=== PATIENT | male | born 1945 | race Caucasian/White ===

== ENCOUNTER 2019-09-17 07:39 | Outpatient (RCR) | payer MEDICARE, BC, SELFPAY | END 2019-10-04 00:01 | LOC: ONCMED 07:39 | PROVIDERS: Family Provider Nurse Practitioner; Visit Provider Urology | DX: C90.02 Multiple myeloma in relapse (principal); M16.0 Bilateral primary osteoarthritis of hip; I10 Essential (primary) hypertension; I48.91 Unspecified atrial fibrillation; M85.88 Other specified disorders of bone density and structure, other site; G47.00 Insomnia, unspecified; M79.89 Other specified soft tissue disorders; Z79.899 Other long term (current) drug therapy; Z79.82 Long term (current) use of aspirin; Z79.891 Long term (current) use of opiate analgesic; Z94.84 Stem cells transplant status; Z87.01 Personal history of pneumonia (recurrent); Z87.891 Personal history of nicotine dependence; Z87.442 Personal history of urinary calculi; Z98.1 Arthrodesis status | CPT/HCPCS: 74018; 96372; 99214; J0897 ==

== ENCOUNTER 2019-10-13 05:35 | Outpatient (RCR) | payer MEDICARE, BC, SELFPAY | END 2019-11-04 00:01 | LOC: ONCMED 05:35 | PROVIDERS: Family Provider Nurse Practitioner; Visit Provider Nurse Practitioner | DX: C90.02 Multiple myeloma in relapse (principal); R60.0 Localized edema; E83.52 Hypercalcemia; I10 Essential (primary) hypertension; I48.91 Unspecified atrial fibrillation; M85.80 Other specified disorders of bone density and structure, unspecified site; M25.551 Pain in right hip; Z79.899 Other long term (current) drug therapy; Z79.891 Long term (current) use of opiate analgesic; Z87.891 Personal history of nicotine dependence ==

== ENCOUNTER 2019-11-26 12:18 | Outpatient (CLI) | payer MEDICARE, BC, SELFPAY ==
--- NOTE | 2019-11-26 12:36 | CT_ITS ---
WS: [id number] CT CHEST ANGIOGRAPHY WITH REFORMATS HISTORY: MYELOMA/SHORTNESS OF BREATH/ARRHYTHMIA TECHNIQUE: Contiguous axial images are obtained through the chest during arterial injection of intrav enous contrast. Images are reconstructed to evaluate the pulmonary arteries. MIP imaging also reviewe d. All CT scans at [facility] use at least one of these dose optimization techniques: aut omated exposure control; mA and/or kV adjustment per patient size (includes targeted exams where dose is matched to clinical indication); or iterative reconstruction. CONTRAST: Omnipaque 350; 95 mL IV. DLP: 601.15 mGy.cm COMPARISON: 08/30/[address] Very good opacification of the pulmonary arteries. No persistent filling defects. Pulmonary artery si ze is normal. Mild atherosclerosis of aorta. Small bilateral pleural effusions. Heart chambers are sl ightly enlarged, in particular LEFT ventricular enlargement. There is a small amount of pericardial t hickening or fluid. No mediastinal or hilar adenopathy. Moderate coronary artery calcifications. Thoracic spondylosis wit h prior vertebroplasty at T5. L1 vertebroplasty is also present. Bilateral cystic masses associated with each kidney. Some of these cysts contain calcification in the wall. Similar distribution as on the prior study but incompletely visualized. The adrenal glands are normal. CT/CT angio chest PE protcl [id number] IMPRESSION: 1. No pulmonary embolism. 2. Small bilateral pleural effusions. 3. Mild cardiomegaly. 4. Bilateral renal cystic masses cannot be further evaluated on a noncontrast exam. 5. No pneumonia.
[2019-11-26] MEDS: iohexol 350 mg/mL 100 mL Btl IV (14:06)
== END 2019-11-26 12:19 | disposition home or self-care (01) ==
PROVIDERS: Family Provider Nurse Practitioner; PCP Nurse Practitioner; Visit Provider Internal Medicine Medical Oncology
DX: C90.02 Multiple myeloma in relapse (principal); R06.02 Shortness of breath; I49.9 Cardiac arrhythmia, unspecified; J90 Pleural effusion, not elsewhere classified; I51.7 Cardiomegaly; N28.89 Other specified disorders of kidney and ureter
CPT/HCPCS: 71275

== ENCOUNTER 2019-11-26 12:30 | Outpatient (RCR) | payer MEDICARE, BC, SELFPAY ==
[2019-11-06 11:00] LABS: Alanine Aminotransferase 15 U/L (0-41); Albumin Level 4.4 g/dL (3.5-5.2); Alkaline Phosphatase 60 IU/L (40-130); Anion Gap 16.5 (5-19); Aspartate Amino Transferase 13 U/L (0-40); Blood Urea Nitrogen 19 mg/dL (8-23); Calcium 10.7 mg/Dl (8.8-10.2); Carbon Dioxide 30 mmol/L (22-29); Chloride 97 mmol/L (98-107); Globulin 2.6 g/dL (1.3-4.6); Glucose 142 mg/dL (74-106); Immunoglobulin IGA 102 mg/dL (70-400); Immunoglobulin IGG 1052 mg/dL (700-1600); Immunoglobulin IGM 54 mg/dL (40-230); Potassium 3.5 mmol/L (3.5-5.1); Sodium 140 mmol/L (136-145); Total Bilirubin 0.7 mg/dL (0.15-1.2)
[2019-11-07 07:06] LABS: Basophils % 0.2 %; Hematocrit 42.7 % (42.0-52.0); Hemoglobin 13.6 g/dL (11.7-16.6); Lymphocytes # 0.4 10^3/uL (0.8-4.8); Lymphocytes % 6.9 %; Mean Corpuscular HGB Conc 31.9 g/dL (30.0-36.0); Mean Corpuscular Hemoglobin 27.6 pg (28.0-34.0); Mean Corpuscular Volume 86.6 fL (80-94); Mean Platelet Volume 10.4 fL (7.4-10.4); Monocytes # 1.6 10^3/uL (0.2-0.9); Monocytes % 24.8 %; Neutrophils # 4.2 10^3/uL (1.8-7.7); Neutrophils % 67.3 %; Nucleated Red Blood Cells % 0 %; Platelet Count 234 10^3/cmm (130-400); Red Blood Count 4.93 10^6/uL (4.1-5.3); Red Cell Distribution Width 16.7 % (12.1-15.1); White Blood Count 6.2 10^3/uL (4.0-10.0)
[2019-11-10 14:51] LABS: ABNORMAL PROTEIN BAND 1 0.3 g/dL (NONE DETECTED); ALBUMIN 3.6 g/dL (3.8-4.8); ALPHA 1 GLOBULIN 0.4 g/dL (0.2-0.3); ALPHA 2 GLOBULIN 0.9 g/dL (0.5-0.9); BETA 1 GLOBULIN 0.4 g/dL (0.4-0.6); BETA 2 GLOBULIN 0.3 g/dL (0.2-0.5); KAPPA LIGHT CHAIN, FREE, SERUM 13.2 mg/L (3.3-19.4); KAPPA/LAMBDA LIGHT CHAINS FREE 1.42 (0.26-1.65); LAMBDA LIGHT CHAIN, FREE, SERU 9.3 mg/L (5.7-26.3); PROTEIN, TOTAL 6.6 g/dL (6.1-8.1)
[2019-11-13] MEDS: denosumab 120 mg SDV SUBCUT (11:15)
--- NOTE | 2019-11-17 10:49 | ONC FU_ITS ---
Dr. Hernandez Patient Follow-Up Note Patient: Brandon Roberts Unit #: [id number]: 1945 Dicatated By: Brandon Hernandez M.D.Date of Visit:Nov 13, 2019 Onc Med Follow-up/Prog Note Chief Complaint: Multiple myeloma. History of Present Illness: This is a 74 year-old man with IgG kappa myeloma. He had osteopenia and associated vertebral compression fractures at initial presentation in July of 2009. He underwent treatment through the [facility] on the Total Therapy 4 L program. He was felt to be in complete remission following his induction and consolidation treatment, which included tandem autologous stem cell transplants. He completed consolidation treatment in February of 2010. He was then given 3 years of maintenance with Revlimid/Velcade/dexamethasone. He completed treatment in May 2013. He then continued Aredia infusions every 3 months for maintenance of bone health. He was last treated here in December 2015. He had subsequently continued his regular follow-up at the [facility]. As of his visit there in January 2017 he was felt to be in complete remission. He was seen here for a follow-up visit on 03/15/2017. He was having significant pain in his right lower back/pelvic area. His protein electrophoresis studies at that time showed no evidence of recurrence of myeloma, and x-ray showed no evidence of lytic bone disease. He continued on observation/expectant management. I had seen him for a follow-up visit on 11/07/2017. At that point he appeared stable clinically. However, his repeat protein electrophoresis on 01/01/2018 showed evidence of an IgG kappa monoclonal paraprotein quantitating at 0.24 g/dL. The free light chain assay was unremarkable with free kappa light chain of 12.03 mg/L, free lambda light chain of 9.24 mg/L, and kappa/lambda ratio normal at 1.30. His 24-hour urine protein electrophoresis on 01/03/2018 showed no monoclonal protein. Skeletal survey showed right femoral head degenerative subcortical cyst versus myelomatous lesion. Also noted was diffuse marked bone demineralization with multilevel thoracic and lumbar compression fractures and with vertebroplasty changes. There was bilateral hip osteoarthrosis and there were degenerative changes noted in the cervical and lumbar spine. CT of the bony pelvis on 01/15/2018 showed no evidence of osteolytic or osteoblastic change. The right femoral head lucency was felt to most likely represent overlying posterior acetabular subcortical cyst. There was progression of severe right hip osteoarthritic change compared to October 2017 study. His other medical illnesses include hypertension and atrial fibrillation. He had an admission to the hospital for opportunistic pneumonia in August of 2011. He was treated for cellulitis of the left leg in January 2015. He had smoked in the past, but he quit more than 25 years ago. INTERIM HISTORY: With the reappearance of monoclonal protein on the serum protein electrophoresis, he was referred to [facility] for reevaluation. He was seen there on 03/04/2018. His bone marrow aspiration/biopsy showed just 3% plasma cells. It was felt to be morphologically negative for myeloma. However, flow cytometric analysis revealed a plasma cell population with atypical immunophenotype comprising approximately 0.08% of analyzed events. There were no new bone lesions identified on MRI studies. His PET/CT also showed no evidence of active bone lesions. His DEXA scan showed T score -3.8 in the radial diaphysis and -0.8 in the proximal femur. He was advised to continue observation/expectant management for the myeloma. It was also recommended, though, that he start denosumab injections. During subsequent follow-up his M protein continued to increase gradually. As of 12/12/2018 it was up to 1.07 g/dL. He is seen for a scheduled visit. He subsequently had problems with kidney stones. He underwent lithotripsy initially on 01/13/2019. He then underwent lithotripsy again along with left ureteral stent placement on 02/07/2019. As of 04/21/2019 the M protein had increased to 2.9 g/dL. The free light chain assay showed elevated kappa light chain at 876 mg/L with lambda light chain 24 mg/L and elevated kappa/lambda ratio at 36.50. There was no monoclonal protein identified in his 24 hour urine specimen. At that point he started treatment with revlimid in combination with ixazomib and dexamethasone with Revlimid administered daily on a 21/28 day schedule, ixazomib administered weekly for 3 weeks, and the dexamethasone administered weekly. He tolerated the 1st cycle with acceptable toxicity, and he was able to continue with cycle 2 on 05/19/2019 and with cycle 3 on 06/16/2019. His repeat protein electrophoresis on 07/08/2019 showed decrease in the M protein to 0.7 g/dL. The free light chain assay showed kappa light chain 9.8 mg/L, lambda light chain 15.1 mg/mL and normal kappa/lambda ratio at 0.65. CT scans of the cervical, thoracic, lumbar spine on 07/10/2019 showed several small lytic lesions throughout the cervical spine, the largest measuring 10 mm in the C5 vertebral body. There were also degenerative changes, but no severe central canal stenosis. The thoracic spine showed diffuse severe osteopenia with prior vertebral plasty at T5. The lumbar spine also show diffuse osteopenia, prior vertebral plasties from L1-L4, as well as degenerative disc disease with multilevel mild central and subarticular recess stenosis. Also noted were extensive lytic areas of lucency in the sacrum. He continued on treatment with Revlimid/ixazomib/dexamethasone. He is seen for a scheduled visit. He has not been feeling good generally. He has very limited activity. ECOG score is 2. His appetite is good. He has not had fever, but he hasn't having chills and cold, clammy sweats. He has shortness of breath with activity and he has nonproductive cough. He has not been having chest pain. He has no GI complaints. His urination has been more frequent on the diuretic, but he is still having significant swelling in his legs, and he has associated blisters which are weeping. He has back pain, but it is managed adequately with oxycodone. Medications: Acyclovir 400 mg (of 400 mg) Tablet Oral b.i.d., Aspirin Low Dose 1 Tablet (of 81 mg) Tablet, chewable Oral daily, Augmentin Tablet Oral, Decadron (4 mg) Tablet Oral Take as Directed, DilTIAZem HCl 1 Tablet (of 60 mg) Oral b.i.d., Doxycycline Hyclate 1 Tablet (of 100 mg) Oral b.i.d. for 7 days, DULoxetine HCl 1 Capsule (of 20 mg) Capsule Delayed Release Particles Oral b.i.d., Furosemide 2 Tablet (of 40 mg) Oral daily, Ixazomib Citrate 1 Capsule (of 4 mg) Oral q 7 days, LORazepam 1 Tablet (of 1 mg) Oral q 8 hours PRN, NIFEdipine 1 (30 mg) Tablet SR 24 HR Oral daily, OxyCODONE HCl 1 Tablet (of 15 mg) Oral four times a day PRN, Revlimid 15 mg (of 15 mg) Capsule Oral daily, Spironolactone 1 Tablet (of 25 mg) Oral daily, TraZODone HCl 1 - 2 (50 mg) Tablet Oral at bedtime Allergies: No Known Allergies. Review of Systems: Constitutional - He has limited activity. Appetite is good. His weight is stable. He has not had fever. He has had chills and he has had cold, clammy sweats. ECOG score is 2, ENMT - He has some sinus congestion. No mouth sores. He has had sore throat. No difficulty swallowing, Hematologic/Lymphatic - He bruises easily, Respiratory - He has shortness of breath with activity. He has nonproductive cough. No pleuritic pain or hemoptysis, Cardiovascular - No angina pain. No palpitations, Gastrointestinal - No nausea or vomiting. No heartburn or acid reflux. He has constipation. No blood in the stool or black stools, Genitourinary (M) - No dysuria or hematuria. He has had more frequent urination with the diuretic. No urgency or incontinence, Musculoskeletal - He has pain in his pain area, but it is managed adequately with oxycodone, Integumentary - He has blisters on his legs associated with swelling, Neurologic - No headache. He has some orthostatic lightheadedness. He has numbness and tingling in his hands and feet, Psychiatric - No anxiety or depression. He usually sleeps OK with trazodone. Vital Signs: Performed on Nov 13, 2019 10:23 Height - 71.00 in Weight - 254.2 lbs (HIGH) BSA - 2.34 sq.m BMI - 35.45 (HIGH) Temperature - 97.4 F (LOW) Pulse - 82 /min Respiration - 26 /min BP - 136/63 mm(hg) O2 Sat - 96 % Pain - 5 Physical Examination: Constitutional - He appears generally weak, Eyes - Sclerae nonicteric. Conjunctivae clear, ENMT - No lesions noted in the oral cavity, Hematologic/Lymphatic - No cervical, clavicular, or axillary adenopathy, Respiratory - Lungs are clear with good air movement bilaterally, Cardiovascular - Heart rhythm is irregular. He has a mild tachycardia. There is no murmur, gallop, or rub noted, Abdomen - Moderately distended and tympanic. He has an umbilical hernia. Liver and spleen are not enlarged. There is no abdominal mass or ascites noted and there is no inguinal adenopathy, Extremities - There are venous stasis changes bilaterally. There is 1 to 2+ lower extremity edema, worse on the left. There is extensive purpura on the arms, Neurologic - No focal neurologic deficits noted. Lab/Imaging: Test performed on Nov 06, 2019 09:50 Glucose 142 mg/dL Protein, Total 6.6 g/dL Albumin, SPE 3.6 g/dL BUN 19 mg/dL Creatinine 1.0 mg/dL Cr Clearance (Est) 105.7000 mL/min Sodium 140 mmol/L Potassium 3.5 mmol/L Chloride 97 mmol/L CO2 30 mmol/L Calcium 10.7 mg/dL Albumin 4.4 g/dL Globulin 2.6 g/dL Bilirubin, Total 0.7 mg/dL Alkaline Phosphatase 60 IU/L AST (SGOT) 13 IU/L ALT (SGPT) 15 IU/L WBC 6.2 10^9/L RBC 4.93 10^12/L HGB 13.6 g/dL HCT 42.7 % MCV 86.6 fl MCH 27.6 pg MCHC 31.9 g/dL RDW 16.7 % Platelet Count 234 10^9/L MPV 10.4 fL Neutrophils (Gran) 4.2 10^9/L Lymphocytes 0.4 10^9/L Monocytes 1.6 10^9/L Eosinophils 0.0 10^9/L Basophils 0.0 10^9/L Manual Lymphocytes 6.9 % Manual Monocytes 24.8 % Manual Eosinophils 0.0 % Manual Basophils 0.2 % NRBCs 0.0 /100 WBC IGA 102 mg/dL IGG 1052 mg/dL IGM 54 mg/dL [place] / Lambda Ratio 1.42 Absolute Value Lambda Light Chain 9.3 [place] Light Chain 13.2 Kbftn-[id number] 0.4 g/dL Iogzc-0-ndgzwzcf 0.9 g/dL Gamma Globulin 1.0 g/dL M-Kevin 0.3 g/dL SPE Interpretation Faint restricted band (M-spike) migrating in the gamma region. Consider serum immunofixation to rule out a monoclonal protein if clinically indicated. (Immunofixation pending) Impression: 1. Patient with IgG kappa myeloma, initially diagnosed in July 2009. He had associated osteopenia and multiple vertebral compression fractures. 2. He underwent treatment at the [facility] on the total therapy 4L protocol. He completed his maintenance therapy with Revlimid, Velcade and dexamethasone in May 2013. 3. He had continued Aredia infusions every 3 months for bone health. He was last treated here in December 2015. 4. As of his follow-up visit at [facility] in January 2017, his myeloma was felt to be in complete remission. His other medical illnesses include: 5. Hypertension. 6. Atrial fibrillation. 7. He required treatment for opportunistic pneumonia in August 2011. 8. He was treated for cellulitis of the left leg in January 2015. In March 2017 he presented with increased pain in his lower back and pelvic area. His laboratory studies and x-rays at that time showed no evidence of recurrence of the myeloma. However, his repeat protein electrophoresis in December 2017 did show a small IgG kappa monoclonal protein spike quantitating at 0.24 g/dL, consistent with early relapse of his myeloma. He had follow-up at [facility] on 03/04/2018. Based on their recommendations, he hasbeen followed on observation/expectant management for the myeloma, but he did start monthly denosumab injections. During follow-up there was continued gradual increase in his M protein. As of 12/12/2018 it had increased to 1.07 g/dL. His subsequent clinical course was complicated nephrolithiasis requiring lithotripsy and ureteral stent placement. As of 04/21/2019 there was further increase in the M protein to 2.9 g/dL. The free light chain assay showed elevated kappa light chain at 876 mg/L with lambda light chain 24 mg/L and elevated kappa/lambda ratio at 36.50. There was no monoclonal protein identified in his 24 hour urine specimen. At that point he started treatment with Revlimid in combination with ixazomib and dexamethasone. As of his follow-up visit on 07/14/2019 he had completed 3 cycles of treatment, and at that point he did appear to be showing a very good response by serum protein electrophoresis. He then continued on the same treatment. He had been tolerating it well other than he developed significant fluid retention and other side effects with the steroid. The swelling had initially improved with diuretic therapy, and he was able to continue treatment. as of October 2019 he began his 7th cycle. Since then his swelling has worsened again, and he has developed associated venous stasis ulcerations in his legs. There also has been significant decline in his performance status, though his laboratory studies continue to show significant treatment response. Plan: His treatment will be put on hold, but he will be given denosumab 120 mg by subcutaneous injection for the lytic bone involvement.. He will begin antibiotic coverage with Levaquin 500 mg daily for 7 days, as it does appear that he has some associated cellulitis. He will increase spironolactone to 50 mg daily, and he will now be referred to wound care. Signed By: Brandon Hernandez M.D. <<Signature on File>>
== END 2019-12-05 23:59 | disposition home or self-care (01) ==
LOC: RAD 12:30
PROVIDERS: Nurse Practitioner; Family Provider Nurse Practitioner; PCP Nurse Practitioner; Visit Provider Internal Medicine Medical Oncology
DX: C90.02 Multiple myeloma in relapse (principal); I10 Essential (primary) hypertension; I48.91 Unspecified atrial fibrillation; M79.89 Other specified soft tissue disorders; M54.9 Dorsalgia, unspecified; I87.8 Other specified disorders of veins; L03.116 Cellulitis of left lower limb; L03.115 Cellulitis of right lower limb; Z79.891 Long term (current) use of opiate analgesic; Z94.84 Stem cells transplant status; Z79.899 Other long term (current) drug therapy; Z79.82 Long term (current) use of aspirin; Z87.891 Personal history of nicotine dependence; Z87.01 Personal history of pneumonia (recurrent); Z87.442 Personal history of urinary calculi
CPT/HCPCS: 80053; 82784; 83883; 84155; 84165; 85025; 93000; 96372; 99214; J0897

== ENCOUNTER 2019-12-02 12:57 | Outpatient (RCR) | payer MEDICARE, BC, SELFPAY ==
--- NOTE | 2019-11-25 09:07 | USCV_ITS ---
Brandon Roberts Age: 74 Gender: M : 1945 Exam Date: 11/25/2019 09:46 Ordering Phys: Latricia Hughes Technologist: Hasmukh Orourke [place] [facility] [place]: HISTORY: Lower extremity swelling. Lower extremity edema. PROCEDURES: Bilateral duplex Venous Insufficiency study of the Deep and Superficial systems was carried out according to normal protocol with the patient in supine positon for deep system and dependent position for the superficial system. FINDINGS: All deep veins demonstrated compressibility without evidence of intraluminal thrombus or increased echogenicity. Spectral analysis of Doppler signals demonstrates normal response to compression maneuvers indicating patency without obstruction. Reflux determinations were made with the patient in the dependent position, the weight being on the contralateral leg. Vein measurements and reflux times are listed below were applicable. THE RT SFV JUCNTION HAS SICNIFICANT REFLUX THERE IS NO OTHER REFLUX IN BOTH SAPH SYSTEMS. CONCLUSIONS No evidence of DVT in the above-mentioned identifiable veins. Significant venous reflux of greater than 500 ms was noted at the right saphenofemoral junction No other significant refluxes were noted Venous dimensions, depth from the surface and reflux times as mentioned Dr Houston Haskins MD [facility] (Electronically Signed) Final Date: 26 November 2019 00:07 S
--- NOTE | 2019-12-01 15:45 | USCV_ITS ---
Brandon Roberts Age: 74 Gender: M : 1945 Exam Date: 12/01/2019 15:03 Ordering Phys: Latricia Huhges Technologist: Exam Location: [facility] [place] Indication: NON HEALING ULCER RIGHT LEFT Brachial 146.00 mmHg Brachial 137.00 mmHg Pressure (mmHg) Waveform Pressure (mmHg) Waveform 61.00 Pre-Exercise Toe Pressure 73.00 0.42 Pre-Exercise Toe/Brachial Index 0.50 FINDINGS Bilateral ankle pressures greater than 220 LOLA= N/A Supernormal resting ABIs bilaterally Abnormal resting TBIs bilaterally PVR waveforms showing some blunting of the dicrotic notch. Technically somewhat limited study CONCLUSIONS Abnormal resting TBIs bilaterally, suggestive of moderate peripheral artery disease, possibly involving the distal vessels Features of extensive arterial sclerosis Dr Houston Haskins MD [facility] (Electronically Signed) Final Date: 02 December 2019 18:47 S
== END 2019-12-05 23:59 | disposition home or self-care (01) ==
LOC: RAD 12:57
PROVIDERS: Family Provider Nurse Practitioner; PCP Nurse Practitioner; Visit Provider Thoracic Surgery (Cardiothoracic Vascular Surgery)
DX: I96 Gangrene, not elsewhere classified (principal); L97.822 Non-pressure chronic ulcer of other part of left lower leg with fat layer exposed; M79.604 Pain in right leg; M79.605 Pain in left leg
CPT/HCPCS: 11042; 87070; 87077; 87176; 87186; 87205; 93923; 93970; 99203; 99212; A6545; G0463

== ENCOUNTER 2019-12-19 15:26 | Observation (INO) | payer MEDICARE, BC, SELFPAY ==
[2019-12-19] VITALS (8 sets, daily range): BP systolic 130–150; BP diastolic 93–103; PULSE 88–106; RESP 15–27; TEMP 36.6–36.8; O2SAT 92–99; BMI 34.8
--- NOTE | 2019-12-19 15:41 | ED_ITS ---
Entered by Radha Recinos, acting as scribe for Guille Conn DO HPI - Chest Pain General: Chief Complaint: Chest Pain Stated Complaint: SOB, chest pressure Time Seen by Provider: 12/19/19 15:41 Source: patient and family Mode of arrival: ambulatory Limitations: no limitations History of Present Illness: HPI narrative: 74 yo male presents with shortness of breath and fullness. pt states he has had chest discomfort. pt states walking and movement makes the pain and shortness of breath worse and nothing makes it better. pt states he has a appointment on Sunday but could not wait that long to see Dr. Haskins. pt states he is a pt of Dr. Salass. Patient's heart rate is irregularly irregular on the rhythm strip he appears to be in A. fib with rapid ventricular response. He is asymptomatic as he sits in the bed but states with any exertion he gets severely short of breath and notices market increase in his heart rate. 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) Timing of current episode: constant and increasing Prior episodes: Yes Onset: during exertion Pain location: epigastric Pain radiation: abdomen and other (chest) Severity: moderate Quality: fullness and other (pressure) Relieving factors: nothing Exacerbating factors: exertion and movement Associated symptoms: Reports diaphoresis, dyspnea and leg edema; Deny abdominal pain, nausea or vomiting Treatment prior to arrival: none Review of Systems Const: Reports: chills, fatigue, night sweats and diaphoresis Eyes: Denies: change in vision or blurry vision ENMT: Denies: throat pain, oral sores/lesions, dental pain, nasal discharge or nasal congestion Card: Reports: chest pain, irregular heart rhythm, edema, shortness of breath on exertion and shortness of breath when lying down Resp: Reports: shortness of breath GI: Denies: abdominal pain, nausea, vomiting, vomiting blood, coffee grounds in vomit, difficulty swallowing, heartburn/indigestion, diarrhea, constipation, cramping, blood in stool or black tarry stool : Denies: flank pain, difficulty urinating, painful urination, urinary f requency, urinary urgency, urinary incontinence or blood in urine Musc: Denies: neck pain, back pain, extremity pain, extremity swelling, joint pain or joint swelling Skin/Breast: Denies: rash, itching or redness Neuro: Denies: headache, numbness in extremities, weakness in extremities, changes in sensation, lack of coordination, difficulty walking, frequent falls, dizziness, vertigo or confusion Psych: Denies: anxiety, depression, loss of interest, visual hallucinations, auditory hallucinations, suicidal ideation or homicidal ideation Endo: Denies: excessive urination, excessive thirst, tired all the time or cold intolerance Valentino/Lymph: Denies: easy bruising, easy bleeding, petechiae, enlarged lymph nodes or tender lymph nodes PFSH ED PFSH: Medical History (Updated 12/19/19 @ 22:30 by Esmer Jasso MD) Dyspnea on exertion Venous insufficiency Surgical History (Updated 12/19/19 @ 22:30 by Esmer Jasso MD) Autologous bone marrow transplantation status Social History Smoking and tobacco status: former smoker Physical Exam Const: COMMON NORMALS: average body habitus, oriented x3 and alert GENERAL APPEARANCE: cooperative, comfortable, well kempt and well developed ORIENTATION/CONSCIOUSNESS: Yes awake, Yes oriented to person and Yes oriented to place HENMT: COMMON NORMALS: normocephalic, head/scalp atraumatic, EAC's normal, TM's normal bilaterally, external nose normal, moist oral mucous membranes and oropharynx normal HEAD & SCALP: normocephalic and atraumatic NOSE: external nose normal EXTERNAL AUDITORY CANAL: EAC's normal TYMPANIC MEMBRANE: TM's normal bilaterally MOUTH: oral and palatal mucosa normal, lip normal and tongue normal THROAT: posterior oropharynx normal and tonsils normal Eye: COMMON NORMALS: PERRL, EOMs intact bilaterally, conjunctivae normal and no scleral icterus CONJUNCTIVA: Yes conjunctivae normal PUPIL: Yes PERRL Neck/C-Spine: COMMON NORMALS: full ROM, no lymphadenopathy, supple, no me ningeal signs and thyroid normal THYROID: thyroid normal and asymmetrical Lymph: LYMPHATIC: no lymphadenopathy noted Resp: COMMON NORMALS: normal respiratory effort, no use of accessory muscles and clear to auscultation bilaterally AUSCULTATION: clear to auscultation bilaterally Cardio: RATE: tachycardic RHYTHM: abnormal rhythm irregularly irregular GI: COMMON NORMALS: normal to inspection, nondistended, normoactive bowel sounds, soft to palpation and no hepatosplenomegaly PALPATION: Yes soft and Yes no hepatosplenomegaly : COMMON NORMALS: Yes no CVA tenderness BLADDER/KIDNEY EXAM: Yes no CVA tenderness Back/Pelvis: COMMON NORMALS: no CVA tenderness LUMBAR SPINE/LOWER BACK: Yes normal to inspection Extremity: COMMON NORMALS: no clubbing, cyanosis or edema, no calf tenderness and no pedal edema Neuro: COMMON NORMALS: oriented x3 SENSORIUM/ORIENTATION: Yes alert, Yes oriented to person and Yes oriented to place MENINGEAL SIGNS: Yes no meningeal signs Psych: APPEARANCE: Yes well kempt Skin: COMMON NORMALS: no rashes or lesions noted and skin turgor normal GENERAL SKIN EXAM: no rashes or lesions noted and turgor normal Course ED course: Patient has a known history of atrial fibrillation is currently off of his anticoagulation. He does need medication adjustment a little bit concerning that he gets chest discomfort with exertional he is in A. fib. We will go ahead and put him on Nobbs to make medication adjustments and evaluate for the need for further testing for coronary artery disease. Vital Signs: Vital signs: Vital Signs Temperature 98 F 12/20/19 04:00 Pulse Rate 93 12/20/19 11:50 Respiratory Rate 19 H 12/20/19 11:50 Blood Pressure 134/92 12/20/19 11:50 Pulse Oximetry 98 12/20/19 11:50 MDM - Chest Pain Lab Data: Labs: Lab Results 12/19/19 12/19/19 12/19/19 Range/Units 16:05 16:05 16:05 WBC 6.4 (4.0-10.0) 10^3/ uL RBC 5.24 (4.1-5.3) 10^6/u L Hgb 14.6 (11.7-16.6) g/dL Hct 44.6 (42.0-52.0) % MCV 85.1 (80-94) fL MCH 27.9 L (28.0-34.0) pg MCHC 32.7 (30.0-36.0) g/dL RDW 17.2 H (12.1-15.1) % Plt Count 183 (130-400) 10^3/c mm MPV 9.9 (7.4-10.4) fL Neut % (Auto) 69.5 % Lymph % (Auto) 14.5 % Sandoval % (Auto) 15.1 % Eos % (Auto) 0.3 % Baso % (Auto) 0.3 % Neut # (Auto) 4.4 (1.8-7.7) 10^3/u L Lymph # (Auto) 0.9 (0.8-4.8) 10^3/u L Sandoval # (Auto) 1.0 H (0.2-0.9) 10^3/u L Eos # (Auto) 0.0 (0.0-0.8) 10^3/u L Baso # (Auto) 0.0 (0.0-0.1) 10^3/u L Nucleated RBC % (a uto) 0 % Nucleated RBCs # 0.0 /100WBC Sodium 138 (136-145) mmol/L Potassium 4.2 (3.5-5.1) mmol/L Chloride 96 L (98-107) mmol/L Carbon Dioxide 27 (22-29) mmol/L Anion Gap 19.2 H (5-19) BUN 15 (8-23) mg/dL Creatinine 0.8 (0.7-1.2) mg/dL Glucose 94 (65-115) mg/dL Calcium 10.9 H (8.5-10.5) mg/dL Total Bilirubin 1.0 (0.15-1.2) mg/dL AST 18 (0-40) U/L ALT 14 (0-41) U/L Alkaline Phosphata se 75 (40-130) IU/L Troponin T Baselin e 53 H (0-15) ng/mL NT-Pro-B Natriuret Pep 2776 H (0-125) pg/mL Total Protein 7.1 (6.6-8.7) g/dL Albumin 4.6 (3.5-5.2) g/dL Globulin 2.5 (1.3-4.6) g/dL Discharge Plan Discharge Patient Disposition: Placed in Observation Admit Provider: Esmer Jasso Clinical Impression: Atrial fibrillation, Atypical chest pain, Multiple myeloma Condition: Stable Referrals: Micki Montero, PHLEBOTOMIST LAB ASSISTANT-C [Primary Care Provider] - Discharge Date/Time: 12/19/19 18:50 Coding Level of Care Code ED Video Producer for Chg Fwd Exam Detailed The documentation recorded by the Jorje pacheco Bridget Annette, accurately reflects the service I personally performed and the decisions made by , Guille Conn, Dec 19, 2019 15:26
--- NOTE | 2019-12-19 16:00 | ECG_ITS ---
Measurements Intervals [place] Rate: 109 P: 127 RI: 149 QRS: 194 QRSD: 102 T: 56 QT: 352 QTc: 475 SINUS TACHYCARDIA WITH FREQUENT SUPRAVENTRICULAR PREMATURE COMPLEXES ARM LEADS REVERSED [INVERTED P AND QRS IN I] ABNORMAL RHYTHM ECG INTERPRETATION BASED ON A DEFAULT AGE OF 40 YEARS Compared to ECG 01/09/2019 11:07:17 Sinus rhythm no longer present Sinus arrhythmia no longer present Left-axis deviation no longer present Myocardial infarct finding no longer present Electronically Signed On 12-19-2019 20:48:50 AIRCRAFT ARMORER by Tez Raya M.D. [id number]
[2019-12-19] MEDS: metoprolol tartrate 1 mg/1 mL SDV 5 mL 2.5 MG IV (16:28)
[2019-12-19] MEDS: metoprolol tartrate 25 mg Tablet PO (16:28)
[2019-12-19 16:32] LABS: Basophils % 0.3 %; Eosinophils % 0.3 %; Hematocrit 44.6 % (42.0-52.0); Hemoglobin 14.6 g/dL (11.7-16.6); Lymphocytes # 0.9 10^3/uL (0.8-4.8); Lymphocytes % 14.5 %; Mean Corpuscular HGB Conc 32.7 g/dL (30.0-36.0); Mean Corpuscular Hemoglobin 27.9 pg (28.0-34.0); Mean Corpuscular Volume 85.1 fL (80-94); Mean Platelet Volume 9.9 fL (7.4-10.4); Monocytes % 15.1 %; Neutrophils # 4.4 10^3/uL (1.8-7.7); Neutrophils % 69.5 %; Nucleated Red Blood Cells % 0 %; Platelet Count 183 10^3/cmm (130-400); Red Blood Count 5.24 10^6/uL (4.1-5.3); Red Cell Distribution Width 17.2 % (12.1-15.1); White Blood Count 6.4 10^3/uL (4.0-10.0)
[2019-12-19 16:48] LABS: Troponin(5th) Baseline 53 ng/mL (0-15)
[2019-12-19 16:58] LABS: Alanine Aminotransferase 14 U/L (0-41); Albumin Level 4.6 g/dL (3.5-5.2); Alkaline Phosphatase 75 IU/L (40-130); Anion Gap 19.2 (5-19); Aspartate Amino Transferase 18 U/L (0-40); Blood Urea Nitrogen 15 mg/dL (8-23); Calcium 10.9 mg/dL (8.5-10.5); Carbon Dioxide 27 mmol/L (22-29); Chloride 96 mmol/L (98-107); Globulin 2.5 g/dL (1.3-4.6); Glucose 94 mg/dL (65-115); NT Pro B Type Natriuretic Pept 2776 pg/mL (0-125); Potassium 4.2 mmol/L (3.5-5.1); Sodium 138 mmol/L (136-145); Total Protein 7.1 g/dL (6.6-8.7)
--- NOTE | 2019-12-19 17:07 | XR_ITS ---
WS: [id number] XR chest 1V portable [id number] REASON FOR EXAM: dyspnea/cough FINDINGS: There is borderline cardiomegaly. Previous vertebral plasty changes are seen involving the fifth thoracic vertebra. The peripheral lung show no active infiltrates no definite pneumonia or congestive heart failure. XR/XR chest 1V portable [id number] IMPRESSION: Cardiomegaly with arteriosclerotic changes No definite pneumonic changes. Unchanged since previous exam of 10/21/2017.
--- NOTE | 2019-12-19 18:00 | ECG_ITS ---
Measurements Intervals [place] Rate: 90 P: 56 MT: 161 QRS: -9 QRSD: 102 T: 130 QT: 366 QTc: 449 SINUS RHYTHM WITH OCCASIONAL SUPRAVENTRICULAR PREMATURE COMPLEXES SEPTAL MYOCARDIAL INFARCTION [40+ ms Q WAVE IN V1/V2], OF INDETERMINATE AGE MODERATE T-WAVE ABNORMALITY, CONSIDER LATERAL ISCHEMIA [-0.1+ mV T WAVE IN I/aVL/V5/V6] Compared to ECG 12/19/2019 18:00:31 Myocardial infarct finding now present Possible ischemia now present Atrial fibrillation no longer present T-wave abnormality still present Electronically Signed On 12-20-2019 14:27:28 CPO by Robert Valles M.D. [id number]
[2019-12-19 18:31] LABS: Troponin 5 2HR 53.94 ng/mL (0-15); Troponin 5 2HR Delta 0.94 ABS# (0-10)
--- NOTE | 2019-12-19 20:12 | PC.NURSE ---
Patient arrived to the floor from the ED. Family and Dr. Jasso at bedside. Patient is alert and oriented. Patient is not complaining of any pain or shortness of breath. Oxygen saturation is 94% on room air. Heart rate is 90s in A-fib. Patient has discoloration of bilateral legs, but family states this is normal for him. Feet are warm and pulses present.
--- NOTE | 2019-12-19 21:01 | PM.HP ---
Providers/Chief Complaint Admitting Physician: Esmer Jasso MD Primary Care Provider: Micki Montero, DIRECTOR OF EARLY CHILDHOOD-C Chief Complaint: AFIB W/RVR, ATYPICAL CHEST PAIN, MULTIPLE MYELOMA History of Present Illness Brandon Roberts is a 74 year old male with multiple myeloma, previosuly treated in 2012 and s/p autoSCT x 2, in remission for few years, with recurrence of disease in 2018, started on rx with Revlimid in combination with ixazomib and dexamethasone 04/2019-11/2019. He had been tolerating the rx except significant fluid retention and other side effects with the steroid. The swelling had initially improved with diuretic therapy lasix 80mg qd and spirinolactone, and he was able to continue treatment. As of October, his swelling has worsened again, and he developed associated venous stasis ulcerations in his legs, therefore treatment was put on hold. His ulcers have subsequently healed. He has improving LE swelling. However since the past month he is experiencing worsening shortness of breath with exertion. While he was earlier able to walk aisles in [facility], he is now barely able to ambulate within his house to the bathroom. Orthopnea+. No c/o chest pain. Over the same period he has experienced some intermittent chest discomfort, his has noticed his HR to be fluctuating between 60s-140s. He presented to ED today with worsened shortness of breath. Upon arrival he was noted to have atrial fibrillation with HR 120s, for which he received iv metoprolol 2.5 mg and po 25mg with HR now 80s. BP is controlled. He is saturating 94% on RA. He previously has a h/o Atrial fibrillation in 2002 during an episode of pneumonia, but he in unsure if he has had it subsequently. He has never had an event monitor or other cardiac w/up in this regard. Not currently on a/c. He had recenly undergone CTA chest on 11/26 which did not show PE. Venous doppler negative for DVT. Review of Systems General: Reports: 10 or more systems reviewed and unremarkable except in HPI and below Const: Denies: fever, chills or body aches Eyes: Denies: change in vision, blurry vision or photophobia ENMT: Reports: hoarseness; Denies: throat pain, enlarged tonsils, painful swallowing or nasal congestion Card: Reports: irregular heart rhythm, shortness of breath on exertion and shortness of breath when lying down; Denies: chest pain, palpitations, edema, swelling of feet/ankles, lightheadedness or pre-syncope Resp: Reports: shortness of breath; Denies: productive cough, non-productive cough, wheezing, stridor, pain on inspiration, change in phlegm color, coughing up blood or chest congestion GI: Denies: abdominal pain, nausea, vomiting, vomiting blood, coffee grounds in vomit, difficulty swallowing, heartburn/indigestion, diarrhea, constipation, cramping, change in stool character, blood in stool or black tarry stool : Denies: flank pain, painful urination, urinary frequency, urinary urgency, urinary hesitancy or blood in urine Musc: Denies: neck pain, back pain, extremity pain, joint swelling, joint warmth or deformity Neuro: Denies: headache, numbness in extremities, weakness in extremities, changes in sensation, difficulty walking, frequent falls, dizziness, vertigo, behavioral changes, slurred speech or seizure-like activity Psych: Denies: anxiety, depression, suicidal ideation or homicidal ideation Endo: Denies: excessive urination, excessive thirst, tired all the time, cold intolerance or hot flashes Valentino/Lymph: Denies: easy bruising or easy bleeding Medications/Allergies Home Medications Medication Instructions Recorded Confirmed Last Taken Type acyclovir 400 mg PO BID 12/19/19 12/19/19 12/19/19 History aspirin 81 mg PO DAILY 12/19/19 12/19/19 12/19/19 History dexamethasone 4 mg PO DAILY 12/19/19 12/19/19 Unknown History diltiazem HCl 60 mg PO BID 12/19/19 12/19/19 12/19/19 History duloxetine 20 mg PO BID 12/19/19 12/19/19 12/19/19 History furosemide 80 mg PO DAILY 12/19/19 12/19/19 12/19/19 History ixazomib [Ninlaro] 4 mg PO DAILY 12/19/19 12/19/19 Unknown History lenalidomide [Revlimid] 15 mg PO DAILY 12/19/19 12/19/19 Unknown History lorazepam 1 mg PO Q6H PRN 12/19/19 12/19/19 12/18/19 History nifedipine 30 mg PO DAILY 12/19/19 12/19/19 12/19/19 History oxycodone 15 mg PO QID PRN 12/19/19 12/19/19 12/19/19 History potassium chloride 20 meq PO DAILY 12/19/19 12/19/19 12/19/19 History spironolactone 50 mg PO DAILY 12/19/19 12/19/19 12/19/19 History trazodone 50 mg PO BEDTIME 12/19/19 12/19/19 12/18/19 History Allergies Allergy/AdvReac Type Severity Reaction Status Date / Time No Known Allergies Allergy Verified 12/19/19 15:36 PFSH Acute PFSH: Medical History (Updated 12/19/19 @ 22:30 by Esmer Jasso MD) Dyspnea on exertion Venous insufficiency Surgical History (Updated 12/19/19 @ 22:30 by Esmer Jasso MD) Autologous bone marrow transplantation status Social History Smoking and tobacco status: former smoker Vitals/I&O/Wt Last Vital Signs Temp 98.3 F 12/19/19 20:52 Pulse 94 12/19/19 20:52 Resp 27 H 12/19/19 20:52 BP 139/93 12/19/19 20:52 Pulse Ox 94 12/19/19 20:52 Weight last 48 hrs Weight 113.398 kg Data : 12/19/19 16:05 12/19/19 16:05 A&P Assessment and plan (1) Atrial fibrillation: Status: Acute Code(s): I48.91 - Unspecified atrial fibrillation (2) Multiple myeloma: Status: Acute Code(s): C90.00 - Multiple myeloma not having achieved remission (3) Dyspnea on exertion: Status: Acute Code(s): R06.09 - Other forms of dyspnea (4) Venous insufficiency: Status: Acute Code(s): I87.2 - Venous insufficiency (chronic) (peripheral) Additional A&P Information Admit to CSU for observation Currently rate controlled continue cardizem but increase dose to 60mg TID from BID. Cardizem infusion to Keep HR < 120 if needed IV lasix 20mg now Echocardiogram to estimate EF, evaluate for heart failure tropinin with 120min delta not significant for ACS continue spirinolactone Continue ASA DVT ppx: lovenox full code Attestations Medical Necessity Statement*: admitted in view of A fib, evluation for CHF Coding Level of Care Code Acute Rail Bender for Chg Fwd Diagnoses Atrial fibrillation I48.91 Multiple myeloma C90.00 Dyspnea on exertion R06.09 Venous insufficiency I87.2
[2019-12-19] MEDS: LORazepam 1 mg Tablet PO (21:31)
[2019-12-19] MEDS: FUROsemide 10 mg/mL SDV 2mL 20 MG IVP (21:32)
--- NOTE | 2019-12-19 22:00 | ECG_ITS ---
Measurements Intervals [place] Rate: 89 P: DC: 0 QRS: -10 QRSD: 97 T: 104 QT: 357 QTc: 435 ATRIAL FIBRILLATION MINIMAL VOLTAGE CRITERIA FOR LVH, CONSIDER NORMAL VARIANT [MEETS CRITERIA IN ONE OF: R(aVL), S(V1), R(V5), R(V5/V6)+S(V1)] NONSPECIFIC T-WAVE ABNORMALITY Compared to ECG 01/09/2019 11:07:17 T-wave abnormality now present Sinus rhythm no longer present Sinus arrhythmia no longer present Left-axis deviation no longer present Myocardial infarct finding no longer present Electronically Signed On 12-19-2019 20:52:14 ARTIFICIAL LIMB FITTER by Tez Raya M.D. [id number]
[2019-12-19] MEDS: oxyCODONE IR 30 mg Tablet 15 MG PO (22:20)
[2019-12-19] MEDS: trazodone 50 mg Tablet PO (22:25)
--- NOTE | 2019-12-19 22:26 | PC.NURSE ---
Patient's oxygen saturation was 94% on room air, however patient was complaining of shortness of breath. 2 L NC placed on patient for comfort and patient states the shortness of breath is better.
[2019-12-19 22:37] LABS: Troponin 5 6HR 58.57 ng/mL (0-15); Troponin 5 6HR Delta 5.57 ng/L (0-12)
[2019-12-20] VITALS (15 sets, daily range): BP systolic 123–155; BP diastolic 80–107; PULSE 88–105; RESP 15–21; TEMP 36.6; O2SAT 91–98
[2019-12-20] MEDS: enoxaparin 40 mg/0.4 mL Syringe SUBCUT ×2 (00:06→21:18)
[2019-12-20 04:57] LABS: Anion Gap 14.8 (5-19); Blood Urea Nitrogen 16 mg/dL (8-23); Calcium 9.7 mg/dL (8.5-10.5); Carbon Dioxide 30 mmol/L (22-29); Chloride 101 mmol/L (98-107); Glucose 123 mg/dL (65-115); Osmolality Calculated 292 mOsm/kg (285-295); Potassium 3.8 mmol/L (3.5-5.1); Sodium 142 mmol/L (136-145)
--- NOTE | 2019-12-20 06:26 | PC.NURSE ---
Dr. Sanz notified that patient states he is feeling short of breath. Patient has expiratory wheezing on auscultation. Patient's heart rate is 106. Patient's oxygen saturation is 94% on 2 L NC.
[2019-12-20] MEDS: ipratropium-albuterol 3 mL Neb INHALATION ×3 (07:22→19:42)
[2019-12-20] MEDS: FUROsemide 10 mg/mL SDV 4mL 40 MG IVP ×2 (07:31→21:18)
[2019-12-20] MEDS: oxyCODONE IR 30 mg Tablet 15 MG PO ×2 (07:31→13:20)
[2019-12-20] MEDS: dilTIAZem 60 mg Tablet PO ×3 (08:36→21:17)
[2019-12-20] MEDS: duloxetine 20 mg Capsule PO ×2 (08:37→18:25)
[2019-12-20] MEDS: spironolactone 25 mg Tablet 50 MG PO (08:37)
[2019-12-20] MEDS: aspirin 81 mg Chew Tablet PO (08:37)
--- NOTE | 2019-12-20 08:51 | P.PN_ITS ---
Subjective Subjective: Interval history: this morning patient had episode of shortness of breath while walking to his room door. He returned to the bed and was noted to be wheezing afterwards. received 40mg iv lasix and duonebs with improvement in symptoms. Duringthis episode HR was 106, BP 140/101, 02 sat 91%. Echo pending Medications: Reviewed: Yes Vitals/I&O/Wt Last Vital Signs Temp 98 F 12/20/19 04:00 Pulse 104 H 12/20/19 07:29 Resp 18 12/20/19 07:31 BP 155/107 12/20/19 07:28 Pulse Ox 98 12/20/19 07:31 12/19/19 12/20/19 12/20/19 22:59 06:59 14:59 Intake Total 300 / 300 236 / 236 Balance 300 / 300 236 / 236 Weight last 48 hrs Weight 111.402 kg Weight 113.398 kg Physical Exam Narrative: EXAM NARRATIVE: GEN: Awake, alert and oriented, no acute distress CVS: S1S2 N RS: CTA B/L except reduced air entry at left lung base, unchanged from yesterday. Abd: Soft, nt/nd , bs+ PRODUCT SALES REPRESENTATIVE: no focal neuro deficits Data : 12/19/19 16:05 12/20/19 04:01 A&P Assessment and plan (1) Dyspnea on exertion: Status: Acute Code(s): R06.09 - Other forms of dyspnea (2) Venous insufficiency: Status: Acute Code(s): I87.2 - Venous insufficiency (chronic) (peripheral) (3) Atrial fibrillation: Status: Acute Code(s): I48.91 - Unspecified atrial fibrillation (4) Atypical chest pain: Status: Acute Code(s): R07.89 - Other chest pain (5) Multiple myeloma: Status: Acute Code(s): C90.00 - Multiple myeloma not having achieved remission Additional A&P Information 1. A fib with RVR : Continue cardizem but increase dose to 60mg TID from BID. Lasix 40mg iv q12h Echocardiogram to estimate EF, evaluate for heart failure tropinin with 120min delta not significant for ACS continue spirinolactone Continue ASA DVT ppx: lovenox full code Attestations Medical Necessity Statement*: rate control, management and w/up of CHF Coding Level of Care Code Acute Internet Security Specialist for Chg Fwd Diagnoses Dyspnea on exertion R06.09 Venous insufficiency I87.2 Atrial fibrillation I48.91 Atypical chest pain R07.89 Multiple myeloma C90.00
--- NOTE | 2019-12-20 08:58 | US_ITS ---
WS: [id number] ABDOMINAL ULTRASOUND LIMITED REASON FOR VISIT: evaluate ascites TECHNIQUE: Grayscale and Doppler ultrasound examination of the abdomen. FINDINGS: Pancreas: Appears to be within normal limits. Abdominal aorta and IVC: Normal. Liver: Liver measures within normal limits. There is no evidence of ascites seen in the abdomen. US/US abdomen limited [id number] IMPRESSION: No evidence of ascites.
[2019-12-20] MEDS: acyclovir 400 mg Tablet PO ×2 (10:29→18:25)
[2019-12-20 10:45] LABS: Magnesium 2.6 mg/dL (1.7-2.3)
--- NOTE | 2019-12-20 14:38 | PC.CHAP ---
Pastoral Care Encounter/Spiritual Assessment Type of Contact [] Declined bilingual sales consultant visit [] Patient/Family/Request visit [] Outpatient visit [] Follow-up visit [] Physician referral [] Code/Alert [x] Routine visit [] Staff referral [] Actively dying [] Patient sleeping [x] Family support [] [] Out of room [] Palliative care [] [] Receiving care in room [] Pre-surgical visit [] Trauma [] Long length of stay [] ICU visit [] Other: Relational/Emotional Strength [x] Patient feels connected with others/family/visitors/staff [] Distress [] Loneliness/isolation [] Abandonment Spirituality of Patient [x] Person of Yesenia [] Attends Yazidi of their Yesenia [x] Believes in Prayer [] Reads Bible or Mormon materials [] There are Spiritual issues to be addressed Print Producer Interventions [x] Prayer [x] Active listening [x] Non-anxious presence [x] Spiritual/emotional support [] Crisis/trauma care [] Spiritual counseling [] Bereavement support [] Provided bereavement packet [] Provided Bible/devotional materials [] Provided toy/stuffed animal, coloring book to patient or family member [] Provided Communion [] Anointing/[place] [] Salvation [x] Completed spiritual assessment [] Other: Impact on Illness or Injury [] Angry [] Fearful [] Anxious [] Often cries [] Exhaustion [] Unable to work [] Unable to attend zoroastrian [] Unable to walk/stand [] Unable to read [] Unable to drive [] Unable to eat/drink [] Unable to sleep [] Unable to be with family [] Patient intubated [] Other: Summary The patient was quite but alert. Print Producer prayed with him and his . Time spent with patient 10 min.
[2019-12-20] MEDS: guaiFENesin 600 mg Tablet PO ×2 (15:32→18:24)
[2019-12-20] MEDS: LORazepam 1 mg Tablet PO (21:18)
[2019-12-20] MEDS: trazodone 50 mg Tablet PO (21:18)
--- NOTE | 2019-12-20 22:35 | USCV_ITS ---
Brandon Roberts Age: 74 Gender: M : 1945 Exam Date: 12/20/2019 08:38 Ordering Phys: Esmer Jasso MD Technologist: Hasmukh Orourke [place] [facility] [place] [facility] [place]: HX CAD WEAKNESS BP: 155 / 107 HR: 103 Rhythm: Sinus Technical Quality: Poor MEASUREMENTS (Male / Female) Normal Values 2D ECHO LV Diastolic Diameter PLAX 4.2 cm 4.2 - 5.9 / 3.9 - 5.3 cm LV Systolic Diameter PLAX 3.0 cm IVS Diastolic Thickness 0.9 cm 0.6 - 1.0 / 0.6 - 0.9 cm IVS Systolic Thickness 1.3 cm LVPW Diastolic Thickness 1.0 cm 0.6 - 1.0 / 0.6 - 0.9 cm LVPW Systolic Thickness 1.5 cm LVOT Diameter 2.0 cm LV Ejection Fraction 2D Teich 53.6 % LV Ejection Fraction MOD 2C 42.7 % LV Ejection Fraction 2C AL 42.4 % LA Diameter 4.1 cm M-MODE LV Diastolic Diameter MM 6.4 cm 4.2 - 5.9 / 3.9 - 5.3 cm LV Systolic Diameter MM 5.4 cm LV Ejection Fraction MM Teich 32.2 % IVS Diastolic Thickness MM 1.1 cm 0.6 - 1.0 / 0.6 - 0.9 cm IVS Systolic Thickness MM 1.8 cm LVPW Diastolic Thickness MM 1.3 cm 0.6 - 1.0 / 0.6 - 0.9 cm LVPW Systolic Thickness MM 1.7 cm RV Diastolic Diameter MM 1.2 cm Aortic Annulus Diameter 3.7 cm LA Ao Ratio MM 1.1 MV E Point Septal Separation 1.6 cm DOPPLER AV Peak Velocity 140.0 cm/s LVOT Peak Velocity 84.0 cm/s AV Area Cont Eq vti 2.1 cm squared AV Area Cont Eq pk 1.9 cm squared MV Area PHT 5.0 cm squared Mitral E to A Ratio 1.0 MV E' Velocity 8.0 cm/s Mitral E to MV E' Ratio 13.3 Mitral E to LV E' Lateral Ratio 12.0 Mitral E to LV E' Septal Ratio 14.8 TR Peak Velocity 275.0 cm/s TR Peak Gradient 30.2 mmHg TV Peak E Velocity 93.0 cm/s Right Atrial Pressure 3.0 mmHg Pulmonary Artery Systolic Pressu 33.3 mmHg FINDINGS Left Ventricle The ventricle is poorly seen. It is likely normal in size. Wall motion disturbances and diastolic dysfunction cannot be determined. Ejection fraction is likely lower limit of normal to slightly diminished. Right Ventricle Right ventricle not well visualized. Mild pulmonary hypertension, RVSP 33.3 mmHg. Right Atrium Right atrium not well visualized. Mildly increased right atrial size. Left Atrium Mildly increased left atrial size. Mitral Valve Structurally normal mitral valve. Moderate mitral annular calcification. Trace mitral valve regurgitation. Aortic Valve Aortic valve not well visualized. Moderate aortic valve calcification. Tricuspid Valve Structurally normal tricuspid valve. Trace to mild tricuspid valve regurgitation. Pulmonic Valve Pulmonic valve not well visualized. Pericardium Normal pericardium without effusion. Aorta Normal ascending aorta dimension. CONCLUSIONS The ventricle is poorly seen. It is likely normal in size. Wall motion disturbances and diastolic dysfunction cannot be determined. Ejection fraction is likely lower limit of normal to slightly diminished. Right ventricle not well visualized. Mild pulmonary hypertension, RVSP 33.3 mmHg. Right atrium not well visualized. Mildly increased right atrial size. Mildly increased left atrial size. Structurally normal mitral valve. Moderate mitral annular calcification. Trace mitral valve regurgitation. There are no prior echocardiogram studies to compare. Dr. Robert Valles MD (Electronically Signed) Final Date: 20 December 2019 14:20 S
[2019-12-21] VITALS (13 sets, daily range): BP systolic 101–153; BP diastolic 78–118; PULSE 91–110; RESP 15–25; TEMP 36.3–36.8; O2SAT 87–98
[2019-12-21] MEDS: oxyCODONE IR 30 mg Tablet 15 MG PO ×2 (02:57→10:15)
[2019-12-21] MEDS: benzonatate 100 mg Capsule PO (03:07)
[2019-12-21 05:45] LABS: Magnesium 2.3 mg/dL (1.7-2.3)
[2019-12-21 05:55] LABS: Basophils % 0.5 %; Eosinophils # 0.1 10^3/uL (0.0-0.8); Eosinophils % 1.8 %; Hematocrit 43.9 % (42.0-52.0); Hemoglobin 13.7 g/dL (11.7-16.6); Lymphocytes # 0.6 10^3/uL (0.8-4.8); Lymphocytes % 11.3 %; Mean Corpuscular HGB Conc 31.2 g/dL (30.0-36.0); Mean Corpuscular Hemoglobin 28.7 pg (28.0-34.0); Mean Corpuscular Volume 91.8 fL (80-94); Mean Platelet Volume 10.9 fL (7.4-10.4); Monocytes # 0.9 10^3/uL (0.2-0.9); Monocytes % 15.3 %; Neutrophils # 3.9 10^3/uL (1.8-7.7); Neutrophils % 70.9 %; Nucleated Red Blood Cells % 0 %; Platelet Count 90 10^3/cmm (130-400); Red Blood Count 4.78 10^6/uL (4.1-5.3); Red Cell Distribution Width 17.4 % (12.1-15.1); White Blood Count 5.6 10^3/uL (4.0-10.0)
[2019-12-21 06:22] LABS: Alanine Aminotransferase 11 U/L (0-41); Albumin Level 3.5 g/dL (3.5-5.2); Alkaline Phosphatase 65 IU/L (40-130); Anion Gap 19.1 (5-19); Aspartate Amino Transferase 17 U/L (0-40); Blood Urea Nitrogen 16 mg/dL (8-23); Calcium 9.5 mg/dL (8.5-10.5); Carbon Dioxide 26 mmol/L (22-29); Chloride 98 mmol/L (98-107); Globulin 3.3 g/dL (1.3-4.6); Glucose 127 mg/dL (65-115); Potassium 4.1 mmol/L (3.5-5.1); Sodium 139 mmol/L (136-145); Total Protein 6.8 g/dL (6.6-8.7)
[2019-12-21 06:44] LABS: Slide Review Slide Review Perform
[2019-12-21] MEDS: duloxetine 20 mg Capsule PO (08:12)
[2019-12-21] MEDS: acyclovir 400 mg Tablet PO (08:12)
[2019-12-21] MEDS: spironolactone 25 mg Tablet 50 MG PO (08:12)
[2019-12-21] MEDS: aspirin 81 mg Chew Tablet PO (08:12)
[2019-12-21] MEDS: guaiFENesin 600 mg Tablet PO (08:12)
[2019-12-21] MEDS: FUROsemide 10 mg/mL SDV 4mL 40 MG IVP (08:13)
[2019-12-21] MEDS: dilTIAZem 60 mg Tablet PO ×2 (08:13→14:44)
[2019-12-21] MEDS: ipratropium-albuterol 3 mL Neb INHALATION ×2 (09:07→13:59)
[2019-12-21] MEDS: predniSONE 20 mg Tablet 40 MG PO (12:32)
--- NOTE | 2019-12-21 15:28 | PM.DCS ---
Discharge Providers Date of Admission: 12/19/19 17:58 Date of Discharge: December 21, 2019 Attending Provider at Admission: Esmer Jasso MD Attending Provider at Discharge: Dhiraj Curry MD Primary Care Provider: NEIL Wynn Diagnoses at Discharge Discharge Diagnosis (1) Dyspnea on exertion: Status: Acute (2) Venous insufficiency: Status: Acute (3) Atrial fibrillation: Status: Acute (4) Atypical chest pain: Status: Acute (5) Multiple myeloma: Status: Acute Reason for Visit Reason for Visit: Reason For Visit: AFIB W/RVR, ATYPICAL CHEST PAIN, MULTIPLE MYELOMA Hospital Course Discharge Summary: Brandon Roberts is a 74 year old male with multiple myeloma, previosuly treated in 2012 and s/p autoSCT x 2, in remission for few years, with recurrence of disease in 2017, started on rx with Revlimid in combination with ixazomib and dexamethasone 04/2019-11/2019. He had been tolerating the rx except significant fluid retention and other side effects with the steroid. The swelling had initially improved with diuretic therapy lasix 80mg qd and spirinolactone, and he was able to continue treatment. As of October, his swelling has worsened again, and he developed associated venous stasis ulcerations in his legs, therefore treatment was put on hold. His ulcers have subsequently healed. Patient presented to the ER on December 19 with complaints of progressive shortness of breath on exertion along with orthopnea along with chest pressure on exertion for last 1 month. As per the whenever patient would have shortness of breath his heart rate would be fluctuating between 60s to 140s. Patient was admitted to the floor with telemetry for further evaluation. He was treated for CHF with IV diuresis to which he responded well and had a good urine output. As per the family patient had a history of emphysema and has been prescribed nebulizations at home but he was very noncompliant with the same. Echocardiogram was done which was limited due to poor echo window and showed likely normal size LV with a possible lower limit of normal to slightly diminished ejection fraction and mild pulmonary hypertension with RVSP of 33. Patient gradually started feeling better and was less dyspneic on exertion. At rest on room air he was saturating more than 94% but would desaturate to less than 90 on exertion so has been provided with oxygen at home. During his hospitalization on telemetry patient had frequent PACs with his heart rate going up to 130s for which his Cardizem was increased from 60 twice daily to 60 every 8 hours daily dosage to which he responded well. Possible stress test was discussed with the family but as patient already has an appointment with Dr. Haskins on December 23 family wanted to defer till he is seen with Dr. Haskins. Patient is been discharged in hemodynamically stable condition with home oxygen and has been advised to follow-up with Dr. Haskins on already set appointment. Patient is also advised to be compliant with this home oxygen and nebulizations. Patient has been given a short course of prednisone for 5 days. Physical Exam Narrative: EXAM NARRATIVE: General: No acute distress, AO x3 HEENT: PERRLA, pupils bilaterally equal and reactive Chest: Normal vesicular breath sounds, occasional bilateral rhonchi, equal good air entry bilaterally CVS: S1-S2 regular, no murmurs, no tachycardia, no gallops, no rubs Abdomen: Soft, nontender, no organomegaly, bowel sounds present Neuro: No focal deficits, no facial deformity, AO x3, power 5/5 in all limbs Discharge Data Data Completed and Pending: Completed Studies During Hospitalization Category Date Time Status XR chest 1V bandar ble [id number] Stat Exams 12/19/19 17:07 Completed CV echo complete* [id number] Routine Ultrasound 12/20/19 22:35 Completed US abdomen limite d [id number] Routine Ultrasound 12/20/19 08:58 Completed Pending at discharge Category Date Time Status Sestamibi Stress Test Request Estela ne Exams 12/21/19 11:46 Ordered NM dany perf SPECT r/s* [id number] Routin e Nuc Med 12/21/19 11:46 Ordered Labs from last 24 hours 12/21/19 12/21/19 12/21/19 04:55 04:55 04:55 WBC 5.6 RBC 4.78 Hgb 13.7 Hct 43.9 MCV 91.8 MCH 28.7 MCHC 31.2 RDW 17.4 H Plt Count 90 L MPV 10.9 H Neut % (Auto) 70.9 Lymph % (Auto) 11.3 [place] % (Auto) 15.3 Eos % (Auto) 1.8 Baso % (Auto) 0.5 Neut # (Auto) 3.9 Lymph # (Auto) 0.[address] [place] # (Auto) 0.9 Eos # (Auto) 0.1 Baso # (Auto) 0.0 Nucleated RBC % (a uto) 0 Nucleated RBCs # 0.0 Sodium 139 Potassium 4.1 Chloride 98 Carbon Dioxide 26 Anion Gap 19.1 H BUN 16 Creatinine 0.9 Glucose 127 H Calcium 9.5 Magnesium 2.3 Total Bilirubin 1.0 AST 17 ALT 11 Alkaline Phosphata se 65 Total Protein 6.8 Albumin 3.5 Globulin 3.3 Vitals: Last Vital Signs Temp 97.7 F 12/21/19 12:00 Pulse 110 H 12/21/19 14:05 Resp 18 12/21/19 13:59 BP 137/86 12/21/19 12:00 Pulse Ox 98 12/21/19 13:59 Discharge Plan Discharge Patient Disposition: Home, Self-Care Condition: Stable Prescriptions: New diltiazem HCl 60 mg Tablet 60 mg PO TID Qty: 30 RF: 0 benzonatate 100 mg Capsule 100 mg PO BID PRN (Reason: Cough) Qty: 10 RF: 0 ipratropium-albuterol 0.5 mg-3 mg(2.5 mg base)/3 mL solution for nebulization 3 ml INHALATION Q8H Qty: 180 RF: 0 prednisone 20 mg Tablet 40 mg PO DAILY Qty: 5 RF: 0 budesonide 0.25 mg/2 mL suspension for nebulization 2 ml INHALATION BID Qty: 60 RF: 0 furosemide [Lasix] 20 mg tablet 60 mg PO BID Qty: 30 RF: 0 Continued trazodone 50 mg Tablet 50 mg PO BEDTIME RF: 0 acyclovir 400 mg tablet 400 mg PO BID RF: 0 spironolactone 25 mg tablet 50 mg PO DAILY RF: 0 oxycodone 15 mg tablet 15 mg PO QID PRN (Reason: Pain) RF: 0 aspirin 81 mg Tablet,Chewable 81 mg PO DAILY RF: 0 lorazepam 1 mg tablet 1 mg PO BEDTIME PRN (Reason: Anxiety) RF: 0 duloxetine 20 mg capsule,delayed release(DR/EC) 20 mg PO BID RF: 0 potassium chloride 20 mEq tablet extended release 20 meq PO DAILY RF: 0 Aleve 220 mg Tablet 220 mg PO BID PRN (Reason: Pain) RF: 0 Discontinued furosemide 40 mg tablet 80 mg PO DAILY RF: 0 nifedipine 30 mg tablet extended release 30 mg PO DAILY RF: 0 diltiazem HCl 60 mg tablet 60 mg PO BID RF: 0 Discharge Orders: Discharge Order (Routine); Ordered 12/21/19 Ordered By: Dhiraj Curry Other Ambulatory Orders: DME: Oxygen (Order) Location: None Selected Ordered By: Dhiraj Curry Referrals: [facility] [place] [Outside] Micki Montero, MATERIALS ENGINEER-C [Primary Care Provider] - 2 weeks Discharge Diet: Cardiac Discharge Activity: Resume usual activity Activity Restrictions/Additional Instructions: Patient remained in sinus rhythm with frequent PACs while admitted for 4 days in the hospital. Though patient does have a history of atrial fibrillation in 2013 when he had pneumonia. Patient would most likely need a event monitor as an outpatient. Discharge Attestations Time Spent in Discharge Care*: greater than 30 min Specific Discharge Activities: Specific discharge activities: educating patient, educating and/or supporting family/caregiver and discussing with rn case manager hospice/social workers/dc planners Status at Discharge: Cognitive status at discharge: cognitively intact, Behavioral status at discharge: cooperative, Functional status at discharge: uses cane/walker Overall status at discharge: patient is progressing back to baseline Quality Metrics Clinical Quality Measures During this hospital stay, did patient experience: None Coding Level of Care Code Acute Head Bellhop Captain for Juliette Henry Diagnoses Dyspnea on exertion R06.09 Venous insufficiency I87.2 Atrial fibrillation I48.91 Atypical chest pain R07.89 Multiple myeloma C90.00
== END 2019-12-21 17:00 | disposition home or self-care (01) ==
LOC: ER 18:14 → CSU 12-20 18:57
PROVIDERS: Admitting Provider Student in an Organized Health Care Education/Training Program; Emergency Provider Family Medicine; Family Provider Nurse Practitioner; PCP Nurse Practitioner; Visit Provider Student in an Organized Health Care Education/Training Program
DX: I48.91 Unspecified atrial fibrillation (principal); C90.00 Multiple myeloma not having achieved remission; R06.09 Other forms of dyspnea; I87.2 Venous insufficiency (chronic) (peripheral); Z87.891 Personal history of nicotine dependence; R07.89 Other chest pain
CPT/HCPCS: 12345; 36415; 71045; 76705; 80048; 80053; 83735; 83880; 84484; 85025; 93005; 93306; 94640; 96360; 96361; 96372; 96374; 96375; 99283; 99285; G0378; J1650; J1940; J3490; J7512; J8499

== ENCOUNTER → 2019-12-23 15:26 | Outpatient (BNVA) | payer MEDICARE, BC, SELFPAY | PROVIDERS: Family Provider Nurse Practitioner; PCP Nurse Practitioner; Visit Provider Internal Medicine Cardiovascular Disease | DX: R06.02 Shortness of breath (principal); I50.30 Unspecified diastolic (congestive) heart failure; I50.33 Acute on chronic diastolic (congestive) heart failure; R07.89 Other chest pain; I48.19 Other persistent atrial fibrillation; I10 Essential (primary) hypertension; I95.1 Orthostatic hypotension | CPT/HCPCS: 80048; 83880 ==

== ENCOUNTER 2019-12-25 14:34 | Inpatient (IN) | payer MEDICARE, BC, SELFPAY ==
[2019-12-25] VITALS (10 sets, daily range): BP systolic 103–141; BP diastolic 80–99; PULSE 132–143; RESP 16–24; TEMP 36.6; O2SAT 94–98; BMI 34.5
--- NOTE | 2019-12-25 14:57 | ECG_ITS ---
Measurements Intervals [place] Rate: 141 P: 194 OR: 122 QRS: -16 QRSD: 106 T: 106 QT: 289 QTc: 443 ECTOPIC ATRIAL TACHYCARDIA, POSSIBLE ATRIAL FLUTTER LEFT VENTRICULAR HYPERTROPHY AND ST-T CHANGE [VOLTAGE CRITERIA PLUS ST/T ABN ABNORMALITY] POSSIBLE ANTEROSEPTAL MYOCARDIAL INFARCTION [30 ms Q WAVE IN V1-V4], OF IN INDETERMINATE AGE Compared to ECG 12/19/2019 23:06:26 Left ventricular hypertrophy now present ST (T wave) deviation now present Sinus rhythm no longer present T-wave abnormality no longer present Possible ischemia no longer present Myocardial infarct finding still present Electronically Signed On 12-25-2019 19:07:17 POULTRY INSEMINATOR by Tez Raya M.D. [email or web address]
--- NOTE | 2019-12-25 14:57 | XR_ITS ---
WS: [id number] XR chest 1V portable [id number] REASON FOR EXAM: cough/congestion FINDINGS: Cardiomegaly is noted. There is evidence of the vertebral plasty of the T5 vertebra in good position. The lung lujan are well aerated. No pneumonia, pleural effusion, pulmonary edema, or mass effect. There is small granulomas seen in both lung lujan. XR/XR chest 1V portable [id number] IMPRESSION: Cardiomegaly
[2019-12-25 15:26] LABS: Basophils % 0.2 %; Hemoglobin 14.5 g/dL (11.7-16.6); Lymphocytes # 0.3 10^3/uL (0.8-4.8); Lymphocytes % 4.6 %; Mean Corpuscular HGB Conc 31.5 g/dL (30.0-36.0); Mean Corpuscular Hemoglobin 27.7 pg (28.0-34.0); Mean Corpuscular Volume 87.8 fL (80-94); Mean Platelet Volume 10.4 fL (7.4-10.4); Monocytes # 0.4 10^3/uL (0.2-0.9); Neutrophils # 5.6 10^3/uL (1.8-7.7); Neutrophils % 87.7 %; Nucleated Red Blood Cells % 0 %; Platelet Count 175 10^3/cmm (130-400); Red Blood Count 5.24 10^6/uL (4.1-5.3); Red Cell Distribution Width 17.2 % (12.1-15.1); White Blood Count 6.3 10^3/uL (4.0-10.0)
--- NOTE | 2019-12-25 15:36 | ED_ITS ---
Entered by Radha Recinos, acting as scribe for Enriqueta Norman MD Dec 25, 2019 14:34 HPI - Arrhythmia/Palpitations General: Chief Complaint: Arrhythmia/Palpitations Stated Complaint: tachycardia Time Seen by Provider: 12/25/19 15:32 Source: patient and family Mode of arrival: ambulatory Limitations: no limitations History of Present Illness: HPI narrative: 74 yo male presents with irregular heart rate. pt states this started today and spouse wanted him to be here to be checked out. pt has had several episodes for the same symptoms waiting to see stave and bolt equalizer. pt has a hx of Afib. pt denies any other symptoms at this time. MD complaint: rapid heart beat, heart racing and atrial fibrillation Onset (ago): day(s) (just lpta) Severity: moderate Arrhythmia history: atrial fibrillation Associated symptoms: Reports no associated symptoms; Deny nausea or vomiting Review of Systems Const: Denies: fever, chills, body aches or change in appetite Eyes: Denies: photophobia ENMT: Denies: enlarged tonsils Resp: Denies: shortness of breath GI: Denies: abdominal pain, nausea, vomiting or diarrhea : Denies: painful urination Musc: Denies: joint warmth Skin/Breast: Denies: rash Neuro: Denies: headache Psych: Denies: depression Valentino/Lymph: Denies: easy bruising All/Imm: Denies: acute wheezing PFSH ED PFSH: Medical History (Updated 12/26/19 @ 01:49 by Esmer Jasso MD) Atrial fibrillation Benign essential HTN Chemotherapeutic agent or infusion extravasation Chest pain Diastolic heart failure with preserved ejection fraction Dyspnea on exertion Kidney stones Maintenance chemotherapy Orthostatic hypotension Peripheral arterial occlusive disease Sinus tachycardia Venous insufficiency Surgical History Autologous bone marrow transplantation status History of renal stent Hx of lithotripsy Stem cells transplant status Social History Smoking and tobacco status: former smoker Alcohol intake: never Physical Exam Const: COMMON NORMALS: no apparent distress, oriented x3 and healthy appearing HENMT: COMMON NORMALS: normocephalic and head/scalp atraumatic HEAD & SCALP: normocephalic and atraumatic Eye: COMMON NORMALS: PERRL and EOMs intact bilaterally PUPIL: Yes PERRL Neck/C-Spine: COMMON NORMALS: full ROM and supple Resp: COMMON NORMALS: normal respiratory effort, no retractions, no use of accessory muscles and clear to auscultation bilaterally AUSCULTATION: clear to auscultation bilaterally Cardio: COMMON NORMALS: regular rate, regular rhythm and no murmurs RATE: regular rate RHYTHM: regular rhythm GI: COMMON NORMALS: normal to inspection, nondistended, normoactive bowel sounds, soft to palpation, non-tender and no masses PALPATION: Yes soft Extremity: COMMON NORMALS: normal to inspection and full ROM Neuro: COMMON NORMALS: oriented x3, moves all extremities and no focal motor deficits Psych: COMMON NORMALS: mental status grossly normal, thought process normal and cooperative THOUGHT PROCESS: normal thought process Skin: COMMON NORMALS: no rashes or lesions noted and no wounds GENERAL SKIN EXAM: no rashes or lesions noted Course Vital Signs: Vital signs: Vital Signs Temperature 98.3 F 12/26/19 04:00 Pulse Rate 105 H 12/26/19 04:00 Respiratory Rate 18 12/26/19 04:00 Blood Pressure 116/80 12/26/19 04:00 Pulse Oximetry 97 12/26/19 04:00 MDM - Arrhythmia/Palpitations MDM Narrative: Medical decision making narrative: Patient presents with palpitations and has been in sinus tach. Patient's heart rate not controlled with Cardizem but is improving with labetalol. I spoke to Dr. Haskins along with hospitalist and will admit for further rate control. Patient has been stable while here. He had work-up for pulmonary embolism last week. Lab Data: Labs: Lab Results 12/25/19 12/25/19 12/25/19 Range/Units 15:12 15:12 15:12 WBC 6.3 (4.0-10.0) 10^3/ uL RBC 5.24 (4.1-5.3) 10^6/u L Hgb 14.5 (11.7-16.6) g/dL Hct 46.0 (42.0-52.0) % MCV 87.8 (80-94) fL MCH 27.7 L (28.0-34.0) pg MCHC 31.5 (30.0-36.0) g/dL RDW 17.2 H (12.1-15.1) % Plt Count 175 (130-400) 10^3/c mm MPV 10.4 (7.4-10.4) fL Neut % (Auto) 87.7 % Lymph % (Auto) 4.6 % [place] % (Auto) 7.0 % Eos % (Auto) 0.0 % Baso % (Auto) 0.2 % Neut # (Auto) 5.6 (1.8-7.7) 10^3/u L Lymph # (Auto) 0.3 L (0.8-4.8) 10^3/u L [place] # (Auto) 0.4 (0.2-0.9) 10^3/u L Eos # (Auto) 0.0 (0.0-0.8) 10^3/u L Baso # (Auto) 0.0 (0.0-0.1) 10^3/u L Nucleated RBC % (a uto) 0 % Nucleated RBCs # 0.0 /100WBC Sodium 137 (136-145) mmol/L Potassium 4.2 (3.5-5.1) mmol/L Chloride 97 L (98-107) mmol/L Carbon Dioxide 24 (22-29) mmol/L Anion Gap 20.2 H (5-19) BUN 21 (8-23) mg/dL Creatinine 1.1 (0.7-1.2) mg/dL Glucose 234 H (65-115) mg/dL Calcium 10.5 (8.5-10.5) mg/dL Total Bilirubin 0.7 (0.15-1.2) mg/dL AST 21 (0-40) U/L ALT 30 (0-41) U/L Alkaline Phosphata se 73 (40-130) IU/L Troponin T Baselin e 54 H (0-15) ng/mL Troponin T 120 Min mcgrath (0-15) ng/mL Delta Troponin T (0-10) ABS# NT-Pro-B Natriuret Pep (0-125) pg/mL Total Protein 7.3 (6.6-8.7) g/dL Albumin 4.3 (3.5-5.2) g/dL Globulin 3.0 (1.3-4.6) g/dL TSH 0.92 (0.27-4.20) uIU/ mL 12/25/19 12/25/19 Range/Units 17:11 17:11 WBC (4.0-10.0) 10^3/ uL RBC (4.1-5.3) 10^6/u L Hgb (11.7-16.6) g/dL Hct (42.0-52.0) % MCV (80-94) fL MCH (28.0-34.0) pg MCHC (30.0-36.0) g/dL RDW (12.1-15.1) % Plt Count (130-400) 10^3/c mm MPV (7.4-10.4) fL Neut % (Auto) % Lymph % (Auto) % [place] % (Auto) % Eos % (Auto) % Baso % (Auto) % Neut # (Auto) (1.8-7.7) 10^3/u L Lymph # (Auto) (0.8-4.8) 10^3/u L [place] # (Auto) (0.2-0.9) 10^3/u L Eos # (Auto) (0.0-0.8) 10^3/u L Baso # (Auto) (0.0-0.1) 10^3/u L Nucleated RBC % (a uto) % Nucleated RBCs # /100WBC Sodium (136-145) mmol/L Potassium (3.5-5.1) mmol/L Chloride (98-107) mmol/L Carbon Dioxide (22-29) mmol/L Anion Gap (5-19) BUN (8-23) mg/dL Creatinine (0.7-1.2) mg/dL Glucose (65-115) mg/dL Calcium (8.5-10.5) mg/dL Total Bilirubin (0.15-1.2) mg/dL AST (0-40) U/L ALT (0-41) U/L Alkaline Phosphata se (40-130) IU/L Troponin T Baselin e (0-15) ng/mL Troponin T 120 Min mcgrath 46.58 H (0-15) ng/mL Delta Troponin T -7.42 L (0-10) ABS# NT-Pro-B Natriuret Pep 4719 H (0-125) pg/mL Total Protein (6.6-8.7) g/dL Albumin (3.5-5.2) g/dL Globulin (1.3-4.6) g/dL TSH (0.27-4.20) uIU/ mL EKG Data^: EKG 1: Attestation: I personally reviewed and interpreted this EKG as follows: EKG interpretation date: 12/25/19 EKG interpretation time: 15:00 Interpretation: sinus tach hr [address] or t wave abnormalities [id number] qtc 371 Other EKG comments: Chest X-Ray 12/25/19 14:57 IMPRESSION: Cardiomegaly EKG 2: EKG interpretation date: 12/25/19 EKG interpretation time: 16:50 Interpretation: sinus tach hr [address] or t wave abnormalities qrs 113 qtc 367 Other EKG comments: Chest X-Ray 12/25/19 14:57 IMPRESSION: Cardiomegaly Discharge Plan Discharge Patient Disposition: Admitted As Inpatient Admit Provider: Dhiraj Curry Discharge Date/Time: 12/25/19 18:44 Coding Level of Care Code ED Biological Inspector for Chg Fwd Exam Comprehensive The documentation recorded by the Jorje pacheco Bridget Annette, accurately reflects the service I personally performed and the decisions made by me, Enriqueta Norman MD Dec 25, 2019 14:34
[2019-12-25 15:57] LABS: Alanine Aminotransferase 30 U/L (0-41); Albumin Level 4.3 g/dL (3.5-5.2); Alkaline Phosphatase 73 IU/L (40-130); Anion Gap 20.2 (5-19); Aspartate Amino Transferase 21 U/L (0-40); Blood Urea Nitrogen 21 mg/dL (8-23); Calcium 10.5 mg/dL (8.5-10.5); Carbon Dioxide 24 mmol/L (22-29); Chloride 97 mmol/L (98-107); Glucose 234 mg/dL (65-115); Potassium 4.2 mmol/L (3.5-5.1); Sodium 137 mmol/L (136-145); Thyroid Stimulating Hormone 0.92 uIU/mL (0.27-4.20); Total Bilirubin 0.7 mg/dL (0.15-1.2); Total Protein 7.3 g/dL (6.6-8.7)
[2019-12-25 16:10] LABS: Troponin(5th) Baseline 54 ng/mL (0-15)
[2019-12-25] MEDS: labetalol 5 mg/mL SDV 20mL 10 MG IVP ×2 (17:06→17:22)
[2019-12-25] MEDS: sodium chloride 0.9% 1,000 ML 999 ML IV (17:06)
[2019-12-25 17:41] LABS: Troponin 5 2HR 46.58 ng/mL (0-15)
[2019-12-25 17:51] LABS: Troponin 5 2HR Delta -7.42 ABS# (0-10)
[2019-12-25 19:53] LABS: NT Pro B Type Natriuretic Pept 4719 pg/mL (0-125)
[2019-12-25] MEDS: levalbuterol 1.25 mg/3 mL Neb INHALATION (20:40)
--- NOTE | 2019-12-25 20:57 | ECG_ITS ---
Measurements Intervals [place] Rate: 136 P: ID: 0 QRS: -21 QRSD: 113 T: 93 QT: 287 QTc: 433 SUPRAVENTRICULAR TACHYCARDIA LEFT VENTRICULAR HYPERTROPHY AND ST-T CHANGE [VOLTAGE CRITERIA PLUS ST/T ABNORMALITY] POSSIBLE SEPTAL MYOCARDIAL INFARCTION [30 ms Q WAVE IN V1/V2], OF INDETERMINATE AGE Compared to ECG 12/19/2019 23:06:26 Left ventricular hypertrophy now present ST (T wave) deviation now present Sinus rhythm no longer present T-wave abnormality no longer present Possible ischemia no longer present Myocardial infarct finding still present Electronically Signed On 12-25-2019 19:13:08 SVP PROGRAMMATIC TV by Tez Raya M.D. [email or web address]
[2019-12-25 21:24] LABS: Troponin 5 6HR 53.65 ng/mL (0-15)
--- NOTE | 2019-12-25 21:25 | P.HP_ITS ---
Providers/Chief Complaint Admitting Physician: Dhiraj Curry MD Primary Care Provider: NEIL Wynn Chief Complaint: HEART RATE IS HIGH History of Present Illness Brandon Roberts is a 74 year old male with multiple myeloma, previosuly treated in 2012 and s/p autoSCT x 2, in remission for few years, with recurrence of disease in 2018, started on rx with Revlimid in combination with ixazomib and dexamethasone 04/2019-11/2019. He had been tolerating the rx except significant fluid retention and other side effects with the steroid. The swelling had initially improved with diuretic therapy lasix 80mg qd and spirinolactone, and he was able to continue treatment. As of October, his swelling has worsened again, and he developed associated venous stasis ulcerations in his legs, therefore treatment was put on hold. His ulcers have subsequently healed. He was recently admitted here between 12/19-12/21 with complaints of progressive shortness of breath on exertion along with orthopnea along with chest pressure on exertion for last 1 month.Patient was admitted to the floor with telemetry for further evaluation. He was treated for CHF with IV diuresis to which he responded well and had a good urine output. As per the family patient had a history of emphysema and has been prescribed nebulizations at home but he was very noncompliant with the same. Echocardiogram was done which was limited due to poor echo window and showed likely normal size LV with a possible lower limit of normal to slightly diminished ejection fraction and mild pulmonary hypertension with RVSP of 33. Patient gradually started feeling better and was less dyspneic on exertion. At rest on room air he was saturating more than 94% but would desaturate to less than 90 on exertion so has been provided with oxygen at home. During his hospitalization on telemetry patient had frequent P ACs with his heart rate going up to 130s for which his Cardizem was increased from 60 twice daily to 60 every 8 hours daily dosage to which he responded well. Possible stress test was discussed with the family but as patient already has an appointment with Dr. Haskins on December 23 family wanted to defer till he is seen with Dr. Haskins. He saw Dr. Haskins in the office on December 23 at which time it was recommended to proceed with myocardial perfusion imaging. Lasix was additionally increased to 80 mg twice daily and patient opted dose yesterday. He returned to the ER today with complaints of tachycardia again with heart rate going up to 1 30-1 40. I EKG showed sinus tachycardia at a rate of 136 bpm. He was given Cardizem 25 mg IV push with no. He also received labetalol 10 mg IV push in the ED without any change in symptoms . His proBNP is also noted to be elevated to 4719. Baseline troponin is 54 with 2-hour troponin at 46 with a negatives delta of 7.42. At this present time he complains of palpitations however denies any current shortness of breath. Oxygen saturation is 95% on 3 L/min nasal cannula. Review of Systems General: Reports: 10 or more systems reviewed and unremarkable except in HPI and below Const: Denies: fever, chills or body aches Eyes: Denies: change in vision, blurry vision or photophobia ENMT: Reports: hoarseness; Denies: throat pain, enlarged tonsils, painful swallowing or nasal congestion Card: Reports: palpitations and shortness of breath on exertion; Denies: chest pain, irregular heart rhythm, edema, swelling of feet/ankles, lightheadedness, pre-syncope or shortness of breath when lying down Resp: Denies: shortness of breath, productive cough, non-productive cough, wheezing, stridor, pain on inspiration, change in phlegm color, coughing up blood or chest congestion GI: Denies: abdominal pain, nausea, vomiting, vomiting blood, coffee grounds in vomit, difficulty swallowing, heartburn/indigestion, diarrhea, constipation, cramping, change in stool character, blood in stool or black tarry stool : Denies: flank pain, painful urination, urinary frequency, urinary urgency, urinary hesitancy or blood in urine Musc: Denies: neck pain, back pain, extremity pain, joint swelling, joint warmth or deformity Neuro: Denies: headache, numbness in extremities, weakness in extremities, changes in sensation, difficulty walking, frequent falls, dizziness, vertigo, behavioral changes, slurred speech or seizure-like activity Psych: Denies: anxiety, depression, suicidal ideation or homicidal ideation Endo: Denies: excessive urination, excessive thirst, tired all the time, cold intolerance or hot flashes Valentino/Lymph: Denies: easy bruising or easy bleeding Medications/Allergies Home Medications Medication Instructions Recorded Confirmed Last Taken Type furosemide [Lasix] 80 mg PO BID 12/25/19 12/25/19 12/25/19 History 0800 Allergies Allergy/AdvReac Type Severity Reaction Status Date / Time No Known Allergies Allergy Verified 12/19/19 15:36 PFSH Acute PFSH: Medical History (Updated 12/26/19 @ 01:49 by Esmer Jasso MD) Atrial fibrillation Benign essential HTN Chemotherapeutic agent or infusion extravasation Chest pain Diastolic heart failure with preserved ejection fraction Dyspnea on exertion Kidney stones Maintenance chemotherapy Orthostatic hypotension Peripheral arterial occlusive disease Sinus tachycardia Venous insufficiency Surgical History Autologous bone marrow transplantation status History of renal stent Hx of lithotripsy Stem cells transplant status Social History Smoking and tobacco status: former smoker Alcohol intake: never Vitals/I&O/Wt Last Vital Signs Temp 98 F 12/25/19 19:18 Pulse 135 H 12/25/19 20:38 Resp 18 12/25/19 20:28 BP 119/87 12/25/19 19:18 Pulse Ox 95 12/25/19 20:28 12/25/19 12/25/19 12/25/19 06:59 14:59 22:59 Intake Total 1006.917 / 1006.917 Balance 1006.917 / 1006.917 Weight last 48 hrs Weight 112.491 kg Physical Exam Narrative: EXAM NARRATIVE: GEN: Awake, alert and oriented, no acute distress CVS: S1S2 N RS: B/L rales on exam, L>R , Abd: Soft, nt/nd , bs+ CANCER PROGRAM COORDINATOR: no focal neuro deficits EXT: LE 1+ edema Data : 12/25/19 15:12 12/25/19 15:12 A&P Assessment and plan (1) Diastolic heart failure with preserved ejection fraction: Status: Acute Code(s): I50.30 - Unspecified diastolic (congestive) heart failure (2) Dyspnea on exertion: Status: Acute Code(s): R06.09 - Other forms of dyspnea (3) Sinus tachycardia: Status: Acute Code(s): R00.0 - Tachycardia, unspecified (4) Multiple myeloma: Status: Acute Code(s): C90.00 - Multiple myeloma not having achieved remission Additional A&P Information Admit to CSU 1. Symptomatic sinus tachycardia currently heart rate continues to be between 1 30-1 40 and patient describes vague chest discomfort. Thus far he has received Cardizem 25 mg IV push and 2 doses of labetalol 10 mg IV without any significant change in symptoms. Per review of prior records metoprolol worked to improved his heart rate on the last admission. We will use 2.5 mg IV metoprolol now. And pushes as allowed by his blood pressure. May use Cardizem infusion to control heart rate of metoprolol does not have desired effect. We will also go ahead and schedule him for stress test tomorrow morning given persisting with chest discomfort and recent recommendations from cardiology as outpatient. 2. Acute on chronic diastolic heart failure Continue Lasix at 40 mg IV every 12 hours Patient received an additional bag of IV fluids in the ER today. At this present time there are bilateral rails on examination. We will go ahead and give him 60 mg of IV Lasix for now. Continue spironolactone 3. Multiple myeloma, not in remission. Currently treatment on hold given ongoing cardiac symptoms. DVT prophylaxis Lovenox Full code Attestations Medical Necessity Statement*: Admitted for management of symptomatic sinus ta chycardia and for stress test Coding Level of Care Code Acute Packaging Machine Supplies Distributor for Chg Fwd Diagnoses Diastolic heart failure with preserved ejection fraction I50.30 Dyspnea on exertion R06.09 Sinus tachycardia R00.0 Multiple myeloma C90.00
[2019-12-25 21:27] LABS: Troponin 5 6HR Delta -0.35 ng/L (0-12)
[2019-12-25] MEDS: duloxetine 20 mg Capsule PO (21:32)
[2019-12-25] MEDS: LORazepam 1 mg Tablet PO (21:32)
[2019-12-25] MEDS: trazodone 50 mg Tablet PO (21:32)
[2019-12-25] MEDS: oxyCODONE IR 30 mg Tablet 15 MG PO (21:32)
[2019-12-25] MEDS: FUROsemide 10 mg/mL SDV 10mL 60 MG IVP (21:34)
[2019-12-25] MEDS: lidocaine 5% Patch 1 PATCH TOPICAL (21:34)
--- NOTE | 2019-12-25 21:34 | ECG_ITS ---
NAME OF STUDY: LEXISCAN SESTAMIBI STRESS TEST INDICATION: CHEST DISCOMFORT PROCEDURE: At the baseline, the blood pressure was 153/60 mm Hg, oxygen saturation 98%] with a heart rate of 138 bpm. The electrocardiogram showed possibly atrial flutter with rapid ventricle response. Possible old anteroseptal infarct. Nonspecific ST-T wave changes. The Lexiscan was infused over a period of 20 seconds. A total of 0.4 milligrams of Lexiscan was infused. The stress phase was continued for a total of 5 minutes. Heart rate at the end of the stress phase was 139 bpm, oxygen saturation 98% with a blood pressure of 114/88 mmHg. The EKG at the peak infusion revealed no significant ST-T wave changes. Sestamibi was injected 20 seconds after the Lexiscan infusion. Blood pressure at the end of the recovery phase was 116/85 mm Hg, oxygen saturation 98%] with a heart rate of 139 beats per minute. CONCLUSION: 1. No significant EKG changes with the LexiScan infusion. 2. No LexiScan induced chest pain or cardiac arrhythmia. 3. Normal blood pressure and heart rate response. 4. Sestamibi/sestamibi perfusion scan pending; see separate report. Electronically Signed On 12-26-2019 13:07:03 CONVEYOR FEEDER by Estrellita Yap M.D. [id number]
[2019-12-25] MEDS: enoxaparin 40 mg/0.4 mL Syringe SUBCUT (21:52)
[2019-12-25] MEDS: metoprolol tartrate 1 mg/1 mL SDV 5 mL 2.5 MG IV ×2 (21:52→23:09)
[2019-12-25 22:42] LABS: NT Pro B Type Natriuretic Pept 5051 pg/mL (0-125)
--- NOTE | 2019-12-25 23:13 | PC.NURSE ---
Per Dr. Islas orders the patient was given a dose of iv metoprolol 2.5 mg, which did nothing to drop heart rate from 135. she said to try one more dose of the same med and dose before we go another route. it was just administered. will continue to monitor.
[2019-12-26] VITALS (17 sets, daily range): BP systolic 95–136; BP diastolic 70–97; PULSE 105–146; RESP 15–23; TEMP 36.4–36.8; O2SAT 94–99
--- NOTE | 2019-12-26 | NMCV_ITS ---
NM dany perf SPECT r/s* [id number] Brandon Roberts Age: 74 Gender: M : 1945 Exam Date: 12/26/2019 07:20 Ordering Phys: Esmer Jasso MD Technologist: MAHI Prajapati Exam Location: [facility] Indications: HEART RATE IS HIGH STRESS TEST Please see separate stress test report in [facility] for full findings IMAGE PROTOCOL Rest/Stress 1 Lexiscan Day Radiopharmaceutical Dose (mCi) Administration Site Administered by Rest: Tc-99m 11.0 IV MAHI Prajapati Sestamibi Stress:Tc-99m 33.0 IV MAHI Bruner Sestamibi Rest: 26-Dec-2019 60 Discovery 630 Stress: 26-Dec-2019 30 Discovery 630 0.4mg Lexiscan. Supine position only as patient was unable to lay prone. SPECT RESULTS Technical Quality: Good Raw Data Analysis: Soft tissue attenuation Image Corrections: No attenuation or motion correction applied Summed Stress Score: 7 Summed Rest Score: 9 Summed Difference Score: 1 PERFUSION FINDINGS Medium sized perfusion abnormality of moderate severity of mid to apical inferior and apical lateral hammond on rest and stress images. FUNCTIONAL RESULTS (calculated via Gated SPECT) Stress Image LV EF (%): 11 Stress EDV (mL):197 TID: 0.99 Stress ESV (mL):175 FUNCTIONAL FINDINGS: The left ventricle is dilated. Transient Ischemia Dilatation of 0.99. There is severely reduced left ventricular global systolic function. The left ventricular ejection fraction is reduced with a value of 11%. Markedly increased end-diastolic and end-systolic volumes. IMPRESSIONS 1. Medium sized predominantly fixed perfusion abnormality of moderate severity of mid to apical inferior and apical lateral hammond. 2. Overall left ventricular systolic function is markedly abnormal with global hypokinesis. 3. The left ventricular ejection fraction is severely reduced with a value of 11%. 4. No coronary ischemia based on the study. Estrellita Yap MD (Electronically Signed) Final Date: 26 December 2019 12:57 S
--- NOTE | 2019-12-26 01:27 | ECG_ITS ---
Measurements Intervals [place] Rate: 134 P: 10 [place]: 194 QRS: -18 QRSD: 113 T: 141 QT: 323 QTc: 483 SINUS TACHYCARDIA SEPTAL MYOCARDIAL INFARCTION [40+ ms Q WAVE IN V1/V2], OF INDETERMINATE AGE MODERATE T-WAVE ABNORMALITY, CONSIDER LATERAL ISCHEMIA [-0.1+ mV T WAVE IN I/aVL/V5 I/aVL/V5/V6] Compared to ECG 12/25/2019 16:50:05 T-wave abnormality now present Possible ischemia now present Supraventricular tachycardia no longer present Left ventricular hypertrophy no longer present ST (T wave) deviation no longer present Myocardial infarct finding still present Electronically Signed On 12-26-2019 14:13:22 MUSHROOM PICKER by Robert Valles M.D. [id number]
[2019-12-26 04:10] LABS: Basophils % 0.4 %; Eosinophils % 0.6 %; Hematocrit 41.3 % (42.0-52.0); Hemoglobin 13.4 g/dL (11.7-16.6); Lymphocytes # 0.9 10^3/uL (0.8-4.8); Lymphocytes % 16.4 %; Mean Corpuscular HGB Conc 32.4 g/dL (30.0-36.0); Mean Corpuscular Volume 86.4 fL (80-94); Monocytes # 0.7 10^3/uL (0.2-0.9); Monocytes % 13.3 %; Neutrophils # 3.8 10^3/uL (1.8-7.7); Neutrophils % 69.1 %; Nucleated Red Blood Cells % 0 %; Platelet Count 162 10^3/cmm (130-400); Red Blood Count 4.78 10^6/uL (4.1-5.3); Red Cell Distribution Width 17.2 % (12.1-15.1); White Blood Count 5.4 10^3/uL (4.0-10.0)
[2019-12-26 04:20] LABS: Alanine Aminotransferase 32 U/L (0-41); Albumin Level 3.5 g/dL (3.5-5.2); Alkaline Phosphatase 60 IU/L (40-130); Aspartate Amino Transferase 21 U/L (0-40); Blood Urea Nitrogen 15 mg/dL (8-23); Calcium 9.9 mg/dL (8.5-10.5); Carbon Dioxide 28 mmol/L (22-29); Chloride 99 mmol/L (98-107); Globulin 2.7 g/dL (1.3-4.6); Glucose 135 mg/dL (65-115); Sodium 139 mmol/L (136-145); Total Protein 6.2 g/dL (6.6-8.7)
[2019-12-26] MEDS: oxyCODONE IR 30 mg Tablet 15 MG PO ×3 (06:13→20:02)
--- NOTE | 2019-12-26 06:56 | PC.NURSE ---
patients hr has was 135 when arrived to floor. it moved to 134, to 146 but settled a 135 as if it were paced for most the night, around iv metoprolol and cardiem drip in er. we restarted Cardizem drip at 10 and hr started jumping about 40 minutes later but still in upper one teens and 120s. i titrated the cardizem to 15 and it slowly began to move into the 90s and up to 140s. currently its in the 130s at 15. Dr. Jasso stated the possibility of changing the treatment if the cardizem wasnt very effective. The patient is currently injected with dye for a stress test.
--- NOTE | 2019-12-26 07:01 | PC.NURSE ---
patient complained of neck pain most of the night from how he sat in ER and pain in right hip. heating pad helped some and pain medication (oxys) were administered twice this night. Patient also stated he was feeling a bit more short of breath and RT said they didnt think it was something they could adjust so I raised o2 up to 3l from 2 to see if this would help.
[2019-12-26] MEDS: regadenoson 0.4 Mg/5 ml Syringe IVP (08:26)
--- NOTE | 2019-12-26 10:04 | PC.CHAP ---
Pastoral Care Encounter/Spiritual Assessment Type of Contact [] Declined penology professor visit [] Patient/Family/Request visit [] Outpatient visit [] Follow-up visit [] Physician referral [] Code/Alert [x] Routine visit [] Staff referral [] Actively dying [] Patient sleeping [] Family support [] [x] Out of room [] Palliative care [] [] Receiving care in room [] Pre-surgical visit [] Trauma [] Long length of stay [] ICU visit [] Other: Relational/Emotional Strength [] Patient feels connected with others/family/visitors/staff [] Distress [] Loneliness/isolation [] Abandonment Spirituality of Patient [] Person of Yesenia [] Attends Samaritan of their Yesenia [] Believes in Prayer [] Reads Bible or Anabaptism materials [] There are Spiritual issues to be addressed Director Of Enterprise Architecture Interventions [] Prayer [] Active listening [] Non-anxious presence [] Spiritual/emotional support [] Crisis/trauma care [] Spiritual counseling [] Bereavement support [] Provided bereavement packet [] Provided Bible/devotional materials [] Provided toy/stuffed animal, coloring book to patient or family member [] Provided Communion [] Anointing/[place] [] Salvation [x Completed spiritual assessment [] Other: Impact on Illness or Injury [] Angry [] Fearful [] Anxious [] Often cries [] Exhaustion [] Unable to work [] Unable to attend rastafari [] Unable to walk/stand [] Unable to read [] Unable to drive [] Unable to eat/drink [] Unable to sleep [] Unable to be with family [] Patient intubated [] Other: Summary Time spent with patient
--- NOTE | 2019-12-26 10:09 | PC.NURSE ---
Dr. Curry in room. Orders received from Dr. Curry to stop Cardizem drip. Administer 5 mg Lopressor IV. Perform EKG.
[2019-12-26] MEDS: FUROsemide 10 mg/mL SDV 10mL 80 MG IVP ×2 (10:14→20:55)
[2019-12-26] MEDS: aspirin 81 mg Chew Tablet PO (10:14)
[2019-12-26] MEDS: spironolactone 25 mg Tablet 50 MG PO (10:15)
[2019-12-26] MEDS: dilTIAZem 60 mg Tablet PO ×3 (10:15→20:56)
[2019-12-26] MEDS: duloxetine 20 mg Capsule PO ×2 (10:16→18:30)
[2019-12-26] MEDS: acyclovir 400 mg Tablet PO ×2 (10:16→18:30)
[2019-12-26] MEDS: metoprolol tartrate 1 mg/1 mL SDV 5 mL 5 MG IV (10:26)
--- NOTE | 2019-12-26 10:30 | ECG_ITS ---
Measurements Intervals [place] Rate: 136 P: [place]: 0 QRS: -11 QRSD: 119 T: 106 QT: 292 QTc: 439 SVT versus atrial flutter MINIMAL VOLTAGE CRITERIA FOR LVH, CONSIDER NORMAL VARIANT [MEETS CRITERIA IN ONE OF: R(aVL), S(V1), R(V5), R(V5/V6)+S(V1)] POSSIBLE ANTERIOR MYOCARDIAL INFARCTION [30 ms Q WAVE IN V3/V4, OR R < 0.2 mV IN V V4], OF INDETERMINATE AGE ST DEVIATION AND MODERATE T-WAVE ABNORMALITY, CONSIDER LATERAL ISCHEMIA [-0.1+ mV T WAVE IN I/aVL/V5/V6] Compared to ECG 12/25/2019 16:50:05 T-wave abnormality now present Possible ischemia now present ST (T wave) deviation no longer present Myocardial infarct finding still present Electronically Signed On 12-26-2019 14:16:31 EMAIL ADMINISTRATOR by Robert Valles M.D. [id number]
[2019-12-26 12:06] LABS: Glucose Point of Care 131 mg/dL (70-110)
--- NOTE | 2019-12-26 12:40 | P.PN_ITS ---
Subjective Subjective: Interval history: Patient admitted overnight for A. fib with RVR and found to be in mild congestive heart failure. On evaluation this morning patient is post cardiac stress test on Cardizem drip. Overnight patient has remained on Cardizem drip with heart rate mostly in 130s and touching 101 at one time at around 4 AM. Patient on examination today states he is feeling very comfortable denies having any nausea, vomiting, dizziness, fever palpitation, shortness of breath but is concerned for tachycardia. Overnight patient also received 1 dose of 2.5 mg IV Lopressor while multiple cardizem and labetalol boluses in ER. During the interview of patient's telemetry concerning for SVT versus a flutter. We did multiple bearing-down procedures and Valsalva maneuver to which his heart rate responded transiently for a few seconds going down to 100- 110 bpm revealing possible a flutter with underlying. Patient during the whole procedure did not have any dizziness or nausea or vomiting. Vitals/I&O/Wt Last Vital Signs Temp 98.2 F 12/26/19 07:15 Pulse 137 H 12/26/19 11:05 Resp 16 12/26/19 11:05 BP 95/70 12/26/19 11:05 Pulse Ox 98 12/26/19 11:05 12/25/19 12/26/19 12/26/19 22:59 06:59 14:59 Intake Total 1006.917 / 1006.917 200 / 200 Output Total 1150 / 1150 Balance -143.083 / -143.083 200 / 200 Weight last 48 hrs Weight 112.491 kg Physical Exam Narrative: EXAM NARRATIVE: General: No acute distress, AO x3 HEENT: PERRLA, pupils bilaterally equal and reactive Chest: Normal vesicular breath sounds, no added sounds, equal good air entry bilaterally CVS: S1-S2 irregularly irregular, no murmurs, no tachycardia, no gallops, no rubs, JVD elevated Abdomen: Soft, nontender, no organomegaly, bowel sounds present Neuro: No focal deficits, no facial deformity, AO x3, power 5/5 in all limbs Data : 12/26/19 03:45 12/26/19 03:45 A&P Assessment and plan (1) Diastolic heart failure with preserved ejection fraction: Status: Acute Code(s): I50.30 - Unspecified diastolic (congestive) heart failure (2) Dyspnea on exertion: Status: Acute Code(s): R06.09 - Other forms of dyspnea (3) Sinus tachycardia: Status: Acute Code(s): R00.0 - Tachycardia, unspecified (4) Multiple myeloma: Status: Acute Code(s): C90.00 - Multiple myeloma not having achieved remission Additional A&P Information Aflutter with RVR: This morning on evaluation patient's heart rate is running in 130s. On reviewing of 3 EKGs done till now there is a possibility of a flutter versus SVT. During my interview with patient we tried bearing down maneuver, Valsalva during which his heart rate slowed down to 100 bpm and revealed an underlying a flutter wave. We will repeat an EKG. Continue with Cardizem 60 3 times daily. On his previous admissions patient heart rate was very responsive to IV Lopressor so we will try Lopressor 5 mg IV stat while monitoring his blood pressure. Patient has been on Cardizem drip along with multiple boluses in ER and atleast 2 labetalol boluses in ER since last night but without any change so we will stop the Cardizem drip for now. If Lopressor does not help will most likely have to either do digoxin load versus amiodarone bolus followed with 24-hour drip. Continue to monitor blood pressures. Acute on chronic diastolic heart failure: proBNP elevated than before. Continue with IV Lasix 80 mg every 12 hours along with spironolactone 50 mg daily. We will monitor input output strictly. Daily weight. If output does not improve and will most likely need metolazone 5 mg. ECHO done last week was inconclusive due to poor window. Will f/u with Stress test results. Continue other chronic medications like duloxetine, acyclovir. History of COPD: Oxygen supplementation keeping saturation 90% Continue with ipratropium every 6 hours, Xopenex every 6 hours. Multiple myeloma, not in remission. Currently treatment on hold given ongoing cardiac symptoms. DVT prophylaxis Lovenox Full code Attestations Medical Necessity Statement*: Continued hospitalisation for Aflutter with RVR Time Spent in Patient Care: Greater than 35 minutes (>than 50% of time spent in counselling and/or direct pt care on unit) . Coding Level of Care Code Acute Drywall Boardhanger for Chg Fwd Diagnoses Diastolic heart failure with preserved ejection fraction I50.30 Dyspnea on exertion R06.09 Sinus tachycardia R00.0 Multiple myeloma C90.00
[2019-12-26] MEDS: digoxin 250 mcg/ml INJ 2 mL 500 MCG IVP (13:06)
[2019-12-26] MEDS: levalbuterol 1.25 mg/3 mL Neb INHALATION ×2 (14:57→21:48)
[2019-12-26 17:32] LABS: Glucose Point of Care 134 mg/dL (70-110)
[2019-12-26] MEDS: enoxaparin 40 mg/0.4 mL Syringe SUBCUT (20:55)
[2019-12-26] MEDS: trazodone 50 mg Tablet PO (20:56)
[2019-12-26] MEDS: LORazepam 1 mg Tablet PO (20:56)
[2019-12-26 21:01] LABS: Glucose Point of Care 127 mg/dL (70-110)
[2019-12-26] MEDS: budesonide 0.5 mg/2 mL Neb INHALATION (21:48)
[2019-12-27] VITALS (18 sets, daily range): BP systolic 107–144; BP diastolic 85–97; PULSE 58–138; RESP 15–27; TEMP 36.6–36.8; O2SAT 96–99
[2019-12-27] MEDS: digoxin 250 mcg/ml INJ 2 mL IVP ×2 (00:27→18:41)
[2019-12-27] MEDS: levalbuterol 1.25 mg/3 mL Neb INHALATION ×4 (03:50→21:43)
[2019-12-27 04:40] LABS: Basophils % 0.2 %; Eosinophils # 0.1 10^3/uL (0.0-0.8); Eosinophils % 0.7 %; Hematocrit 43.4 % (42.0-52.0); Lymphocytes # 0.6 10^3/uL (0.8-4.8); Lymphocytes % 6.9 %; Mean Corpuscular HGB Conc 32.3 g/dL (30.0-36.0); Mean Corpuscular Hemoglobin 29.2 pg (28.0-34.0); Mean Corpuscular Volume 90.6 fL (80-94); Mean Platelet Volume 10.5 fL (7.4-10.4); Monocytes # 1.3 10^3/uL (0.2-0.9); Monocytes % 15.2 %; Neutrophils # 6.4 10^3/uL (1.8-7.7); Neutrophils % 76.8 %; Nucleated Red Blood Cells % 0 %; Platelet Count 150 10^3/cmm (130-400); Red Blood Count 4.79 10^6/uL (4.1-5.3); Red Cell Distribution Width 17.6 % (12.1-15.1); White Blood Count 8.3 10^3/uL (4.0-10.0)
--- NOTE | 2019-12-27 05:07 | PC.NURSE ---
patients amiadarone drip and previous digoxin iv dose have neither lowered the patinets hr at all. it remains 134-136. blood pressure remains wnl.
[2019-12-27 05:10] LABS: Alanine Aminotransferase 26 U/L (0-41); Albumin Level 3.4 g/dL (3.5-5.2); Alkaline Phosphatase 61 IU/L (40-130); Anion Gap 16.2 (5-19); Aspartate Amino Transferase 17 U/L (0-40); Blood Urea Nitrogen 16 mg/dL (8-23); Calcium 9.6 mg/dL (8.5-10.5); Carbon Dioxide 31 mmol/L (22-29); Chloride 95 mmol/L (98-107); Globulin 2.9 g/dL (1.3-4.6); Glucose 127 mg/dL (65-115); Potassium 4.2 mmol/L (3.5-5.1); Sodium 138 mmol/L (136-145); Total Bilirubin 1.2 mg/dL (0.15-1.2); Total Protein 6.3 g/dL (6.6-8.7)
[2019-12-27 06:21] LABS: Glucose Point of Care 130 mg/dL (70-110)
[2019-12-27] MEDS: oxyCODONE IR 30 mg Tablet 15 MG PO ×2 (09:19→18:39)
[2019-12-27] MEDS: FUROsemide 10 mg/mL SDV 10mL 80 MG IVP ×2 (09:21→21:28)
[2019-12-27] MEDS: duloxetine 20 mg Capsule PO ×2 (09:21→18:41)
[2019-12-27] MEDS: aspirin 81 mg Chew Tablet PO (09:21)
[2019-12-27] MEDS: spironolactone 25 mg Tablet 50 MG PO (09:21)
[2019-12-27] MEDS: budesonide 0.5 mg/2 mL Neb INHALATION ×2 (09:31→21:44)
--- NOTE | 2019-12-27 09:35 | PM.CONSULT ---
Providers/Reason For Consult Consulting Physican/Specialty*: Dr. Yap, cardiology Reason for Consult*: Atrial flutter with rapid ventricular response Attending Physician: Dhiraj Curry MD Primary Care Provider: NEIL Wynn History of Present Illness History of Present Illness Brandon Roberts is a 74 year old male with history of transient atrial fibrillation in 2008, hypertension,IgG kappa myeloma, initially diagnosed in July 2009 with associated osteopenia and multiple vertebral compression fractures previously treated in 2012 and status post auto stem cell transplant x 2, in remission with recurrence of disease in 2018. Patient presented to the ED on December 19 with complaints of progressive shortness of breath on exertion along with orthopnea along with chest pressure on exertion for last 1 month. Patient was treated with metoprolol and cardizem was diuresed and discharged home. He was discharged home on Cardizem 60 mg 3 times daily and Lasix 60 mg twice daily. He was seen by Dr. Haskins on December 23. Lasix was increased to 80 mg twice daily as an outpatient given worsening shortness of breath. He returned to the ER with complaints of tachycardia with heart rate going up to 130-140's. He was given Cardizem and labetalol in the ED . His proBNP at 4719. In last 2 days multiple medications have been tried, he received IV Cardizem that was subsequently stopped followed by IV amiodarone yesterday as well as 500 micrograms followed by 250 mcg of digoxin. Unfortunately, patient remains in atrial flutter with 2 is to 1 conduction with heart rate running at 137- 139 bpm. Review of Systems Const: Denies: fever, chills, change in appetite, change in weight, fatigue or malaise Eyes: Denies: change in vision or eye discharge ENMT: Denies: throat pain, swelling of lips/tongue, oral sores/lesions, bleeding gums, nasal congestion, nose bleeds or post nasal drip Card: Denies: chest pain, palpitations, irregular heart rhythm, edema, lightheadedness, syncope, shortness of breath on exertion, shortness of breath when lying down or leg pain with exertion Resp: Denies: shortness of breath, productive cough, wheezing or coughing up blood GI: Denies: abdominal pain, nausea, vomiting, vomiting blood, heartburn/indigestion, diarrhea, constipation, change in bowel habits, blood in stool or black tarry stool : Denies: painful urination, decreased urine ouput, blood in urine, scrotal swelling or erectile dysfunction Musc: Denies: back pain, extremity swelling, joint pain or muscle weakness Skin/Breast: Denies: rash, redness, new lesion or change in hair Neuro: Denies: numbness in extremities, weakness in extremities, lack of coordination, difficulty walking, dizziness, vertigo or confusion Psych: Denies: anxiety, depression, irritability, suicidal ideation or homicidal ideation Endo: Denies: tired all the time, cold intolerance or heat intolerance Valentino/Lymph: Denies: easy bruising, easy bleeding, petechiae or purpura All/Imm: Denies: throat swelling, tongue swelling or acute wheezing Meds/Allergies Home Medications and Allergies Home Medications Medication Instructions Recorded Confirmed Type acyclovir 400 mg PO BID 12/19/19 12/25/19 History aspirin 81 mg PO DAILY 12/19/19 12/25/19 History duloxetine 20 mg PO BID 12/19/19 12/25/19 History lorazepam 1 mg PO BEDTIME PRN 12/19/19 12/25/19 History oxycodone 15 mg PO QID PRN 12/19/19 12/25/19 History potassium chloride 20 meq PO BID 12/19/19 12/25/19 History spironolactone 50 mg PO DAILY 12/19/19 12/25/19 History trazodone 50 mg PO BEDTIME 12/19/19 12/25/19 History naproxen sodium [Aleve] 220 mg PO BID PRN 12/20/19 12/25/19 History furosemide [Lasix] 80 mg PO BID 12/25/19 12/25/19 History Allergies Allergy/AdvReac Type Severity Reaction Status Date / Time No Known Allergies Allergy Verified 12/19/19 15:36 Current Medications Current Medications Generic Name Dose Route Start Last Admin Trade Name Freq PRN Reason Stop Dose Admin Acyclovir 400 mg 12/26/19 09:00 12/26/19 18:30 Zovirax PO 400 mg BID EUGENIO Administration Aspirin 81 mg 12/26/19 09:00 12/27/19 09:21 Aspirin Chewable PO 81 mg DAILY EUGENIO Administration Budesonide 0.5 mg 12/26/19 08:00 12/27/19 09:31 Pulmicort INHALATION 0.5 mg BID.RESPIRATORY EUGENIO Administration Diltiazem HCl 60 mg 12/26/19 09:00 12/26/19 20:56 Cardizem PO 60 mg TID EUGENIO Administration Enoxaparin Sodium 40 mg 12/25/19 21:45 12/26/19 20:55 Lovenox SUBCUT 40 mg Q24H EUGENIO Administration Furosemide 80 mg 12/26/19 09:45 12/27/19 09:21 Lasix IVP 80 mg Q12H EUGENIO Administration Amiodarone HCl 900 mg/ 518 mls @ 0 mls/hr 12/26/19 17:30 12/27/19 00:36 Dextrose/ IV Miscellaneous IV 0.01 mg/min Supplies .Q0M EUGENIO 0.5 mls/hr Titration Protocol Per Protocol Amiodarone HCl 900 mg/ 518 mls @ 17.267 mls/hr 12/26/19 17:30 12/26/19 18:24 Dextrose/ IV Miscellaneous IV Not Given Supplies .Q24H EUGENIO 0.5 MG/MIN Insulin Aspart 0 unit 12/26/19 08:00 12/27/19 07:30 Novolog SUBCUT Not Given WM&BEDTIME EUGENIO Protocol Levalbuterol HCl 1.25 mg 12/25/19 21:00 12/27/19 09:31 Xopenex INHALATION 1.25 mg Q6H.RESPIRATORY EUGENIO Administration Lidocaine 1 patch 12/25/19 21:00 12/25/19 21:34 Lidoderm 5% Patch TOPICAL 1 patch [id number] PRN Administration PAIN Lorazepam 1 mg 12/25/19 19:29 12/26/19 20:56 Ativan PO 1 mg BEDTIME PRN Administration Anxiety Oxycodone HCl 15 mg 12/25/19 19:29 12/27/19 09:19 Oxycodone Ir PO 15 mg QID PRN Administration Pain Potassium Chloride 20 meq 12/26/19 09:00 12/27/19 09:21 Klor-Con 10 PO 20 meq BID EUGENIO Administration Prednisone 40 mg 12/26/19 09:00 12/26/19 12:06 Prednisone PO Not Given DAILY EUGENIO Spironolactone 50 mg 12/26/19 09:00 12/27/19 09:21 Aldactone PO 50 mg DAILY EUGENIO Administration Trazodone HCl 50 mg 12/25/19 21:00 12/26/19 20:56 Desyrel PO 50 mg BEDTIME EUGENIO Administration PFSH Acute PFSH: Medical History (Updated 12/27/19 @ 13:59 by Estrellita Yap MD) Atrial fibrillation Benign essential HTN Chemotherapeutic agent or infusion extravasation Chest pain Diastolic heart failure with preserved ejection fraction Dyspnea on exertion Kidney stones Maintenance chemotherapy Orthostatic hypotension Peripheral arterial occlusive disease Sinus tachycardia Venous insufficiency Surgical History Autologous bone marrow transplantation status History of renal stent Hx of lithotripsy Stem cells transplant status Social History Smoking and tobacco status: former smoker Alcohol intake: never Vitals/I&O/Wt Last Vital Signs Temp 98.0 F 12/27/19 07:12 Pulse 138 H 12/27/19 09:32 Resp 20 H 12/27/19 09:32 BP 129/90 12/27/19 07:12 Pulse Ox 98 12/27/19 09:32 12/26/19 12/27/19 12/27/19 22:59 06:59 14:59 Intake Total 300 / 500 318.5 / 818.5 240 / 240 Output Total 900 / 900 Balance 300 / 500 -581.5 / -81.5 240 / 240 Weight last 48 hrs Weight 252 lb 14.4 oz Weight 248 lb Physical Exam Narrative: EXAM NARRATIVE: GENERAL: Averagely built and averagely nourished in no acute distress HEENT: Extraocular movement intact. Pupils equal round reactive to light. No pallor or icterus. NECK: Mild JVD. CARDIOVASCULAR SYSTEM: S1-S2 regular. Tachycardia+ No S3 or S4 present. No murmur rubs or gallops. RESPIRATORY SYSTEM: Chest clear to auscultation. No wheezes rhonchi or rubs heard. No use of accessory muscles. ABDOMEN: Soft, nontender and nondistended. Normal bowel sounds present. EXTREMITIES: No cyanosis or clubbing. Trace edema. + signs of chronic venous insufficiency. STERILE PROC TECH: Patient is alert oriented ?3. No focal neurological deficits. Cranial nerves intact. SKIN: Normal turgor and temperature. PSYCH: Normal insight and judgment. Data Imaging^: Other Imaging: I personally reviewed and interpreted this imaging study as follows: My impression: SPECT RESULTS (12/26/19) Technical Quality: Good Raw Data Analysis: Soft tissue attenuation Image Corrections: No attenuation or motion correction applied Summed Stress Score: 7 Summed Rest Score: 9 Summed Difference Score: 1 PERFUSION FINDINGS Medium sized perfusion abnormality of moderate severity of mid to apical inferior and apical lateral hammond on rest and stress images. FUNCTIONAL RESULTS (calculated via Gated SPECT) Stress Image LV EF (%): 11 Stress EDV (mL):197 TID: 0.99 Stress ESV (mL):175 FUNCTIONAL FINDINGS: The left ventricle is dilated. Transient Ischemia Dilatation of 0.99. There is severely reduced left ventricular global systolic function. The left ventricular ejection fraction is reduced with a value of 11%. Markedly increased end-diastolic and end-systolic volumes. IMPRESSIONS 1. Medium sized predominantly fixed perfusion abnormality of moderate severity of mid to apical inferior and apical lateral hammond. 2. Overall left ventricular systolic function is markedly abnormal with global hypokinesis. 3. The left ventricular ejection fraction is severely reduced with a value of 11%. 4. No coronary ischemia based on the study. Echo: Radiologist's impression: (12/20/19) CONCLUSIONS The ventricle is poorly seen. It is likely normal in size. Wall motion disturbances and diastolic dysfunction cannot be determined. Ejection fraction is likely lower limit of normal to slightly diminished. Right ventricle not well visualized. Mild pulmonary hypertension, RVSP 33.3 mmHg. Right atrium not well visualized. Mildly increased right atrial size. Mildly increased left atrial size. Structurally normal mitral valve. Moderate mitral annular calcification. Trace mitral valve regurgitation. There are no prior echocardiogram studies to compare. A&P Assessment and plan (1) Atrial flutter with rapid ventricular response: [id number]=4/9, 1 for HTN, 1 for age and 1 for CHF. -I will start patient on Eliquis 5 mg twice a day. -Start on metoprolol 25 mg twice a day. Increase amiodarone gtt. to 1 and start him on amiodarone 200 mg twice a day. -Continue Cardizem at present dose. -Plan for GÓMEZ/cardioversion on Sunday if as patient has been in atrial flutter on and off likely for the past week. -The plan was discussed with the patient and his Julia in detail and they are agreeable for the same. Status: Acute Code(s): I48.92 - Unspecified atrial flutter (2) Diastolic heart failure with preserved ejection fraction: Patient is currently on Lasix 80 mg IV twice daily. Possibly transition to p.o. Lasix tomorrow. -Continue input output charting and daily weight. As well as fluid restriction. - Status: Acute Code(s): I50.30 - Unspecified diastolic (congestive) heart failure (3) Benign essential HTN: Status: Acute Code(s): I10 - Essential (primary) hypertension (4) Multiple myeloma: Status: Acute Code(s): C90.00 - Multiple myeloma not having achieved remission (5) Atypical chest pain: Status: Acute Code(s): R07.89 - Other chest pain Consult Attestations Medical Necessity Statement: Patient needs hospital stay for management of atrial flutter with rapid truncal response and decompensated congestive heart failure. Coding Level of Care Code Acute Hospital Clerk for [facility] Diagnoses Atrial flutter with rapid ventricular response I48.92 Diastolic heart failure with preserved ejection fraction I50.30 Benign essential HTN I10 Multiple myeloma C90.00 Atypical chest pain R07.89
[2019-12-27] MEDS: acyclovir 400 mg Tablet PO ×2 (10:15→18:41)
[2019-12-27] MEDS: dilTIAZem 60 mg Tablet PO ×3 (10:15→21:27)
--- NOTE | 2019-12-27 10:16 | PC.NURSE ---
Amiodarone drip increase back to 1 mg/min per doctor's order.
[2019-12-27] MEDS: metoprolol tartrate 25 mg Tablet PO ×2 (11:20→19:15)
[2019-12-27] MEDS: apixaban 5 mg Tablet PO ×2 (11:20→18:41)
[2019-12-27] MEDS: amiodarone 200 mg Tablet PO ×2 (11:22→23:49)
[2019-12-27 11:42] LABS: Glucose Point of Care 114 mg/dL (70-110)
--- NOTE | 2019-12-27 12:18 | P.PN_ITS ---
Subjective Subjective: Interval history: In last 24 hours patient has received 750 mcg of digoxin in 2 divided doses and was started on amiodarone drip yesterday evening at 6 PM. Overnight his heart rate has remained in 130s. This morning to his already continued regimen metoprolol 25 twice daily was added. After starting on lopressor his HR was in 90s-100s. After that he had mild presyncopal event. No LOC, N/V, headache, dizziness at present, chest pain. Patient remains comfortable. Documented urine output is around a liter but patient has been dumping his urine directly into the commode as well and not keeping for measurement. Vitals/I&O/Wt Last Vital Signs Temp 98.0 F 12/27/19 07:12 Pulse 138 H 12/27/19 11:39 Resp 18 12/27/19 11:23 BP 129/96 12/27/19 11:39 Pulse Ox 98 12/27/19 09:32 12/26/19 12/27/19 12/27/19 22:59 06:59 14:59 Intake Total 300 / 500 318.5 / 818.5 240 / 240 Output Total 900 / 900 1 / Balance 300 / 500 -581.5 / -81.5 239 / 239 Weight last 48 hrs Weight 114.714 kg Weight 112.491 kg Physical Exam Narrative: EXAM NARRATIVE: General: No acute distress, AO x3 HEENT: PERRLA, pupils bilaterally equal and reactive Chest: Normal vesicular breath sounds, no added sounds, equal good air entry bilaterally CVS: S1-S2 irregularly irregular, no murmurs, no tachycardia at present, no gallops, no rubs, JVD elevated Abdomen: Soft, nontender, no organomegaly, bowel sounds present Neuro: No focal deficits, no facial deformity, AO x3, power 5/5 in all limbs Data : 12/27/19 03:45 12/27/19 03:45 A&P Assessment and plan (1) Diastolic heart failure with preserved ejection fraction: Status: Acute Code(s): I50.30 - Unspecified diastolic (congestive) heart failure (2) Dyspnea on exertion: Status: Acute Code(s): R06.09 - Other forms of dyspnea (3) Sinus tachycardia: Status: Acute Code(s): R00.0 - Tachycardia, unspecified (4) Multiple myeloma: Status: Acute Code(s): C90.00 - Multiple myeloma not having achieved remission Additional A&P Information Aflutter with RVR: Getting rate controlled now. Till now patient has received 1 dose of 500 mcg of digoxin at 12 PM yesterday followed by 250 mcg at midnight last night. Along with that patient is on amiodarone drip after 150 mg bolus given to him at 6 PM yesterday. Patient was started on Lopressor 25 mg twice daily today morning. For now we will continue on Cardizem 60 mg 3 times daily along with Lopressor 25 mg twice daily and amiodarone 200 mg twice daily. We will stop the amiodarone drip after 24 hours of infusion. We will hold off on digoxin 250 mcg for now given the event of presyncope. Patient continues to remain in 11 24-12 04 will go ahead and give the dose. Patient has been started on Eliquis 5 mg twice daily for anticoagulation. Acute on chronic diastolic heart failure: proBNP elevated than before. Continue with IV Lasix 80 mg every 12 hours along with spironolactone 50 mg daily. We will monitor input output strictly. Daily weight. If output does not improve and will most likely need metolazone 5 mg. ECHO done last week was inconclusive due to poor window. Stress test result shows no active ischemia but an EF of 10% which is low because of severe tachycardia during the stress test. Patient would most likely need a repeat echocardiogram once his heart rate is settled. Cardiology recommendations appreciated. Continue other chronic medications like duloxetine, acyclovir. History of COPD: Oxygen supplementation keeping saturation 90% Continue with ipratropium every 6 hours, Xopenex every 6 hours. Multiple myeloma, not in remission. Currently treatment on hold given ongoing cardiac symptoms. DVT prophylaxis?Eliquis Full code Attestations Medical Necessity Statement*: Atrial flutter with rapid rates into the response Time Spent in Patient Care: Greater than 35 minutes (>than 50% of time spent in counselling and/or direct pt care on unit) . Coding Level of Care Code Acute [employer] Officer for Juliette Henry Diagnoses Diastolic heart failure with preserved ejection fraction I50.30 Dyspnea on exertion R06.09 Sinus tachycardia R00.0 Multiple myeloma C90.00
[2019-12-27 16:51] LABS: Glucose Point of Care 128 mg/dL (70-110)
--- NOTE | 2019-12-27 19:38 | PC.NURSE ---
Amiodarone drip titrated down to 0.5 mg/min. HR is around 80s to 90s, aflutter.
[2019-12-27 20:48] LABS: Glucose Point of Care 123 mg/dL (70-110)
--- NOTE | 2019-12-27 20:52 | PC.NURSE ---
2051 Dr. Yap called back saying that once I give the Cardizem to shut the Amiodarone drip off. Read back verbal order.
[2019-12-27] MEDS: LORazepam 1 mg Tablet PO (21:27)
[2019-12-27] MEDS: trazodone 50 mg Tablet PO (21:27)
--- NOTE | 2019-12-27 22:01 | PC.NURSE ---
At 2140 Patients Amiodarone drip was turned off as ordered by Dr. Yap after Cardizem PO administration.
[2019-12-28] VITALS (17 sets, daily range): BP systolic 110–125; BP diastolic 77–97; PULSE 84–138; RESP 13–20; TEMP 36.5–36.9; O2SAT 93–99
--- NOTE | 2019-12-28 02:10 | PC.NURSE ---
Amiodarone drip restarted at 0.5mg/hr as ordered. Heart rate ranging 120 to 135 bpm. Will continue to monitor.
[2019-12-28] MEDS: levalbuterol 1.25 mg/3 mL Neb INHALATION ×4 (04:05→21:20)
[2019-12-28 04:57] LABS: Basophils % 0.2 %; Eosinophils # 0.1 10^3/uL (0.0-0.8); Eosinophils % 0.8 %; Hematocrit 44.4 % (42.0-52.0); Lymphocytes # 0.7 10^3/uL (0.8-4.8); Lymphocytes % 10.5 %; Mean Corpuscular HGB Conc 31.5 g/dL (30.0-36.0); Mean Corpuscular Hemoglobin 28.7 pg (28.0-34.0); Mean Corpuscular Volume 91.2 fL (80-94); Mean Platelet Volume 10.2 fL (7.4-10.4); Neutrophils # 4.6 10^3/uL (1.8-7.7); Neutrophils % 72.2 %; Nucleated Red Blood Cells % 0 %; Platelet Count 146 10^3/cmm (130-400); Red Blood Count 4.87 10^6/uL (4.1-5.3); Red Cell Distribution Width 17.4 % (12.1-15.1); White Blood Count 6.4 10^3/uL (4.0-10.0)
[2019-12-28 05:26] LABS: Alanine Aminotransferase 21 U/L (0-41); Albumin Level 3.7 g/dL (3.5-5.2); Alkaline Phosphatase 64 IU/L (40-130); Anion Gap 14.9 (5-19); Aspartate Amino Transferase 12 U/L (0-40); Blood Urea Nitrogen 22 mg/dL (8-23); Calcium 9.9 mg/dL (8.5-10.5); Carbon Dioxide 33 mmol/L (22-29); Chloride 95 mmol/L (98-107); Globulin 2.6 g/dL (1.3-4.6); Glucose 123 mg/dL (65-115); Potassium 3.9 mmol/L (3.5-5.1); Sodium 139 mmol/L (136-145); Total Bilirubin 0.9 mg/dL (0.15-1.2); Total Protein 6.3 g/dL (6.6-8.7)
[2019-12-28] MEDS: dilTIAZem 60 mg Tablet PO ×3 (06:35→21:12)
--- NOTE | 2019-12-28 06:36 | PC.NURSE ---
Dr. Yap called to check on patient. Patient's heart still 115 to 135bpm on Amiodarone drip at 0.5mg/hr. Orders received to give patients 0900 dose of 60mg of Cardizem NOW. Read back verbal order.
[2019-12-28 06:43] LABS: Glucose Point of Care 102 mg/dL (70-110)
--- NOTE | 2019-12-28 08:49 | PM.PN ---
Subjective Subjective: Interval history: Last 24 hours patient was in a flutter with controlled rate most of the evening until early part of the night. It seems looking at the telemetry that he went into rapid ventricular response again sometime around 2 AM and at that time amiodarone drip was started again. Patient remains comfortable, denies of having any nausea, vomiting, dizziness, palpitations, shortness of breath. Vitals/I&O/Wt Last Vital Signs Temp 98.4 F 12/28/19 07:00 Pulse 138 H 12/28/19 07:00 Resp 17 12/28/19 07:00 BP 122/97 12/28/19 07:00 Pulse Ox 99 12/28/19 07:00 12/27/19 12/28/19 12/28/19 22:59 06:59 14:59 Intake Total 250 / 490 Output Total 1000 / 1001 250 / 1251 Balance -1000 / -761 0 / -761 Weight last 48 hrs Weight 114.714 kg Physical Exam Narrative: EXAM NARRATIVE: General: No acute distress, AO x3 HEENT: PERRLA, pupils bilaterally equal and reactive Chest: Normal vesicular breath sounds, no added sounds, equal good air entry bilaterally CVS: S1-S2 irregularly irregular, no murmurs, no tachycardia at present, no gallops, no rubs, JVD elevated Abdomen: Soft, nontender, no organomegaly, bowel sounds present Neuro: No focal deficits, no facial deformity, AO x3, power 5/5 in all limbs Data : 12/28/19 04:11 12/28/19 04:11 A&P Assessment and plan (1) Diastolic heart failure with preserved ejection fraction: Status: Acute Code(s): I50.30 - Unspecified diastolic (congestive) heart failure (2) Dyspnea on exertion: Status: Acute Code(s): R06.09 - Other forms of dyspnea (3) Sinus tachycardia: Status: Acute Code(s): R00.0 - Tachycardia, unspecified (4) Multiple myeloma: Status: Acute Code(s): C90.00 - Multiple myeloma not having achieved remission Additional A&P Information Aflutter with RVR: Was rate controlled for most of the evening yesterday. Continue with amnio drip at 0.5 right now. Continue with amiodarone 200 mg every 12, metoprolol 25 mg twice daily, digoxin 125 mcg daily. We will give him start IV Lopressor 5 mg right now followed by his regular dose of metoprolol. If he continues to remain tachycardic then will plan to either change his Cardizem from 3 times daily to 4 times daily today or lopressor 25 mg to TID. Will discuss with Dr. Yap. Eventually if patient continues to remain tachycardic/in aflutter tomorrow the plan would be to do a GÓMEZ followed by electrocardioversion. Patient has been made aware of the plans and family agrees with the same. Patient has been started on Eliquis 5 mg twice daily for anticoagulation. Acute on chronic diastolic heart failure: proBNP elevated than before. We will change Lasix to 40 mg IV every 12 today along with spironolactone 50 mg daily. Urine output adequate.We will monitor input output strictly. Daily weight. If output does not improve and will most likely need metolazone 5 mg. ECHO done last week was inconclusive due to poor window. Stress test result shows no active ischemia but an EF of 10% which is low because of severe tachycardia during the stress test. Patient would most likely need a repeat echocardiogram once his heart rate is settled. Cardiology recommendations appreciated. Patient most likely has underlying undiagnosed obstructive sleep apnea which is causing him to go into a flutter when he sleeps at night. Patient would most likely need a sleep study as an outpatient. Continue other chronic medications like duloxetine, acyclovir. History of COPD: Oxygen supplementation keeping saturation 90% Continue with ipratropium every 6 hours, Xopenex every 6 hours. Multiple myeloma, not in remission. Currently treatment on hold given ongoing cardiac symptoms. DVT prophylaxis?Eliquis Full code Attestations Medical Necessity Statement*: A flutter with rapid ventricular response Time Spent in Patient Care: Greater than 35 minutes Coding Level of Care Code Acute [employer] for [facility] Fwd Diagnoses Diastolic heart failure with preserved ejection fraction I50.30 Dyspnea on exertion R06.09 Sinus tachycardia R00.0 Multiple myeloma C90.00
[2019-12-28] MEDS: spironolactone 25 mg Tablet 50 MG PO (09:06)
[2019-12-28] MEDS: metoprolol tartrate 1 mg/1 mL SDV 5 mL 5 MG IV (09:06)
[2019-12-28] MEDS: apixaban 5 mg Tablet PO ×2 (09:06→18:00)
[2019-12-28] MEDS: aspirin 81 mg Chew Tablet PO (09:06)
[2019-12-28] MEDS: acyclovir 400 mg Tablet PO ×2 (09:06→17:59)
[2019-12-28] MEDS: duloxetine 20 mg Capsule PO ×2 (09:06→18:00)
[2019-12-28] MEDS: oxyCODONE IR 30 mg Tablet 15 MG PO ×3 (09:16→21:13)
[2019-12-28] MEDS: metoprolol tartrate 25 mg Tablet PO ×3 (09:22→21:13)
[2019-12-28 09:44] LABS: Digoxin 1.2 ng/mL (0.6-1.2)
[2019-12-28] MEDS: budesonide 0.5 mg/2 mL Neb INHALATION ×2 (09:46→21:20)
--- NOTE | 2019-12-28 10:03 | DCPLANNER ---
Pg 2 of IM explained to pt and spouse, signed by the latter as pt is getting a breathing treatment. No questions, copy provided.
--- NOTE | 2019-12-28 10:42 | PC.NURSE ---
family reminded of not dumping his urinal so we can record it. they verbalizes understanding.
[2019-12-28 11:00] LABS: Glucose Point of Care 113 mg/dL (70-110)
--- NOTE | 2019-12-28 11:00 | PC.NURSE ---
Amiodarone drip Stopped per verbal order of Dr. Yap. Oral Amiodarone given.
[2019-12-28] MEDS: amiodarone 200 mg Tablet PO ×2 (11:19→23:33)
--- NOTE | 2019-12-28 11:31 | P.PN_ITS ---
Subjective Subjective: Interval history: Last 24 hours: Patient received amiodarone 200 mg twice daily, metoprolol 25 mg twice daily, digoxin 250 mcg x 1 and the amiodarone drip was continued as well yesterday. Patient's urine output yesterday was good. He still feels clammy but denies having any chest discomfort or shortness of breath. He was tachycardic late last night and earlier this morning after his heart rate being well controlled yesterday afternoon and evening. He received 1 dose of IV Lopressor and heart rate has dropped down to 70s to 90s. Medications: Reviewed: Yes Medication Review Details: Current Medications Acetaminophen (Tylenol) 650 mg PO Q6H PRN PRN Reason: Mild/Mod Pain Or Temp >/= 101 Acyclovir (Zovirax) 400 mg PO BID [facility] Last Admin: 12/28/19 09:06 Dose: 400 mg Documented by: Amiodarone HCl (Cordarone) 200 mg PO Q12H [facility] Last Admin: 12/28/19 11:19 Dose: 200 mg Documented by: Apixaban (Eliquis) 5 mg PO BID [facility] Last Admin: 12/28/19 09:06 Dose: 5 mg Documented by: Aspirin (Aspirin Chewable) 81 mg PO DAILY [facility] Last Admin: 12/28/19 09:06 Dose: 81 mg Documented by: Benzonatate (Tessalon Pearls) 100 mg PO BID PRN PRN Reason: Cough Budesonide (Pulmicort) 0.5 mg INHALATION BID.RESPIRATORY [facility] Last Admin: 12/28/19 09:46 Dose: 0.5 mg Documented by: Dextrose (D50w) 25 ml IVP ONCE PRN; Protocol PRN Reason: hypoglycemia protocol Dextrose (D50w) 50 ml IVP PRN PRN; Protocol PRN Reason: hypoglycemia protocol Digoxin (Lanoxin) 125 mcg PO DAILY [facility] Diltiazem HCl (Cardizem) 60 mg PO TID [facility] Last Admin: 12/28/19 06:35 Dose: 60 mg Documented by: Furosemide (Lasix) 80 mg IVP Q12H [facility] Last Admin: 12/27/19 21:28 Dose: 80 mg Documented by: Glucagon (Glucagen) 1 mg IM ONCE PRN; Protocol PRN Reason: Adult Acute Hypoglycemia Prot. Dextrose (D5w) 500 mls @ 100 mls/hr IV ONCE PRN; Protocol PRN Reason: Adult Acute Hypoglycemia Prot Amiodarone HCl 900 mg/Dextrose/ IV Miscellaneous Supplies 518 mls @ 0 mls/hr IV .Q0M [facility]; Protocol Last Titration: 12/27/19 00:36 Dose: 0.01 mg/min, 0.5 mls/hr Documented by: Amiodarone HCl 900 mg/Dextrose/ IV Miscellaneous Supplies 518 mls @ 17.267 mls/hr IV .Q24H [facility] Last Admin: 12/27/19 19:31 Dose: Not Given Documented by: Insulin Aspart (Novolog) 0 unit SUBCUT WM&BEDTIME [facility]; Protocol Last Admin: 12/28/19 07:28 Dose: Not Given Documented by: Lactulose (Constulose) 10 gm PO DAILY PRN PRN Reason: CONSTIPA Levalbuterol HCl (Xopenex) 1.25 mg INHALATION Q6H.RESPIRATORY [facility] Last Admin: 12/28/19 09:46 Dose: 1.25 mg Documented by: Lidocaine (Lidoderm 5% Patch) 1 patch TOPICAL O12O12 PRN PRN Reason: PAIN Last Admin: 12/25/19 21:34 Dose: 1 patch Documented by: Lorazepam (Ativan) 1 mg PO BEDTIME PRN PRN Reason: Anxiety Last Admin: 12/27/19 21:27 Dose: 1 mg Documented by: Metoprolol Tartrate (Lopressor) 25 mg PO BID [facility] Last Admin: 12/28/19 09:22 Dose: 25 mg Documented by: Non-Formulary Medication (Naproxen Sodium [Aleve]) 220 mg PO BID PRN PRN Reason: Pain Ondansetron HCl (Zofran) 4 mg IVP Q8H PRN PRN Reason: vomiting, or N/V if npo Ondansetron HCl (Zofran) 4 mg IVP Q2M PRN PRN Reason: NAUSEA Oxycodone HCl (Oxycodone Ir) 15 mg PO QID PRN PRN Reason: Pain Last Admin: 12/28/19 09:16 Dose: 15 mg Documented by: Potassium Chloride (Klor-Con 10) 20 meq PO BID [facility] Last Admin: 12/28/19 09:07 Dose: 20 meq Documented by: Spironolactone (Aldactone) 50 mg PO DAILY [facility] Last Admin: 12/28/19 09:06 Dose: 50 mg Documented by: Trazodone HCl (Desyrel) 50 mg PO BEDTIME [facility] Last Admin: 12/27/19 21:27 Dose: 50 mg Documented by: Vitals/I&O/Wt Last Vital Signs Temp 98.5 F 12/28/19 11:00 Pulse 84 12/28/19 11:00 Resp 18 12/28/19 11:00 BP 114/84 12/28/19 11:00 Pulse Ox 99 12/28/19 11:00 12/27/19 12/28/19 12/28/19 22:59 06:59 14:59 Intake Total 250 / 490 240 / 240 Output Total 1000 / 1001 250 / 1251 Balance -1000 / -761 0 / -761 240 / 240 Weight last 48 hrs Weight 252 lb 14.4 oz Physical Exam Narrative: EXAM NARRATIVE: GENERAL: Averagely built and averagely nourished in no acute distress HEENT: Extraocular movement intact. Pupils equal round reactive to light. No pallor or icterus. NECK: Mild JVD. CARDIOVASCULAR SYSTEM: S1-S2 regular. Tachycardia+ No S3 or S4 present. No murmur rubs or gallops. RESPIRATORY SYSTEM: Chest clear to auscultation. No wheezes rhonchi or rubs heard. No use of accessory muscles. ABDOMEN: Soft, nontender and nondistended. Normal bowel sounds present. EXTREMITIES: No cyanosis or clubbing. Trace bilateral edema. + signs of chronic venous insufficiency. FURNITURE BUILDER: Patient is alert oriented ?3. No focal neurological deficits. Data : 12/28/19 04:11 12/28/19 04:11 A&P Assessment and plan (1) Atrial flutter with rapid ventricular response: [id number]=0/9, 1 for HTN, 1 for age and 1 for CHF. -I will continue patient on Eliquis 5 mg twice a day, amiodarone 200 mg twice a day, Cardizem 60 TID. It seems like patient responds better to metoprolol. Plan to increase metoprolol to 25 3 times daily from 25 mg twice a day. Hold off on digoxin maintenance dose for now. -Rate is somewhat better controlled. -Plan for GÓMEZ/cardioversion on Sunday if as patient has been in atrial flutter on and off likely for the past week. -The plan was discussed with the patient and his Julia and rest of the family in detail and they are agreeable for the same. All their questions and concerns were addressed. Status: Acute Code(s): I48.92 - Unspecified atrial flutter (2) Diastolic heart failure with preserved ejection fraction: Patient had 1800 mL of urine output yesterday. Patient is currently on Lasix 80 mg IV twice daily. I will hold Lasix today and potentially transition to p.o. Lasix tomorrow. -Continue spironolactone for the time being. His previous echo was technically difficult and showed left ventricular ejection fraction at lower limits of normal. -Continue input output charting and daily weight. As well as fluid restriction. -Plan to repeat echocardiogram with contrast once patient is heart rate is better controlled. Status: Acute Code(s): I50.30 - Unspecified diastolic (congestive) heart failure (3) Benign essential HTN: Blood pressure has been fairly controlled. Status: Acute Code(s): I10 - Essential (primary) hypertension (4) Multiple myeloma: Status: Acute Code(s): C90.00 - Multiple myeloma not having achieved remission (5) Atypical chest pain: No episodes of chest discomfort currently. Patient stress test with no ischemia. Status: Acute Code(s): R07.89 - Other chest pain Attestations Medical Necessity Statement*: Patient needs hospital stay for management of atrial flutter with rapid ventricular response. Coding Level of Care Code Acute Runner Worker for Juliette Henry Diagnoses Atrial flutter with rapid ventricular response I48.92 Diastolic heart failure with preserved ejection fraction I50.30 Benign essential HTN I10 Multiple myeloma C90.00 Atypical chest pain R07.89
--- NOTE | 2019-12-28 15:55 | PC.RESP ---
scanner not working
[2019-12-28 17:11] LABS: Glucose Point of Care 161 mg/dL (70-110)
[2019-12-28 20:57] LABS: Glucose Point of Care 187 mg/dL (70-110)
[2019-12-28] MEDS: LORazepam 1 mg Tablet PO (21:12)
[2019-12-28] MEDS: trazodone 50 mg Tablet PO (21:13)
[2019-12-29] VITALS (26 sets, daily range): BP systolic 89–141; BP diastolic 64–101; PULSE 65–115; RESP 11–22; TEMP 36.4–37; O2SAT 2–100
[2019-12-29] MEDS: levalbuterol 1.25 mg/3 mL Neb INHALATION ×4 (02:09→20:25)
[2019-12-29 06:17] LABS: Glucose Point of Care 101 mg/dL (70-110)
[2019-12-29] MEDS: apixaban 5 mg Tablet PO ×2 (06:49→17:02)
[2019-12-29] MEDS: metoprolol tartrate 25 mg Tablet PO (06:50)
[2019-12-29] MEDS: amiodarone 200 mg Tablet PO ×2 (06:50→21:03)
--- NOTE | 2019-12-29 06:52 | PC.NURSE ---
Dr. Yap called gave verbal orders to give patient his morning dose of metoprolol, amiodarone, and eliquis. Read back verbal order.
--- NOTE | 2019-12-29 07:17 | PC.NURSE ---
Time Out for Cody with synchronized cardioversion at bedside
--- NOTE | 2019-12-29 07:36 | ECG_ITS ---
Measurements Intervals [place] Rate: 66 P: 47 DC: 165 QRS: -30 QRSD: 100 T: 71 QT: 374 QTc: 392 SINUS RHYTHM POSSIBLE ANTERIOR MYOCARDIAL INFARCTION, OF INDETERMINATE AGE Compared to ECG 12/26/2019 10:55:19 Atrial flutter no longer present T-wave abnormality no longer present Possible ischemia no longer present Myocardial infarct finding still present Electronically Signed On 12-29-2019 15:31:41 INSULATION WORKER FURNACE INSTALLER by Estrellita Yap M.D. [email or web address]
--- NOTE | 2019-12-29 07:56 | USCV_ITS ---
Brandon Roberts Age: 74 Gender: M : 1945 Exam Date: 12/29/2019 06:41 Ordering Phys: Estrellita Yap MD ([email or web address]) Technologist: Arielle Lovett Exam Location: [facility] [place] Indication: CARDIOVERSION BP: / HR: Rhythm: Sinus Technical Quality: MEASUREMENTS (Male / Female) Normal Values Medications Complications Proc. Components FINDINGS Left Ventricle Dilated left ventricular cavity. Severely decreased left ventricular systolic function. Left ventricular ejection fraction is estimated at 15-20 %. Global left ventricular hypokinesis. Right Ventricle Normal right ventricular size and systolic function. Right ventricular systolic pressure 27 mmHg. Right Atrium Normal right atrial size. Left Atrium Moderately increased left atrial size. Mild spontaneous echo contrast noted in left atrium. No left atrial thrombus visualized. LA Appendage Normal left atrial appendage. Decreased flow velocities in the left atrial appendage. Mild spontaneous echo contrast seen in the left atrial appendage. No thrombus visualized in the left atrial appendage. IA Septum Normal interatrial septum. No patent foramen ovale or atrial septal defect by color doppler or agitated saline study. Mitral Valve Mild mitral annular calcification. Mild -moderate mitral valve regurgitation. Aortic Valve Mildly thickened and calcified trileaflet aortic valve. Aortic valve sclerosis without stenosis. No aortic valve regurgitation. Tricuspid Valve Structurally normal tricuspid valve. No tricuspid valve stenosis. [id number] tricuspid valve regurgitation. Pulmonic Valve Thickened pulmonic valve. No pulmonary valve stenosis. Trace pulmonary valve regurgitation. Pericardium No pericardial effusion. Aorta Normal size aortic root and proximal ascending aorta. No aortic dilation aneurysm or dissection. Grade 2 atheroma noted in aortic arch and proximal descending aorta. CONCLUSIONS 1. Dilated left ventricular cavity. Severely decreased left ventricular systolic function. Left ventricular ejection fraction is estimated at 15-20 %. Global left ventricular hypokinesis. 2. Normal right ventricular size and systolic function. 3. Moderately increased left atrial size. 4. No left atrial or left atrial appendage thrombus. Mild spontaneous echo contrast noted in left atrium and left atrial appendage. 5. Mild -moderate mitral and tricuspid valve regurgitation. Estrellita Yap MD (Electronically Signed) Final Date: 29 December 2019 17:03 S
--- NOTE | 2019-12-29 08:10 | ANES.PREANE2 ---
Pre-Anesthetic Assessment Pre-Anesthetic Assessment: Height/Weight: Height 1.8 m Weight 115.711 kg Temp Pulse Resp BP Pulse Ox 97.6 F 115 H 18 115/95 94 12/29/19 04:00 12/29/19 04:00 12/29/19 04:00 12/29/19 04:00 12/29/19 04:00 Preop Diagnosis: Atrial flutter Proposed Procedure: GÓMEZ & Cardioversion Familial anesthetic complications: None Last intake: NPO > 8 hrs Social: Social History: No alcohol Exam: Pre-Anes Outpt Exam: alert, oriented x 3, clear to auscultation bilaterally and regular rate & rhythm Additional Exam Findings (including area of procedure): a flutter w/ RVR, diminished breath sounds Airway: Cervical ROM: WNL MP: 4 Dentition: False Pulmonary: Pulmonary: COPD (started oxygen 2 weeks ago, 2 L NC day and night), Cough and SOB CV/HEM: CV/HEM: Arrythmia, CHF and HTN : : None reported Hepatic: Hepatic: None reported GI: GI: None reported Metabolic: Metabolic: Morbid obesity Musc/skel: Musc/skel: None reported Neuropsych: Neuropsych: None reported Anesthetic Plan: ASA status: 4 Anesthesia: MAC Risk of > 500 ml blood loss (7ml/kg in children): No Other Pertinent Information: Late entry Meds/Allergies Current Medications: Current Medications Generic Name Dose Route Start Last Admin Trade Name Freq PRN Reason Stop Dose Admin Acyclovir 400 mg 12/26/19 09:00 12/28/19 17:59 Zovirax PO 400 mg BID [facility] Administration Amiodarone HCl 200 mg 12/27/19 23:00 12/29/19 06:50 Cordarone PO 200 mg Q12H [facility] Administration Apixaban 5 mg 12/27/19 10:55 12/29/19 06:49 Eliquis PO 5 mg BID [facility] Administration Aspirin 81 mg 12/26/19 09:00 12/28/19 09:06 Aspirin Chewable PO 81 mg DAILY [facility] Administration Budesonide 0.5 mg 12/26/19 08:00 12/28/19 21:20 Pulmicort INHALATION 0.5 mg BID.RESPIRATORY [facility] Administration Amiodarone HCl 900 mg/ 518 mls @ 0 mls/h r 12/26/19 17:30 12/27/19 00:36 Dextrose/ IV Misce llaneous IV 0.01 mg/min Supplies .Q0M EU[facility] 0.5 mls/hr Titration Protocol Per Protocol Amiodarone HCl 900 mg/ 518 mls @ 17.267 mls/hr 12/26/19 17:30 12/28/19 18:59 Dextrose/ IV Misce llaneous IV Not Given Supplies .Q24H [facility] 0.5 MG/MIN Insulin Aspart 0 unit 12/26/19 08:00 12/28/19 21:12 Novolog SUBCUT 4 unit WM&BEDTIME [facility] Administration Protocol Levalbuterol HCl 1.25 mg 12/25/19 21:00 12/29/19 02:09 Xopenex INHALATION 1.25 mg Q6H.RESPIRATORY [facility] Administration Lidocaine 1 patch 12/25/19 21:00 12/25/19 21:34 Lidoderm 5% Patc h TOPICAL 1 patch O12O12 PRN Administration PAIN Lorazepam 1 mg 12/25/19 19:29 12/28/19 21:12 Ativan PO 1 mg BEDTIME PRN Administration Anxiety Oxycodone HCl 15 mg 12/25/19 19:29 12/28/19 21:13 Oxycodone Ir PO 15 mg QID PRN Administration Pain Potassium Chloride 20 meq 12/26/19 09:00 12/28/19 17:58 Klor-Con 10 PO 20 meq BID [facility] Administration Spironolactone 50 mg 12/26/19 09:00 12/28/19 09:06 Aldactone PO 50 mg DAILY [facility] Administration Trazodone HCl 50 mg 12/25/19 21:00 12/28/19 21:13 Desyrel PO 50 mg BEDTIME [facility] Administration PFSH Anesthesia PFSH: Medical History (Updated 12/27/19 @ 13:59 by Estrellita Yap MD) Atrial fibrillation Benign essential HTN Chemotherapeutic agent or infusion extravasation Chest pain Diastolic heart failure with preserved ejection fraction Dyspnea on exertion Kidney stones Maintenance chemotherapy Orthostatic hypotension Peripheral arterial occlusive disease Sinus tachycardia Venous insufficiency Surgical History Autologous bone marrow transplantation status History of renal stent Hx of lithotripsy Stem cells transplant status Social History Smoking and tobacco status: former smoker Alcohol intake: never Data Anesthesia CBC & Chem 7: 12/28/19 04:11 12/28/19 04:11 Other Labs: Laboratory Results - last 48 hr 12/27/19 12/27/19 12/27/19 11:37 16:37 20:22 WBC RBC Hgb Hct MCV MCH MCHC RDW Plt Count MPV Neut % (Auto) Lymph % (Auto) [place] % (Auto) Eos % (Auto) Baso % (Auto) Neut # (Auto) Lymph # (Auto) [place] # (Auto) Eos # (Auto) Baso # (Auto) Nucleated RBC % (auto) Nucleated RBCs # Sodium Potassium Chloride Carbon Dioxide Anion Gap BUN Creatinine Glucose POC Glucose 114 128 123 Calcium Total Bilirubin AST ALT Alkaline Phosphatase Total Protein Albumin Globulin Digoxin 12/28/19 12/28/19 12/28/19 04:11 04:11 04:11 WBC 6.4 RBC 4.87 Hgb 14.0 Hct 44.4 MCV 91.2 MCH 28.7 MCHC 31.5 RDW 17.4 H Plt Count 146 MPV 10.2 Neut % (Auto) 72.2 Lymph % (Auto) 10.5 [place] % (Auto) 16.0 Eos % (Auto) 0.8 Baso % (Auto) 0.2 Neut # (Auto) 4.6 Lymph # (Auto) 0.7 L [place] # (Auto) 1.0 H Eos # (Auto) 0.1 Baso # (Auto) 0.0 Nucleated RBC % (auto) 0 Nucleated RBCs # 0.0 Sodium 139 Potassium 3.9 Chloride 95 L Carbon Dioxide 33 H Anion Gap 14.9 BUN 22 Creatinine 1.0 Glucose 123 H POC Glucose Calcium 9.9 Total Bilirubin 0.9 AST 12 ALT 21 Alkaline Phosphatase 64 Total Protein 6.3 L Albumin 3.7 Globulin 2.6 Digoxin 1.2 12/28/19 12/28/19 12/28/19 06:25 10:37 16:58 WBC RBC Hgb Hct MCV MCH MCHC RDW Plt Count MPV Neut % (Auto) Lymph % (Auto) [place] % (Auto) Eos % (Auto) Baso % (Auto) Neut # (Auto) Lymph # (Auto) [place] # (Auto) Eos # (Auto) Baso # (Auto) Nucleated RBC % (auto) Nucleated RBCs # Sodium Potassium Chloride Carbon Dioxide Anion Gap BUN Creatinine Glucose POC Glucose 102 113 161 Calcium Total Bilirubin AST ALT Alkaline Phosphatase Total Protein Albumin Globulin Digoxin 12/28/19 12/29/19 20:49 06:06 WBC RBC Hgb Hct MCV MCH MCHC RDW Plt Count MPV Neut % (Auto) Lymph % (Auto) [place] % (Auto) Eos % (Auto) Baso % (Auto) Neut # (Auto) Lymph # (Auto) [place] # (Auto) Eos # (Auto) Baso # (Auto) Nucleated RBC % (auto) Nucleated RBCs # Sodium Potassium Chloride Carbon Dioxide Anion Gap BUN Creatinine Glucose POC Glucose 187 101 Calcium Total Bilirubin AST ALT Alkaline Phosphatase Total Protein Albumin Globulin Digoxin Cardiac Studies: No Data to Display
--- NOTE | 2019-12-29 08:25 | PC.NURSE ---
Nurses at bedside at this time for assessment and pt needs
--- NOTE | 2019-12-29 08:48 | PM.PN ---
Subjective Subjective: Interval history: Last 24 hours: Patient remained in atrial flutter with variable response with intermittent episodes of rapid ventricular response. Patient denies having any chest discomfort but continued to complain of feeling clammy and sweaty. No shortness of breath. He successfully underwent transesophageal echocardiogram and cardioversion this morning. He has been maintaining sinus rhythm with intermittent PACs. Medications: Reviewed: Yes Medication Review Details: Current Medications Acetaminophen (Tylenol) 650 mg PO Q6H PRN PRN Reason: Mild/Mod Pain Or Temp >/= 101 Acyclovir (Zovirax) 400 mg PO BID [facility] Last Admin: 12/28/19 17:59 Dose: 400 mg Documented by: Amiodarone HCl (Cordarone) 200 mg PO Q12H [facility] Last Admin: 12/29/19 06:50 Dose: 200 mg Documented by: Apixaban (Eliquis) 5 mg PO BID [facility] Last Admin: 12/29/19 06:49 Dose: 5 mg Documented by: Aspirin (Aspirin Chewable) 81 mg PO DAILY [facility] Last Admin: 12/28/19 09:06 Dose: 81 mg Documented by: Benzonatate (Tessalon Pearls) 100 mg PO BID PRN PRN Reason: Cough Budesonide (Pulmicort) 0.5 mg INHALATION BID.RESPIRATORY [facility] Last Admin: 12/28/19 21:20 Dose: 0.5 mg Documented by: Dextrose (D50w) 25 ml IVP ONCE PRN; Protocol PRN Reason: hypoglycemia protocol Dextrose (D50w) 50 ml IVP PRN PRN; Protocol PRN Reason: hypoglycemia protocol Furosemide (Lasix) 60 mg PO BID@08,16 [facility] Glucagon (Glucagen) 1 mg IM ONCE PRN; Protocol PRN Reason: Adult Acute Hypoglycemia Prot. Dextrose (D5w) 500 mls @ 100 mls/hr IV ONCE PRN; Protocol PRN Reason: Adult Acute Hypoglycemia Prot Amiodarone HCl 900 mg/Dextrose/ IV Miscellaneous Supplies 518 mls @ 0 mls/hr IV .Q0M [facility]; Protocol Last Titration: 12/27/19 00:36 Dose: 0.01 mg/min, 0.5 mls/hr Documented by: Amiodarone HCl 900 mg/Dextrose/ IV Miscellaneous Supplies 518 mls @ 17.267 mls/hr IV .Q24H [facility] Last Admin: 12/28/19 18:59 Dose: Not Given Documented by: Insulin Aspart (Novolog) 0 unit SUBCUT WM&BEDTIME [facility]; Protocol Last Admin: 12/28/19 21:12 Dose: 4 unit Documented by: Lactulose (Constulose) 10 gm PO DAILY PRN PRN Reason: CONSTIPA Levalbuterol HCl (Xopenex) 1.25 mg INHALATION Q6H.RESPIRATORY [facility] Last Admin: 12/29/19 02:09 Dose: 1.25 mg Documented by: Lidocaine (Lidoderm 5% Patch) 1 patch TOPICAL O12O12 PRN PRN Reason: PAIN Last Admin: 12/25/19 21:34 Dose: 1 patch Documented by: Lorazepam (Ativan) 1 mg PO BEDTIME PRN PRN Reason: Anxiety Last Admin: 12/28/19 21:12 Dose: 1 mg Documented by: Metoprolol Succinate (Toprol Xl) 25 mg PO ONCE ONE Stop: 12/29/19 18:01 Metoprolol Succinate (Toprol Xl) 50 mg PO DAILY [facility] Non-Formulary Medication (Naproxen Sodium [Aleve]) 220 mg PO BID PRN PRN Reason: Pain Ondansetron HCl (Zofran) 4 mg IVP Q8H PRN PRN Reason: vomiting, or N/V if npo Oxycodone HCl (Oxycodone Ir) 15 mg PO QID PRN PRN Reason: Pain Last Admin: 12/28/19 21:13 Dose: 15 mg Documented by: Potassium Chloride (Klor-Con 10) 20 meq PO BID [facility] Last Admin: 12/28/19 17:58 Dose: 20 meq Documented by: Spironolactone (Aldactone) 50 mg PO DAILY [facility] Last Admin: 12/28/19 09:06 Dose: 50 mg Documented by: Trazodone HCl (Desyrel) 50 mg PO BEDTIME [facility] Last Admin: 12/28/19 21:13 Dose: 50 mg Documented by: Vitals/I&O/Wt Last Vital Signs Temp 97.6 F 12/29/19 04:00 Pulse 115 H 12/29/19 04:00 Resp 18 12/29/19 04:00 BP 115/95 12/29/19 04:00 Pulse Ox 94 12/29/19 04:00 12/28/19 12/29/1920 22:59 06:59 14:59 Intake Total 400 / 1080 Output Total 100 / 750 Balance 300 / 330 Weight last 48 hrs Weight 255 lb 1.6 oz Weight 244 lb 2 oz Physical Exam Narrative: EXAM NARRATIVE: GENERAL: Averagely built and averagely nourished in no acute distress HEENT: Extraocular movement intact. Pupils equal round reactive to light. No pallor or icterus. NECK: Mild JVD. CARDIOVASCULAR SYSTEM: S1-S2 regular. No S3 or S4 present. No murmur rubs or gallops. RESPIRATORY SYSTEM: Chest clear to auscultation. No wheezes rhonchi or rubs heard. No use of accessory muscles. ABDOMEN: Soft, nontender and nondistended. Normal bowel sounds present. EXTREMITIES: No cyanosis or clubbing. Trace bilateral edema. + signs of chronic venous insufficiency. 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 No focal neurological deficits. Data : 12/28/19 04:11 12/28/19 04:11 A&P Assessment and plan (1) Atrial flutter with rapid ventricular response: [id number]=8/9, 1 for HTN, 1 for age and 1 for CHF. -I will continue patient on Eliquis 5 mg twice a day, amiodarone 200 mg twice a day. -GÓMEZ and cardioversion was performed with muslim of normal sinus rhythm. -In view of decreased left ventricular systolic function, I will stop diltiazem. Continue patient on metoprolol. 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 -Stress test was negative for ischemia. -I will stop diltiazem. Change to metoprolol succinate 50 mg daily. Patient has already received metoprolol tartrate 25 mg today depending on his heart rate I will administer second dose of 25 mg or 50 mg. -Continue spironolactone 50 mg daily. I will start him back on Lasix 60 mg p.o. twice daily. Plan to add ELÍAS inhibitor or ARB or Entresto based on his blood pressure and renal function. Status: Acute Qualifiers: Cardiomyopathy type: other Qualified Code(s): I42.8 - Other cardiomyopathies Code(s): I42.9 - Cardiomyopathy, unspecified (3) Benign essential HTN: Blood pressure has been fairly controlled. Status: Acute Code(s): I10 - Essential (primary) hypertension (4) Multiple myeloma: Status: Acute Code(s): C90.00 - Multiple myeloma not having achieved remission (5) Atypical chest pain: No episodes of chest discomfort currently. Patient stress test with no ischemia. Status: Acute Code(s): R07.89 - Other chest pain Attestations Medical Necessity Statement*: Patient needs hospital stay for titration of his medications for atrial flutter and congestive heart failure. Procedures Time out/Consent Time Out Performed: Yes Consent for Procedure: Consent obtained from patient, Risks & Benefits reviewed and Agrees to proceed with procedure Procedure Narrative GÓMEZ Procedure note Indication: Symptomatic atrial flutter with rapid ventricular response Sedation: Propofol by anesthesia Procedure was explained to the patient in detail and informed consent was obtained. Timeout was called. After achieving adequate sedation, the probe was inserted on first attempt. No blood on the probe post procedure. Prelim report: Dilated left ventricular cavity with severely decreased left ventricular systolic function. Left ventricular ejection fraction estimated at 20%. No left atrial or left atrial appendage mass or thrombus visualized. No ASD or PFO identified. Full report to follow. Cardioversion procedure note. Indication: Symptomatic atrial flutter atrial fibrillation Anticoagulation: Eliquis Sedation: Propofol by anesthesia After ruling out left atrial appendage or left atrial thrombus and ensuring patient was properly sedated. Pads were placed anteroposteriorly. [He received 150 J of synchronized biphasic shock ?1 with muslim of normal sinus rhythm. Patient tolerated the procedure well. Recovery: In CSU Disposition: Changes were made to current medications. Coding Level of Care Code Acute Mechanical Ordnance Assembler for [facility] Fwd Diagnoses Atrial flutter with rapid ventricular response I48.92 Cardiomyopathy I42.8 Cardiomyopathy type: other Benign essential HTN I10 Multiple myeloma C90.00 Atypical chest pain R07.89
[2019-12-29 08:51] LABS: Alanine Aminotransferase 18 U/L (0-41); Albumin Level 3.2 g/dL (3.5-5.2); Alkaline Phosphatase 60 IU/L (40-130); Anion Gap 14.8 (5-19); Blood Urea Nitrogen 23 mg/dL (8-23); Calcium 10.8 mg/dL (8.5-10.5); Carbon Dioxide 28 mmol/L (22-29); Chloride 99 mmol/L (98-107); Globulin 3.2 g/dL (1.3-4.6); Glucose 130 mg/dL (65-115); Magnesium 2.3 mg/dL (1.7-2.3); Potassium 4.8 mmol/L (3.5-5.1); Sodium 137 mmol/L (136-145); Total Bilirubin 0.9 mg/dL (0.15-1.2); Total Protein 6.4 g/dL (6.6-8.7)
[2019-12-29] MEDS: budesonide 0.5 mg/2 mL Neb INHALATION ×2 (08:51→20:25)
[2019-12-29 08:54] LABS: Aspartate Amino Transferase 16 U/L (0-40)
[2019-12-29] MEDS: FUROsemide 40 mg Tablet 60 MG PO ×2 (09:19→15:56)
[2019-12-29] MEDS: acyclovir 400 mg Tablet PO ×2 (09:21→17:03)
[2019-12-29] MEDS: spironolactone 25 mg Tablet 50 MG PO (09:21)
[2019-12-29] MEDS: aspirin 81 mg Chew Tablet PO (09:22)
[2019-12-29] MEDS: duloxetine 20 mg Capsule PO ×2 (09:22→17:03)
[2019-12-29] MEDS: oxyCODONE IR 30 mg Tablet 15 MG PO ×2 (09:24→15:56)
--- NOTE | 2019-12-29 10:53 | PC.NURSE ---
pt sleeping in bed no distress noted, family refuses any needs at this time.
[2019-12-29 12:25] LABS: Glucose Point of Care 159 mg/dL (70-110)
--- NOTE | 2019-12-29 14:04 | PC.CHAP ---
Pastoral Care Encounter/Spiritual Assessment Type of Contact [] Declined agriculture extension specialist visit [] Patient/Family/Request visit [] Outpatient visit [] Follow-up visit [] Physician referral [] Code/Alert [] Routine visit [] Staff referral [] Actively dying [] Patient sleeping [] Family support [] [] Out of room [] Palliative care [] [xReceiving care in room [] Pre-surgical visit [] Trauma [] Long length of stay [] ICU visit [] Other: Relational/Emotional Strength [] Patient feels connected with others/family/visitors/staff [] Distress [] Loneliness/isolation [] Abandonment Spirituality of Patient [] Person of Yesenia [] Attends Samaritan of their Yesenia [] Believes in Prayer [] Reads Bible or Yazdanism materials [] There are Spiritual issues to be addressed Bleach Machine Operator Interventions [] Prayer [] Active listening [] Non-anxious presence [] Spiritual/emotional support [] Crisis/trauma care [] Spiritual counseling [] Bereavement support [] Provided bereavement packet [] Provided Bible/devotional materials [] Provided toy/stuffed animal, coloring book to patient or family member [] Provided Communion [] Anointing/[place] [] Salvation [] Completed spiritual assessment [] Other: Impact on Illness or Injury [] Angry [] Fearful [] Anxious [] Often cries [] Exhaustion [] Unable to work [] Unable to attend moravian [] Unable to walk/stand [] Unable to read [] Unable to drive [] Unable to eat/drink [] Unable to sleep [] Unable to be with family [] Patient intubated [] Other: Summary Patient was receiving care from nursing staff. Referred patient to next agriculture extension specialist for a follow up visit. Visit was attempted by Bleach Machine Operator Grady Barrientos Time spent with patient 3 minutes
--- NOTE | 2019-12-29 14:08 | PM.PN ---
Subjective Subjective: Interval history: In last 24 hours patient has been in a flutter with variable response. This morning patient was seen after GÓMEZ and electrocardioversion. On evaluation patient is in sinus rhythm with heart rate ranging around 70-75. States he is fairly comfortable but complaining of mild dizziness on and off. Patient has been walking around in his room without any difficulty, shortness of breath, headache denies of having weakness in any of his arms, slurring speech or deviation of his mouth. Vitals/I&O/Wt Last Vital Signs Temp 97.7 F 12/29/19 11:56 Pulse 74 12/29/19 11:56 Resp 18 12/29/19 11:56 BP 141/84 12/29/19 11:56 Pulse Ox 95 12/29/19 11:56 12/28/19 12/29/19 12/29/19 22:59 06:59 14:59 Intake Total 400 / 1080 318 / 318 Output Total 100 / 750 250 / 250 Balance 300 / 330 68 / 68 Weight last 48 hrs Weight 115.711 kg Weight 110.733 kg Physical Exam Narrative: EXAM NARRATIVE: General: No acute distress, AO x3 HEENT: PERRLA, pupils bilaterally equal and reactive Chest: Normal vesicular breath sounds, no added sounds, equal good air entry bilaterally CVS: S1-S2 regular, pansystolic at the apex 1/6, no tachycardia at present, no gallops, no rubs, JVD normal Abdomen: Soft, nontender, no organomegaly, bowel sounds present Neuro: No focal deficits, no facial deformity, AO x3, power 5/5 in all limbs Data : 12/28/19 04:11 12/29/19 08:23 A&P Assessment and plan (1) Atrial flutter with rapid ventricular response: Status: Acute Code(s): I48.92 - Unspecified atrial flutter (2) Nonischemic cardiomyopathy: Status: Acute Code(s): I42.8 - Other cardiomyopathies (3) Dyspnea on exertion: Status: Acute Code(s): R06.09 - Other forms of dyspnea (4) Sinus tachycardia: Status: Acute Code(s): R00.0 - Tachycardia, unspecified (5) Multiple myeloma: Status: Acute Code(s): C90.00 - Multiple myeloma not having achieved remission Additional A&P Information Aflutter with RVR: Sinus rhythm now post electrocardioversion. Case discussed with Dr. Yap. We will plan to discontinue Cardizem now as patient is in sinus rhythm. Continue with amiodarone 200 mg twice daily. Metoprolol has been increased to 50 twice daily. Patient has been started on Eliquis 5 mg twice daily for anticoagulation. Nonischemic cardiomyopathy: GÓMEZ reveals EF of around 20%. Euvolemic for now. We will start patient on Lasix at his home dose of 60 mg twice daily along with spironolactone 50 mg daily. Eventually will need to add Entresto versus ELÍAS inhibitor to his regimen. Urine output adequate.We will monitor input output strictly. Daily weight. Cardiology recommendations appreciated. Patient most likely has underlying undiagnosed obstructive sleep apnea which is causing him to go into a flutter when he sleeps at night. Patient would most likely need a sleep study as an outpatient. Continue other chronic medications like duloxetine, acyclovir. History of COPD: Oxygen supplementation keeping saturation 90% Continue with ipratropium every 6 hours, Xopenex every 6 hours. Multiple myeloma, not in remission. Currently treatment on hold given ongoing cardiac symptoms. DVT prophylaxis?Eliquis Full code Attestations Medical Necessity Statement*: Atrial flutter with rapid ventricular response with nonischemic cardiomyopathy Time Spent in Patient Care: Greater than 35 minutes Coding Level of Care Code Acute Punch Machine Operator for [facility] Diagnoses Atrial flutter with rapid ventricular response I48.92 Nonischemic cardiomyopathy I42.8 Dyspnea on exertion R06.09 Sinus tachycardia R00.0 Multiple myeloma C90.00
--- NOTE | 2019-12-29 15:12 | PC.NURSE ---
Maintaining at Sinus Rhythm post synchronized cardioversion. HR-80s-90s even during ambulation. pt denies any discomfort of shortness of breath. Will monitor.
--- NOTE | 2019-12-29 15:13 | PC.NURSE ---
Provided patient with Entresto and Farhan coupons.
[2019-12-29 17:01] LABS: Glucose Point of Care 91 mg/dL (70-110)
[2019-12-29] MEDS: metoprolol succinate ER (24 HR) 25 mg Tablet PO (17:03)
[2019-12-29] MEDS: sacubitril/valsartan 24-26 mg Tablet 1 EACH PO (17:04)
[2019-12-29 20:31] LABS: Glucose Point of Care 134 mg/dL (70-110)
[2019-12-29] MEDS: trazodone 50 mg Tablet PO (21:03)
[2019-12-30] VITALS (8 sets, daily range): BP systolic 130–138; BP diastolic 70–92; PULSE 68–87; RESP 14–22; TEMP 36.7–37.1; O2SAT 92–98
[2019-12-30] MEDS: levalbuterol 1.25 mg/3 mL Neb INHALATION ×2 (02:17→08:39)
--- NOTE | 2019-12-30 03:58 | PC.NURSE ---
Brick Picker reports patient refusing labs stating, I am going home today, I don't want to have them done.
[2019-12-30 06:44] LABS: Glucose Point of Care 90 mg/dL (70-110)
--- NOTE | 2019-12-30 08:15 | PM.PN ---
Subjective Subjective: Interval history: Patient has been doing well overall. No CP, SOB. He remains in NSR overnight. UO 1200 ml. Medications: Reviewed: Yes Medication Review Details: Current Medications Acetaminophen (Tylenol) 650 mg PO Q6H PRN PRN Reason: Mild/Mod Pain Or Temp >/= 101 Acyclovir (Zovirax) 400 mg PO BID [facility] Last Admin: 12/29/19 17:03 Dose: 400 mg Documented by: Amiodarone HCl (Cordarone) 200 mg PO Q12H [facility] Last Admin: 12/29/19 21:03 Dose: 200 mg Documented by: Apixaban (Eliquis) 5 mg PO BID [facility] Last Admin: 12/29/19 17:02 Dose: 5 mg Documented by: Aspirin (Aspirin Chewable) 81 mg PO DAILY [facility] Last Admin: 12/29/19 09:22 Dose: 81 mg Documented by: Benzonatate (Tessalon Pearls) 100 mg PO BID PRN PRN Reason: Cough Budesonide (Pulmicort) 0.5 mg INHALATION BID.RESPIRATORY [facility] Last Admin: 12/29/19 20:25 Dose: 0.5 mg Documented by: Dextrose (D50w) 25 ml IVP ONCE PRN; Protocol PRN Reason: hypoglycemia protocol Dextrose (D50w) 50 ml IVP PRN PRN; Protocol PRN Reason: hypoglycemia protocol Furosemide (Lasix) 60 mg PO BID@08,16 [facility] Last Admin: 12/29/19 15:56 Dose: 60 mg Documented by: Glucagon (Glucagen) 1 mg IM ONCE PRN; Protocol PRN Reason: Adult Acute Hypoglycemia Prot. Dextrose (D5w) 500 mls @ 100 mls/hr IV ONCE PRN; Protocol PRN Reason: Adult Acute Hypoglycemia Prot Insulin Aspart (Novolog) 0 unit SUBCUT WM&BEDTIME [facility]; Protocol Last Admin: 12/30/19 07:54 Dose: Not Given Documented by: Lactulose (Constulose) 10 gm PO DAILY PRN PRN Reason: CONSTIPA Levalbuterol HCl (Xopenex) 1.25 mg INHALATION Q6H.RESPIRATORY [facility] Last Admin: 12/30/19 02:17 Dose: 1.25 mg Documented by: Lidocaine (Lidoderm 5% Patch) 1 patch TOPICAL O12O12 PRN PRN Reason: PAIN Last Admin: 02/20/20 21:34 Dose: 1 patch Documented by: Metoprolol Succinate (Toprol Xl) 50 mg PO DAILY [facility] Non-Formulary Medication (Naproxen Sodium [Aleve]) 220 mg PO BID PRN PRN Reason: Pain Ondansetron HCl (Zofran) 4 mg IVP Q8H PRN PRN Reason: vomiting, or N/V if npo Potassium Chloride (Klor-Con 10) 20 meq PO BID [facility] Last Admin: 12/29/19 17:03 Dose: 20 meq Documented by: Spironolactone (Aldactone) 50 mg PO DAILY [facility] Last Admin: 12/29/19 09:21 Dose: 50 mg Documented by: Trazodone HCl (Desyrel) 50 mg PO BEDTIME [facility] Last Admin: 12/29/19 21:03 Dose: 50 mg Documented by: Vitals/I&O/Wt Last Vital Signs Temp 98.8 F 12/30/19 08:00 Pulse 68 12/30/19 08:00 Resp 22 H 12/30/19 08:00 BP 138/70 12/30/19 08:00 Pulse Ox 98 12/30/19 08:00 12/29/19 12/30/19 12/30/19 22:59 06:59 14:59 Intake Total 560 / 878 Output Total 550 / 800 400 / 1200 Balance -400 / -322 Weight last 48 hrs Weight 256 lb 3.2 oz Weight 255 lb 1.6 oz Weight 244 lb 2 oz Physical Exam Narrative: EXAM NARRATIVE: GENERAL: obese man lying in bed in no acute distress HEENT: Extraocular movement intact. Pupils equal round reactive to light. No pallor or icterus. NECK: No JVD. CARDIOVASCULAR SYSTEM: S1-S2 regular. PMI displaced. Grade 2/6 SM at apex. No rubs or gallops. RESPIRATORY SYSTEM: Chest clear to auscultation. No wheezes rhonchi or rubs heard. No use of accessory muscles. ABDOMEN: Soft, nontender and nondistended. Normal bowel sounds present. EXTREMITIES: No cyanosis or clubbing. Trace bilateral edema. + signs of chronic venous insufficiency. TUNGSTEN REFINER: Patient is alert oriented ?3. No focal neurological deficits. Data : 12/30/19 08:22 12/30/19 08:22 A&P Assessment and plan (1) Atrial flutter with rapid ventricular response: [id number]=6/9, 1 for HTN, 1 for age and 1 for CHF. -I will continue patient on Eliquis 5 mg twice a day, amiodarone 200 mg twice a day. -GÓMEZ and cardioversion was performed yesterday with lutheran of normal sinus rhythm. -In view of decreased left ventricular systolic function, I will stop diltiazem. Continue patient on metoprolol. -Plan to continue with Amiodarone 200 mg twice a day for 2 weeks and then decrease to 200 mg daily. -May be discharged later today. [facility]2 weeks. BMP, Mg and NT pro BNP in1 week. 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 -Stress test was negative for ischemia. -continue metoprolol succinate 50 mg, spironolactone 50 mg daily and low dose entresto. - I will continue Lasix 60 mg p.o. twice daily with potassium. -Life vest discussed with patient and family and they are agreeable for the same. Patient to be fitted with life vest prior to discharge. Status: Acute Qualifiers: Cardiomyopathy type: other Qualified Code(s): I42.8 - Other cardiomyopathies Code(s): I42.9 - Cardiomyopathy, unspecified (3) Benign essential HTN: Blood pressure has been fairly controlled. Status: Acute Code(s): I10 - Essential (primary) hypertension (4) Multiple myeloma: Status: Acute Code(s): C90.00 - Multiple myeloma not having achieved remission (5) Atypical chest pain: No episodes of chest discomfort currently. Patient stress test with no ischemia. Status: Acute Code(s): R07.89 - Other chest pain Attestations Medical Necessity Statement*: Patient seems stable to be discharged home today. Coding Level of Care Code Acute Glass Robot Operator for [facility] Fwd Diagnoses Atrial flutter with rapid ventricular response I48.92 Cardiomyopathy I42.8 Cardiomyopathy type: other Benign essential HTN I10 Multiple myeloma C90.00 Atypical chest pain R07.89
[2019-12-30] MEDS: FUROsemide 40 mg Tablet 60 MG PO (08:35)
[2019-12-30] MEDS: spironolactone 25 mg Tablet 50 MG PO (08:37)
[2019-12-30] MEDS: duloxetine 20 mg Capsule PO (08:37)
[2019-12-30] MEDS: acyclovir 400 mg Tablet PO (08:37)
[2019-12-30] MEDS: metoprolol succinate ER (24 HR) 50 mg Tablet PO (08:37)
[2019-12-30] MEDS: aspirin 81 mg Chew Tablet PO (08:37)
[2019-12-30] MEDS: apixaban 5 mg Tablet PO (08:37)
[2019-12-30] MEDS: budesonide 0.5 mg/2 mL Neb INHALATION (08:38)
[2019-12-30] MEDS: sacubitril/valsartan 24-26 mg Tablet 1 EACH PO (08:42)
[2019-12-30 08:47] LABS: Basophils % 0.4 %; Eosinophils # 0.1 10^3/uL (0.0-0.8); Eosinophils % 1.1 %; Hematocrit 43.3 % (42.0-52.0); Hemoglobin 13.4 g/dL (11.7-16.6); Lymphocytes # 0.5 10^3/uL (0.8-4.8); Lymphocytes % 8.6 %; Mean Corpuscular HGB Conc 30.9 g/dL (30.0-36.0); Mean Corpuscular Hemoglobin 27.6 pg (28.0-34.0); Mean Corpuscular Volume 89.3 fL (80-94); Mean Platelet Volume 10.6 fL (7.4-10.4); Monocytes # 0.8 10^3/uL (0.2-0.9); Monocytes % 13.8 %; Neutrophils # 4.3 10^3/uL (1.8-7.7); Neutrophils % 75.7 %; Nucleated Red Blood Cells % 0 %; Platelet Count 146 10^3/cmm (130-400); Red Blood Count 4.85 10^6/uL (4.1-5.3); Red Cell Distribution Width 17.3 % (12.1-15.1); White Blood Count 5.6 10^3/uL (4.0-10.0)
[2019-12-30 08:49] LABS: Alanine Aminotransferase 18 U/L (0-41); Albumin Level 3.2 g/dL (3.5-5.2); Alkaline Phosphatase 63 IU/L (40-130); Anion Gap 15.3 (5-19); Aspartate Amino Transferase 15 U/L (0-40); Blood Urea Nitrogen 20 mg/dL (8-23); Calcium 10.5 mg/dL (8.5-10.5); Carbon Dioxide 29 mmol/L (22-29); Chloride 98 mmol/L (98-107); Globulin 3.2 g/dL (1.3-4.6); Glucose 183 mg/dL (65-115); Potassium 4.3 mmol/L (3.5-5.1); Sodium 138 mmol/L (136-145); Total Bilirubin 1.1 mg/dL (0.15-1.2); Total Protein 6.4 g/dL (6.6-8.7)
--- NOTE | 2019-12-30 09:28 | PC.SOCIAL ---
IMM Update Pg 2 of IMM given and explained to patient and who verbalized understanding. Signed, dated, and timed, and placed in chart. Copy provided to patient.
--- NOTE | 2019-12-30 09:49 | PC.CHAP ---
Pastoral Care Encounter/Spiritual Assessment Type of Contact [] Declined warehouse manager visit [] Patient/Family/Request visit [] Outpatient visit [] Follow-up visit [] Physician referral [] Code/Alert [] Routine visit [] Staff referral [] Actively dying [] Patient sleeping [x] Family support [] [] Out of room [] Palliative care [] [] Receiving care in room [] Pre-surgical visit [] Trauma [x] Long length of stay [] ICU visit [] Other: Relational/Emotional Strength [] Patient feels connected with others/family/visitors/staff [] Distress [] Loneliness/isolation [] Abandonment Spirituality of Patient [x] Person of Yesenia [] Attends Sikhism of their [place] [x] Believes in Prayer [] Reads Bible or Samaritan materials [] There are Spiritual issues to be addressed Retail Shift Supervisor Interventions [x] Prayer [] Active listening [] Non-anxious presence [] Spiritual/emotional support [] Crisis/trauma care [] Spiritual counseling [] Bereavement support [] Provided bereavement packet [] Provided Bible/devotional materials [] Provided toy/stuffed animal, coloring book to patient or family member [] Provided Communion [] Anointing/[place] [] Salvation [x] Completed spiritual assessment [] Other: Impact on Illness or Injury [] Angry [] Fearful [] Anxious [] Often cries [] Exhaustion [] Unable to work [] Unable to attend temple [] Unable to walk/stand [] Unable to read [] Unable to drive [] Unable to eat/drink [] Unable to sleep [] Unable to be with family [] Patient intubated [] Other: Summary and daughter present. Patient in good frame of mind Time spent with patient 10min
[2019-12-30] MEDS: amiodarone 200 mg Tablet PO (10:01)
[2019-12-30 11:22] LABS: Glucose Point of Care 107 mg/dL (70-110)
--- NOTE | 2019-12-30 19:53 | P.DS_ITS ---
Discharge Providers Date of Admission: 12/25/19 17:48 Date of Discharge: December 30, 2019 Attending Provider at Admission: Dhiraj Curry MD Attending Provider at Discharge: Tomer Chapa MD Primary Care Provider: NEIL Wynn Diagnoses at Discharge Discharge Diagnosis (1) Atrial flutter with rapid ventricular response: Status: Acute (2) Cardiomyopathy: Status: Acute Qualifiers: Cardiomyopathy type: other Qualified Code(s): I42.8 - Other cardiomyopathies (3) Benign essential HTN: Status: Acute (4) Multiple myeloma: Status: Acute (5) Atypical chest pain: Status: Acute Reason for Visit Reason for Visit: Reason For Visit: HEART RATE IS HIGH Hospital Course Hospital Course: This is a 74-year-old male with a past medical history of multiple myeloma, diastolic heart failure, who presents to the emergency room due to complaints of chest palpitations. Patient was admitted for atrial flutter with RVR, cardiology was consulted, received electrocardioversion, converted to normal sinus rhythm, discharged on amiodarone 200 mg twice daily for 2 weeks followed by 200 mg once daily, Metroprolol 50 mg ER once daily, Eliquis 5 mg twice daily. Patient was also found to have nonischemic cardiomyopathy, left ventricular ejection fraction 15 to 20% on transesophageal echocardiogram, stress test was negative for ischemia, patient was discharged on metoprolol 50 mg once daily, spironolactone 50 mg once daily, low-dose Entresto, Lasix 60 mg twice daily, with potassium replacement. In addition he was discharged with a LifeVest, and close follow-up with cardiology as outpatient. Patient is to follow-up with cardiology as outpatient. Patient was also found to have some component of undiagnosed obstructive sleep apnea, he is to follow- up with his primary care physician as outpatient, for consideration of sleep study. Patient also has a history of multiple myeloma, currently his treatment is on hold due to cardiac symptoms, he is to follow-up with his oncologist as outpatient. Physical Exam Const: COMMON NORMALS: no apparent distress and oriented x3 HENMT: COMMON NORMALS: normocephalic HEAD & SCALP: normocephalic Neck/C-Spine: COMMON NORMALS: no JVD Resp: COMMON NORMALS: normal respiratory effort, no retractions, no use of accessory muscles and clear to auscultation bilaterally AUSCULTATION: clear to auscultation bilaterally Cardio: COMMON NORMALS: no JVD, regular rate, regular rhythm, S1 normal heart sound and S2 normal heart sound RATE: regular rate RHYTHM: regular rhythm HEART SOUNDS: S1 normal and S2 normal GI: COMMON NORMALS: normal to inspection, nondistended, normoactive bowel sounds, soft to palpation, non-tender, no hepatosplenomegaly, no masses and no bruits PALPATION: Yes soft and Yes no hepatosplenomegaly Extremity: COMMON NORMALS: normal capillary refill, no clubbing, cyanosis or edema, no calf tenderness and no pedal edema Neuro: COMMON NORMALS: oriented x3 Psych: COMMON NORMALS: mental status grossly normal Discharge Data Data Completed and Pending: Completed Studies During Hospitalization Category Date Time Status Sestamibi Stress Test Request Routi ne Exams 12/25/19 21:34 Completed XR chest 1V bandar ble 05039 Urgent Exams 12/25/19 14:57 Completed NM dany perf SPECT r/s* 39035 Routin e Nuc Med 12/26/19 Completed CV echo transesop hageal 69312 Routi ne Ultrasound 12/29/19 07:56 Completed Labs from last 24 hours 12/30/19 12/30/19 12/30/19 10:48 08:22 08:22 WBC 5.6 RBC 4.85 Hgb 13.4 Hct 43.3 MCV 89.3 MCH 27.6 L MCHC 30.9 RDW 17.3 H Plt Count 146 MPV 10.6 H Neut % (Auto) 75.7 Lymph % (Auto) 8.6 [place] % (Auto) 13.8 Eos % (Auto) 1.1 Baso % (Auto) 0.4 Neut # (Auto) 4.3 Lymph # (Auto) 0.5 L [place] # (Auto) 0.8 Eos # (Auto) 0.1 Baso # (Auto) 0.0 Nucleated RBC % (a uto) 0 Nucleated RBCs # 0.0 Sodium 138 Potassium 4.3 Chloride 98 Carbon Dioxide 29 Anion Gap 15.3 BUN 20 Creatinine 0.9 Glucose 183 H POC Glucose 107 Calcium 10.5 Total Bilirubin 1.1 AST 15 ALT 18 Alkaline Phosphata se 63 Total Protein 6.4 L Albumin 3.2 L Globulin 3.2 12/30/19 12/29/19 06:38 20:28 WBC RBC Hgb Hct MCV MCH MCHC RDW Plt Count MPV Neut % (Auto) Lymph % (Auto) [place] % (Auto) Eos % (Auto) Baso % (Auto) Neut # (Auto) Lymph # (Auto) [place] # (Auto) Eos # (Auto) Baso # (Auto) Nucleated RBC % (a uto) Nucleated RBCs # Sodium Potassium Chloride Carbon Dioxide Anion Gap BUN Creatinine Glucose POC Glucose 90 134 Calcium Total Bilirubin AST ALT Alkaline Phosphata se Total Protein Albumin Globulin Vitals: Last Vital Signs Temp 98.7 F 12/30/19 13:32 Pulse 85 12/30/19 13:32 Resp 20 H 12/30/19 13:32 BP 130/83 12/30/19 13:32 Pulse Ox 92 12/30/19 13:32 Discharge Plan Discharge Patient Disposition: Home, Self-Care Condition: Stable Prescriptions: New Pacerone 200 mg Tablet 200 mg PO Q12H 30 Days Qty: 60 RF: 0 Eliquis 5 mg Tablet 5 mg PO BID 30 Days Qty: 60 RF: 0 furosemide 40 mg Tablet 60 mg PO BID@08,16 30 Days Qty: 45 RF: 0 metoprolol succinate 50 mg Tablet Extended Release 24 Hr 50 mg PO DAILY 30 Days Qty: 30 RF: 0 Entresto 24-26 mg Tablet 1 ea PO BID 30 Days Qty: 60 RF: 0 Continued ipratropium-albuterol 0.5 mg-3 mg(2.5 mg base)/3 mL solution for nebulization 3 ml INHALATION Q8H Qty: 180 RF: 0 trazodone 50 mg Tablet 50 mg PO BEDTIME RF: 0 acyclovir 400 mg tablet 400 mg PO BID RF: 0 oxycodone 15 mg tablet 15 mg PO QID PRN (Reason: Pain) RF: 0 lorazepam 1 mg tablet 1 mg PO BEDTIME PRN (Reason: Anxiety) RF: 0 duloxetine 20 mg capsule,delayed release(DR/EC) 20 mg PO BID RF: 0 budesonide 0.25 mg/2 mL suspension for nebulization 2 ml INHALATION BID Qty: 60 RF: 0 spironolactone 25 mg tablet 50 mg PO DAILY 30 Days Qty: 60 RF: 0 aspirin 81 mg Tablet,Chewable 81 mg PO DAILY 30 Days Qty: 30 RF: 0 potassium chloride 20 mEq tablet extended release 20 meq PO BID 30 Days Qty: 60 RF: 0 Discontinued naproxen sodium [Aleve] 220 mg Tablet 220 mg PO BID PRN (Reason: Pain) RF: 0 prednisone 20 mg Tablet 40 mg PO DAILY Qty: 5 RF: 0 benzonatate 100 mg Capsule 100 mg PO BID PRN (Reason: Cough) Qty: 10 RF: 0 diltiazem HCl 60 mg Tablet 60 mg PO TID Qty: 30 RF: 0 furosemide [Lasix] 20 mg tablet 80 mg PO BID RF: 0 Discharge Orders: Discharge Order (Routine); Ordered 12/30/19 Ordered By: Tomer Chapa Other Ambulatory Orders: Basic Metabolic Panel (Routine) Timeframe: 1 Week Facility: [facility] - Location: Lab - Main Lab Ordered By: Tomer Chapa Magnesium (Routine) Timeframe: 1 Week Facility: [facility] - Location: Lab - Main Lab Ordered By: Tomer Chapa NT Pro B Type Natriuretic Pept (Routine) Timeframe: 1 Week Facility: [facility] - Location: Lab - Main Lab Ordered By: Tomer Chapa Referrals: Micki Montero FNP-C [Primary Care Provider] - 1 week (You have a hospital followup with NEIL Marc at [facility] on January 05 at 1:30pm. You will be having the following bloodwork done at the time of this visit: BMP, BNP & Magnesium. Any questions or appointment changes, please call them at [phone]) Brandon Hernandez MD [Hospitalist] - 2 weeks (You have an appointment at [facility] with Dr. Hernandez on January 14 at 12:15pm. Any questions or appointment changes, please call them at [phone]) Estrellita Yap MD [Physician] - 2 weeks (You have TWO appointments at [facility]: 1. Dr. Yap on January 12 at 2:00pm 2. dr. Haskins on February 25 at 3:30pm Any questions or appointment changes, please call them at [phone]) Discharge Diet: Cardiac Discharge Activity: Resume usual activity Patient Instructions: Atrial Fibrillation, Metoprolol (By mouth), Furosemide (By mouth), Amiodarone (By mouth), Apixaban (By mouth), Congestive Heart Failure, Dilated Cardiomyopathy (DC), CHF Stoplight Activity Restrictions/Additional Instructions: -Wear LifeVest as discussed -Follow-up with Dr. Yap in 1 to 2 weeks -Blood work in 1 to 2 weeks -Take medications as prescribed -If you have bloody or black stools please come back to the emergency room Discharge Date/Time: 12/30/19 15:51 Discharge Attestations Time Spent in Discharge Care*: less than 30 min Status at Discharge: Cognitive status at discharge: cognitively intact , Behavioral status at discharge: cooperative , Quality Metrics Clinical Quality Measures During this hospital stay, did patient experience: None Coding Level of Care Code Acute Electrolog Operator for Juliette Fwd Diagnoses Atrial flutter with rapid ventricular response I48.92 Cardiomyopathy I42.8 Cardiomyopathy type: other Benign essential HTN I10 Multiple myeloma C90.00 Atypical chest pain R07.89
== END 2019-12-30 15:51 | disposition home or self-care (01) | DRG 308 ==
LOC: ER 15:32 → CSU 18:01
PROVIDERS: Internal Medicine Cardiovascular Disease; Physician Assistant; Student in an Organized Health Care Education/Training Program; Admitting Provider Student in an Organized Health Care Education/Training Program; Emergency Provider Emergency Medicine; Family Provider Nurse Practitioner; PCP Nurse Practitioner; Visit Provider Family Medicine
DX: I48.92 Unspecified atrial flutter (principal); I50.33 Acute on chronic diastolic (congestive) heart failure; C90.00 Multiple myeloma not having achieved remission; R07.89 Other chest pain; G47.33 Obstructive sleep apnea (adult) (pediatric); I42.8 Other cardiomyopathies; I27.20 Pulmonary hypertension, unspecified; I49.3 Ventricular premature depolarization; I11.0 Hypertensive heart disease with heart failure; I08.1 Rheumatic disorders of both mitral and tricuspid valves; E66.01 Morbid (severe) obesity due to excess calories; Z87.891 Personal history of nicotine dependence; Z68.35 Body mass index [BMI] 35.0-35.9, adult; Z79.82 Long term (current) use of aspirin; Z79.52 Long term (current) use of systemic steroids; Z79.51 Long term (current) use of inhaled steroids; Z79.899 Other long term (current) drug therapy
CPT/HCPCS: 12345; 36415; 36416; 71045; 78452; 80048; 80053; 80162; 82962; 83735; 83880; 84443; 84484; 85025; 93005; 93017; 93312; 93320; 93325; 94640; 94664; 96372; 96374; 96375; 99283; A9500; J0282; J1160; J1650; J1815; J1940; J2785; J3490; J7030; J7060; J7614; J7626; J8499

== ENCOUNTER → 2020-01-06 14:22 | Outpatient (BNVA) | payer MEDICARE, BC, SELFPAY | PROVIDERS: Family Provider Nurse Practitioner; PCP Nurse Practitioner; Visit Provider Nurse Practitioner | DX: I11.0 Hypertensive heart disease with heart failure (principal); I50.30 Unspecified diastolic (congestive) heart failure; I48.91 Unspecified atrial fibrillation; R06.02 Shortness of breath; Z94.0 Kidney transplant status | CPT/HCPCS: 83735; 83880 ==

== ENCOUNTER → 2020-01-13 15:01 | Outpatient (BNVA) | payer MEDICARE, BC, SELFPAY | PROVIDERS: Family Provider Nurse Practitioner; PCP Nurse Practitioner; Visit Provider Internal Medicine Cardiovascular Disease | DX: I42.8 Other cardiomyopathies (principal); I48.92 Unspecified atrial flutter; I10 Essential (primary) hypertension; C90.00 Multiple myeloma not having achieved remission; N17.9 Acute kidney failure, unspecified | CPT/HCPCS: 80048; 85007; 85027 ==

== ENCOUNTER 2020-01-15 11:52 | Outpatient (CLI) | payer MEDICARE, BC, SELFPAY ==
--- NOTE | 2020-01-18 14:56 | ONC FU_ITS ---
Dr. Hernandez Patient Follow-Up Note Patient: Brandon Roberts Unit #: [id number]: [id number] Dicatated By: Brandon Hernandez M.D.Date of Visit:Jan 15, 2020 Onc Med Follow-up/Prog Note Chief Complaint: Multiple myeloma. History of Present Illness: This is a 74 year-old man with IgG kappa myeloma. He had osteopenia and associated vertebral compression fractures at initial presentation in July of 2009. He underwent treatment through the [facility] on the Total Therapy 4 L program. He was felt to be in complete remission following his induction and consolidation treatment, which included tandem autologous stem cell transplants. He completed consolidation treatment in February of 2010. He was then given 3 years of maintenance with Revlimid/Velcade/dexamethasone. He completed treatment in May 2013. He then continued Aredia infusions every 3 months for maintenance of bone health. He was last treated here in December 2015. He had subsequently continued his regular follow-up at the [facility]. As of his visit there in January 2017 he was felt to be in complete remission. He was seen here for a follow-up visit on 03/15/2017. He was having significant pain in his right lower back/pelvic area. His protein electrophoresis studies at that time showed no evidence of recurrence of myeloma, and x-ray showed no evidence of lytic bone disease. He continued on observation/expectant management. I had seen him for a follow-up visit on 11/07/2017. At that point he appeared stable clinically. However, his repeat protein electrophoresis on 01/01/2018 showed evidence of an IgG kappa monoclonal paraprotein quantitating at 0.24 g/dL. The free light chain assay was unremarkable with free kappa light chain of 12.03 mg/L, free lambda light chain of 9.24 mg/L, and kappa/lambda ratio normal at 1.30. His 24-hour urine protein electrophoresis on 01/03/2018 showed no monoclonal protein. Skeletal survey showed right femoral head degenerative subcortical cyst versus myelomatous lesion. Also noted was diffuse marked bone demineralization with multilevel thoracic and lumbar compression fractures and with vertebroplasty changes. There was bilateral hip osteoarthrosis and there were degenerative changes noted in the cervical and lumbar spine. CT of the bony pelvis on 01/15/2018 showed no evidence of osteolytic or osteoblastic change. The right femoral head lucency was felt to most likely represent overlying posterior acetabular subcortical cyst. There was progression of severe right hip osteoarthritic change compared to October 2017 study. His other medical illnesses include hypertension and atrial fibrillation. He had an admission to the hospital for opportunistic pneumonia in August of 2011. He was treated for cellulitis of the left leg in January 2015. He had smoked in the past, but he quit more than 25 years ago. INTERIM HISTORY: With the reappearance of monoclonal protein on the serum protein electrophoresis, he was referred to [facility] for reevaluation. He was seen there on 03/04/2018. His bone marrow aspiration/biopsy showed just 3% plasma cells. It was felt to be morphologically negative for myeloma. However, flow cytometric analysis revealed a plasma cell population with atypical immunophenotype comprising approximately 0.08% of analyzed events. There were no new bone lesions identified on MRI studies. His PET/CT also showed no evidence of active bone lesions. His DEXA scan showed T score -3.8 in the radial diaphysis and -0.8 in the proximal femur. He was advised to continue observation/expectant management for the myeloma. It was also recommended, though, that he start denosumab injections. During subsequent follow-up his M protein continued to increase gradually. As of 12/12/2018 it was up to 1.07 g/dL. He is seen for a scheduled visit. He subsequently had problems with kidney stones. He underwent lithotripsy initially on 01/13/2019. He then underwent lithotripsy again along with left ureteral stent placement on 02/07/2019. As of 04/21/2019 the M protein had increased to 2.9 g/dL. The free light chain assay showed elevated kappa light chain at 876 mg/L with lambda light chain 24 mg/L and elevated kappa/lambda ratio at 36.50. There was no monoclonal protein identified in his 24 hour urine specimen. At that point he started treatment with revlimid in combination with ixazomib and dexamethasone with Revlimid administered daily on a 21/28 day schedule, ixazomib administered weekly for 3 weeks, and the dexamethasone administered weekly. He tolerated the 1st cycle with acceptable toxicity, and he was able to continue with cycle 2 on 05/19/2019 and with cycle 3 on 06/16/2019. His repeat protein electrophoresis on 07/08/2019 showed decrease in the M protein to 0.7 g/dL. The free light chain assay showed kappa light chain 9.8 mg/L, lambda light chain 15.1 mg/mL and normal kappa/lambda ratio at 0.65. CT scans of the cervical, thoracic, lumbar spine on 07/10/2019 showed several small lytic lesions throughout the cervical spine, the largest measuring 10 mm in the C5 vertebral body. There were also degenerative changes, but no severe central canal stenosis. The thoracic spine showed diffuse severe osteopenia with prior vertebral plasty at T5. The lumbar spine also show diffuse osteopenia, prior vertebral plasties from L1-L4, as well as degenerative disc disease with multilevel mild central and subarticular recess stenosis. Also noted were extensive lytic areas of lucency in the sacrum. He continued on treatment with Revlimid/ixazomib/dexamethasone. As of his follow-up visit on 11/13/2019 had developed significant worsening of lower extremity edema, and he continued to have shortness of breath and declining activity tolerance. As such, his treatment was put on hold. On 12/19/2019 he was admitted to the hospital with atrial fibrillation. It was managed medically, he was scheduled for outpatient follow-up with Dr. Haskins. However, on 12/25/2019 he was readmitted to the hospital with increased heart rate and increased shortness of breath. He was found to have cardiomyopathy and acute systolic congestive heart failure. He had a atrial fibrillation/flutter, for which he started treatment with amiodarone. His echocardiogram showed severe left ventricular dysfunction with ejection fraction estimated at 15 to 20%. Following discharge she continued treatment with amiodarone 200 mg daily together with furosemide 60 mg twice daily, metoprolol 50 mg daily, Entresto 24-26 mg daily, and apixaban 5 mg twice daily. He is seen for a followup visit. After discharge from the hospital, he had developed some bleeding, for which he had temporarily stopped apixaban and aspirin. He had subsequently restarted the apixaban at 5 mg twice daily, thus far with no further bleeding complications. He says his energy is up and down. He has limited activity. ECOG score is 2. Appetite is okay, though he has been eating less. He has had a significant weight loss, but no doubt fluid-related. He has not had fever. He has had episodes of clammy sweats. He has shortness of breath, and he is using oxygen as needed. He has not been having chest pain. He has no GI complaints other than constipation. He has been taking senna, though not regularly. He has frequent urination with the diuretic. He has been having more pain in his back and right hip. He also complains of pain in the right knee. He has been having headache occasionally. He has no focal neurologic symptoms. Medications: Acyclovir 400 mg (of 400 mg) Tablet Oral b.i.d., Amiodarone HCl 1 Tablet (of 200 mg) Oral daily, Doxycycline Hyclate 1 Tablet (of 100 mg) Oral b.i.d. for 7 days, DULoxetine HCl 1 Capsule (of 20 mg) Capsule Delayed Release Particles Oral b.i.d., Eliquis 1 Tablet (of 5 mg) Oral b.i.d., Furosemide 3 Tablet (of 20 mg) Oral daily, Ixazomib Citrate 1 Capsule (of 4 mg) Oral q 7 days, K-Tab 1 Tablet (of 20 meq) Tablet, controlled release Oral daily, LORazepam 1 Tablet (of 1 mg) Oral q 8 hours PRN, Metoprolol Succinate ER 1 Tablet (of 50 mg) Tablet SR 24 HR Oral daily, NIFEdipine 1 (30 mg) Tablet SR 24 HR Oral daily, OxyCODONE HCl 1 Tablet (of 15 mg) Oral four times a day PRN, Revlimid 15 mg (of 15 mg) Capsule Oral daily, Sacubitril-Valsartan 1 Tablet (of 24-26 mg) Oral b.i.d., Spironolactone 1 Tablet (of 50 mg) Oral daily, TraZODone HCl 1 - 2 (50 mg) Tablet Oral at bedtime Allergies: No Known Allergies. Review of Systems: Constitutional - His energy level is low. He is up and around at home. Appetite is good. His weight is down 20 pounds since his last visit. No fever or chills. He is having some sweating episodes. ECOG score is 2, ENMT - He is chronic congestion/drainage. No mouth sores. No sore throat or difficulty swallowing, Hematologic/Lymphatic - He bruisies easily, Respiratory - He has shortness of breath with exertion. He wears oxygen at home as needed. No cough. No pleuritic pain or hemoptysis, Cardiovascular - No angina pain. No palpitations. He was discharged home on a holter monitor, Gastrointestinal - No nausea or vomiting. No heartburn or acid reflux. No diarrhea. He has some constipation. No blood in the stool or black stools, Genitourinary (M) - No dysuria or hematuria. He has urinary frequency and nocturia due to diuretics. No urgency or incontinence, Musculoskeletal - He is having increased pain in his back and right hip, Integumentary - No skin complications, Neurologic - He has been have occasional headaches over the past few weeks. No dizziness. No numbness/paresthesias or other focal neurologic symptoms, Psychiatric - No anxiety or depression. He sleeps OK with trazodone. Vital Signs: Performed on Jan 15, 2020 12:33 Height - 71.00 in Weight - 237.4 lbs (LOW) BSA - 2.27 sq.m BMI - 33.11 (HIGH) Temperature - 97.5 F (LOW) Pulse - 74 /min Respiration - 24 /min BP - 98/68 mm(hg) O2 Sat - 97 % Pain - 4 Physical Examination: Constitutional - He appears somewhat weak generally, Eyes - Sclerae nonicteric. Conjunctivae clear, ENMT - No lesions noted in the oral cavity, Hematologic/Lymphatic - No cervical, clavicular, or axillary adenopathy, Respiratory - Lungs sound clear, Cardiovascular - Heart rhythm is regular. There is no murmur, gallop, or rub noted, Abdomen - Moderately distended. He has an umbilical hernia. Liver and spleen are not enlarged. There is no abdominal mass or ascites noted and there is no inguinal adenopathy, Extremities - There is currently no edema. He has chronic purpura on the arms, Neurologic - No focal neurologic deficits noted. Lab/Imaging: His laboratory studies from 01/13/2020 included CBC showing hemoglobin 15.7 g, white blood cell count 5500, and platelet count 209,000. Basic metabolic profile showed elevated BUN and creatinine at 23 and 1.7 mg/dL. Impression: 1. Patient with IgG kappa myeloma, initially diagnosed in July 2009. He had associated osteopenia and multiple vertebral compression fractures. 2. He underwent treatment at the [facility] on the total therapy 4L protocol. He completed his maintenance therapy with Revlimid, Velcade and dexamethasone in May 2013. 3. He had continued Aredia infusions every 3 months for bone health. He was last treated here in December 2015. 4. As of his follow-up visit at [facility] in January 2017, his myeloma was felt to be in complete remission. His other medical illnesses include: 5. Hypertension. 6. Atrial fibrillation. 7. He required treatment for opportunistic pneumonia in August 2011. 8. He was treated for cellulitis of the left leg in January 2015. In March 2017 he presented with increased pain in his lower back and pelvic area. His laboratory studies and x-rays at that time showed no evidence of recurrence of the myeloma. However, his repeat protein electrophoresis in December 2017 did show a small IgG kappa monoclonal protein spike quantitating at 0.24 g/dL, consistent with early relapse of his myeloma. He had follow-up at [facility] on 03/04/2018. Based on their recommendations, he hasbeen followed on observation/expectant management for the myeloma, but he did start monthly denosumab injections. During follow-up there was continued gradual increase in his M protein. As of 12/12/2018 it had increased to 1.07 g/dL. His subsequent clinical course was complicated nephrolithiasis requiring lithotripsy and ureteral stent placement. As of 04/21/2019 there was further increase in the M protein to 2.9 g/dL. The free light chain assay showed elevated kappa light chain at 876 mg/L with lambda light chain 24 mg/L and elevated kappa/lambda ratio at 36.50. There was no monoclonal protein identified in his 24 hour urine specimen. At that point he started treatment with Revlimid in combination with ixazomib and dexamethasone. As of his follow-up visit on 07/14/2019 he had completed 3 cycles of treatment, and at that point he did appear to be showing a very good response by serum protein electrophoresis. He then continued on the same treatment. He had been tolerating it well other than he developed significant fluid retention and other side effects with the steroid. The swelling had initially improved with diuretic therapy, and he was able to continue treatment. As of October 2019 he began his 7th cycle. During subsequent follow-up his lower extremity edema had continued to worsen, and he also complained of shortness of breath and declining activity tolerance. As of his follow-up visit on 11/13/2019 his myeloma treatment was put on hold. Ultimately, he was found to have severe cardiomyopathy with left ventricular ejection fraction estimated at 15 to 20% by transesophageal echocardiogram. He had associated atrial flutter/fibrillation, for which he has been on treatment with amiodarone and metoprolol. He also is now on anticoagulation with apixaban. Thus far he has had no further treatment for the myeloma. Plan: He will be scheduled for repeat laboratory studies next week. However, having developed severe cardiomyopathy and congestive heart failure, I will be monitoring his myeloma with observation/expectant management unless or until there is evidence of significant disease progression. I will tentatively plan a follow-up visit in 5 weeks. Signed By: Brandon Hernandez M.D. <<Signature on File>>
== END 2020-01-15 11:53 | disposition home or self-care (01) ==
LOC: ONCMED 11:52
PROVIDERS: Family Provider Nurse Practitioner; PCP Nurse Practitioner; Visit Provider Internal Medicine Medical Oncology
DX: C90.02 Multiple myeloma in relapse (principal); I10 Essential (primary) hypertension; I48.91 Unspecified atrial fibrillation; I50.9 Heart failure, unspecified; I42.9 Cardiomyopathy, unspecified; Z79.899 Other long term (current) drug therapy; Z79.891 Long term (current) use of opiate analgesic; Z79.01 Long term (current) use of anticoagulants; Z99.81 Dependence on supplemental oxygen; Z98.1 Arthrodesis status; Z87.01 Personal history of pneumonia (recurrent); Z87.891 Personal history of nicotine dependence; Z96.0 Presence of urogenital implants
CPT/HCPCS: 99214

== ENCOUNTER 2020-01-22 09:50 | Outpatient (CLI) | payer MEDICARE, BC, SELFPAY ==
[2020-01-22 14:45] LABS: Alanine Aminotransferase 16 U/L (0-41); Albumin Level 4.1 g/dL (3.5-5.2); Alkaline Phosphatase 60 IU/L (40-130); Anion Gap 18.4 (5-19); Aspartate Amino Transferase 16 U/L (0-40); Blood Urea Nitrogen 13 mg/dL (8-23); Calcium 11.1 mg/dL (8.5-10.5); Carbon Dioxide 28 mmol/L (22-29); Chloride 98 mmol/L (98-107); Globulin 3.1 g/dL (1.3-4.6); Glucose 126 mg/dL (65-115); Immunoglobulin IGA 61 mg/dL (70-400); Immunoglobulin IGG 1088 mg/dL (700-1600); Immunoglobulin IGM 55 mg/dL (40-230); Osmolality Calculated 288 mOsm/kg (285-295); Potassium 4.4 mmol/L (3.5-5.1); Sodium 140 mmol/L (136-145); Total Bilirubin 0.7 mg/dL (0.15-1.2); Total Protein 7.2 g/dL (6.6-8.7)
[2020-01-22 14:48] LABS: Basophils % 0.6 %; Eosinophils # 0.1 10^3/uL (0.0-0.8); Eosinophils % 1.2 %; Hemoglobin 15.7 g/dL (11.7-16.6); Lymphocytes # 1.2 10^3/uL (0.8-4.8); Lymphocytes % 23.1 %; Mean Corpuscular HGB Conc 31.4 g/dL (30.0-36.0); Mean Corpuscular Hemoglobin 27.9 pg (28.0-34.0); Mean Platelet Volume 10.4 fL (7.4-10.4); Monocytes # 0.8 10^3/uL (0.2-0.9); Monocytes % 15.8 %; Neutrophils # 3.1 10^3/uL (1.8-7.7); Neutrophils % 59.1 %; Nucleated Red Blood Cells % 0 %; Platelet Count 159 10^3/cmm (130-400); Red Blood Count 5.62 10^6/uL (4.1-5.3); Red Cell Distribution Width 17.7 % (12.1-15.1); White Blood Count 5.2 10^3/uL (4.0-10.0)
[2020-01-23 05:10] LABS: PROTEIN, TOTAL 6.8 g/dL (6.1-8.1)
[2020-01-23 11:37] LABS: KAPPA LIGHT CHAIN, FREE, SERUM 12.5 mg/L (3.3-19.4); KAPPA/LAMBDA LIGHT CHAINS FREE 1.47 (0.26-1.65); LAMBDA LIGHT CHAIN, FREE, SERU 8.5 mg/L (5.7-26.3)
[2020-01-23 12:31] LABS: ABNORMAL PROTEIN BAND 1 0.5 g/dL (NONE DETECTED); ALBUMIN 3.9 g/dL (3.8-4.8); ALPHA 1 GLOBULIN 0.3 g/dL (0.2-0.3); ALPHA 2 GLOBULIN 0.9 g/dL (0.5-0.9); BETA 1 GLOBULIN 0.4 g/dL (0.4-0.6); BETA 2 GLOBULIN 0.3 g/dL (0.2-0.5)
[2020-01-24 18:51] LABS: CREATININE, 24 HOUR URINE 0.57 g/24 h (0.50-2.15); PROTEIN, TOTAL, 24 HR UR 94 mg/24 h (<150); Protein/Creatinine Ratio 0.164 (< OR = 0.114); Protein/Creatinine Ratio 164 mg/g creat (< OR = 114)
[2020-01-26 09:26] LABS: ALPHA-1-GLOBULINS 0 %; ALPHA-2-GLOBULINS 0 %; BETA GLOBULINS 0 %; GAMMA GLOBULINS 0 %
[2020-02-12 13:36] LABS: COLLECTION DURATION 24; URINE VOLUME 850
== END 2020-01-22 09:51 | disposition home or self-care (01) ==
LOC: ONCMED 13:50
PROVIDERS: Family Provider Nurse Practitioner; PCP Nurse Practitioner; Visit Provider Internal Medicine Medical Oncology
DX: C90.02 Multiple myeloma in relapse (principal)
CPT/HCPCS: 80053; 82040; 82784; 83883; 84155; 84165; 85025

== ENCOUNTER 2020-02-19 18:20 | Outpatient (CLI) | payer MEDICARE, BC, SELFPAY ==
[2020-02-19 20:25] LABS: Basophils % 0.6 %; Eosinophils # 0.1 10^3/uL (0.0-0.8); Eosinophils % 1.2 %; Hematocrit 46.8 % (42.0-52.0); Hemoglobin 15.1 g/dL (11.7-16.6); Lymphocytes # 0.8 10^3/uL (0.8-4.8); Lymphocytes % 15.8 %; Mean Corpuscular HGB Conc 32.3 g/dL (30.0-36.0); Mean Corpuscular Hemoglobin 28.8 pg (28.0-34.0); Mean Corpuscular Volume 89.3 fL (80-94); Mean Platelet Volume 10.1 fL (7.4-10.4); Monocytes # 0.7 10^3/uL (0.2-0.9); Monocytes % 15.4 %; Neutrophils # 3.2 10^3/uL (1.8-7.7); Neutrophils % 66.4 %; Nucleated Red Blood Cells % 0 %; Platelet Count 172 10^3/cmm (130-400); Red Blood Count 5.24 10^6/uL (4.1-5.3); Red Cell Distribution Width 18.6 % (12.1-15.1); White Blood Count 4.8 10^3/uL (4.0-10.0)
[2020-02-19 21:00] LABS: Alanine Aminotransferase 10 U/L (0-41); Albumin Level 4.3 g/dL (3.5-5.2); Alkaline Phosphatase 60 IU/L (40-130); Anion Gap 16.3 (5-19); Aspartate Amino Transferase 14 U/L (0-40); Blood Urea Nitrogen 16 mg/dL (8-23); Calcium 11.1 mg/dL (8.5-10.5); Carbon Dioxide 30 mmol/L (22-29); Chloride 97 mmol/L (98-107); Globulin 3.2 g/dL (1.3-4.6); Glucose 122 mg/dL (65-115); NT Pro B Type Natriuretic Pept 513 pg/mL (0-125); Osmolality Calculated 286 mOsm/kg (285-295); Potassium 4.3 mmol/L (3.5-5.1); Sodium 139 mmol/L (136-145); Total Bilirubin 0.7 mg/dL (0.15-1.2); Total Protein 7.5 g/dL (6.6-8.7)
[2020-02-21 07:17] LABS: PROTEIN, TOTAL 6.4 g/dL (6.1-8.1)
[2020-02-23 12:50] LABS: ABNORMAL PROTEIN BAND 1 0.6 g/dL (NONE DETECTED); ALBUMIN 3.6 g/dL (3.8-4.8); ALPHA 1 GLOBULIN 0.3 g/dL (0.2-0.3); ALPHA 2 GLOBULIN 0.8 g/dL (0.5-0.9); BETA 1 GLOBULIN 0.4 g/dL (0.4-0.6); BETA 2 GLOBULIN 0.2 g/dL (0.2-0.5); GAMMA GLOBULIN 1.1 g/dL (0.8-1.7); KAPPA/LAMBDA LIGHT CHAINS FREE 1.61 (0.26-1.65); LAMBDA LIGHT CHAIN, FREE, SERU 8.7 mg/L (5.7-26.3)
== END 2020-02-19 18:21 | disposition home or self-care (01) ==
LOC: ONCMED 02-20 08:05
PROVIDERS: Family Provider Nurse Practitioner; PCP Nurse Practitioner; Visit Provider Internal Medicine Medical Oncology
DX: C90.00 Multiple myeloma not having achieved remission (principal); I48.91 Unspecified atrial fibrillation
CPT/HCPCS: 80053; 83880; 83883; 84155; 84165; 84443; 85025

== ENCOUNTER 2020-02-26 06:53 | Outpatient (CLI) | payer MEDICARE, BC, SELFPAY ==
--- NOTE | 2020-02-28 11:05 | ONC FU_ITS ---
Dr. Hernandez Patient Follow-Up Note Patient: Brandon Roberts Unit #: [id number]: 1945 Dicatated By: Brandon Hernandez M.D.Date of Visit:Feb 26, 2020 Telehealth Progress Note The patient has been informed that the visit may not be secure and acknowledged the information. I have explained the option of participating in a telephone or video visit during the [facility] emergency to the patient. After being given an opportunity to ask questions about and discuss this type of visit, the patient verbally consented to proceeding with the telephone/video visit. the patient understands that this service replaces an office visit and they may be billed and /or responsible for any applicable copayments Chief Complaint: Multiple myeloma. History of Present Illness: This is a 74 year-old man with IgG kappa myeloma. He had osteopenia and associated vertebral compression fractures at initial presentation in July of 2009. He underwent treatment through the [facility] on the Total Therapy 4 L program. He was felt to be in complete remission following his induction and consolidation treatment, which included tandem autologous stem cell transplants. He completed consolidation treatment in February of 2010. He was then given 3 years of maintenance with Revlimid/Velcade/dexamethasone. He completed treatment in May 2013. He then continued Aredia infusions every 3 months for maintenance of bone health. He was last treated here in December 2015. He had subsequently continued his regular follow-up at the [facility]. As of his visit there in January 2017 he was felt to be in complete remission. He was seen here for a follow-up visit on 03/15/2017. He was having significant pain in his right lower back/pelvic area. His protein electrophoresis studies at that time showed no evidence of recurrence of myeloma, and x-ray showed no evidence of lytic bone disease. He continued on observation/expectant management. I had seen him for a follow-up visit on 11/07/2017. At that point he appeared stable clinically. However, his repeat protein electrophoresis on 01/01/2018 showed evidence of an IgG kappa monoclonal paraprotein quantitating at 0.24 g/dL. The free light chain assay was unremarkable with free kappa light chain of 12.03 mg/L, free lambda light chain of 9.24 mg/L, and kappa/lambda ratio normal at 1.30. His 24-hour urine protein electrophoresis on 01/03/2018 showed no monoclonal protein. Skeletal survey showed right femoral head degenerative subcortical cyst versus myelomatous lesion. Also noted was diffuse marked bone demineralization with multilevel thoracic and lumbar compression fractures and with vertebroplasty changes. There was bilateral hip osteoarthrosis and there were degenerative changes noted in the cervical and lumbar spine. CT of the bony pelvis on 01/15/2018 showed no evidence of osteolytic or osteoblastic change. The right femoral head lucency was felt to most likely represent overlying posterior acetabular subcortical cyst. There was progression of severe right hip osteoarthritic change compared to October 2017 study. His other medical illnesses include hypertension and atrial fibrillation. He had an admission to the hospital for opportunistic pneumonia in August of 2011. He was treated for cellulitis of the left leg in January 2015. He had smoked in the past, but he quit more than 25 years ago. INTERIM HISTORY: With the reappearance of monoclonal protein on the serum protein electrophoresis, he was referred to [facility] for reevaluation. He was seen there on 03/04/2018. His bone marrow aspiration/biopsy showed just 3% plasma cells. It was felt to be morphologically negative for myeloma. However, flow cytometric analysis revealed a plasma cell population with atypical immunophenotype comprising approximately 0.08% of analyzed events. There were no new bone lesions identified on MRI studies. His PET/CT also showed no evidence of active bone lesions. His DEXA scan showed T score -3.8 in the radial diaphysis and -0.8 in the proximal femur. He was advised to continue observation/expectant management for the myeloma. It was also recommended, though, that he start denosumab injections. During subsequent follow-up his M protein continued to increase gradually. As of 12/12/2018 it was up to 1.07 g/dL. He is seen for a scheduled visit. He subsequently had problems with kidney stones. He underwent lithotripsy initially on 01/13/2019. He then underwent lithotripsy again along with left ureteral stent placement on 02/07/2019. As of 04/21/2019 the M protein had increased to 2.9 g/dL. The free light chain assay showed elevated kappa light chain at 876 mg/L with lambda light chain 24 mg/L and elevated kappa/lambda ratio at 36.50. There was no monoclonal protein identified in his 24 hour urine specimen. At that point he started treatment with revlimid in combination with ixazomib and dexamethasone with Revlimid administered daily on a 21/28 day schedule, ixazomib administered weekly for 3 weeks, and the dexamethasone administered weekly. He tolerated the 1st cycle with acceptable toxicity, and he was able to continue with cycle 2 on 05/19/2019 and with cycle 3 on 06/16/2019. His repeat protein electrophoresis on 07/08/2019 showed decrease in the M protein to 0.7 g/dL. The free light chain assay showed kappa light chain 9.8 mg/L, lambda light chain 15.1 mg/mL and normal kappa/lambda ratio at 0.65. CT scans of the cervical, thoracic, lumbar spine on 07/10/2019 showed several small lytic lesions throughout the cervical spine, the largest measuring 10 mm in the C5 vertebral body. There were also degenerative changes, but no severe central canal stenosis. The thoracic spine showed diffuse severe osteopenia with prior vertebral plasty at T5. The lumbar spine also show diffuse osteopenia, prior vertebral plasties from L1-L4, as well as degenerative disc disease with multilevel mild central and subarticular recess stenosis. Also noted were extensive lytic areas of lucency in the sacrum. He continued on treatment with Revlimid/ixazomib/dexamethasone. As of his follow-up visit on 11/13/2019 had developed significant worsening of lower extremity edema, and he continued to have shortness of breath and declining activity tolerance. As such, his treatment was put on hold. On 12/19/2019 he was admitted to the hospital with atrial fibrillation. It was managed medically, he was scheduled for outpatient follow-up with Dr. Haskins. However, on 12/25/2019 he was readmitted to the hospital with increased heart rate and increased shortness of breath. He was found to have cardiomyopathy and acute systolic congestive heart failure. He had a atrial fibrillation/flutter, for which he started treatment with amiodarone. His echocardiogram showed severe left ventricular dysfunction with ejection fraction estimated at 15 to 20%. Following discharge he continued treatment with amiodarone 200 mg daily together with furosemide 60 mg twice daily, metoprolol 50 mg daily, Entresto 24-26 mg daily, and apixaban 5 mg twice daily. His myeloma therapy remained on hold. He is seen for a follow-up visit by telehealth. He has shortness of breath with activity, and he continues to have limited activity tolerance, but he is able to do some walking with a cane. His ECOG score is 3. He has good appetite. He has been watching his weight. It has come up a few pounds since discharge from the hospital. He has not had fever. He does have some episodes of sweating. He does not complain of cough and he has not been having chest pain. He has some constipation, but bowel function has been adequate with laxatives. He has no other GI complaints. He has frequent urination with the diuretic. He has been having pain in his back and hips, especially on the right side. He also has pain in his upper thigh muscles on the right. He has numbness/tingling in his feet. Medications: Acyclovir 400 mg (of 400 mg) Tablet Oral b.i.d., Amiodarone HCl 1 Tablet (of 200 mg) Oral daily, Doxycycline Hyclate 1 Tablet (of 100 mg) Oral b.i.d. for 7 days, DULoxetine HCl 1 Capsule (of 20 mg) Capsule Delayed Release Particles Oral b.i.d., Eliquis 1 Tablet (of 5 mg) Oral b.i.d., Furosemide 3 Tablet (of 20 mg) Oral daily, Ixazomib Citrate 1 Capsule (of 4 mg) Oral q 7 days, K-Tab 1 Tablet (of 20 meq) Tablet, controlled release Oral daily, LORazepam 1 Tablet (of 1 mg) Oral q 8 hours PRN, Metoprolol Succinate ER 1 Tablet (of 50 mg) Tablet SR 24 HR Oral daily, NIFEdipine 1 (30 mg) Tablet SR 24 HR Oral daily, OxyCODONE HCl 1 Tablet (of 15 mg) Oral four times a day PRN, Revlimid 15 mg (of 15 mg) Capsule Oral daily, Sacubitril-Valsartan 1 Tablet (of 24-26 mg) Oral b.i.d., Spironolactone 1 Tablet (of 50 mg) Oral daily, TraZODone HCl 1 - 2 (50 mg) Tablet Oral at bedtime Allergies: No Known Allergies. Review of Systems: Constitutional - His energy level is okay, but he has limited activity. He is doing some walking with use of a cane, but he is mainly sedentary. His appetite is good and weight is stable. No fever or chills. He is having sweating episodes, mainly during the day. ECOG score is 2, ENMT - He is having sinus drainage. No mouth sores. No sore throat or difficulty swallowing, Hematologic/Lymphatic - No abnormal bruising or bleeding, Respiratory - He gets shortness of breath with activity, but his breathing is overall improved. No cough. No pleuritic pain or hemoptysis, Cardiovascular - No angina pain. No palpitations, Gastrointestinal - No nausea or vomiting. No heartburn or acid reflux. No diarrhea. He has constipation, but it is adequately managed with laxatives. No blood in the stool or black stools, Genitourinary (M) - No dysuria or hematuria. No urinary frequency. No urgency or incontinence, Musculoskeletal - He continues to have pain in his back and right hip and upper thigh, Integumentary - No skin complications, Neurologic - No headache or dizziness. He has some numbness and tingling in his feet, Psychiatric - No anxiety. He has some depression related to activity limitations. His insominia is adequately managed with trazodone and lorazepam. Vital Signs: Performed on Feb 26, 2020 12:55 Height - 71.00 in Weight - 238.6 lbs (HIGH) BSA - 2.27 sq.m BMI - 33.28 (HIGH) Physical Examination: Constitutional - He appears some what weak generally, but not acutely ill. Lab/Imaging: Test performed on Feb 19, 2020 18:20 NT proBNP 513 pg/mL TSH 3.50 uIU/mL Cr Clearance (Est) 98.7100 mL/min Protein, Total 7.5 g/dL Albumin 4.3 g/dL Globulin 3.2 g/dL Bilirubin, Total 0.7 mg/dL ALT (SGPT) 10 U/L AST (SGOT) 14 U/L Alkaline Phosphatase 60 IU/L WBC 4.8 10 3/uL RBC 5.24 10 6/uL HGB 15.1 g/dL HCT 46.8 % MCV 89.3 fL MCH 28.8 pg MCHC 32.3 g/dL RDW 18.6 % Platelet Count 172 10 3/cmm MPV 10.1 fL Neutrophils 3.2 10 3/uL Lymphocytes 0.8 10 3/uL Monocytes 0.7 10 3/uL Eosinophils 0.1 10 3/uL Basophils 0.0 10 3/uL Neutrophil % 66.4 % Lymphocyte % 15.8 % Monocyte % 15.4 % Eosinophil % 1.2 % Basophils % 0.6 % His protein electrophoresis showed M protein stable at 0.6 g/dL. The free light chain assay showed kappa/lambda ratio in normal range at 1.61. Impression: 1. Patient with IgG kappa myeloma, initially diagnosed in July 2009. He had associated osteopenia and multiple vertebral compression fractures. 2. He underwent treatment at the [facility] on the total therapy 4L protocol. He completed his maintenance therapy with Revlimid, Velcade and dexamethasone in May 2013. 3. He had continued Aredia infusions every 3 months for bone health. He was last treated here in December 2015. 4. As of his follow-up visit at [facility] in January 2017, his myeloma was felt to be in complete remission. His other medical illnesses include: 5. Hypertension. 6. Atrial fibrillation. 7. He required treatment for opportunistic pneumonia in August 2011. 8. He was treated for cellulitis of the left leg in January 2015. In March 2017 he presented with increased pain in his lower back and pelvic area. His laboratory studies and x-rays at that time showed no evidence of recurrence of the myeloma. However, his repeat protein electrophoresis in December 2017 did show a small IgG kappa monoclonal protein spike quantitating at 0.24 g/dL, consistent with early relapse of his myeloma. He had follow-up at [facility] on 03/04/2018. Based on their recommendations, he hasbeen followed on observation/expectant management for the myeloma, but he did start monthly denosumab injections. During follow-up there was continued gradual increase in his M protein. As of 12/12/2018 it had increased to 1.07 g/dL. His subsequent clinical course was complicated nephrolithiasis requiring lithotripsy and ureteral stent placement. As of 04/21/2019 there was further increase in the M protein to 2.9 g/dL. The free light chain assay showed elevated kappa light chain at 876 mg/L with lambda light chain 24 mg/L and elevated kappa/lambda ratio at 36.50. There was no monoclonal protein identified in his 24 hour urine specimen. At that point he started treatment with Revlimid in combination with ixazomib and dexamethasone. As of his follow-up visit on 07/14/2019 he had completed 3 cycles of treatment, and at that point he did appear to be showing a very good response by serum protein electrophoresis. He then continued on the same treatment. He had been tolerating it well other than he developed significant fluid retention and other side effects with the steroid. The swelling had initially improved with diuretic therapy, and he was able to continue treatment. As of October 2019 he began his 7th cycle. During subsequent follow-up his lower extremity edema had continued to worsen, and he also complained of shortness of breath and declining activity tolerance. As of his follow-up visit on 11/13/2019 his myeloma treatment was put on hold. Ultimately, he was found to have severe cardiomyopathy with left ventricular ejection fraction estimated at 15 to 20% by transesophageal echocardiogram. He had associated atrial flutter/fibrillation, for which he has been on treatment with amiodarone and metoprolol. He also started anticoagulation with apixaban. During follow-up he has continued to have very limited activity tolerance. His myeloma therapy has remained on hold. His protein electrophoresis studies, though, do show evidence of a very good response to the treatment, and thus far there has been no obvious progression. Plan: In the absence of any evidence of symptomatic disease progression, he will remain on observation/expectant management for the myeloma. I will see him again in 3 months. Signed By: Brandon Hernandez M.D. <<Signature on File>>
== END 2020-02-26 06:54 | disposition home or self-care (01) ==
PROVIDERS: Family Provider Nurse Practitioner; PCP Nurse Practitioner; Visit Provider Internal Medicine Medical Oncology
DX: C90.02 Multiple myeloma in relapse (principal)

== ENCOUNTER 2020-03-16 08:40 | Outpatient (CLI) | payer MEDICARE, BC, SELFPAY ==
--- NOTE | 2020-03-16 07:45 | XR_ITS ---
WS: [id number] ABDOMEN 1 VIEW(S) HISTORY: ACUTE KIDNEY INJURY COMPARISON: 09/17/2019 Increased amount of air throughout the colon. There is marked tortuosity of the colon. Transverse col on measures up to 10 cm in diameter. There is no significant amount of gas in the distal colon. No renal or ureteral calcifications identified in this study. Kidneys are obscured by bowel content. Advanced thoracolumbar scoliosis and degenerative changes. Prior vertebroplasties at L1, L2, L3 and L 4. Severe degenerative changes at the hip joints. XR/XR [id number] IMPRESSION: 1. Marked distention of the colon with air to the splenic flexure. Paucity of gas distally. Stricture or neoplasm at the splenic flexure should be considered as a possible etiology. 2. No renal or ureteral calcifications.
== END 2020-03-16 08:41 | disposition home or self-care (01) ==
LOC: RAD 08:45
PROVIDERS: Family Provider Nurse Practitioner; PCP Nurse Practitioner; Visit Provider Urology
DX: N17.9 Acute kidney failure, unspecified (principal)
CPT/HCPCS: 74018; 81001

== ENCOUNTER 2020-04-06 14:22 | Outpatient (CLI) | payer MEDICARE, BC, SELFPAY ==
--- NOTE | 2020-04-06 14:31 | USCV_ITS ---
Brandon Roberts Age: 75 Gender: M : 1945 Exam Date: 04/06/2020 14:45 Ordering Phys: Estrellita Yap MD ([email or web address]) Technologist: Arielle Lovett [place] [facility] [place]: EVAL EF BP: / HR: 69 Rhythm: Sinus Technical Quality: Adequate MEASUREMENTS (Male / Female) Normal Values 2D ECHO LV Diastolic Diameter PLAX 4.7 cm 4.2 - 5.9 / 3.9 - 5.3 cm LV Systolic Diameter PLAX 3.6 cm LV Chamber Size 3.9 cm IVS Diastolic Thickness 1.3 cm 0.6 - 1.0 / 0.6 - 0.9 cm IVS Systolic Thickness 1.9 cm LVPW Diastolic Thickness 1.2 cm 0.6 - 1.0 / 0.6 - 0.9 cm LVPW Systolic Thickness 1.8 cm RV Chamber Size 3.1 cm LVOT Diameter 2.0 cm LV Ejection Fraction 2D Teich 46.9 % LV Ejection Fraction MOD 2C 63.4 % LV Ejection Fraction 2C AL 64.0 % LA Diameter 4.9 cm LA Width 3.3 cm LA Height 4.4 cm RA Width 3.6 cm RA Height 4.2 cm Aorta at Sinotubular Diameter 3.5 cm M-MODE LV Diastolic Diameter MM 5.1 cm 4.2 - 5.9 / 3.9 - 5.3 cm LV Systolic Diameter MM 3.9 cm LV Ejection Fraction MM Teich 47.7 % IVS Diastolic Thickness MM 1.5 cm 0.6 - 1.0 / 0.6 - 0.9 cm IVS Systolic Thickness MM 1.6 cm LVPW Diastolic Thickness MM 1.3 cm 0.6 - 1.0 / 0.6 - 0.9 cm LVPW Systolic Thickness MM 1.4 cm RV Diastolic Diameter MM 1.9 cm Aortic Annulus Diameter 3.2 cm LA Ao Ratio MM 1.6 MV E Point Septal Separation 1.3 cm FINDINGS Left Ventricle Normal left ventricular size and wall thickness. Mildly decreased left ventricular systolic function with mild global hypokinesis. Left ventricular ejection fraction is estimated at 50%. Right Ventricle Normal right ventricular size and systolic function. Right Atrium Normal right atrial size. Right atrial pressure estimated at 3 mmHg. Left Atrium Mildly increased left atrial size. Mitral Valve Mild mitral annular calcification. Mildly thickened mitral valve. Trace mitral valve regurgitation. Aortic Valve Mildly thickened and calcified trileaflet aortic valve. Tricuspid Valve Structurally normal tricuspid valve. Pulmonic Valve Structurally normal pulmonic valve. Pericardium No pericardial effusion. Aorta Normal size aortic root and proximal ascending aorta. CONCLUSIONS 1. This is a limited study. 2. Mildly decreased left ventricular systolic function with mild global hypokinesis. Left ventricular ejection fraction is estimated at 50%. 3. Mildly increased left atrial size. 4. Compared to previous echocardiogram dated 04/06/2020, left ventricle systolic function is improved significantly. Estrellita Yap MD (Electronically Signed) Final Date: 08 April 2020 10:20 S
== END 2020-04-06 14:23 | disposition home or self-care (01) ==
LOC: RAD 14:28
PROVIDERS: PCP Nurse Practitioner; Visit Provider Internal Medicine Cardiovascular Disease
DX: I42.8 Other cardiomyopathies (principal); I51.7 Cardiomegaly
CPT/HCPCS: 93308

== ENCOUNTER 2020-05-03 09:10 | Outpatient (CLI) | payer MEDICARE, BC, SELFPAY ==
[2020-05-03 10:02] LABS: Basophils % 0.4 %; Eosinophils # 0.1 10^3/uL (0.0-0.8); Eosinophils % 1.8 %; Hematocrit 43.2 % (42.0-52.0); Hemoglobin 13.7 g/dL (11.7-16.6); Lymphocytes # 0.7 10^3/uL (0.8-4.8); Lymphocytes % 16.6 %; Mean Corpuscular HGB Conc 31.7 g/dL (30.0-36.0); Mean Corpuscular Hemoglobin 29.3 pg (28.0-34.0); Mean Corpuscular Volume 92.5 fL (80-94); Mean Platelet Volume 9.1 fL (7.4-10.4); Monocytes # 0.7 10^3/uL (0.2-0.9); Monocytes % 16.6 %; Neutrophils # 2.9 10^3/uL (1.8-7.7); Neutrophils % 64.2 %; Nucleated Red Blood Cells % 0 %; Platelet Count 168 10^3/cmm (130-400); Red Blood Count 4.67 10^6/uL (4.1-5.3); Red Cell Distribution Width 18.5 % (12.1-15.1); White Blood Count 4.5 10^3/uL (4.0-10.0)
[2020-05-03 10:19] LABS: Alanine Aminotransferase 18 U/L (0-41); Albumin Level 4.1 g/dL (3.5-5.2); Alkaline Phosphatase 56 IU/L (40-130); Aspartate Amino Transferase 15 U/L (0-40); Blood Urea Nitrogen 20 mg/dL (8-23); Calcium 9.7 mg/dL (8.5-10.5); Carbon Dioxide 32 mmol/L (22-29); Chloride 98 mmol/L (98-107); Globulin 2.8 g/dL (1.3-4.6); Glucose 90 mg/dL (65-115); Immunoglobulin IGA 54 mg/dL (70-400); Immunoglobulin IGG 1387 mg/dL (700-1600); Immunoglobulin IGM 38 mg/dL (40-230); Osmolality Calculated 286 mOsm/kg (285-295); Sodium 140 mmol/L (136-145); Total Bilirubin 0.8 mg/dL (0.15-1.2); Total Protein 6.9 g/dL (6.6-8.7)
[2020-05-04 08:41] LABS: PROTEIN, TOTAL 6.6 g/dL (6.1-8.1)
[2020-05-04 14:51] LABS: KAPPA LIGHT CHAIN, FREE, SERUM 17.1 mg/L (3.3-19.4); KAPPA/LAMBDA LIGHT CHAINS FREE 2.34 (0.26-1.65); LAMBDA LIGHT CHAIN, FREE, SERU 7.3 mg/L (5.7-26.3)
[2020-05-04 15:45] LABS: ABNORMAL PROTEIN BAND 1 1.1 g/dL (NONE DETECTED); ALBUMIN 3.6 g/dL (3.8-4.8); ALPHA 1 GLOBULIN 0.3 g/dL (0.2-0.3); ALPHA 2 GLOBULIN 0.7 g/dL (0.5-0.9); BETA 1 GLOBULIN 0.4 g/dL (0.4-0.6); BETA 2 GLOBULIN 0.2 g/dL (0.2-0.5); GAMMA GLOBULIN 1.4 g/dL (0.8-1.7)
== END 2020-05-03 09:11 | disposition home or self-care (01) ==
LOC: ONCMED 09:17
PROVIDERS: PCP Nurse Practitioner; Visit Provider Internal Medicine Medical Oncology
DX: C90.02 Multiple myeloma in relapse (principal)
CPT/HCPCS: 36415; 80053; 82784; 83883; 84155; 84165; 85025

== ENCOUNTER 2020-05-05 10:52 | Outpatient (CLI) | payer MEDICARE, BC, SELFPAY ==
[2020-05-06 13:11] LABS: CREATININE, 24 HOUR URINE 0.79 g/24 h (0.50-2.15); PROTEIN, TOTAL, 24 HR UR 72 mg/24 h (<150); Protein/Creatinine Ratio 0.091 (< OR = 0.114); Protein/Creatinine Ratio 91 mg/g creat (< OR = 114)
[2020-05-07 10:25] LABS: ALPHA-1-GLOBULINS 0 %; ALPHA-2-GLOBULINS 0 %; BETA GLOBULINS 0 %; GAMMA GLOBULINS 0 %
== END 2020-05-05 10:53 | disposition home or self-care (01) ==
LOC: ONCMED 10:59
PROVIDERS: PCP Nurse Practitioner; Visit Provider Internal Medicine Medical Oncology
DX: C90.02 Multiple myeloma in relapse (principal); I48.91 Unspecified atrial fibrillation; N28.1 Cyst of kidney, acquired; I10 Essential (primary) hypertension; N20.0 Calculus of kidney; E55.9 Vitamin D deficiency, unspecified
CPT/HCPCS: 82040

== ENCOUNTER 2020-05-10 09:30 | Outpatient (CLI) | payer MEDICARE, BC, SELFPAY ==
--- NOTE | 2020-05-14 12:31 | ONC FU_ITS ---
Dr. Hernandez Patient Follow-Up Note Patient: Brandon Roberts Unit #: [id number]: 1945 Dicatated By: Brandon Hernandez M.D.Date of Visit:May 10, 2020 Onc Med Follow-up/Prog Note Chief Complaint: Multiple myeloma. History of Present Illness: This is a 75 year-old man with IgG kappa myeloma. He had osteopenia and associated vertebral compression fractures at initial presentation in July of 2009. He underwent treatment through the [facility] on the Total Therapy 4 L program. He was felt to be in complete remission following his induction and consolidation treatment, which included tandem autologous stem cell transplants. He completed consolidation treatment in February of 2010. He was then given 3 years of maintenance with Revlimid/Velcade/dexamethasone. He completed treatment in May 2013. He then continued Aredia infusions every 3 months for maintenance of bone health. He was last treated here in December 2015. He had subsequently continued his regular follow-up at the [facility]. As of his visit there in January 2017 he was felt to be in complete remission. He was seen here for a follow-up visit on 03/15/2017. He was having significant pain in his right lower back/pelvic area. His protein electrophoresis studies at that time showed no evidence of recurrence of myeloma, and x-ray showed no evidence of lytic bone disease. He continued on observation/expectant management. I had seen him for a follow-up visit on 11/07/2017. At that point he appeared stable clinically. However, his repeat protein electrophoresis on 01/01/2018 showed evidence of an IgG kappa monoclonal paraprotein quantitating at 0.24 g/dL. The free light chain assay was unremarkable with free kappa light chain of 12.03 mg/L, free lambda light chain of 9.24 mg/L, and kappa/lambda ratio normal at 1.30. His 24-hour urine protein electrophoresis on 01/03/2018 showed no monoclonal protein. Skeletal survey showed right femoral head degenerative subcortical cyst versus myelomatous lesion. Also noted was diffuse marked bone demineralization with multilevel thoracic and lumbar compression fractures and with vertebroplasty changes. There was bilateral hip osteoarthrosis and there were degenerative changes noted in the cervical and lumbar spine. CT of the bony pelvis on 01/15/2018 showed no evidence of osteolytic or osteoblastic change. The right femoral head lucency was felt to most likely represent overlying posterior acetabular subcortical cyst. There was progression of severe right hip osteoarthritic change compared to October 2017 study. His other medical illnesses include hypertension and atrial fibrillation. He had an admission to the hospital for opportunistic pneumonia in August of 2011. He was treated for cellulitis of the left leg in January 2015. He had smoked in the past, but he quit more than 25 years ago. INTERIM HISTORY: With the reappearance of monoclonal protein on the serum protein electrophoresis, he was referred to [facility] for reevaluation. He was seen there on 03/04/2018. His bone marrow aspiration/biopsy showed just 3% plasma cells. It was felt to be morphologically negative for myeloma. However, flow cytometric analysis revealed a plasma cell population with atypical immunophenotype comprising approximately 0.08% of analyzed events. There were no new bone lesions identified on MRI studies. His PET/CT also showed no evidence of active bone lesions. His DEXA scan showed T score -3.8 in the radial diaphysis and -0.8 in the proximal femur. He was advised to continue observation/expectant management for the myeloma. It was also recommended, though, that he start denosumab injections. During subsequent follow-up his M protein continued to increase gradually. As of 12/12/2018 it was up to 1.07 g/dL. He is seen for a scheduled visit. He subsequently had problems with kidney stones. He underwent lithotripsy initially on 01/13/2019. He then underwent lithotripsy again along with left ureteral stent placement on 02/07/2019. As of 04/21/2019 the M protein had increased to 2.9 g/dL. The free light chain assay showed elevated kappa light chain at 876 mg/L with lambda light chain 24 mg/L and elevated kappa/lambda ratio at 36.50. There was no monoclonal protein identified in his 24 hour urine specimen. At that point he started treatment with revlimid in combination with ixazomib and dexamethasone with Revlimid administered daily on a 21/28 day schedule, ixazomib administered weekly for 3 weeks, and the dexamethasone administered weekly. He tolerated the 1st cycle with acceptable toxicity, and he was able to continue with cycle 2 on 05/19/2019 and with cycle 3 on 06/16/2019. His repeat protein electrophoresis on 07/08/2019 showed decrease in the M protein to 0.7 g/dL. The free light chain assay showed kappa light chain 9.8 mg/L, lambda light chain 15.1 mg/mL and normal kappa/lambda ratio at 0.65. CT scans of the cervical, thoracic, lumbar spine on 07/10/2019 showed several small lytic lesions throughout the cervical spine, the largest measuring 10 mm in the C5 vertebral body. There were also degenerative changes, but no severe central canal stenosis. The thoracic spine showed diffuse severe osteopenia with prior vertebral plasty at T5. The lumbar spine also show diffuse osteopenia, prior vertebral plasties from L1-L4, as well as degenerative disc disease with multilevel mild central and subarticular recess stenosis. Also noted were extensive lytic areas of lucency in the sacrum. He continued on treatment with Revlimid/ixazomib/dexamethasone. As of his follow-up visit on 11/13/2019 had developed significant worsening of lower extremity edema, and he continued to have shortness of breath and declining activity tolerance. As such, his treatment was put on hold. On 12/19/2019 he was admitted to the hospital with atrial fibrillation. It was managed medically, he was scheduled for outpatient follow-up with Dr. Haskins. However, on 12/25/2019 he was readmitted to the hospital with increased heart rate and increased shortness of breath. He was found to have cardiomyopathy and acute systolic congestive heart failure. He had a atrial fibrillation/flutter, for which he started treatment with amiodarone. His echocardiogram showed severe left ventricular dysfunction with ejection fraction estimated at 15 to 20%. Following discharge he continued treatment with amiodarone 200 mg daily together with furosemide 60 mg twice daily, metoprolol 50 mg daily, Entresto 24-26 mg daily, and apixaban 5 mg twice daily. His myeloma therapy remained on hold. His repeat serum protein electrophoresis on 02/19/2020 showed stable M protein at 0.6 g/dL. At that point his clinical status also appeared stable, and he continued on observation/expectant management. His repeat echocardiogram on 04/06/2020 showed significant improvement in the LV function with estimated ejection fraction at 50%. He is seen for a follow-up visit. Despite the improvement on his echocardiogram, he has continued to have very limited activity tolerance. He says that with any physical effort he breaks out into a sweat. He is able to ambulate short distances using a shopping cart for assistance. Overall, he has been feeling weaker and more feeble, and he also has been having more back pain. His ECOG score is 2. His appetite has been off a little. He says his weight fluctuates up and down 3 or 4 pounds. He does not have fever or night sweats. He has shortness of breath with any activity. He has on oxygen, but he is mainly using it just at night. He does not have cough and he does not complain of chest pain. He has constipation, for which she is on senna/docusate. He sometimes has stomach cramping with it. He has more frequent urination, but with less volume. He has pain in his lower back and in his hips, knees, and feet. He also has numbness in his feet. Medications: Acyclovir 400 mg (of 400 mg) Tablet Oral b.i.d., Amiodarone HCl 1 Tablet (of 200 mg) Oral daily, DULoxetine HCl 1 Capsule (of 20 mg) Capsule Delayed Release Particles Oral b.i.d., Furosemide 1.5 Tablet (of 40 mg) Oral daily, K-Tab 0.5 Tablet (of 20 meq) Tablet, controlled release Oral daily, LORazepam 1 Tablet (of 1 mg) Oral q 8 hours PRN, Metoprolol Succinate ER 1.5 Tablet (of 50 mg) Tablet SR 24 HR Oral daily, OxyCODONE HCl 1 Tablet (of 15 mg) Oral four times a day PRN, Sacubitril-Valsartan 1 Tablet (of 24-26 mg) Oral b.i.d., Spironolactone 1 Tablet (of 50 mg) Oral daily, TraZODone HCl 1 - 2 (50 mg) Tablet Oral at bedtime, Xarelto 1 Tablet (of 20 mg) Oral daily Allergies: No Known Allergies. Review of Systems: Constitutional - His energy is low. His appetite has decreased. His weight is stable. No fever or night sweats. He has been having hot flashes and sweating episodes during the day. ECOG score is 2, ENMT - No sinus congestion/drainage. No mouth sores. No sore throat or difficulty swallowing, Hematologic/Lymphatic - He bruises easily, Respiratory - He gets short of breath with any activity. He uses oxygen at night. No cough. No pleuritic pain or hemoptysis, Cardiovascular - No angina pain. No palpitations, Gastrointestinal - No nausea or vomiting. No heartburn or acid reflux. No diarrhea. He has been having constipation. He is using Senna-S. No blood in the stool or black stools. He has been having abdominal cramping, Genitourinary (M) - No dysuria or hematuria. No urinary frequency. No urgency or incontinence. His urine output has decreased, Musculoskeletal - He has pain in his lower back and in his hips and knees, Integumentary - No skin complications, Neurologic - No headache or dizziness. He is having numbness and tingling in his feet. No other focal neurologic symptoms, Psychiatric - No anxiety. He is taking trazodone for sleep and depression. He is also taking lorazepam for sleep. Vital Signs: Performed on May 10, 2020 10:07 Height - 71.00 in Weight - 239.0 lbs (HIGH) BSA - 2.27 sq.m BMI - 33.33 (HIGH) Temperature - 97.4 F (LOW) Pulse - 75 /min Respiration - 24 /min BP - 161/95 mm(hg) (HIGH) O2 Sat - 98 % Pain - 8 Physical Examination: Constitutional - He appears generally weak, and he has poor mobility, Eyes - Sclerae nonicteric. Conjunctivae clear, ENMT - No lesions noted in the oral cavity, Hematologic/Lymphatic - No cervical, clavicular, or axillary adenopathy, Respiratory - Lungs sound clear, Cardiovascular - Heart rhythm is regular. There is no murmur, gallop, or rub noted, Abdomen - Moderately distended. He has an umbilical hernia. Liver and spleen are not enlarged. There is no abdominal mass or ascites noted and there is no inguinal adenopathy, Extremities - No edema. He has extensive purpura, Integumentary - No skin eruption, Neurologic - No focal neurologic deficits noted. Lab/Imaging: Test performed on May 03, 2020 09:39 Sodium 140 mmol/L Potassium 4.0 mmol/L Chloride 98 mmol/L CO2 32 mmol/L Anion Gap 14.0 BUN 20 mg/dL Creatinine 1.1 mg/dL Cr Clearance (Est) 88.8200 mL/min Glucose 90 mg/dL Calcium 9.7 mg/dL Protein, Total 6.9 g/dL Albumin 4.1 g/dL Globulin 2.8 g/dL Bilirubin, Total 0.8 mg/dL ALT (SGPT) 18 U/L AST (SGOT) 15 U/L Alkaline Phosphatase 56 IU/L WBC 4.5 10 3/uL RBC 4.67 10 6/uL HGB 13.7 g/dL HCT 43.2 % MCV 92.5 fL MCH 29.3 pg MCHC 31.7 g/dL RDW 18.5 % Platelet Count 168 10 3/cmm MPV 9.1 fL Neutrophils 2.9 10 3/uL Lymphocytes 0.7 10 3/uL Monocytes 0.7 10 3/uL Eosinophils 0.1 10 3/uL Basophils 0.0 10 3/uL Neutrophil % 64.2 % Lymphocyte % 16.6 % Monocyte % 16.6 % Eosinophil % 1.8 % Basophils % 0.4 % NRBC % 0 % IgG 1387 mg/dL IgA 54 mg/dL IgM 38 mg/dL The serum protein electrophoresis shows increase in the M protein to 1.1 g/dL. The serum free light chain assay shows elevated free kappa light chain at 17.1 mg/L with lambda light chain 7.3 mg/L and elevated kappa/lambda ratio 2.34. Impression: 1. Patient with IgG kappa myeloma, initially diagnosed in July 2009. He had associated osteopenia and multiple vertebral compression fractures. 2. He underwent treatment at the [facility] on the total therapy 4L protocol. He completed his maintenance therapy with Revlimid, Velcade and dexamethasone in May 2013. 3. He had continued Aredia infusions every 3 months for bone health. He was last treated here in December 2015. 4. As of his follow-up visit at [facility] in January 2017, his myeloma was felt to be in complete remission. His other medical illnesses include: 5. Hypertension. 6. Atrial fibrillation. 7. He required treatment for opportunistic pneumonia in August 2011. 8. He was treated for cellulitis of the left leg in January 2015. In March 2017 he presented with increased pain in his lower back and pelvic area. His laboratory studies and x-rays at that time showed no evidence of recurrence of the myeloma. However, his repeat protein electrophoresis in December 2017 did show a small IgG kappa monoclonal protein spike quantitating at 0.24 g/dL, consistent with early relapse of his myeloma. He had follow-up at [facility] on 03/04/2018. Based on their recommendations, he hasbeen followed on observation/expectant management for the myeloma, but he did start monthly denosumab injections. During follow-up there was continued gradual increase in his M protein. As of 12/12/2018 it had increased to 1.07 g/dL. His subsequent clinical course was complicated nephrolithiasis requiring lithotripsy and ureteral stent placement. As of 04/21/2019 there was further increase in the M protein to 2.9 g/dL. The free light chain assay showed elevated kappa light chain at 876 mg/L with lambda light chain 24 mg/L and elevated kappa/lambda ratio at 36.50. There was no monoclonal protein identified in his 24 hour urine specimen. At that point he started treatment with Revlimid in combination with ixazomib and dexamethasone. As of his follow-up visit on 07/14/2019 he had completed 3 cycles of treatment, and at that point he did appear to be showing a very good response by serum protein electrophoresis. He then continued on the same treatment. He had been tolerating it well other than he developed significant fluid retention and other side effects with the steroid. The swelling had initially improved with diuretic therapy, and he was able to continue treatment. As of October 2019 he began his 7th cycle. During subsequent follow-up his lower extremity edema had continued to worsen, and he also complained of shortness of breath and declining activity tolerance. As of his follow-up visit on 11/13/2019 his myeloma treatment was put on hold. Ultimately, he was found to have severe cardiomyopathy with left ventricular ejection fraction estimated at 15 to 20% by transesophageal echocardiogram. He had associated atrial flutter/fibrillation, for which he has been on treatment with amiodarone and metoprolol. He also started anticoagulation with apixaban. During follow-up he has continued to have very limited activity tolerance. His myeloma therapy has remained on hold. His protein electrophoresis studies did show evidence of a very good response to the treatment, but his M protein now is beginning to increase. His repeat echocardiogram, though, showed very significant improvement in his left ventricular function. Plan: Given the increase in his M protein and the further decline in his performance status, he will be scheduled for restaging PET/CT. He will need to restart treatment if there is evidence that the myeloma is symptomatic or otherwise clinically significant. In the event that he does need treatment, I will want to include daratumumab and his next line of therapy, most likely in combination with pomalidomide and dexamethasone. If his myeloma appears to be asymptomatic, I will just plan a follow-up visit and repeat lab studies in 3 months. Signed By: Brandon Hernandez M.D. <<Signature on File>>
== END 2020-05-10 09:31 | disposition home or self-care (01) ==
LOC: ONCMED 09:35
PROVIDERS: PCP Nurse Practitioner; Visit Provider Internal Medicine Medical Oncology
DX: C90.02 Multiple myeloma in relapse (principal); I10 Essential (primary) hypertension; I48.91 Unspecified atrial fibrillation; Z87.01 Personal history of pneumonia (recurrent); I42.9 Cardiomyopathy, unspecified; Z79.01 Long term (current) use of anticoagulants; Z92.21 Personal history of antineoplastic chemotherapy
CPT/HCPCS: 99214

== ENCOUNTER 2020-06-14 07:55 | Outpatient (CLI) | payer MEDICARE, BC, SELFPAY ==
[2020-06-14 08:49] LABS: Basophils % 0.7 %; Eosinophils % 0.5 %; Hematocrit 42.7 % (42.0-52.0); Hemoglobin 13.8 g/dL (11.7-16.6); Lymphocytes # 0.8 10^3/uL (0.8-4.8); Mean Corpuscular HGB Conc 32.3 g/dL (30.0-36.0); Mean Corpuscular Hemoglobin 30.7 pg (28.0-34.0); Mean Corpuscular Volume 94.9 fL (80-94); Mean Platelet Volume 9.5 fL (7.4-10.4); Monocytes # 0.7 10^3/uL (0.2-0.9); Monocytes % 15.6 %; Neutrophils # 2.61 10^3/uL (1.8-7.7); Neutrophils % 62.7 %; Nucleated Red Blood Cells % 0 %; Platelet Count 164 10^3/cmm (130-400); Red Cell Distribution Width 18.5 % (12.1-15.1); White Blood Count 4.2 10^3/uL (4.0-10.0)
[2020-06-14 09:05] LABS: Alanine Aminotransferase 23 U/L (0-41); Albumin Level 3.7 g/dL (3.5-5.2); Alkaline Phosphatase 60 IU/L (40-130); Anion Gap 12.7 (5-19); Aspartate Amino Transferase 13 U/L (0-40); Blood Urea Nitrogen 17 mg/dL (8-23); Calcium 9.3 mg/dL (8.5-10.5); Carbon Dioxide 28 mmol/L (22-29); Chloride 98 mmol/L (98-107); Globulin 3.8 g/dL (1.3-4.6); Glucose 119 mg/dL (65-115); Osmolality Calculated 278 mOsm/kg (285-295); Potassium 3.7 mmol/L (3.5-5.1); Sodium 135 mmol/L (136-145); Total Protein 7.5 g/dL (6.6-8.7)
[2020-06-14] MEDS: acetaminophen 325 mg Tablet 650 MG PO (09:47)
[2020-06-14] MEDS: diphenhydrAMINE 25 mg Capsule 50 MG PO (09:47)
[2020-06-14] MEDS: dexamethasone 4 mg Tablet 20 MG PO (09:47)
[2020-06-15 09:59] LABS: PROTEIN, TOTAL 6.6 g/dL (6.1-8.1)
[2020-06-15 13:19] LABS: KAPPA LIGHT CHAIN, FREE, SERUM 17.3 mg/L (3.3-19.4); KAPPA/LAMBDA LIGHT CHAINS FREE 2.75 (0.26-1.65); LAMBDA LIGHT CHAIN, FREE, SERU 6.3 mg/L (5.7-26.3)
[2020-06-15 15:15] LABS: ABNORMAL PROTEIN BAND 1 1.4 g/dL (NONE DETECTED); ALBUMIN 3.4 g/dL (3.8-4.8); ALPHA 1 GLOBULIN 0.3 g/dL (0.2-0.3); ALPHA 2 GLOBULIN 0.7 g/dL (0.5-0.9); BETA 1 GLOBULIN 0.4 g/dL (0.4-0.6); BETA 2 GLOBULIN 0.2 g/dL (0.2-0.5); GAMMA GLOBULIN 1.7 g/dL (0.8-1.7)
== END 2020-06-14 07:56 | disposition home or self-care (01) ==
LOC: ONCMED 07:58
PROVIDERS: PCP Nurse Practitioner; Visit Provider Internal Medicine Medical Oncology
DX: Z51.12 Encounter for antineoplastic immunotherapy (principal); C90.02 Multiple myeloma in relapse
CPT/HCPCS: 80053; 83883; 84155; 84165; 85025; 96401; C9399; J8540

== ENCOUNTER 2020-06-21 06:17 | Outpatient (CLI) | payer MEDICARE, BC, SELFPAY ==
[2020-06-21 13:04] LABS: Basophils % 0.3 %; Eosinophils # 0.1 10^3/uL (0.0-0.8); Eosinophils % 3.7 %; Hematocrit 45.7 % (42.0-52.0); Hemoglobin 14.4 g/dL (11.7-16.6); Lymphocytes # 0.5 10^3/uL (0.8-4.8); Lymphocytes % 12.9 %; Mean Corpuscular HGB Conc 31.5 g/dL (30.0-36.0); Mean Corpuscular Hemoglobin 30.1 pg (28.0-34.0); Mean Corpuscular Volume 95.4 fL (80-94); Mean Platelet Volume 9.8 fL (7.4-10.4); Monocytes # 0.4 10^3/uL (0.2-0.9); Neutrophils # 2.55 10^3/uL (1.8-7.7); Neutrophils % 72.8 %; Nucleated Red Blood Cells % 0 %; Platelet Count 132 10^3/cmm (130-400); Red Blood Count 4.79 10^6/uL (4.1-5.3); Red Cell Distribution Width 18.7 % (12.1-15.1); White Blood Count 3.5 10^3/uL (4.0-10.0)
[2020-06-21 13:25] LABS: Alanine Aminotransferase 22 U/L (0-41); Albumin Level 3.7 g/dL (3.5-5.2); Alkaline Phosphatase 59 IU/L (40-130); Anion Gap 12.8 (5-19); Aspartate Amino Transferase 13 U/L (0-40); Blood Urea Nitrogen 17 mg/dL (8-23); Calcium 10.6 mg/dL (8.5-10.5); Carbon Dioxide 30 mmol/L (22-29); Chloride 98 mmol/L (98-107); Globulin 3.4 g/dL (1.3-4.6); Glucose 98 mg/dL (65-115); Osmolality Calculated 280 mOsm/kg (285-295); Potassium 3.8 mmol/L (3.5-5.1); Sodium 137 mmol/L (136-145); Total Protein 7.1 g/dL (6.6-8.7)
--- NOTE | 2020-06-23 06:37 | ONC FU_ITS ---
Dr. Hernandez Patient Follow-Up Note Patient: Brandon Roberts Unit #: [id number]: 1945 Dicatated By: Brandon Hernandez M.D.Date of Visit:Jun 21, 2020 Onc Med Follow-up/Prog Note Chief Complaint: Multiple myeloma. History of Present Illness: This is a 75 year-old man with IgG kappa myeloma. He had osteopenia and associated vertebral compression fractures at initial presentation in July of 2009. He underwent treatment through the [facility] on the Total Therapy 4 L program. He was felt to be in complete remission following his induction and consolidation treatment, which included tandem autologous stem cell transplants. He completed consolidation treatment in February of 2010. He was then given 3 years of maintenance with Revlimid/Velcade/dexamethasone. He completed treatment in May 2013. He then continued Aredia infusions every 3 months for maintenance of bone health. He was last treated here in December 2015. He had subsequently continued his regular follow-up at the [facility]. As of his visit there in January 2017 he was felt to be in complete remission. He was seen here for a follow-up visit on 03/15/2017. He was having significant pain in his right lower back/pelvic area. His protein electrophoresis studies at that time showed no evidence of recurrence of myeloma, and x-ray showed no evidence of lytic bone disease. He continued on observation/expectant management. I had seen him for a follow-up visit on 11/07/2017. At that point he appeared stable clinically. However, his repeat protein electrophoresis on 01/01/2018 showed evidence of an IgG kappa monoclonal paraprotein quantitating at 0.24 g/dL. The free light chain assay was unremarkable with free kappa light chain of 12.03 mg/L, free lambda light chain of 9.24 mg/L, and kappa/lambda ratio normal at 1.30. His 24-hour urine protein electrophoresis on 01/03/2018 showed no monoclonal protein. Skeletal survey showed right femoral head degenerative subcortical cyst versus myelomatous lesion. Also noted was diffuse marked bone demineralization with multilevel thoracic and lumbar compression fractures and with vertebroplasty changes. There was bilateral hip osteoarthrosis and there were degenerative changes noted in the cervical and lumbar spine. CT of the bony pelvis on 01/15/2018 showed no evidence of osteolytic or osteoblastic change. The right femoral head lucency was felt to most likely represent overlying posterior acetabular subcortical cyst. There was progression of severe right hip osteoarthritic change compared to October 2017 study. His other medical illnesses include hypertension and atrial fibrillation. He had an admission to the hospital for opportunistic pneumonia in August of 2011. He was treated for cellulitis of the left leg in January 2015. He had smoked in the past, but he quit more than 25 years ago. INTERIM HISTORY: With the reappearance of monoclonal protein on the serum protein electrophoresis, he was referred to [facility] for reevaluation. He was seen there on 03/04/2018. His bone marrow aspiration/biopsy showed just 3% plasma cells. It was felt to be morphologically negative for myeloma. However, flow cytometric analysis revealed a plasma cell population with atypical immunophenotype comprising approximately 0.08% of analyzed events. There were no new bone lesions identified on MRI studies. His PET/CT also showed no evidence of active bone lesions. His DEXA scan showed T score -3.8 in the radial diaphysis and -0.8 in the proximal femur. He was advised to continue observation/expectant management for the myeloma. It was also recommended, though, that he start denosumab injections. During subsequent follow-up his M protein continued to increase gradually. As of 12/12/2018 it was up to 1.07 g/dL. He is seen for a scheduled visit. He subsequently had problems with kidney stones. He underwent lithotripsy initially on 01/13/2019. He then underwent lithotripsy again along with left ureteral stent placement on 02/07/2019. As of 04/21/2019 the M protein had increased to 2.9 g/dL. The free light chain assay showed elevated kappa light chain at 876 mg/L with lambda light chain 24 mg/L and elevated kappa/lambda ratio at 36.50. There was no monoclonal protein identified in his 24 hour urine specimen. At that point he started treatment with revlimid in combination with ixazomib and dexamethasone with Revlimid administered daily on a 21/28 day schedule, ixazomib administered weekly for 3 weeks, and the dexamethasone administered weekly. He tolerated the 1st cycle with acceptable toxicity, and he was able to continue with cycle 2 on 05/19/2019 and with cycle 3 on 06/16/2019. His repeat protein electrophoresis on 07/08/2019 showed decrease in the M protein to 0.7 g/dL. The free light chain assay showed kappa light chain 9.8 mg/L, lambda light chain 15.1 mg/mL and normal kappa/lambda ratio at 0.65. CT scans of the cervical, thoracic, lumbar spine on 07/10/2019 showed several small lytic lesions throughout the cervical spine, the largest measuring 10 mm in the C5 vertebral body. There were also degenerative changes, but no severe central canal stenosis. The thoracic spine showed diffuse severe osteopenia with prior vertebral plasty at T5. The lumbar spine also show diffuse osteopenia, prior vertebral plasties from L1-L4, as well as degenerative disc disease with multilevel mild central and subarticular recess stenosis. Also noted were extensive lytic areas of lucency in the sacrum. He continued on treatment with Revlimid/ixazomib/dexamethasone. As of his follow-up visit on 11/13/2019 had developed significant worsening of lower extremity edema, and he continued to have shortness of breath and declining activity tolerance. As such, his treatment was put on hold. On 12/19/2019 he was admitted to the hospital with atrial fibrillation. It was managed medically, he was scheduled for outpatient follow-up with Dr. Haskins. However, on 12/25/2019 he was readmitted to the hospital with increased heart rate and increased shortness of breath. He was found to have cardiomyopathy and acute systolic congestive heart failure. He had a atrial fibrillation/flutter, for which he started treatment with amiodarone. His echocardiogram showed severe left ventricular dysfunction with ejection fraction estimated at 15 to 20%. Following discharge he continued treatment with amiodarone 200 mg daily together with furosemide 60 mg twice daily, metoprolol 50 mg daily, Entresto 24-26 mg daily, and apixaban 5 mg twice daily. His myeloma therapy remained on hold. His repeat serum protein electrophoresis on 02/19/2020 showed stable M protein at 0.6 g/dL. At that point his clinical status also appeared stable, and he continued on observation/expectant management. His repeat echocardiogram on 04/06/2020 showed significant improvement in the LV function with estimated ejection fraction at 50%. As of 05/03/2020 his M protein had increased to 1.1 g/dL. Restaging PET/CT on 05/22/2020 showed new FDG positive lesions in the L5 vertebral body and left sacral ala consistent with recurrent myeloma. With that finding, I had recommended that he continue further treatment with daratumumab in combination with pomalidomide and dexamethasone. He began cycle 1 on 06/14/2020 with the daratumumab administered by subcutaneous injection. At that point his M protein had further increased to 1.4 g/dL. He is seen for a follow-up visit. He did pretty well with his treatment last week. He experienced no acute toxicity with the daratumumab injection. However, after returning home he did develop some chest congestion. It cleared up with coughing. Thus far he has had no adverse effects with the pomalidomide. He still has limited activity. His ECOG score is 3. His appetite is off a little, but he is eating. He has no fever or night sweats. He has had no mouth sores. He does have shortness of breath with exertion. He is on oxygen at night. He has not had any chest pain. He says his stomach has been a little sore, but he has no other GI complaints. He has frequent urination. He has pain in his back and legs. He is getting by with his current pain medication. He has numbness/tingling in his feet. Medications: Acyclovir 400 mg (of 400 mg) Tablet Oral b.i.d., Amiodarone HCl 1 Tablet (of 200 mg) Oral daily, DULoxetine HCl 1 Capsule (of 20 mg) Capsule Delayed Release Particles Oral b.i.d., Furosemide 1.5 Tablet (of 40 mg) Oral daily, K-Tab 0.5 Tablet (of 20 meq) Tablet, controlled release Oral daily, LORazepam 1 Tablet (of 1 mg) Oral q 8 hours PRN, Metoprolol Succinate ER 1.5 Tablet (of 50 mg) Tablet SR 24 HR Oral daily, OxyCODONE HCl 1 Tablet (of 15 mg) Oral four times a day PRN, Pomalidomide 1 Capsule (of 4 mg) Oral q 21 days, Sacubitril-Valsartan 1 Tablet (of 24-26 mg) Oral b.i.d., Spironolactone 1 Tablet (of 50 mg) Oral daily, TraZODone HCl 1 - 2 (50 mg) Tablet Oral at bedtime, Xarelto 1 Tablet (of 20 mg) Oral daily Allergies: No Known Allergies. Review of Systems: Constitutional - He has very limited activity. Appetite is off a little. Weight is stable. No fever, night sweats, or hot flashes. ECOG score is 3, ENMT - No sinus congestion/drainage. No mouth sores. No sore throat or difficulty swallowing, Hematologic/Lymphatic - He has easy bruising, Respiratory - He has some shortness of breath with exertion. He is using oxygen at night. No cough. No pleuritic pain or hemoptysis, Cardiovascular - No angina pain. No palpitations, Gastrointestinal - His stomach has been a little sore. No nausea or vomiting. No heartburn or acid reflux. No diarrhea or constipation. No blood in the stool or black stools, Genitourinary (M) - No dysuria or hematuria. He has urinary frequency. No urgency or incontinence, Musculoskeletal - He has pain in his back and legs. He is getting by with his current pain medication, Integumentary - No skin rash, Neurologic - No headache. He occasionally has dizziness. He has numbness/tingling in his feet. No other focal neurologic symptoms, Psychiatric - He has been having some anxiety. He is sleeping OK. Vital Signs: Performed on Jun 21, 2020 14:57 Height - 71.00 in Weight - 237.6 lbs (LOW) BSA - 2.27 sq.m BMI - 33.14 (HIGH) Temperature - 97.9 F (LOW) Pulse - 80 /min Respiration - 24 /min BP - 105/66 mm(hg) O2 Sat - 92 % (LOW) Pain - 5 Physical Examination: Constitutional - He appears generally weak, Eyes - Sclerae nonicteric. Conjunctivae clear, ENMT - No lesions noted in the oral cavity, Hematologic/Lymphatic - No cervical, clavicular, or axillary adenopathy, Respiratory - Lungs sound clear, Cardiovascular - Heart rhythm is regular. There is no murmur, gallop, or rub noted, Abdomen - Moderately distended. He has an umbilical hernia. Liver and spleen are not enlarged. There is no abdominal mass or ascites noted and there is no inguinal adenopathy, Extremities - There are venous stasis changes bilaterally. There is just trace edema. He has extensive purpura, Integumentary - No skin eruption, Neurologic - No focal neurologic deficits noted. Lab/Imaging: Test performed on Jun 21, 2020 12:48 Sodium 137 mmol/L Potassium 3.8 mmol/L Chloride 98 mmol/L CO2 30 mmol/L Anion Gap 12.8 BUN 17 mg/dL Creatinine 1.1 mg/dL Cr Clearance (Est) 88.9700 mL/min Glucose 98 mg/dL Calcium 10.6 mg/dL Protein, Total 7.1 g/dL Albumin 3.7 g/dL Globulin 3.4 g/dL Bilirubin, Total 1.0 mg/dL ALT (SGPT) 22 U/L AST (SGOT) 13 U/L Alkaline Phosphatase 59 IU/L WBC 3.5 10 3/uL RBC 4.79 10 6/uL HGB 14.4 g/dL HCT 45.7 % MCV 95.4 fL MCH 30.1 pg MCHC 31.5 g/dL RDW 18.7 % Platelet Count 132 10 3/cmm MPV 9.8 fL Neutrophils 2.55 10 3/uL Lymphocytes 0.5 10 3/uL Monocytes 0.4 10 3/uL Eosinophils 0.1 10 3/uL Basophils 0.0 10 3/uL Neutrophil % 72.8 % Lymphocyte % 12.9 % Monocyte % 10.0 % Eosinophil % 3.7 % Basophils % 0.3 % NRBC % 0 % Impression: 1. Patient with IgG kappa myeloma, initially diagnosed in July 2009. He had associated osteopenia and multiple vertebral compression fractures. 2. He underwent treatment at the [facility] on the total therapy 4L protocol. He completed his maintenance therapy with Revlimid, Velcade and dexamethasone in May 2013. 3. He had continued Aredia infusions every 3 months for bone health. He was last treated here in December 2015. 4. As of his follow-up visit at [facility] in January 2017, his myeloma was felt to be in complete remission. His other medical illnesses include: 5. Hypertension. 6. Atrial fibrillation. 7. He required treatment for opportunistic pneumonia in August 2011. 8. He was treated for cellulitis of the left leg in January 2015. In March 2017 he presented with increased pain in his lower back and pelvic area. His laboratory studies and x-rays at that time showed no evidence of recurrence of the myeloma. However, his repeat protein electrophoresis in December 2017 did show a small IgG kappa monoclonal protein spike quantitating at 0.24 g/dL, consistent with early relapse of his myeloma. He had follow-up at [facility] on 03/04/2018. Based on their recommendations, he initially was followed on observation/expectant management for the myeloma, but he did start monthly denosumab injections. During follow-up there was continued gradual increase in his M protein. As of 12/12/2018 it had increased to 1.07 g/dL. His subsequent clinical course was complicated nephrolithiasis requiring lithotripsy and ureteral stent placement. As of 04/21/2019 there was further increase in the M protein to 2.9 g/dL. The free light chain assay showed elevated kappa light chain at 876 mg/L with lambda light chain 24 mg/L and elevated kappa/lambda ratio at 36.50. There was no monoclonal protein identified in his 24 hour urine specimen. At that point he started treatment with Revlimid in combination with ixazomib and dexamethasone. As of his follow-up visit on 07/14/2019 he had completed 3 cycles of treatment, and at that point he did appear to be showing a very good response by serum protein electrophoresis. He then continued on the same treatment. He had been tolerating it well other than he developed significant fluid retention and other side effects with the steroid. The swelling had initially improved with diuretic therapy, and he was able to continue treatment. As of October 2019 he began his 7th cycle. During subsequent follow-up his lower extremity edema had continued to worsen, and he also complained of shortness of breath and declining activity tolerance. As of his follow-up visit on 11/13/2019 his myeloma treatment was put on hold. Ultimately, he was found to have severe cardiomyopathy with left ventricular ejection fraction estimated at 15 to 20% by transesophageal echocardiogram. He had associated atrial flutter/fibrillation, for which he began treatment with amiodarone and metoprolol. He also started anticoagulation with apixaban. During follow-up he continued to have very limited activity tolerance. His myeloma therapy had remained on hold. He had a very good response to the treatment by protein electrophoresis, but his M protein then began to increase. As of April 2020 it was back up to 1.1 g/dL, but at that point his repeat echocardiogram had shown a very significant improvement in his left ventricular function. His restaging PET/CT on 05/22/2020 showed several areas of myeloma progression in the bone. On 06/14/2020 he began further treatment with daratumumab in combination with pomalidomide and dexamethasone. The daratumumab was administered by subcutaneous injection. He experienced some chest congestion with the initial injection of daratumumab, but he otherwise tolerated it well. Thus far he has had no adverse effects from the pomalidomide, other than there has been some decrease in his neutrophil count. His overall clinical status appears stable. Plan: He will continue with his week 2 daratumumab injection. The dosage remains the same. He also continues pomalidomide 4 mg daily and dexamethasone 40 mg weekly. He returns in 1 week. Signed By: Brandon Hernandez M.D. <<Signature on File>>
== END 2020-06-21 06:18 | disposition home or self-care (01) ==
LOC: ONCMED 06:20
PROVIDERS: PCP Nurse Practitioner; Visit Provider Internal Medicine Medical Oncology
DX: Z51.12 Encounter for antineoplastic immunotherapy (principal); C90.02 Multiple myeloma in relapse; I10 Essential (primary) hypertension; E55.9 Vitamin D deficiency, unspecified
CPT/HCPCS: 80053; 85025; 96401; 99214; C9062; C9399

== ENCOUNTER 2020-06-28 06:02 | Outpatient (CLI) | payer MEDICARE, BC, SELFPAY ==
[2020-06-28 12:46] LABS: Basophils % 0.7 %; Eosinophils # 0.1 10^3/uL (0.0-0.8); Eosinophils % 6.2 %; Hematocrit 39.9 % (42.0-52.0); Hemoglobin 12.5 g/dL (11.7-16.6); Lymphocytes # 0.3 10^3/uL (0.8-4.8); Lymphocytes % 20.5 %; Mean Corpuscular HGB Conc 31.3 g/dL (30.0-36.0); Mean Corpuscular Hemoglobin 29.9 pg (28.0-34.0); Mean Corpuscular Volume 95.5 fL (80-94); Mean Platelet Volume 10.1 fL (7.4-10.4); Monocytes # 0.4 10^3/uL (0.2-0.9); Monocytes % 27.4 %; Neutrophils % 44.5 %; Nucleated Red Blood Cells % 0 %; Platelet Count 103 10^3/cmm (130-400); Red Blood Count 4.18 10^6/uL (4.1-5.3); Red Cell Distribution Width 17.9 % (12.1-15.1); White Blood Count 1.5 10^3/uL (4.0-10.0)
[2020-06-28 12:57] LABS: Alanine Aminotransferase 22 U/L (0-41); Albumin Level 3.3 g/dL (3.5-5.2); Alkaline Phosphatase 54 IU/L (40-130); Anion Gap 9.2 (5-19); Aspartate Amino Transferase 12 U/L (0-40); Blood Urea Nitrogen 22 mg/dL (8-23); Carbon Dioxide 29 mmol/L (22-29); Chloride 100 mmol/L (98-107); Globulin 2.8 g/dL (1.3-4.6); Glucose 104 mg/dL (65-115); Osmolality Calculated 275 mOsm/kg (285-295); Potassium 4.2 mmol/L (3.5-5.1); Sodium 134 mmol/L (136-145); Total Bilirubin 1.1 mg/dL (0.15-1.2); Total Protein 6.1 g/dL (6.6-8.7)
[2020-06-28 13:22] LABS: Neutrophils # 0.65 10^3/uL (1.8-7.7)
--- NOTE | 2020-06-28 20:24 | ONC FU_ITS ---
Dr. Hernandez Patient Follow-Up Note Patient: Brandon Roberts Unit #: [id number]: 1945 Dicatated By: Brandon Hernandez M.D.Date of Visit:Jun 28, 2020 Onc Med Follow-up/Prog Note Chief Complaint: Multiple myeloma. History of Present Illness: This is a 75 year-old man with IgG kappa myeloma. He had osteopenia and associated vertebral compression fractures at initial presentation in July of 2009. He underwent treatment through the [facility] on the Total Therapy 4 L program. He was felt to be in complete remission following his induction and consolidation treatment, which included tandem autologous stem cell transplants. He completed consolidation treatment in February of 2010. He was then given 3 years of maintenance with Revlimid/Velcade/dexamethasone. He completed treatment in May 2013. He then continued Aredia infusions every 3 months for maintenance of bone health. He was last treated here in December 2015. He had subsequently continued his regular follow-up at the [facility]. As of his visit there in January 2017 he was felt to be in complete remission. He was seen here for a follow-up visit on 03/15/2017. He was having significant pain in his right lower back/pelvic area. His protein electrophoresis studies at that time showed no evidence of recurrence of myeloma, and x-ray showed no evidence of lytic bone disease. He continued on observation/expectant management. I had seen him for a follow-up visit on 11/07/2017. At that point he appeared stable clinically. However, his repeat protein electrophoresis on 01/01/2018 showed evidence of an IgG kappa monoclonal paraprotein quantitating at 0.24 g/dL. The free light chain assay was unremarkable with free kappa light chain of 12.03 mg/L, free lambda light chain of 9.24 mg/L, and kappa/lambda ratio normal at 1.30. His 24-hour urine protein electrophoresis on 01/03/2018 showed no monoclonal protein. Skeletal survey showed right femoral head degenerative subcortical cyst versus myelomatous lesion. Also noted was diffuse marked bone demineralization with multilevel thoracic and lumbar compression fractures and with vertebroplasty changes. There was bilateral hip osteoarthrosis and there were degenerative changes noted in the cervical and lumbar spine. CT of the bony pelvis on 01/15/2018 showed no evidence of osteolytic or osteoblastic change. The right femoral head lucency was felt to most likely represent overlying posterior acetabular subcortical cyst. There was progression of severe right hip osteoarthritic change compared to October 2017 study. With the reappearance of monoclonal protein on the serum protein electrophoresis, he was referred to [facility] for reevaluation. He was seen there on 03/04/2018. His bone marrow aspiration/biopsy showed just 3% plasma cells. It was felt to be morphologically negative for myeloma. However, flow cytometric analysis revealed a plasma cell population with atypical immunophenotype comprising approximately 0.08% of analyzed events. There were no new bone lesions identified on MRI studies. His PET/CT also showed no evidence of active bone lesions. His DEXA scan showed T score -3.8 in the radial diaphysis and -0.8 in the proximal femur. He was advised to continue observation/expectant management for the myeloma. It was also recommended, though, that he start denosumab injections. During subsequent follow-up his M protein continued to increase gradually. As of 12/12/2018 it was up to 1.07 g/dL. He is seen for a scheduled visit. He subsequently had problems with kidney stones. He underwent lithotripsy initially on 01/13/2019. He then underwent lithotripsy again along with left ureteral stent placement on 02/07/2019. As of 04/21/2019 the M protein had increased to 2.9 g/dL. The free light chain assay showed elevated kappa light chain at 876 mg/L with lambda light chain 24 mg/L and elevated kappa/lambda ratio at 36.50. There was no monoclonal protein identified in his 24 hour urine specimen. At that point he started treatment with revlimid in combination with ixazomib and dexamethasone with Revlimid administered daily on a 21/28 day schedule, ixazomib administered weekly for 3 weeks, and the dexamethasone administered weekly. He tolerated the 1st cycle with acceptable toxicity, and he was able to continue with cycle 2 on 05/19/2019 and with cycle 3 on 06/16/2019. His repeat protein electrophoresis on 07/08/2019 showed decrease in the M protein to 0.7 g/dL. The free light chain assay showed kappa light chain 9.8 mg/L, lambda light chain 15.1 mg/mL and normal kappa/lambda ratio at 0.65. CT scans of the cervical, thoracic, lumbar spine on 07/10/2019 showed several small lytic lesions throughout the cervical spine, the largest measuring 10 mm in the C5 vertebral body. There were also degenerative changes, but no severe central canal stenosis. The thoracic spine showed diffuse severe osteopenia with prior vertebral plasty at T5. The lumbar spine also show diffuse osteopenia, prior vertebral plasties from L1-L4, as well as degenerative disc disease with multilevel mild central and subarticular recess stenosis. Also noted were extensive lytic areas of lucency in the sacrum. He continued on treatment with Revlimid/ixazomib/dexamethasone. As of his follow-up visit on 11/13/2019 had developed significant worsening of lower extremity edema, and he continued to have shortness of breath and declining activity tolerance. As such, his treatment was put on hold. On 12/19/2019 he was admitted to the hospital with atrial fibrillation. It was managed medically, he was scheduled for outpatient follow-up with Dr. Haskins. However, on 12/25/2019 he was readmitted to the hospital with increased heart rate and increased shortness of breath. He was found to have cardiomyopathy and acute systolic congestive heart failure. He had a atrial fibrillation/flutter, for which he started treatment with amiodarone. His echocardiogram showed severe left ventricular dysfunction with ejection fraction estimated at 15 to 20%. Following discharge he continued treatment with amiodarone 200 mg daily together with furosemide 60 mg twice daily, metoprolol 50 mg daily, Entresto 24-26 mg daily, and apixaban 5 mg twice daily. His myeloma therapy remained on hold. His repeat serum protein electrophoresis on 02/19/2020 showed stable M protein at 0.6 g/dL. At that point his clinical status also appeared stable, and he continued on observation/expectant management. His repeat echocardiogram on 04/06/2020 showed significant improvement in the LV function with estimated ejection fraction at 50%. As of 05/03/2020 his M protein had increased to 1.1 g/dL. Restaging PET/CT on 05/22/2020 showed new FDG positive lesions in the L5 vertebral body and left sacral ala consistent with recurrent myeloma. With that finding, I had recommended that he continue further treatment with daratumumab in combination with pomalidomide and dexamethasone. His other medical illnesses include hypertension and atrial fibrillation. He had an admission to the hospital for opportunistic pneumonia in August of 2011. He was treated for cellulitis of the left leg in January 2015. He had smoked in the past, but he quit more than 25 years ago. INTERIM HISTORY: He began cycle 1 of daratumumab/pomalidomide/dexamethasone on 06/14/2020 with the daratumumab administered by subcutaneous injection. At that point his M protein had further increased to 1.4 g/dL. He had some transient pulmonary congestion following the initial daratumumab injection. He had no other apparent toxicity. He continued with his week 2 daratumumab on 06/21/2020, and at that point he also continued pomalidomide 4 mg daily. He is seen for a follow-up visit. He has been feeling really weak and shaky. His activity is very limited. ECOG score is 3. His appetite has dropped off, but his weight is up a few pounds. He has not had fever. He does report having some sweating. He says his voice has gotten weaker this past week. He has some shortness of breath. He does not complain of cough, and he has not been having chest pain. He has had some acid reflux, which she is managing with Tums. He also is having constipation and he has been having some abdominal discomfort. He has had a little bright red blood in the stool associated with straining. He has some difficulty with bladder control, mainly dribbling. He has had pain in the groin area on both sides, and the posterior right hip area, and in both thighs. He has chronic back pain. He does not complain of headache. He does have lightheadedness. He has a little numbness in both feet. Medications: Acyclovir 400 mg (of 400 mg) Tablet Oral b.i.d., Amiodarone HCl 1 Tablet (of 200 mg) Oral daily, DULoxetine HCl 1 Capsule (of 20 mg) Capsule Delayed Release Particles Oral b.i.d., Furosemide 1.5 Tablet (of 40 mg) Oral daily, K-Tab 0.5 Tablet (of 20 meq) Tablet, controlled release Oral daily, LORazepam 1 Tablet (of 1 mg) Oral q 8 hours PRN, Metoprolol Succinate ER 1.5 Tablet (of 50 mg) Tablet SR 24 HR Oral daily, OxyCODONE HCl 1 Tablet (of 15 mg) Oral four times a day PRN, Pomalidomide 1 Capsule (of 4 mg) Oral q 21 days, Sacubitril-Valsartan 1 Tablet (of 24-26 mg) Oral b.i.d., Spironolactone 1 Tablet (of 50 mg) Oral daily, TraZODone HCl 1 - 2 (50 mg) Tablet Oral at bedtime, Xarelto 1 Tablet (of 20 mg) Oral daily Allergies: No Known Allergies. Review of Systems: Constitutional - He has very limited activity and lately he has felt even more weak and shaky. Appetite is dropped off, but his weight is up a little. He has not had fever. He has had some sweating. ECOG score is 3, ENMT - He has had some postnasal drip. No mouth sores. No sore throat or difficulty swallowingm but his voice has been weak during this past week, Hematologic/Lymphatic - He has easy bruising, Respiratory - He has some shortness of breath. No cough. No pleuritic pain or hemoptysis, Cardiovascular - No angina pain. No palpitations, Gastrointestinal - No nausea or vomiting. He has acid reflux, which he manages with Tums. He has constipation. He has had a little bit of bright red blood in the stool after straining, Genitourinary (M) - No dysuria or hematuria. No urinary frequency. He has some difficulty with bladder control, mainly dribbling, Musculoskeletal - He has chronic back pain. He recently has also been having pain in the groin area bilaterally, in the posterior right hip area, and in both thighs, Integumentary - No skin rash, Neurologic - No headache. He has lightheadedness. He has a little numbness in his feet. No other focal neurologic symptoms, Psychiatric - He has anxiety. It is adequately managed with lorazepam. He sleeps okay with trazodone. Vital Signs: Performed on Jun 28, 2020 13:52 Height - 71.00 in Weight - 240.4 lbs (HIGH) BSA - 2.28 sq.m BMI - 33.53 (HIGH) Temperature - 97.6 F (LOW) Pulse - 58 /min (LOW) Respiration - 22 /min BP - 101/54 mm(hg) O2 Sat - 98 % Pain - 7 Physical Examination: Constitutional - He appears generally weak. He has very limited mobility, Eyes - Sclerae nonicteric. Conjunctivae clear, ENMT - No lesions noted in the oral cavity, Hematologic/Lymphatic - No cervical, clavicular, or axillary adenopathy, Respiratory - Lungs sound clear, Cardiovascular - Heart rhythm is regular. There is no murmur, gallop, or rub noted, Abdomen - Moderately distended. Liver and spleen are not enlarged. There is no abdominal mass or ascites noted and there is no inguinal adenopathy, Extremities - There are venous stasis changes bilaterally. There is mild edema. He has extensive purpura, Neurologic - No focal neurologic deficits noted. Lab/Imaging: Test performed on Jun 28, 2020 12:12 Sodium 134 mmol/L Potassium 4.2 mmol/L Chloride 100 mmol/L CO2 29 mmol/L Anion Gap 9.2 BUN 22 mg/dL Creatinine 1.1 mg/dL Cr Clearance (Est) 88.9700 mL/min Glucose 104 mg/dL Calcium 10.0 mg/dL Protein, Total 6.1 g/dL Albumin 3.3 g/dL Globulin 2.8 g/dL Bilirubin, Total 1.1 mg/dL ALT (SGPT) 22 U/L AST (SGOT) 12 U/L Alkaline Phosphatase 54 IU/L WBC 1.5 10 3/uL RBC 4.18 10 6/uL HGB 12.5 g/dL HCT 39.9 % MCV 95.5 fL MCH 29.9 pg MCHC 31.3 g/dL RDW 17.9 % Platelet Count 103 10 3/cmm MPV 10.1 fL Neutrophils 0.65 10 3/uL Lymphocytes 0.3 10 3/uL Monocytes 0.4 10 3/uL Eosinophils 0.1 10 3/uL Basophils 0.0 10 3/uL Neutrophil % 44.5 % Lymphocyte % 20.5 % Monocyte % 27.4 % Eosinophil % 6.2 % Basophils % 0.7 % NRBC % 0 % Impression: 1. Patient with IgG kappa myeloma, initially diagnosed in July 2009. He had associated osteopenia and multiple vertebral compression fractures. 2. He underwent treatment at the [facility] on the total therapy 4L protocol. He completed his maintenance therapy with Revlimid, Velcade and dexamethasone in May 2013. 3. He had continued Aredia infusions every 3 months for bone health. He was last treated here in December 2015. 4. As of his follow-up visit at [facility] in January 2017, his myeloma was felt to be in complete remission. His other medical illnesses include: 5. Hypertension. 6. Atrial fibrillation. 7. He required treatment for opportunistic pneumonia in August 2011. 8. He was treated for cellulitis of the left leg in January 2015. In March 2017 he presented with increased pain in his lower back and pelvic area. His laboratory studies and x-rays at that time showed no evidence of recurrence of the myeloma. However, his repeat protein electrophoresis in December 2017 did show a small IgG kappa monoclonal protein spike quantitating at 0.24 g/dL, consistent with early relapse of his myeloma. He had follow-up at [facility] on 03/04/2018. Based on their recommendations, he initially was followed on observation/expectant management for the myeloma, but he did start monthly denosumab injections. During follow-up there was continued gradual increase in his M protein. As of 12/12/2018 it had increased to 1.07 g/dL. His subsequent clinical course was complicated nephrolithiasis requiring lithotripsy and ureteral stent placement. As of 04/21/2019 there was further increase in the M protein to 2.9 g/dL. The free light chain assay showed elevated kappa light chain at 876 mg/L with lambda light chain 24 mg/L and elevated kappa/lambda ratio at 36.50. There was no monoclonal protein identified in his 24 hour urine specimen. At that point he started treatment with Revlimid in combination with ixazomib and dexamethasone. As of his follow-up visit on 07/14/2019 he had completed 3 cycles of treatment, and at that point he did appear to be showing a very good response by serum protein electrophoresis. He then continued on the same treatment. He had been tolerating it well other than he developed significant fluid retention and other side effects with the steroid. The swelling had initially improved with diuretic therapy, and he was able to continue treatment. As of October 2019 he began his 7th cycle. During subsequent follow-up his lower extremity edema had continued to worsen, and he also complained of shortness of breath and declining activity tolerance. As of his follow-up visit on 11/13/2019 his myeloma treatment was put on hold. Ultimately, he was found to have severe cardiomyopathy with left ventricular ejection fraction estimated at 15 to 20% by transesophageal echocardiogram. He had associated atrial flutter/fibrillation, for which he began treatment with amiodarone and metoprolol. He also started anticoagulation with apixaban. During follow-up he continued to have very limited activity tolerance. His myeloma therapy had remained on hold. He had a very good response to the treatment by protein electrophoresis, but his M protein then began to increase. As of April 2020 it was back up to 1.1 g/dL, but at that point his repeat echocardiogram had shown a very significant improvement in his left ventricular function. His restaging PET/CT on 05/22/2020 showed several areas of myeloma progression in the bone. On 06/14/2020 he began further treatment with daratumumab in combination with pomalidomide and dexamethasone. The daratumumab was administered by subcutaneous injection. He experienced some transient chest congestion with the initial injection of daratumumab, but he otherwise tolerated it well. He continued with week 2 daratumumab on 06/21/2020 and at that point he also continued pomalidomide 4 mg daily and dexamethasone 40 mg weekly. He comes in now feeling really weak and shaky. He is significantly neutropenic with ANC down to 650. Plan: His daratumumab and pomalidomide will be put on hold, but he will continue dexamethasone 40 mg weekly. He will start antibiotic coverage with Levaquin 500 mg daily. He returns in 1 week. Signed By: Brandon Hernandez M.D. <<Signature on File>>
== END 2020-06-28 06:03 | disposition home or self-care (01) ==
LOC: ONCMED 06:05
PROVIDERS: PCP Nurse Practitioner; Visit Provider Internal Medicine Medical Oncology
DX: C90.00 Multiple myeloma not having achieved remission (principal); D70.1 Agranulocytosis secondary to cancer chemotherapy; T45.1X5A Adverse effect of antineoplastic and immunosuppressive drugs, initial encounter; I42.9 Cardiomyopathy, unspecified; M85.80 Other specified disorders of bone density and structure, unspecified site; I10 Essential (primary) hypertension; I48.91 Unspecified atrial fibrillation; Z79.899 Other long term (current) drug therapy; Z79.52 Long term (current) use of systemic steroids
CPT/HCPCS: 36415; 80053; 85025; 99214

== ENCOUNTER 2020-07-05 05:53 | Outpatient (CLI) | payer MEDICARE, BC, SELFPAY ==
[2020-07-05 12:44] LABS: Basophils % 1.4 %; Eosinophils % 1.9 %; Hematocrit 44.7 % (42.0-52.0); Hemoglobin 14.1 g/dL (11.7-16.6); Lymphocytes # 0.6 10^3/uL (0.8-4.8); Lymphocytes % 25.6 %; Mean Corpuscular HGB Conc 31.5 g/dL (30.0-36.0); Mean Corpuscular Hemoglobin 29.7 pg (28.0-34.0); Mean Corpuscular Volume 94.3 fL (80-94); Mean Platelet Volume 9.1 fL (7.4-10.4); Monocytes # 1.1 10^3/uL (0.2-0.9); Monocytes % 49.3 %; Neutrophils % 20.9 %; Nucleated Red Blood Cells % 0 %; Platelet Count 152 10^3/cmm (130-400); Red Blood Count 4.74 10^6/uL (4.1-5.3); Red Cell Distribution Width 17.7 % (12.1-15.1); White Blood Count 2.2 10^3/uL (4.0-10.0)
[2020-07-05 13:04] LABS: Alanine Aminotransferase 49 U/L (0-41); Albumin Level 3.7 g/dL (3.5-5.2); Alkaline Phosphatase 70 IU/L (40-130); Anion Gap 16.4 (5-19); Aspartate Amino Transferase 13 U/L (0-40); Blood Urea Nitrogen 20 mg/dL (8-23); Calcium 9.3 mg/dL (8.5-10.5); Carbon Dioxide 24 mmol/L (22-29); Chloride 100 mmol/L (98-107); Globulin 3.3 g/dL (1.3-4.6); Glucose 86 mg/dL (65-115); Osmolality Calculated 278 mOsm/kg (285-295); Potassium 4.4 mmol/L (3.5-5.1); Sodium 136 mmol/L (136-145)
[2020-07-05 13:55] LABS: Neutrophils # 0.45 10^3/uL (1.8-7.7)
--- NOTE | 2020-07-05 15:20 | ONC FU_ITS ---
Reyna Gonzalez Patient Note Patient: Brandon Roberts Unit #: [id number]: 1945 Dictated By: Farzana MartinezDate of Visit: Jul 05, 2020 Onc MED Follow-Up/Prog Note Chief Complaint: Multiple myeloma. History of Present Illness: Mr Roberts is a 75 year-old man with IgG kappa myeloma. He had osteopenia and associated vertebral compression fractures at initial presentation in July of 2009. He underwent treatment through the [facility] on the Total Therapy 4 L program. He was felt to be in complete remission following his induction and consolidation treatment, which included tandem autologous stem cell transplants. He completed consolidation treatment in February of 2010. He was then given 3 years of maintenance with Revlimid/Velcade/dexamethasone. He completed treatment in May 2013. He then continued Aredia infusions every 3 months for maintenance of bone health. He was last treated here in December 2015. He had subsequently continued his regular follow-up at the [facility]. As of his visit there in January 2017 he was felt to be in complete remission. He was seen here for a follow-up visit on 03/15/2017. He was having significant pain in his right lower back/pelvic area. His protein electrophoresis studies at that time showed no evidence of recurrence of myeloma, and x-ray showed no evidence of lytic bone disease. He continued on observation/expectant management. Dr Hernandez had seen him for a follow-up visit on 11/07/2017. At that point he appeared stable clinically. However, his repeat protein electrophoresis on 01/01/2018 showed evidence of an IgG kappa monoclonal paraprotein quantitating at 0.24 g/dL. The free light chain assay was unremarkable with free kappa light chain of 12.03 mg/L, free lambda light chain of 9.24 mg/L, and kappa/lambda ratio normal at 1.30. His 24-hour urine protein electrophoresis on 01/03/2018 showed no monoclonal protein. Skeletal survey showed right femoral head degenerative subcortical cyst versus myelomatous lesion. Also noted was diffuse marked bone demineralization with multilevel thoracic and lumbar compression fractures and with vertebroplasty changes. There was bilateral hip osteoarthrosis and there were degenerative changes noted in the cervical and lumbar spine. CT of the bony pelvis on 01/15/2018 showed no evidence of osteolytic or osteoblastic change. The right femoral head lucency was felt to most likely represent overlying posterior acetabular subcortical cyst. There was progression of severe right hip osteoarthritic change compared to October 2017 study. With the reappearance of monoclonal protein on the serum protein electrophoresis, he was referred to [facility] for reevaluation. He was seen there on 03/04/2018. His bone marrow aspiration/biopsy showed just 3% plasma cells. It was felt to be morphologically negative for myeloma. However, flow cytometric analysis revealed a plasma cell population with atypical immunophenotype comprising approximately 0.08% of analyzed events. There were no new bone lesions identified on MRI studies. His PET/CT also showed no evidence of active bone lesions. His DEXA scan showed T score -3.8 in the radial diaphysis and -0.8 in the proximal femur. He was advised to continue observation/expectant management for the myeloma. It was also recommended, though, that he start denosumab injections. During subsequent follow-up his M protein continued to increase gradually. As of 12/12/2018 it was up to 1.07 g/dL. He is seen for a scheduled visit. He subsequently had problems with kidney stones. He underwent lithotripsy initially on 01/13/2019. He then underwent lithotripsy again along with left ureteral stent placement on 02/07/2019. As of 04/21/2019 the M protein had increased to 2.9 g/dL. The free light chain assay showed elevated kappa light chain at 876 mg/L with lambda light chain 24 mg/L and elevated kappa/lambda ratio at 36.50. There was no monoclonal protein identified in his 24 hour urine specimen. At that point he started treatment with revlimid in combination with ixazomib and dexamethasone with Revlimid administered daily on a 21/ day schedule, ixazomib administered weekly for 3 weeks, and the dexamethasone administered weekly. He tolerated the 1st cycle with acceptable toxicity, and he was able to continue with cycle 2 on 05/19/2019 and with cycle 3 on 06/16/2019. His repeat protein electrophoresis on 07/08/2019 showed decrease in the M protein to 0.7 g/dL. The free light chain assay showed kappa light chain 9.8 mg/L, lambda light chain 15.1 mg/mL and normal kappa/lambda ratio at 0.65. CT scans of the cervical, thoracic, lumbar spine on 07/10/2019 showed several small lytic lesions throughout the cervical spine, the largest measuring 10 mm in the C5 vertebral body. There were also degenerative changes, but no severe central canal stenosis. The thoracic spine showed diffuse severe osteopenia with prior vertebral plasty at T5. The lumbar spine also show diffuse osteopenia, prior vertebral plasties from L1-L4, as well as degenerative disc disease with multilevel mild central and subarticular recess stenosis. Also noted were extensive lytic areas of lucency in the sacrum. He continued on treatment with Revlimid/ixazomib/dexamethasone. As of his follow-up visit on 11/13/2019 had developed significant worsening of lower extremity edema, and he continued to have shortness of breath and declining activity tolerance. As such, his treatment was put on hold. On 12/19/2019 he was admitted to the hospital with atrial fibrillation. It was managed medically, he was scheduled for outpatient follow-up with Dr. Haskins. However, on 12/25/2019 he was readmitted to the hospital with increased heart rate and increased shortness of breath. He was found to have cardiomyopathy and acute systolic congestive heart failure. He had a atrial fibrillation/flutter, for which he started treatment with amiodarone. His echocardiogram showed severe left ventricular dysfunction with ejection fraction estimated at 15 to 20%. Following discharge he continued treatment with amiodarone 200 mg daily together with furosemide 60 mg twice daily, metoprolol 50 mg daily, Entresto 24-26 mg daily, and apixaban 5 mg twice daily. His myeloma therapy remained on hold. His repeat serum protein electrophoresis on 02/19/2020 showed stable M protein at 0.6 g/dL. At that point his clinical status also appeared stable, and he continued on observation/expectant management. His repeat echocardiogram on 04/06/2020 showed significant improvement in the LV function with estimated ejection fraction at 50%. As of 05/03/2020 his M protein had increased to 1.1 g/dL. Restaging PET/CT on 05/22/2020 showed new FDG positive lesions in the L5 vertebral body and left sacral ala consistent with recurrent myeloma. With that finding, Dr Hernandez had recommended that he continue further treatment with daratumumab in combination with pomalidomide and dexamethasone. His other medical illnesses include hypertension and atrial fibrillation. He had an admission to the hospital for opportunistic pneumonia in August of 2011. He was treated for cellulitis of the left leg in January 2015. He had smoked in the past, but he quit more than 25 years ago. INTERIM HISTORY: He began cycle 1 of daratumumab/pomalidomide/dexamethasone on 06/14/2020 with the daratumumab administered by subcutaneous injection. At that point his M protein had further increased to 1.4 g/dL. He had some transient pulmonary congestion following the initial daratumumab injection. He had no other apparent toxicity. He continued with his week 2 daratumumab on 06/21/2020, and at that point he also continued pomalidomide 4 mg daily. Mr. Roberts is here today for follow-up. He presented last week for cycle 1 day 15 daratumumab and was found to be currently neutropenic with an ANC of 650. It was 2600 on day 1. His treatment including daratumumab and pomalidomide was placed on hold. He was started on prophylactic Levaquin and is here today for follow-up. He states overall he feels pretty washed out and weak in general. He had one episode of hallucinations and seeing a great-grandson run into the house that was not present during the time Mr. Douglas seen him. He states that he is having urinary frequency and that he was at 5 or 6 times last night. He completes his prophylactic Levaquin today. He states his appetite is fair Mrs. Roberts states that he is eating 1 good meal a day and then she is supplementing with protein shakes 2-3 times a day. He denies any new pain. He has had no nausea or vomiting. He denies any diarrhea or constipation. She states that he has been drinking some alcohol a couple drinks a day since he is off the pomalidomide. She is given him dexamethasone 20 mg this morning anticipation of treatment. He denies any cough or new shortness of breath. He has had no hemoptysis. He denies any lower extremity edema. He denies chest pain or palpitations. He presents in a wheelchair due to his extreme weakness. He denies any new neuropathy symptoms his ECOG is 3 due to mobility issues at this time. He states he is going to using support with depends and that with urinary frequency he just cannot get to the bathroom in time without having an accident. He states he is just too slow getting there . Past Medical History: Atrial fibrillation Bilateral renal cysts Hypertension Vitamin D deficiency Nephrolithiasis in 2018 Multiple myeloma in 2008 IgG kappa myeloma dx jul 2009 hx htn, afib Past Surgical History: Appendectomy Right side port placement Right sided port removal Vertebral plasty Flu vaccine in 2018 Lithotripsy x2 in 2018 Stent placement left ureter in 2018 Flu vaccine in 2014 Pneumonia vaccine in 2014 - prevnar 13 Allergies: No Known Allergies. Medications: Acyclovir 400 mg (of 400 mg) Tablet Oral b.i.d. Amiodarone HCl 1 Tablet (of 200 mg) Oral daily DULoxetine HCl 1 Capsule (of 20 mg) Capsule Delayed Release Particles Oral b.i.d. Furosemide 1.5 Tablet (of 40 mg) Oral daily K-Tab 0.5 Tablet (of 20 meq) Tablet, controlled release Oral daily LORazepam 1 Tablet (of 1 mg) Oral q 8 hours PRN Metoprolol Succinate ER 1.5 Tablet (of 50 mg) Tablet SR 24 HR Oral daily OxyCODONE HCl 1 Tablet (of 15 mg) Oral four times a day PRN Pomalidomide 1 Capsule (of 4 mg) Oral q 21 days Sacubitril-Valsartan 1 Tablet (of 24-26 mg) Oral b.i.d. Spironolactone 1 Tablet (of 50 mg) Oral daily TraZODone HCl 1 - 2 (50 mg) Tablet Oral at bedtime Xarelto 1 Tablet (of 20 mg) Oral daily Family History: Mr. Roberts's mother at age 77: cancer history consists of Colon cancer (cause of ). Mr. Roberts's father at age 65: cancer history consists of Prostate cancer. mother had cancer of lung also brother has prostate cancer. Social History: Mr. Roberts is and he is retired. Mr. Roberts quit smoking 25 years ago but had smoked 2.0 packs/day for 22 years. He is an active drinker.He consumes 2 drinks/day. Mr. Roberts reports the following support systems: lives with spouse, significant other, family, or friends, lives in own house, supportive family/friends willing to assist with needs, and adequate transportation available for expected visits. His diet consists of regular meals. He indicates his activity level as: daily activities. , hasn't drank in 68 years, quit smoking 25 years ago. April 2019 has resumed consuming two double bourbon drinks nightly. Review Of Symptoms: Constitutional weak in general-no fever or chills. appetite fair -eating one good meal a day and utilizing protein shakes 2-3 times a day. Allergic/Immunologic Denies allergies and adverse reactions. Eyes Denies blurred vision, double vision, visual difficulties and photophobia. ENMT Denies changes in hearing, sore throat, mouth sores, difficulty or changes in swallowing ability, and/or sinus drainage. Respiratory Denies cough, dyspnea, hemoptysis, hiccoughs, pleuritic chest pain and wheezing. Cardiovascular Denies arrhythmias, chest pain, dyspnea, edema, orthopnea and palpitations. Gastrointestinal Denies abdominal pain, change in bowel habits, constipation, diarrhea, heartburn / dyspepsia. Constipation controlled with stool softeners at present. Genitourinary (M) Denies dysuria, but having new nocturnal frequency. No hematuria. Musculoskeletal Denies new pain but weak in general. Integumentary Denies chronic rashes, inflammation, ulcerations or skin changes. Neurologic Denies disorientation, dizziness, headaches, insomnia and memory loss. He had an episode of seeing a great-grand son that was NOT present during the period Mr Roberts thought he saw him. Vital Signs: Performed on Jul 05, 2020 14:05 Height - 71.00 in Weight - 234.2 lbs (LOW) BSA - 2.26 sq.m BMI - 32.66 (HIGH) Temperature - 97.0 F (LOW) Pulse - 57 /min (LOW) Respiration - 18 /min BP - 105/62 mm(hg) O2 Sat - 93 % (LOW) Pain - 6,3 - Capable of only limited self-care, confined to bed or chair more than 50% of waking hours. (ECOG) Physical Examination: Constitutional Alert, oriented, no acute distress-weak in general. Skin pink, warm and dry. Head Normocephalic; atraumatic. Eyes Conjunctivae and sclerae are clear and without icterus. Pupils are reactive and equal. slight exophthalmos bilaterally. Neck Supple without masses or thyromegaly. No jugular venous distension. Hematologic/Lymphatic scattered bruising on arms-not new. Abdomen Non-tender, non-distended, no masses, ascites. Back/Spine Non-tender to palpation. Extremities No visible deformities, no cyanosis, clubbing. + 1 bilateral lower extremity edema-non pitting. Musculoskeletal No tenderness or swelling, normal range of motion without obvious weakness. Neurologic using wheelchair for mobility. Psychiatric Alert and oriented times three. Coherent speech. Verbalizes understanding of our discussions today. Laboratory:Test performed on Jul 05, 2020 12:16 Sodium 136 mmol/L Potassium 4.4 mmol/L Chloride 100 mmol/L CO2 24 mmol/L Anion Gap 16.4 BUN 20 mg/dL Creatinine 1.1 mg/dL Cr Clearance (Est) 88.9700 mL/min Glucose 86 mg/dL Calcium 9.3 mg/dL Protein, Total 7.0 g/dL Albumin 3.7 g/dL Globulin 3.3 g/dL Bilirubin, Total 1.0 mg/dL ALT (SGPT) 49 U/L AST (SGOT) 13 U/L Alkaline Phosphatase 70 IU/L WBC 2.2 10 3/uL RBC 4.74 10 6/uL HGB 14.1 g/dL HCT 44.7 % MCV 94.3 fL MCH 29.7 pg MCHC 31.5 g/dL RDW 17.7 % Platelet Count 152 10 3/cmm MPV 9.1 fL Neutrophils 0.45 10 3/uL Lymphocytes 0.6 10 3/uL Monocytes 1.1 10 3/uL Eosinophils 0.0 10 3/uL Basophils 0.0 10 3/uL Neutrophil % 20.9 % Lymphocyte % 25.6 % Monocyte % 49.3 % Eosinophil % 1.9 % Basophils % 1.4 % NRBC % 0 % Test performed on May 03, 2020 09:39 IgG 1387 mg/dL IgA 54 mg/dL IgM 38 mg/dL Test performed on Feb 19, 2020 18:20 NT proBNP 513 pg/mL TSH 3.50 uIU/mL Impression: 1. Patient with IgG kappa myeloma, initially diagnosed in July 2009. He had associated osteopenia and multiple vertebral compression fractures. 2. He underwent treatment at the [facility] on the total therapy 4L protocol. He completed his maintenance therapy with Revlimid, Velcade and dexamethasone in May 2013. 3. He had continued Aredia infusions every 3 months for bone health. He was last treated here in December 2015. 4. As of his follow-up visit at [facility] in January 2017, his myeloma was felt to be in complete remission. His other medical illnesses include: 5. Hypertension. 6. Atrial fibrillation. 7. He required treatment for opportunistic pneumonia in August 2011. 8. He was treated for cellulitis of the left leg in January 2015. In March 2017 he presented with increased pain in his lower back and pelvic area. His laboratory studies and x-rays at that time showed no evidence of recurrence of the myeloma. However, his repeat protein electrophoresis in December 2017 did show a small IgG kappa monoclonal protein spike quantitating at 0.24 g/dL, consistent with early relapse of his myeloma. He had follow-up at [facility] on 03/04/2018. Based on their recommendations, he initially was followed on observation/expectant management for the myeloma, but he did start monthly denosumab injections. During follow-up there was continued gradual increase in his M protein. As of 12/12/2018 it had increased to 1.07 g/dL. His subsequent clinical course was complicated nephrolithiasis requiring lithotripsy and ureteral stent placement. As of 04/21/2019 there was further increase in the M protein to 2.9 g/dL. The free light chain assay showed elevated kappa light chain at 876 mg/L with lambda light chain 24 mg/L and elevated kappa/lambda ratio at 36.50. There was no monoclonal protein identified in his 24 hour urine specimen. At that point he started treatment with Revlimid in combination with ixazomib and dexamethasone. As of his follow-up visit on 07/14/2019 he had completed 3 cycles of treatment, and at that point he did appear to be showing a very good response by serum protein electrophoresis. He then continued on the same treatment. He had been tolerating it well other than he developed significant fluid retention and other side effects with the steroid. The swelling had initially improved with diuretic therapy, and he was able to continue treatment. As of October 2019 he began his 7th cycle. During subsequent follow-up his lower extremity edema had continued to worsen, and he also complained of shortness of breath and declining activity tolerance. As of his follow-up visit on 11/13/2019 his myeloma treatment was put on hold. Ultimately, he was found to have severe cardiomyopathy with left ventricular ejection fraction estimated at 15 to 20% by transesophageal echocardiogram. He had associated atrial flutter/fibrillation, for which he began treatment with amiodarone and metoprolol. He also started anticoagulation with apixaban. During follow-up he continued to have very limited activity tolerance. His myeloma therapy had remained on hold. He had a very good response to the treatment by protein electrophoresis, but his M protein then began to increase. As of April 2020 it was back up to 1.1 g/dL, but at that point his repeat echocardiogram had shown a very significant improvement in his left ventricular function. His restaging PET/CT on 05/22/2020 showed several areas of myeloma progression in the bone. On 06/14/2020 he began further treatment with daratumumab in combination with pomalidomide and dexamethasone. The daratumumab was administered by subcutaneous injection. He experienced some transient chest congestion with the initial injection of daratumumab, but he otherwise tolerated it well. He continued with week 2 daratumumab on 06/21/2020 and at that point he also continued pomalidomide 4 mg daily and dexamethasone 40 mg weekly. He comes in now feeling really weak and shaky. He was significantly neutropenic with ANC down to 650 last week and his ANC is 450 today. He is having urinary frequency and 1 episode of hallucinations . Plan: 1. Continue to hold daratumumab and pomalidomide due to ANC of 450. 2. Continue dexamethasone 20 mg today (already taken) and tomorrow. 3. Start antibiotic coverage with Augmentin 875 BID. 4. Neupogen 480 mcg today for chemotherapy induced neturopenia with an ANC of 450 today. It was 650 last week and was 2600 on day 1 on 06/14/2020. His last daratumumab was on 06/21/2020 and pomalidomide was on 06/27/2020. 5. Plan for followup in [address] Hernandez with CBC, CMP. 6. Encouraged hydration with increased water intake. 7. IV hydration//supportive was offered but Mr & Mrs Roberts feel is he is drinking alot at home. 8. Mr & Mrs Roberts were instructed to call us in t he interim if questions or problems arise. IF he develops fever > 100.4 (which Neupogen may induced a low grade, short lived tempature) to call or present to ER-especially if other signs/symptoms of infection arise. They verbalize understanding. Signed By: Farzana Martinez-, [facility] Brandon Hernandez MD <<Signature on File>>
== END 2020-07-05 05:54 | disposition home or self-care (01) ==
LOC: ONCMED 05:55
PROVIDERS: PCP Nurse Practitioner; Visit Provider Nurse Practitioner
DX: C90.02 Multiple myeloma in relapse (principal); D70.1 Agranulocytosis secondary to cancer chemotherapy; T45.1X5A Adverse effect of antineoplastic and immunosuppressive drugs, initial encounter; I48.11 Longstanding persistent atrial fibrillation; I10 Essential (primary) hypertension; E55.9 Vitamin D deficiency, unspecified
CPT/HCPCS: 80053; 85025; 96372; 99214; J1442

== ENCOUNTER 2020-07-14 10:20 | Outpatient (CLI) | payer MEDICARE, BC, SELFPAY ==
[2020-07-14 10:49] LABS: Basophils # 0.1 10^3/uL (0.0-0.1); Basophils % 1.1 %; Eosinophils % 0.4 %; Hematocrit 42.2 % (42.0-52.0); Hemoglobin 13.4 g/dL (11.7-16.6); Lymphocytes # 0.4 10^3/uL (0.8-4.8); Mean Corpuscular HGB Conc 31.8 g/dL (30.0-36.0); Mean Corpuscular Hemoglobin 30.2 pg (28.0-34.0); Mean Platelet Volume 10.2 fL (7.4-10.4); Monocytes # 0.4 10^3/uL (0.2-0.9); Neutrophils # 6.08 10^3/uL (1.8-7.7); Neutrophils % 85.2 %; Nucleated Red Blood Cells % 0 %; Platelet Count 161 10^3/cmm (130-400); Red Blood Count 4.44 10^6/uL (4.1-5.3); Red Cell Distribution Width 18.4 % (12.1-15.1); White Blood Count 7.1 10^3/uL (4.0-10.0)
[2020-07-14 11:07] LABS: Alanine Aminotransferase 34 U/L (0-41); Albumin Level 3.7 g/dL (3.5-5.2); Alkaline Phosphatase 68 IU/L (40-130); Anion Gap 13.4 (5-19); Aspartate Amino Transferase 17 U/L (0-40); Blood Urea Nitrogen 21 mg/dL (8-23); Calcium 10.1 mg/dL (8.5-10.5); Carbon Dioxide 30 mmol/L (22-29); Chloride 100 mmol/L (98-107); Globulin 2.7 g/dL (1.3-4.6); Glucose 111 mg/dL (65-115); Osmolality Calculated 285 mOsm/kg (285-295); Potassium 4.4 mmol/L (3.5-5.1); Sodium 139 mmol/L (136-145); Total Bilirubin 0.7 mg/dL (0.15-1.2); Total Protein 6.4 g/dL (6.6-8.7)
--- NOTE | 2020-07-18 08:12 | ONC FU_ITS ---
Dr. Hernandez Patient Follow-Up Note Patient: Brandon Roberts Unit #: [id number]: 1945 Dicatated By: Brandon Hernandez M.D.Date of Visit:Jul 14, 2020 Onc Med Follow-up/Prog Note Chief Complaint: Multiple myeloma. History of Present Illness: This is a 75 year-old man with IgG kappa myeloma. He had osteopenia and associated vertebral compression fractures at initial presentation in July of 2009. He underwent treatment through the [facility] on the Total Therapy 4 L program. He was felt to be in complete remission following his induction and consolidation treatment, which included tandem autologous stem cell transplants. He completed consolidation treatment in February of 2010. He was then given 3 years of maintenance with Revlimid/Velcade/dexamethasone. He completed treatment in May 2013. He then continued Aredia infusions every 3 months for maintenance of bone health. He was last treated here in December 2015. He had subsequently continued his regular follow-up at the [facility]. As of his visit there in January 2017 he was felt to be in complete remission. He was seen here for a follow-up visit on 03/15/2017. He was having significant pain in his right lower back/pelvic area. His protein electrophoresis studies at that time showed no evidence of recurrence of myeloma, and x-ray showed no evidence of lytic bone disease. He continued on observation/expectant management. I had seen him for a follow-up visit on 11/07/2017. At that point he appeared stable clinically. However, his repeat protein electrophoresis on 01/01/2018 showed evidence of an IgG kappa monoclonal paraprotein quantitating at 0.24 g/dL. The free light chain assay was unremarkable with free kappa light chain of 12.03 mg/L, free lambda light chain of 9.24 mg/L, and kappa/lambda ratio normal at 1.30. His 24-hour urine protein electrophoresis on 01/03/2018 showed no monoclonal protein. Skeletal survey showed right femoral head degenerative subcortical cyst versus myelomatous lesion. Also noted was diffuse marked bone demineralization with multilevel thoracic and lumbar compression fractures and with vertebroplasty changes. There was bilateral hip osteoarthrosis and there were degenerative changes noted in the cervical and lumbar spine. CT of the bony pelvis on 01/15/2018 showed no evidence of osteolytic or osteoblastic change. The right femoral head lucency was felt to most likely represent overlying posterior acetabular subcortical cyst. There was progression of severe right hip osteoarthritic change compared to October 2017 study. With the reappearance of monoclonal protein on the serum protein electrophoresis, he was referred to [facility] for reevaluation. He was seen there on 03/04/2018. His bone marrow aspiration/biopsy showed just 3% plasma cells. It was felt to be morphologically negative for myeloma. However, flow cytometric analysis revealed a plasma cell population with atypical immunophenotype comprising approximately 0.08% of analyzed events. There were no new bone lesions identified on MRI studies. His PET/CT also showed no evidence of active bone lesions. His DEXA scan showed T score -3.8 in the radial diaphysis and -0.8 in the proximal femur. He was advised to continue observation/expectant management for the myeloma. It was also recommended, though, that he start denosumab injections. During subsequent follow-up his M protein continued to increase gradually. As of 12/12/2018 it was up to 1.07 g/dL. He is seen for a scheduled visit. He subsequently had problems with kidney stones. He underwent lithotripsy initially on 01/13/2019. He then underwent lithotripsy again along with left ureteral stent placement on 02/07/2019. As of 04/21/2019 the M protein had increased to 2.9 g/dL. The free light chain assay showed elevated kappa light chain at 876 mg/L with lambda light chain 24 mg/L and elevated kappa/lambda ratio at 36.50. There was no monoclonal protein identified in his 24 hour urine specimen. At that point he started treatment with revlimid in combination with ixazomib and dexamethasone with Revlimid administered daily on a 21/28 day schedule, ixazomib administered weekly for 3 weeks, and the dexamethasone administered weekly. He tolerated the 1st cycle with acceptable toxicity, and he was able to continue with cycle 2 on 05/19/2019 and with cycle 3 on 06/16/2019. His repeat protein electrophoresis on 07/08/2019 showed decrease in the M protein to 0.7 g/dL. The free light chain assay showed kappa light chain 9.8 mg/L, lambda light chain 15.1 mg/mL and normal kappa/lambda ratio at 0.65. CT scans of the cervical, thoracic, lumbar spine on 07/10/2019 showed several small lytic lesions throughout the cervical spine, the largest measuring 10 mm in the C5 vertebral body. There were also degenerative changes, but no severe central canal stenosis. The thoracic spine showed diffuse severe osteopenia with prior vertebral plasty at T5. The lumbar spine also show diffuse osteopenia, prior vertebral plasties from L1-L4, as well as degenerative disc disease with multilevel mild central and subarticular recess stenosis. Also noted were extensive lytic areas of lucency in the sacrum. He continued on treatment with Revlimid/ixazomib/dexamethasone. As of his follow-up visit on 11/13/2019 had developed significant worsening of lower extremity edema, and he continued to have shortness of breath and declining activity tolerance. As such, his treatment was put on hold. On 12/19/2019 he was admitted to the hospital with atrial fibrillation. It was managed medically, he was scheduled for outpatient follow-up with Dr. Haskins. However, on 12/25/2019 he was readmitted to the hospital with increased heart rate and increased shortness of breath. He was found to have cardiomyopathy and acute systolic congestive heart failure. He had a atrial fibrillation/flutter, for which he started treatment with amiodarone. His echocardiogram showed severe left ventricular dysfunction with ejection fraction estimated at 15 to 20%. Following discharge he continued treatment with amiodarone 200 mg daily together with furosemide 60 mg twice daily, metoprolol 50 mg daily, Entresto 24-26 mg daily, and apixaban 5 mg twice daily. His myeloma therapy remained on hold. His repeat serum protein electrophoresis on 02/19/2020 showed stable M protein at 0.6 g/dL. At that point his clinical status also appeared stable, and he continued on observation/expectant management. His repeat echocardiogram on 04/06/2020 showed significant improvement in the LV function with estimated ejection fraction at 50%. As of 05/03/2020 his M protein had increased to 1.1 g/dL. Restaging PET/CT on 05/22/2020 showed new FDG positive lesions in the L5 vertebral body and left sacral ala consistent with recurrent myeloma. With that finding, I had recommended that he continue further treatment with daratumumab in combination with pomalidomide and dexamethasone. His other medical illnesses include hypertension and atrial fibrillation. He had an admission to the hospital for opportunistic pneumonia in August of 2011. He was treated for cellulitis of the left leg in January 2015. He had smoked in the past, but he quit more than 25 years ago. INTERIM HISTORY: He began cycle 1 of daratumumab/pomalidomide/dexamethasone on 06/14/2020 with the daratumumab administered by subcutaneous injection. At that point his M protein had further increased to 1.4 g/dL. He had some transient pulmonary congestion following the initial daratumumab injection. He had no other apparent toxicity. He continued with his week 2 daratumumab on 06/21/2020, and at that point he also continued pomalidomide 4 mg daily. As of 06/28/2020 his treatment was put on hold due to worsening neutropenia. He is seen for a follow-up visit. His treatment is still been on hold. He says that last week was pretty rough, but lately he has been feeling better, in part because he finally started taking his extended release morphine on schedule. He still has limited activity, but he is getting up and around. ECOG score is 2. He says his appetite is moderate. He has not had fever. He does have sweating, both during the daytime and at night. He has shortness of breath with exertion. He did have chest pain one night. He does not complain of nausea. He still has some acid reflux. He has constipation, but his bowels lately have been pretty good. Bladder function remains adequate. He still has pain in his back and hips. He has neuropathy in his feet. He had been more tearful, but that also is better now. Medications: Acyclovir 400 mg (of 400 mg) Tablet Oral b.i.d., Amiodarone HCl 1 Tablet (of 200 mg) Oral daily, DULoxetine HCl 1 Capsule (of 20 mg) Capsule Delayed Release Particles Oral b.i.d., Furosemide 1.5 Tablet (of 40 mg) Oral daily, K-Tab 0.5 Tablet (of 20 meq) Tablet, controlled release Oral daily, LORazepam 1 Tablet (of 1 mg) Oral q 8 hours PRN, Metoprolol Succinate ER 1.5 Tablet (of 50 mg) Tablet SR 24 HR Oral daily, Morphine Sulfate ER 1 Tablet (of 30 mg) Tablet, controlled release Oral q 12 hours, OxyCODONE HCl 1 Tablet (of 15 mg) Oral four times a day PRN, Pomalidomide 1 Capsule (of 4 mg) Oral q 21 days, Sacubitril-Valsartan 1 Tablet (of 24-26 mg) Oral b.i.d., Spironolactone 1 Tablet (of 50 mg) Oral daily, TraZODone HCl 1 - 2 (50 mg) Tablet Oral at bedtime, Xarelto 1 Tablet (of 20 mg) Oral daily Allergies: No Known Allergies. Review of Systems: Constitutional - He was not feeling well last week. He was having alot of pain and states that he was very tearful. He has felt better last couple days and his energy is better. He is up and around a little at home. His appetite is okay and his weight is up a few pounds. No fevers. He has been having both day and night sweats. No hot flashes. ECOG score is 2, ENMT - No sinus congestion/drainage. No mouth sores. No sore throat or difficulty swallowing, Hematologic/Lymphatic - He bruises easily, Respiratory - He gets short of breath with exertion. No cough. No pleuritic pain or hemoptysis, Cardiovascular - He had chest pain one night. No palpitations, Gastrointestinal - No nausea or vomiting. He has occasional heartburn. No diarrhea or constipation. No blood in the stool or black stools, Genitourinary (M) - No dysuria or hematuria. No urinary frequency. No urgency or incontinence, Musculoskeletal - He has pain in his back and hips, Integumentary - No skin complications, Neurologic - No headache or dizziness. He has neuropathy in his feet. No other focal neurologic symptoms, Psychiatric - No anxiety or depression. He is sleeping well with the trazodone. Vital Signs: Performed on Jul 14, 2020 12:12 Height - 71.00 in Weight - 237.0 lbs (HIGH) BSA - 2.27 sq.m BMI - 33.06 (HIGH) Temperature - 97.0 F (LOW) Pulse - 83 /min Respiration - 24 /min BP - 114/80 mm(hg) O2 Sat - 100 % Pain - 0 Physical Examination: Constitutional - He appears generally weak, Eyes - Sclerae nonicteric. Conjunctivae clear, ENMT - No lesions noted in the oral cavity, Hematologic/Lymphatic - No cervical, clavicular, or axillary adenopathy, Respiratory - Lungs sound clear, Cardiovascular - Heart rhythm is regular. There is no murmur, gallop, or rub noted, Abdomen - Moderately distended. Liver and spleen are not enlarged. There is no abdominal mass or ascites noted and there is no inguinal adenopathy, Extremities - There are venous stasis changes bilaterally. There is just slight edema. He has chronic purpura on his arms and hands, Neurologic - No focal neurologic deficits noted. Lab/Imaging: Test performed on Jul 14, 2020 10:34 Sodium 139 mmol/L Potassium 4.4 mmol/L Chloride 100 mmol/L CO2 30 mmol/L Anion Gap 13.4 BUN 21 mg/dL Creatinine 1.2 mg/dL Cr Clearance (Est) 81.5600 mL/min Glucose 111 mg/dL Calcium 10.1 mg/dL Protein, Total 6.4 g/dL Albumin 3.7 g/dL Globulin 2.7 g/dL Bilirubin, Total 0.7 mg/dL ALT (SGPT) 34 U/L AST (SGOT) 17 U/L Alkaline Phosphatase 68 IU/L WBC 7.1 10 3/uL RBC 4.44 10 6/uL HGB 13.4 g/dL HCT 42.2 % MCV 95.0 fL MCH 30.2 pg MCHC 31.8 g/dL RDW 18.4 % Platelet Count 161 10 3/cmm MPV 10.2 fL Neutrophils 6.08 10 3/uL Lymphocytes 0.4 10 3/uL Monocytes 0.4 10 3/uL Eosinophils 0.0 10 3/uL Basophils 0.1 10 3/uL Neutrophil % 85.2 % Lymphocyte % 6.0 % Monocyte % 6.0 % Eosinophil % 0.4 % Basophils % 1.1 % NRBC % 0 % Impression: 1. Patient with IgG kappa myeloma, initially diagnosed in July 2009. He had associated osteopenia and multiple vertebral compression fractures. 2. He underwent treatment at the [facility] on the total therapy 4L protocol. He completed his maintenance therapy with Revlimid, Velcade and dexamethasone in May 2013. 3. He had continued Aredia infusions every 3 months for bone health. He was last treated here in December 2015. 4. As of his follow-up visit at [facility] in January 2017, his myeloma was felt to be in complete remission. His other medical illnesses include: 5. Hypertension. 6. Atrial fibrillation. 7. He required treatment for opportunistic pneumonia in August 2011. 8. He was treated for cellulitis of the left leg in January 2015. In March 2017 he presented with increased pain in his lower back and pelvic area. His laboratory studies and x-rays at that time showed no evidence of recurrence of the myeloma. However, his repeat protein electrophoresis in December 2017 did show a small IgG kappa monoclonal protein spike quantitating at 0.24 g/dL, consistent with early relapse of his myeloma. He had follow-up at [facility] on 03/04/2018. Based on their recommendations, he initially was followed on observation/expectant management for the myeloma, but he did start monthly denosumab injections. During follow-up there was continued gradual increase in his M protein. As of 12/12/2018 it had increased to 1.07 g/dL. His subsequent clinical course was complicated nephrolithiasis requiring lithotripsy and ureteral stent placement. As of 04/21/2019 there was further increase in the M protein to 2.9 g/dL. The free light chain assay showed elevated kappa light chain at 876 mg/L with lambda light chain 24 mg/L and elevated kappa/lambda ratio at 36.50. There was no monoclonal protein identified in his 24 hour urine specimen. At that point he started treatment with Revlimid in combination with ixazomib and dexamethasone. As of his follow-up visit on 07/14/2019 he had completed 3 cycles of treatment, and at that point he did appear to be showing a very good response by serum protein electrophoresis. He then continued on the same treatment. He had been tolerating it well other than he developed significant fluid retention and other side effects with the steroid. The swelling had initially improved with diuretic therapy, and he was able to continue treatment. As of October 2019 he began his 7th cycle. During subsequent follow-up his lower extremity edema had continued to worsen, and he also complained of shortness of breath and declining activity tolerance. As of his follow-up visit on 11/13/2019 his myeloma treatment was put on hold. Ultimately, he was found to have severe cardiomyopathy with left ventricular ejection fraction estimated at 15 to 20% by transesophageal echocardiogram. He had associated atrial flutter/fibrillation, for which he began treatment with amiodarone and metoprolol. He also started anticoagulation with apixaban. During follow-up he continued to have very limited activity tolerance. His myeloma therapy had remained on hold. He had a very good response to the treatment by protein electrophoresis, but his M protein then began to increase. As of April 2020 it was back up to 1.1 g/dL, but at that point his repeat echocardiogram had shown a very significant improvement in his left ventricular function. His restaging PET/CT on 05/22/2020 showed several areas of myeloma progression in the bone. On 06/14/2020 he began further treatment with daratumumab in combination with pomalidomide and dexamethasone. The daratumumab was administered by subcutaneous injection. He experienced some transient chest congestion with the initial injection of daratumumab, but he otherwise tolerated it well. He continued with week 2 daratumumab on 06/21/2020 and at that point he also continued pomalidomide 4 mg daily and dexamethasone 40 mg weekly. As of 06/28/2020 the treatment was put on hold due to worsening neutropenia and declining performance status. He has now showing adequate recovery. Plan: He will now restart treatment with cycle 2 of daratumumab in combination with pomalidomide and dexamethasone, but with the pomalidomide dosage reduced to 4 mg every other day for 14 days. If he is able to tolerate that dosage, the pomalidomide will be changed to 2 mg daily on a 21/20-day schedule beginning with cycle 3. The daratumumab dosage remains the same. He returns in 1 week. Signed By: Brandon Hernandez M.D. <<Signature on File>>
== END 2020-07-14 10:21 | disposition home or self-care (01) ==
LOC: ONCMED 10:25
PROVIDERS: PCP Nurse Practitioner; Visit Provider Internal Medicine Medical Oncology
DX: Z51.12 Encounter for antineoplastic immunotherapy (principal); C90.02 Multiple myeloma in relapse; I10 Essential (primary) hypertension; I48.91 Unspecified atrial fibrillation; Z79.899 Other long term (current) drug therapy
CPT/HCPCS: 36415; 80053; 85025; 96401; 99214; C9062; C9399

== ENCOUNTER 2020-07-21 05:57 | Outpatient (CLI) | payer MEDICARE, BC, SELFPAY ==
[2020-07-21 12:27] LABS: Basophils % 0.2 %; Eosinophils # 0.1 10^3/uL (0.0-0.8); Eosinophils % 1.7 %; Hematocrit 41.5 % (42.0-52.0); Hemoglobin 13.3 g/dL (11.7-16.6); Lymphocytes # 0.3 10^3/uL (0.8-4.8); Lymphocytes % 6.1 %; Mean Corpuscular Hemoglobin 30.4 pg (28.0-34.0); Monocytes # 0.5 10^3/uL (0.2-0.9); Monocytes % 8.6 %; Neutrophils # 4.36 10^3/uL (1.8-7.7); Nucleated Red Blood Cells % 0 %; Platelet Count 161 10^3/cmm (130-400); Red Blood Count 4.37 10^6/uL (4.1-5.3); Red Cell Distribution Width 18.6 % (12.1-15.1); White Blood Count 5.3 10^3/uL (4.0-10.0)
--- NOTE | 2020-07-28 10:50 | ONC FU_ITS ---
Reyna Gonzalez Patient Note Patient: Brandon Roberts Unit #: [id number]: 1945 Dictated By: Farzana MartinezDate of Visit: Jul 21, 2020 Onc MED Follow-Up/Prog Note Chief Complaint: Multiple myeloma. History of Present Illness: Mr Roberts is a 75 year-old man with IgG kappa myeloma. He had osteopenia and associated vertebral compression fractures at initial presentation in July of 2009. He underwent treatment through the [facility] on the Total Therapy 4 L program. He was felt to be in complete remission following his induction and consolidation treatment, which included tandem autologous stem cell transplants. He completed consolidation treatment in February of 2010. He was then given 3 years of maintenance with Revlimid/Velcade/dexamethasone. He completed treatment in May 2013. He then continued Aredia infusions every 3 months for maintenance of bone health. He was last treated here in December 2015. He had subsequently continued his regular follow-up at the [facility]. As of his visit there in January 2017 he was felt to be in complete remission. He was seen here for a follow-up visit on 03/15/2017. He was having significant pain in his right lower back/pelvic area. His protein electrophoresis studies at that time showed no evidence of recurrence of myeloma, and x-ray showed no evidence of lytic bone disease. He continued on observation/expectant management. Dr Hernandez had seen him for a follow-up visit on 11/07/2017. At that point he appeared stable clinically. However, his repeat protein electrophoresis on 01/01/2018 showed evidence of an IgG kappa monoclonal paraprotein quantitating at 0.24 g/dL. The free light chain assay was unremarkable with free kappa light chain of 12.03 mg/L, free lambda light chain of 9.24 mg/L, and kappa/lambda ratio normal at 1.30. His 24-hour urine protein electrophoresis on 01/03/2018 showed no monoclonal protein. Skeletal survey showed right femoral head degenerative subcortical cyst versus myelomatous lesion. Also noted was diffuse marked bone demineralization with multilevel thoracic and lumbar compression fractures and with vertebroplasty changes. There was bilateral hip osteoarthrosis and there were degenerative changes noted in the cervical and lumbar spine. CT of the bony pelvis on 01/15/2018 showed no evidence of osteolytic or osteoblastic change. The right femoral head lucency was felt to most likely represent overlying posterior acetabular subcortical cyst. There was progression of severe right hip osteoarthritic change compared to October 2017 study. With the reappearance of monoclonal protein on the serum protein electrophoresis, he was referred to [facility] for reevaluation. He was seen there on 03/04/2018. His bone marrow aspiration/biopsy showed just 3% plasma cells. It was felt to be morphologically negative for myeloma. However, flow cytometric analysis revealed a plasma cell population with atypical immunophenotype comprising approximately 0.08% of analyzed events. There were no new bone lesions identified on MRI studies. His PET/CT also showed no evidence of active bone lesions. His DEXA scan showed T score -3.8 in the radial diaphysis and -0.8 in the proximal femur. He was advised to continue observation/expectant management for the myeloma. It was also recommended, though, that he start denosumab injections. During subsequent follow-up his M protein continued to increase gradually. As of 12/12/2018 it was up to 1.07 g/dL. He is seen for a scheduled visit. He subsequently had problems with kidney stones. He underwent lithotripsy initially on 01/13/2019. He then underwent lithotripsy again along with left ureteral stent placement on 02/07/2019. As of 04/21/2019 the M protein had increased to 2.9 g/dL. The free light chain assay showed elevated kappa light chain at 876 mg/L with lambda light chain 24 mg/L and elevated kappa/lambda ratio at 36.50. There was no monoclonal protein identified in his 24 hour urine specimen. At that point he started treatment with revlimid in combination with ixazomib and dexamethasone with Revlimid administered daily on a 21/ day schedule, ixazomib administered weekly for 3 weeks, and the dexamethasone administered weekly. He tolerated the 1st cycle with acceptable toxicity, and he was able to continue with cycle 2 on 05/19/2019 and with cycle 3 on 06/16/2019. His repeat protein electrophoresis on 07/08/2019 showed decrease in the M protein to 0.7 g/dL. The free light chain assay showed kappa light chain 9.8 mg/L, lambda light chain 15.1 mg/mL and normal kappa/lambda ratio at 0.65. CT scans of the cervical, thoracic, lumbar spine on 07/10/2019 showed several small lytic lesions throughout the cervical spine, the largest measuring 10 mm in the C5 vertebral body. There were also degenerative changes, but no severe central canal stenosis. The thoracic spine showed diffuse severe osteopenia with prior vertebral plasty at T5. The lumbar spine also show diffuse osteopenia, prior vertebral plasties from L1-L4, as well as degenerative disc disease with multilevel mild central and subarticular recess stenosis. Also noted were extensive lytic areas of lucency in the sacrum. He continued on treatment with Revlimid/ixazomib/dexamethasone. As of his follow-up visit on 11/13/2019 had developed significant worsening of lower extremity edema, and he continued to have shortness of breath and declining activity tolerance. As such, his treatment was put on hold. On 12/19/2019 he was admitted to the hospital with atrial fibrillation. It was managed medically, he was scheduled for outpatient follow-up with Dr. Haskins. However, on 12/25/2019 he was readmitted to the hospital with increased heart rate and increased shortness of breath. He was found to have cardiomyopathy and acute systolic congestive heart failure. He had a atrial fibrillation/flutter, for which he started treatment with amiodarone. His echocardiogram showed severe left ventricular dysfunction with ejection fraction estimated at 15 to 20%. Following discharge he continued treatment with amiodarone 200 mg daily together with furosemide 60 mg twice daily, metoprolol 50 mg daily, Entresto 24-26 mg daily, and apixaban 5 mg twice daily. His myeloma therapy remained on hold. His repeat serum protein electrophoresis on 02/19/2020 showed stable M protein at 0.6 g/dL. At that point his clinical status also appeared stable, and he continued on observation/expectant management. His repeat echocardiogram on 04/06/2020 showed significant improvement in the LV function with estimated ejection fraction at 50%. As of 05/03/2020 his M protein had increased to 1.1 g/dL. Restaging PET/CT on 05/22/2020 showed new FDG positive lesions in the L5 vertebral body and left sacral ala consistent with recurrent myeloma. With that finding, Dr Hernandez had recommended that he continue further treatment with daratumumab in combination with pomalidomide and dexamethasone. His other medical illnesses include hypertension and atrial fibrillation. He had an admission to the hospital for opportunistic pneumonia in August of 2011. He was treated for cellulitis of the left leg in January 2015. He had smoked in the past, but he quit more than 25 years ago. INTERIM HISTORY: He began cycle 1 of daratumumab/pomalidomide/dexamethasone on 06/14/2020 with the daratumumab administered by subcutaneous injection. At that point his M protein had further increased to 1.4 g/dL. He had some transient pulmonary congestion following the initial daratumumab injection. He had no other apparent toxicity. He continued with his week 2 daratumumab on 06/21/2020, and at that point he also continued pomalidomide 4 mg daily. Mr. Roberts is here today for follow-up. He has complete cycle 1 daratumumab and became neutropenic with an ANC of 650. It was 2600 on day 1. His treatment including daratumumab and pomalidomide was placed on hold. He was started on prophylactic Levaquin and subsequently received Neupogen and his counts recovered. He began cycle 2 on July. Mr. Roberts is accompanied by his today. He states overall he feels pretty good. He denies any new pain. He has had no fever or chills. He denies any COVID symptoms. He denies any recent contact with known COVID cases or any testing/completed or pending. He states he is eating fair. His energy is marginal he still continues to have mobility issues due to generalized weakness. That is no worse but no better. He denies any nausea or vomiting. He states his bowels are sluggish at times and loose at times but this is normal for him. He denies any new pain or neuropathy symptoms. His ECOG remains between 2 and 3 depending on the day. Past Medical History: Atrial fibrillation Bilateral renal cysts Hypertension Vitamin D deficiency Nephrolithiasis in 2019 Multiple myeloma in 2008 IgG kappa myeloma dx jul 2009 hx htn, afib Past Surgical History: Appendectomy Right side port placement Right sided port removal Vertebral plasty Flu vaccine in 2019 Lithotripsy x2 in 2019 Stent placement left ureter in 2019 Flu vaccine in 2014 Pneumonia vaccine in 2015 - prevnar 13 Allergies: No Known Allergies. Medications: Acyclovir 400 mg (of 400 mg) Tablet Oral b.i.d. Amiodarone HCl 1 Tablet (of 200 mg) Oral daily DULoxetine HCl 1 Capsule (of 20 mg) Capsule Delayed Release Particles Oral b.i.d. Furosemide 1.5 Tablet (of 40 mg) Oral daily K-Tab 0.5 Tablet (of 20 meq) Tablet, controlled release Oral daily LORazepam 1 Tablet (of 1 mg) Oral q 8 hours PRN Metoprolol Succinate ER 1.5 Tablet (of 50 mg) Tablet SR 24 HR Oral daily Morphine Sulfate ER 1 Tablet (of 30 mg) Tablet, controlled release Oral q 12 hours OxyCODONE HCl 1 Tablet (of 15 mg) Oral four times a day PRN Pomalidomide 1 Capsule (of 4 mg) Oral q 21 days Sacubitril-Valsartan 1 Tablet (of 24-26 mg) Oral b.i.d. Spironolactone 1 Tablet (of 50 mg) Oral daily TraZODone HCl 1 - 2 (50 mg) Tablet Oral at bedtime Xarelto 1 Tablet (of 20 mg) Oral daily Family History: Mr. Roberts's mother at age 77: cancer history consists of Colon cancer (cause of ). Mr. Roberts's father at age 65: cancer history consists of Prostate cancer. mother had cancer of lung also brother has prostate cancer. Social History: Mr. Roberts is and he is retired. Mr. Roberts quit smoking 26 years ago but had smoked 2.0 packs/day for 22 years. He is an active drinker.He consumes 2 drinks/day. Mr. Roberts reports the following support systems: lives with spouse, significant other, family, or friends, lives in own house, supportive family/friends willing to assist with needs, and adequate transportation available for expected visits. His diet consists of regular meals. He indicates his activity level as: daily activities. , hasn't drank in 68 years, quit smoking 25 years ago. April 2019 has resumed consuming two double bourbon drinks nightly. Review Of Symptoms: Constitutional weak in general-no fever or chills. appetite fair -eating one good meal a day and utilizing protein shakes 2-3 times a day. Allergic/Immunologic Denies allergies and adverse reactions. Eyes Denies blurred vision, double vision, visual difficulties and photophobia. ENMT Denies changes in hearing, sore throat, mouth sores, difficulty or changes in swallowing ability, and/or sinus drainage. Endocrine No diabetes, thyroid disease or hormone replacement. Denies hot flashes or night sweats. Hematologic/Lymphatic Denies easy bruising and tender or enlarged lymph nodes. Breasts Denies abnormal masses of breast, no nipple discharge or pain. Respiratory Denies cough, dyspnea, hemoptysis, hiccoughs, pleuritic chest pain and wheezing. Cardiovascular Denies arrhythmias, chest pain, dyspnea, edema, orthopnea and palpitations. Gastrointestinal Denies abdominal pain, change in bowel habits, constipation, diarrhea, heartburn / dyspepsia. Constipation controlled with stool softeners at present. Genitourinary (M) Denies dysuria, but having new nocturnal frequency. No hematuria. Musculoskeletal Denies new pain but weak in general. Limited mobility and requires wheelchair or wheeled walker for mobility assistance. Integumentary Denies chronic rashes, inflammation, ulcerations or skin changes. Neurologic Denies headache, blurred vision, and no areas of focal weakness or numbness. Normal gait. No sensory problems. Psychiatric Denies hallucinations and mood swings. Vital Signs: Performed on Jul 21, 2020 14:42 Height - 71.00 in Weight - 240.0 lbs (HIGH) BSA - 2.28 sq.m BMI - 33.47 (HIGH) Temperature - 95.3 F (LOW) Pulse - 70 /min Respiration - 18 /min BP - 133/77 mm(hg) O2 Sat - 98 % Pain - 0,3 - Capable of only limited self-care, confined to bed or chair more than 50% of waking hours. (ECOG) Physical Examination: Constitutional Alert, oriented, no acute distress-weak in general. Skin pink, warm and dry. Head Normocephalic; atraumatic. Eyes Conjunctivae and sclerae are clear and without icterus. Pupils are reactive and equal. slight exophthalmos bilaterally. Neck Supple without masses or thyromegaly. No jugular venous distension. Hematologic/Lymphatic scattered bruising on arms-not new. Respiratory Lungs are clear to auscultation without rhonchi or wheezing. Cardiovascular Regular rate and rhythm of heart without murmurs,clicks, gallops or rubs. Breasts Abdomen Non-tender, non-distended, no masses, ascites. Back/Spine Non-tender to palpation. Extremities No visible deformities, no cyanosis, clubbing. + 1 bilateral lower extremity edema-non pitting. Musculoskeletal No tenderness or swelling, normal range of motion without obvious weakness. Integumentary No rashes or lesions. Neurologic using wheelchair for mobility. Psychiatric Alert and oriented times three. Coherent speech. Verbalizes understanding of our discussions today. Laboratory:Test performed on Jul 21, 2020 12:15 WBC 5.3 10 3/uL RBC 4.37 10 6/uL HGB 13.3 g/dL HCT 41.5 % MCV 95.0 fL MCH 30.4 pg MCHC 32.0 g/dL RDW 18.6 % Platelet Count 161 10 3/cmm MPV 11.0 fL Neutrophils 4.36 10 3/uL Lymphocytes 0.3 10 3/uL Monocytes 0.5 10 3/uL Eosinophils 0.1 10 3/uL Basophils 0.0 10 3/uL Neutrophil % 83.0 % Lymphocyte % 6.1 % Monocyte % 8.6 % Eosinophil % 1.7 % Basophils % 0.2 % NRBC % 0 % Test performed on Jul 14, 2020 10:34 Sodium 139 mmol/L Potassium 4.4 mmol/L Chloride 100 mmol/L CO2 30 mmol/L Anion Gap 13.4 BUN 21 mg/dL Creatinine 1.2 mg/dL Cr Clearance (Est) 81.5600 mL/min Glucose 111 mg/dL Calcium 10.1 mg/dL Protein, Total 6.4 g/dL Albumin 3.7 g/dL Globulin 2.7 g/dL Bilirubin, Total 0.7 mg/dL ALT (SGPT) 34 U/L AST (SGOT) 17 U/L Alkaline Phosphatase 68 IU/L Test performed on Jun 14, 2020 09:20 [place] Free Light Chains 17.3 mg/L Lambda Free Light Chains 6.3 mg/L [place]/Lambda Free Ratio 2.75 Test performed on May 05, 2020 08:00 UPE Interpretation SEE NOTE Agarose electrophoresis of urine reveals albumin. No abnormal protein is observed. THIS TEST WAS PERFORMED AT: [facility] [address] [address] [place] [address] FRANCISCO JEFF DO,MPH U [id number] 0 % U [id number] 0 % U Beta Globulin 0 % U Gamma Globulin 0 % Test performed on May 03, 2020 09:39 IgG 1387 mg/dL IgA 54 mg/dL IgM 38 mg/dL Test performed on Feb 19, 2020 18:20 NT proBNP 513 pg/mL TSH 3.50 uIU/mL Impression: 1. Patient with IgG kappa myeloma, initially diagnosed in July 2009. He had associated osteopenia and multiple vertebral compression fractures. 2. He underwent treatment at the [facility] on the total therapy 4L protocol. He completed his maintenance therapy with Revlimid, Velcade and dexamethasone in May 2013. 3. He had continued Aredia infusions every 3 months for bone health. He was last treated here in December 2015. 4. As of his follow-up visit at [facility] in January 2017, his myeloma was felt to be in complete remission. His other medical illnesses include: 5. Hypertension. 6. Atrial fibrillation. 7. He required treatment for opportunistic pneumonia in August 2011. 8. He was treated for cellulitis of the left leg in January 2015. In March 2017 he presented with increased pain in his lower back and pelvic area. His laboratory studies and x-rays at that time showed no evidence of recurrence of the myeloma. However, his repeat protein electrophoresis in December 2017 did show a small IgG kappa monoclonal protein spike quantitating at 0.24 g/dL, consistent with early relapse of his myeloma. He had follow-up at [facility] on 03/04/2018. Based on their recommendations, he initially was followed on observation/expectant management for the myeloma, but he did start monthly denosumab injections. During follow-up there was continued gradual increase in his M protein. As of 12/12/2018 it had increased to 1.07 g/dL. His subsequent clinical course was complicated nephrolithiasis requiring lithotripsy and ureteral stent placement. As of 04/21/2019 there was further increase in the M protein to 2.9 g/dL. The free light chain assay showed elevated kappa light chain at 876 mg/L with lambda light chain 24 mg/L and elevated kappa/lambda ratio at 36.50. There was no monoclonal protein identified in his 24 hour urine specimen. At that point he started treatment with Revlimid in combination with ixazomib and dexamethasone. As of his follow-up visit on 07/14/2019 he had completed 3 cycles of treatment, and at that point he did appear to be showing a very good response by serum protein electrophoresis. He then continued on the same treatment. He had been tolerating it well other than he developed significant fluid retention and other side effects with the steroid. The swelling had initially improved with diuretic therapy, and he was able to continue treatment. As of October 2019 he began his 7th cycle. During subsequent follow-up his lower extremity edema had continued to worsen, and he also complained of shortness of breath and declining activity tolerance. As of his follow-up visit on 11/13/2019 his myeloma treatment was put on hold. Ultimately, he was found to have severe cardiomyopathy with left ventricular ejection fraction estimated at 15 to 20% by transesophageal echocardiogram. He had associated atrial flutter/fibrillation, for which he began treatment with amiodarone and metoprolol. He also started anticoagulation with apixaban. During follow-up he continued to have very limited activity tolerance. His myeloma therapy had remained on hold. He had a very good response to the treatment by protein electrophoresis, but his M protein then began to increase. As of April 2020 it was back up to 1.1 g/dL, but at that point his repeat echocardiogram had shown a very significant improvement in his left ventricular function. His restaging PET/CT on 05/22/2020 showed several areas of myeloma progression in the bone. On 06/14/2020 he began further treatment with daratumumab in combination with pomalidomide and dexamethasone. The daratumumab was administered by subcutaneous injection. He experienced some transient chest congestion with the initial injection of daratumumab, but he otherwise tolerated it well. He continued with week 2 daratumumab on 06/21/2020 and at that point he also continued pomalidomide 4 mg daily and dexamethasone 40 mg weekly. As of 06/28/2020 the treatment was put on hold due to worsening neutropenia and declining performance status. He has now showing adequate recovery. Plan: 1. Proceed with cycle 2 day 8 daratumumab in combination with pomalidomide and dexamethasone, but with the pomalidomide dosage reduced to 4 mg every other day for 14 days. (He began this on 07/14/2020). If he is able to tolerate that dosage, the pomalidomide will be changed to 2 mg daily on a 21/20-day schedule beginning with cycle 3. 2. Continue current antiemetics/supportive care as needed. 3. Labs from today reviewed in detail discussed with Mr. Mrs. Roberts and a copy was given to him. WBC 5.3, hemoglobin 13.3 platelets 161,000 ANC is 4360. 4. We will plan to see him back in 1 week with CBC CMP. He will be due for cycle 2-day 15 treatment at that time. He should have completed his pomalidomide at that time. We will reassess his counts and if they are stable we will send in a new prescription for the pomalidomide 2 mg daily 21 out of 28 days schedule. 5. Mr. Roberts instructed to contact us in the interim should questions or problems arise. Signed By: Farzana Martinez-, [facility] Brandon Hernandez MD <<Signature on File>>
== END 2020-07-21 05:58 | disposition home or self-care (01) ==
LOC: ONCMED 05:59
PROVIDERS: PCP Nurse Practitioner; Visit Provider Nurse Practitioner
DX: Z51.12 Encounter for antineoplastic immunotherapy (principal); C90.02 Multiple myeloma in relapse; D70.1 Agranulocytosis secondary to cancer chemotherapy; T45.1X5A Adverse effect of antineoplastic and immunosuppressive drugs, initial encounter; I10 Essential (primary) hypertension; I48.91 Unspecified atrial fibrillation
CPT/HCPCS: 85025; 96401; 99214; C9062; C9399

== ENCOUNTER 2020-07-28 12:40 | Outpatient (CLI) | payer MEDICARE, BC, SELFPAY ==
[2020-07-28 13:54] LABS: Eosinophils # 0.2 10^3/uL (0.0-0.8); Eosinophils % 4.6 %; Hematocrit 41.4 % (42.0-52.0); Hemoglobin 12.9 g/dL (11.7-16.6); Lymphocytes # 0.3 10^3/uL (0.8-4.8); Lymphocytes % 8.5 %; Mean Corpuscular HGB Conc 31.2 g/dL (30.0-36.0); Mean Corpuscular Hemoglobin 29.9 pg (28.0-34.0); Mean Corpuscular Volume 95.8 fL (80-94); Mean Platelet Volume 9.6 fL (7.4-10.4); Monocytes # 0.5 10^3/uL (0.2-0.9); Monocytes % 13.4 %; Neutrophils # 2.57 10^3/uL (1.8-7.7); Neutrophils % 73.2 %; Nucleated Red Blood Cells % 0 %; Platelet Count 118 10^3/cmm (130-400); Red Blood Count 4.32 10^6/uL (4.1-5.3); Red Cell Distribution Width 18.6 % (12.1-15.1); White Blood Count 3.5 10^3/uL (4.0-10.0)
--- NOTE | 2020-08-07 15:37 | ONC FU_ITS ---
Reyna Gonzalez Patient Note Patient: Brandon Roberts Unit #: [id number]: 1945 Dictated By: Farzana MartinezDate of Visit: Jul 28, 2020 Onc MED Follow-Up/Prog Note Chief Complaint: Multiple myeloma. History of Present Illness: Mr Roberts is a 75 year-old man with IgG kappa myeloma. He had osteopenia and associated vertebral compression fractures at initial presentation in July of 2009. He underwent treatment through the [facility] on the Total Therapy 4 L program. He was felt to be in complete remission following his induction and consolidation treatment, which included tandem autologous stem cell transplants. He completed consolidation treatment in February of 2010. He was then given 3 years of maintenance with Revlimid/Velcade/dexamethasone. He completed treatment in May 2013. He then continued Aredia infusions every 3 months for maintenance of bone health. He was last treated here in December 2015. He had subsequently continued his regular follow-up at the [facility]. As of his visit there in January 2017 he was felt to be in complete remission. He was seen here for a follow-up visit on 03/15/2017. He was having significant pain in his right lower back/pelvic area. His protein electrophoresis studies at that time showed no evidence of recurrence of myeloma, and x-ray showed no evidence of lytic bone disease. He continued on observation/expectant management. Dr Hernandez had seen him for a follow-up visit on 11/07/2017. At that point he appeared stable clinically. However, his repeat protein electrophoresis on 01/01/2018 showed evidence of an IgG kappa monoclonal paraprotein quantitating at 0.24 g/dL. The free light chain assay was unremarkable with free kappa light chain of 12.03 mg/L, free lambda light chain of 9.24 mg/L, and kappa/lambda ratio normal at 1.30. His 24-hour urine protein electrophoresis on 01/03/2018 showed no monoclonal protein. Skeletal survey showed right femoral head degenerative subcortical cyst versus myelomatous lesion. Also noted was diffuse marked bone demineralization with multilevel thoracic and lumbar compression fractures and with vertebroplasty changes. There was bilateral hip osteoarthrosis and there were degenerative changes noted in the cervical and lumbar spine. CT of the bony pelvis on 01/15/2018 showed no evidence of osteolytic or osteoblastic change. The right femoral head lucency was felt to most likely represent overlying posterior acetabular subcortical cyst. There was progression of severe right hip osteoarthritic change compared to October 2017 study. With the reappearance of monoclonal protein on the serum protein electrophoresis, he was referred to [facility] for reevaluation. He was seen there on 03/04/2018. His bone marrow aspiration/biopsy showed just 3% plasma cells. It was felt to be morphologically negative for myeloma. However, flow cytometric analysis revealed a plasma cell population with atypical immunophenotype comprising approximately 0.08% of analyzed events. There were no new bone lesions identified on MRI studies. His PET/CT also showed no evidence of active bone lesions. His DEXA scan showed T score -3.8 in the radial diaphysis and -0.8 in the proximal femur. He was advised to continue observation/expectant management for the myeloma. It was also recommended, though, that he start denosumab injections. During subsequent follow-up his M protein continued to increase gradually. As of 12/12/2018 it was up to 1.07 g/dL. He is seen for a scheduled visit. He subsequently had problems with kidney stones. He underwent lithotripsy initially on 01/13/2019. He then underwent lithotripsy again along with left ureteral stent placement on 02/07/2019. As of 04/21/2019 the M protein had increased to 2.9 g/dL. The free light chain assay showed elevated kappa light chain at 876 mg/L with lambda light chain 24 mg/L and elevated kappa/lambda ratio at 36.50. There was no monoclonal protein identified in his 24 hour urine specimen. At that point he started treatment with revlimid in combination with ixazomib and dexamethasone with Revlimid administered daily on a 21/ day schedule, ixazomib administered weekly for 3 weeks, and the dexamethasone administered weekly. He tolerated the 1st cycle with acceptable toxicity, and he was able to continue with cycle 2 on 05/19/2019 and with cycle 3 on 06/16/2019. His repeat protein electrophoresis on 07/08/2019 showed decrease in the M protein to 0.7 g/dL. The free light chain assay showed kappa light chain 9.8 mg/L, lambda light chain 15.1 mg/mL and normal kappa/lambda ratio at 0.65. CT scans of the cervical, thoracic, lumbar spine on 07/10/2019 showed several small lytic lesions throughout the cervical spine, the largest measuring 10 mm in the C5 vertebral body. There were also degenerative changes, but no severe central canal stenosis. The thoracic spine showed diffuse severe osteopenia with prior vertebral plasty at T5. The lumbar spine also show diffuse osteopenia, prior vertebral plasties from L1-L4, as well as degenerative disc disease with multilevel mild central and subarticular recess stenosis. Also noted were extensive lytic areas of lucency in the sacrum. He continued on treatment with Revlimid/ixazomib/dexamethasone. As of his follow-up visit on 11/13/2019 had developed significant worsening of lower extremity edema, and he continued to have shortness of breath and declining activity tolerance. As such, his treatment was put on hold. On 12/19/2019 he was admitted to the hospital with atrial fibrillation. It was managed medically, he was scheduled for outpatient follow-up with Dr. Haskins. However, on 12/25/2019 he was readmitted to the hospital with increased heart rate and increased shortness of breath. He was found to have cardiomyopathy and acute systolic congestive heart failure. He had a atrial fibrillation/flutter, for which he started treatment with amiodarone. His echocardiogram showed severe left ventricular dysfunction with ejection fraction estimated at 15 to 20%. Following discharge he continued treatment with amiodarone 200 mg daily together with furosemide 60 mg twice daily, metoprolol 50 mg daily, Entresto 24-26 mg daily, and apixaban 5 mg twice daily. His myeloma therapy remained on hold. His repeat serum protein electrophoresis on 02/19/2020 showed stable M protein at 0.6 g/dL. At that point his clinical status also appeared stable, and he continued on observation/expectant management. His repeat echocardiogram on 04/06/2020 showed significant improvement in the LV function with estimated ejection fraction at 50%. As of 05/03/2020 his M protein had increased to 1.1 g/dL. Restaging PET/CT on 05/22/2020 showed new FDG positive lesions in the L5 vertebral body and left sacral ala consistent with recurrent myeloma. With that finding, Dr Hernandez had recommended that he continue further treatment with daratumumab in combination with pomalidomide and dexamethasone. His other medical illnesses include hypertension and atrial fibrillation. He had an admission to the hospital for opportunistic pneumonia in August of 2011. He was treated for cellulitis of the left leg in January 2015. He had smoked in the past, but he quit more than 25 years ago. INTERIM HISTORY: He began cycle 1 of daratumumab/pomalidomide/dexamethasone on 06/14/2020 with the daratumumab administered by subcutaneous injection. At that point his M protein had further increased to 1.4 g/dL. He had some transient pulmonary congestion following the initial daratumumab injection. He had no other apparent toxicity. He continued with his week 2 daratumumab on 06/21/2020, and at that point he also continued pomalidomide 4 mg daily. Mr. Roberts is here today for follow-up. He has complete cycle 1 daratumumab and became neutropenic with an ANC of 650. It was 2600 on day 1. His treatment including daratumumab and pomalidomide was placed on hold. He was started on prophylactic Levaquin and subsequently received Neupogen and his counts recovered. He began cycle 2 on July. Mr. Roberts is accompanied by his today. He states overall he feels pretty good. He denies any new pain. He has had no fever or chills. He denies any COVID symptoms. He denies any recent contact with known COVID cases or any testing/completed or pending. He states he is eating fair. His energy is marginal he still continues to have mobility issues due to generalized weakness. He states he is getting weaker in general. He states he has had 2 or 3 near falls but has not fallen completely. He states he has decreased his activity because he is afraid of falling. He states his legs are weak and just feel like they can't hold me up sometimes . He denies any nausea or vomiting. He states his bowels are sluggish at times and loose at times but this is normal for him. He denies any new pain or neuropathy symptoms. His ECOG remains between 2 and 3 depending on the day. Past Medical History: Atrial fibrillation Bilateral renal cysts Hypertension Vitamin D deficiency Nephrolithiasis in 2018 Multiple myeloma in 2008 IgG kappa myeloma dx jul 2009 hx htn, afib Past Surgical History: Appendectomy Right side port placement Right sided port removal Vertebral plasty Flu vaccine in 2018 Lithotripsy x2 in 2018 Stent placement left ureter in 2018 Flu vaccine in 2014 Pneumonia vaccine in 2015 - prevnar 13 Allergies: No Known Allergies. Medications: Acyclovir 400 mg (of 400 mg) Tablet Oral b.i.d. Amiodarone HCl 1 Tablet (of 200 mg) Oral daily DULoxetine HCl 1 Capsule (of 20 mg) Capsule Delayed Release Particles Oral b.i.d. Furosemide 1.5 Tablet (of 40 mg) Oral daily K-Tab 0.5 Tablet (of 20 meq) Tablet, controlled release Oral daily LORazepam 1 Tablet (of 1 mg) Oral q 8 hours PRN Metoprolol Succinate ER 1.5 Tablet (of 50 mg) Tablet SR 24 HR Oral daily Morphine Sulfate ER 1 Tablet (of 30 mg) Tablet, controlled release Oral q 12 hours OxyCODONE HCl 1 Tablet (of 15 mg) Oral four times a day PRN Pomalidomide 1 Capsule (of 4 mg) Oral q 21 days Sacubitril-Valsartan 1 Tablet (of 24-26 mg) Oral b.i.d. Spironolactone 1 Tablet (of 50 mg) Oral daily TraZODone HCl 1 - 2 (50 mg) Tablet Oral at bedtime Xarelto 1 Tablet (of 20 mg) Oral daily Family History: Mr. Roberts's mother at age 77: cancer history consists of Colon cancer (cause of ). Mr. Roberts's father at age 65: cancer history consists of Prostate cancer. mother had cancer of lung also brother has prostate cancer. Social History: Mr. Roberts is and he is retired. Mr. Roberts quit smoking 26 years ago but had smoked 2.0 packs/day for 22 years. He is an active drinker.He consumes 2 drinks/day. Mr. Roberts reports the following support systems: lives with spouse, significant other, family, or friends, lives in own house, supportive family/friends willing to assist with needs, and adequate transportation available for expected visits. His diet consists of regular meals. He indicates his activity level as: daily activities. , hasn't drank in 68 years, quit smoking 25 years ago. April 2019 has resumed consuming two double bourbon drinks nightly. Review Of Symptoms: Constitutional weak in general-no fever or chills. appetite fair -eating one good meal a day and utilizing protein shakes 2-3 times a day. Allergic/Immunologic Denies allergies and adverse reactions. Eyes Denies blurred vision, double vision, visual difficulties and photophobia. ENMT Denies changes in hearing, sore throat, mouth sores, difficulty or changes in swallowing ability, and/or sinus drainage. Endocrine No diabetes, thyroid disease or hormone replacement. Denies hot flashes or night sweats. Hematologic/Lymphatic Denies easy bruising and tender or enlarged lymph nodes. Breasts Denies abnormal masses of breast, no nipple discharge or pain. Respiratory Denies cough, dyspnea, hemoptysis, hiccoughs, pleuritic chest pain and wheezing. Cardiovascular Denies arrhythmias, chest pain, dyspnea, edema, orthopnea and palpitations. Gastrointestinal Denies abdominal pain, change in bowel habits, constipation, diarrhea, heartburn / dyspepsia. Constipation controlled with stool softeners at present. Genitourinary (M) Denies dysuria, but having new nocturnal frequency. No hematuria. Musculoskeletal Denies new pain but weak in general. Limited mobility and requires wheelchair or wheeled walker for mobility assistance. He states he has decreased the use of the wheeled walker because he is too weak to use it safely. He is afraid of falling. Integumentary Denies chronic rashes, inflammation, ulcerations or skin changes. Neurologic Denies headache, blurred vision, and no areas of focal weakness or numbness. Normal gait. No sensory problems. Psychiatric Denies hallucinations and mood swings. Vital Signs: Performed on Jul 28, 2020 14:50 Height - 71.00 in Weight - 241.0 lbs (HIGH) BSA - 2.28 sq.m BMI - 33.61 (HIGH) Temperature - 97.8 F (LOW) Pulse - 66 /min Respiration - 24 /min BP - 123/69 mm(hg) O2 Sat - 99 % Pain - 4,3 - Capable of only limited self-care, confined to bed or chair more than 50% of waking hours. (ECOG) Physical Examination: Constitutional Alert, oriented, no acute distress-weak in general. Skin pink, warm and dry. Head Normocephalic; atraumatic. Eyes Conjunctivae and sclerae are clear and without icterus. Pupils are reactive and equal. slight exophthalmos bilaterally. Neck Supple without masses or thyromegaly. No jugular venous distension. Hematologic/Lymphatic scattered bruising on arms-not new. Respiratory Lungs are clear to auscultation without rhonchi or wheezing. Cardiovascular Regular rate and rhythm of heart without murmurs,clicks, gallops or rubs. Abdomen Non-tender, non-distended, no masses, ascites. Back/Spine Non-tender to palpation. Extremities No visible deformities, no cyanosis, clubbing. + 1 bilateral lower extremity edema-non pitting. Musculoskeletal No tenderness or swelling, normal range of motion bilaterally lower extremity weakness. Integumentary No rashes or lesions. Neurologic using wheelchair for mobility but requires someone to help him maneuver the wheelchair. Psychiatric Alert and oriented times three. Coherent speech. Verbalizes understanding of our discussions today. Laboratory:Test performed on Aug 03, 2020 12:08 Sodium 137 mmol/L Potassium 4.7 mmol/L Chloride 98 mmol/L CO2 29 mmol/L Anion Gap 14.7 BUN 25 mg/dL Creatinine 1.2 mg/dL Cr Clearance (Est) 81.5600 mL/min Glucose 157 mg/dL Osmolality - Calculated 292 mOsm/kg Calcium 10.0 mg/dL Protein, Total 6.4 g/dL Albumin 3.7 g/dL Globulin 2.7 g/dL Bilirubin, Total 0.6 mg/dL ALT (SGPT) 32 U/L AST (SGOT) 14 U/L Alkaline Phosphatase 67 IU/L WBC 2.6 10 3/uL RBC 4.48 10 6/uL HGB 13.5 g/dL HCT 42.6 % MCV 95.1 fL MCH 30.1 pg MCHC 31.7 g/dL RDW 18.0 % Platelet Count 146 10 3/cmm MPV 9.1 fL Neutrophils 1.87 10 3/uL Lymphocytes 0.2 10 3/uL Monocytes 0.5 10 3/uL Eosinophils 0.0 10 3/uL Basophils 0.0 10 3/uL Neutrophil % 71.1 % Lymphocyte % 9.1 % Monocyte % 17.5 % Eosinophil % 1.1 % Basophils % 0.4 % NRBC % 0.8 % IgA < 50 mg/dL IgG 890 mg/dL IgM 119 mg/dL Test performed on Jun 14, 2020 09:20 [place] Free Light Chains 17.3 mg/L Lambda Free Light Chains 6.3 mg/L [place]/Lambda Free Ratio 2.75 Test performed on May 05, 2020 08:00 UPE Interpretation SEE NOTE Agarose electrophoresis of urine reveals albumin. No abnormal protein is observed. THIS TEST WAS PERFORMED AT: [facility] [id number] [place] [address] FRANCISCO JEFF DO,MPH U [id number] 0 % U [id number] 0 % U Beta Globulin 0 % U Gamma Globulin 0 % Test performed on Feb 19, 2020 18:20 NT proBNP 513 pg/mL TSH 3.50 uIU/mL Impression: 1. Patient with IgG kappa myeloma, initially diagnosed in July 2009. He had associated osteopenia and multiple vertebral compression fractures. 2. He underwent treatment at the [facility] on the total therapy 4L protocol. He completed his maintenance therapy with Revlimid, Velcade and dexamethasone in May 2013. 3. He had continued Aredia infusions every 3 months for bone health. He was last treated here in December 2015. 4. As of his follow-up visit at [facility] in January 2017, his myeloma was felt to be in complete remission. His other medical illnesses include: 5. Hypertension. 6. Atrial fibrillation. 7. He required treatment for opportunistic pneumonia in August 2011. 8. He was treated for cellulitis of the left leg in January 2015. In March 2017 he presented with increased pain in his lower back and pelvic area. His laboratory studies and x-rays at that time showed no evidence of recurrence of the myeloma. However, his repeat protein electrophoresis in December 2017 did show a small IgG kappa monoclonal protein spike quantitating at 0.24 g/dL, consistent with early relapse of his myeloma. He had follow-up at [facility] on 03/04/2018. Based on their recommendations, he initially was followed on observation/expectant management for the myeloma, but he did start monthly denosumab injections. During follow-up there was continued gradual increase in his M protein. As of 12/12/2018 it had increased to 1.07 g/dL. His subsequent clinical course was complicated nephrolithiasis requiring lithotripsy and ureteral stent placement. As of 04/21/2019 there was further increase in the M protein to 2.9 g/dL. The free light chain assay showed elevated kappa light chain at 876 mg/L with lambda light chain 24 mg/L and elevated kappa/lambda ratio at 36.50. There was no monoclonal protein identified in his 24 hour urine specimen. At that point he started treatment with Revlimid in combination with ixazomib and dexamethasone. As of his follow-up visit on 07/14/2019 he had completed 3 cycles of treatment, and at that point he did appear to be showing a very good response by serum protein electrophoresis. He then continued on the same treatment. He had been tolerating it well other than he developed significant fluid retention and other side effects with the steroid. The swelling had initially improved with diuretic therapy, and he was able to continue treatment. As of October 2019 he began his 7th cycle. During subsequent follow-up his lower extremity edema had continued to worsen, and he also complained of shortness of breath and declining activity tolerance. As of his follow-up visit on 11/13/2019 his myeloma treatment was put on hold. Ultimately, he was found to have severe cardiomyopathy with left ventricular ejection fraction estimated at 15 to 20% by transesophageal echocardiogram. He had associated atrial flutter/fibrillation, for which he began treatment with amiodarone and metoprolol. He also started anticoagulation with apixaban. During follow-up he continued to have very limited activity tolerance. His myeloma therapy had remained on hold. He had a very good response to the treatment by protein electrophoresis, but his M protein then began to increase. As of April 2020 it was back up to 1.1 g/dL, but at that point his repeat echocardiogram had shown a very significant improvement in his left ventricular function. His restaging PET/CT on 05/22/2020 showed several areas of myeloma progression in the bone. On 06/14/2020 he began further treatment with daratumumab in combination with pomalidomide and dexamethasone. The daratumumab was administered by subcutaneous injection. He experienced some transient chest congestion with the initial injection of daratumumab, but he otherwise tolerated it well. He continued with week 2 daratumumab on 06/21/2020 and at that point he also continued pomalidomide 4 mg daily and dexamethasone 40 mg weekly. As of 06/28/2020 the treatment was put on hold due to worsening neutropenia and declining performance status. He had adequate recovery and was able to resume the Darzalex on 07/14/2020. Plan: 1. Proceed with cycle 2 day 15 daratumumab in combination with pomalidomide and dexamethasone, but with the pomalidomide dosage reduced to 4 mg every other day for 14 days. (He began this on 07/14/2020). If he is able to tolerate that dosage, the pomalidomide will be changed to 2 mg daily on a 21/20-day schedule beginning with cycle 3. 2. Continue current antiemetics/supportive care as needed. 3. Labs from today reviewed in detail discussed with . Mrs. Roberts and a copy was given to him. WBC 3.5, hemoglobin 12.9 platelets 118,000 ANC is 2570. 4. We will plan to see him back in 1 week with CBC CMP. He will be due for cycle 2-day 22 treatment at that time. He should have completed his pomalidomide at that time. We will reassess his counts and if they are stable we will send in a new prescription for the pomalidomide 2 mg daily 21 out of 28 days schedule. 5. Mr. Roberts instructed to contact us in the interim should questions or problems arise. While his labs were reviewed for treatment planned today, his actual office visit was focused on assessment for an electronic power mobility assistive device. 6. Mr. Roberts requires assistance with mobility related activities of daily living due to his extensive vertebral compression fractures related to his multiple myeloma. The multiple myeloma and compression fractures have progressed. He is currently undergoing treatment with daratumumab and combination with pomalidomide and dexamethasone. He is unable to ambulate without any Assistance. He cannot ambulate without a walker and has had multiple falls with a walker. His upper body strength is also declining yet he still has enough upper body strength to maneuver a power wheelchair/mobility device. He does have leg strength to maneuver and electric device as well as transfer himself to there. However he does not have lower extremity strength to walk any meaningful distance to accomplish his activities of daily living. He states he does have adequate for him around the house to manipulate a power mobility device. His gait has been unsteady and that is about the coordination are also altered due to medication and multiple vertebral compression fractures and that it is not safe for him to maneuver without the assistance of a power mobility device. He is utilizing a wheelchair but is having some difficulty maneuvering it due to upper body strength. He does have the mental and physical [facility] to maneuver a power mobility assistive device. Length of need is 99.. He requires the power mobility device to perform all of his activities of daily living including bathing/dressing/toileting/presenting to the kitchen/dining room for meals amongst others. Signed By: Farzana Martinez-, AOCNP Brandon Hernandez MD <<Signature on File>>
== END 2020-07-28 12:41 | disposition home or self-care (01) ==
LOC: ONCMED 12:43
PROVIDERS: PCP Nurse Practitioner; Visit Provider Nurse Practitioner
DX: Z51.12 Encounter for antineoplastic immunotherapy (principal); C90.02 Multiple myeloma in relapse; D70.1 Agranulocytosis secondary to cancer chemotherapy; T45.1X5A Adverse effect of antineoplastic and immunosuppressive drugs, initial encounter; I10 Essential (primary) hypertension; I48.91 Unspecified atrial fibrillation; Z87.01 Personal history of pneumonia (recurrent); Z87.2 Personal history of diseases of the skin and subcutaneous tissue
CPT/HCPCS: 85025; 96401; 99214; C9062; C9399

== ENCOUNTER 2020-08-03 05:50 | Outpatient (CLI) | payer MEDICARE, BC, SELFPAY ==
[2020-08-03 12:34] LABS: Basophils % 0.4 %; Eosinophils % 1.1 %; Hematocrit 42.6 % (42.0-52.0); Hemoglobin 13.5 g/dL (11.7-16.6); Lymphocytes # 0.2 10^3/uL (0.8-4.8); Lymphocytes % 9.1 %; Mean Corpuscular HGB Conc 31.7 g/dL (30.0-36.0); Mean Corpuscular Hemoglobin 30.1 pg (28.0-34.0); Mean Corpuscular Volume 95.1 fL (80-94); Mean Platelet Volume 9.1 fL (7.4-10.4); Monocytes # 0.5 10^3/uL (0.2-0.9); Monocytes % 17.5 %; Neutrophils # 1.87 10^3/uL (1.8-7.7); Neutrophils % 71.1 %; Nucleated Red Blood Cells % 0.8 %; Platelet Count 146 10^3/cmm (130-400); Red Blood Count 4.48 10^6/uL (4.1-5.3); White Blood Count 2.6 10^3/uL (4.0-10.0)
[2020-08-03 12:45] LABS: Alanine Aminotransferase 32 U/L (0-41); Albumin Level 3.7 g/dL (3.5-5.2); Alkaline Phosphatase 67 IU/L (40-130); Anion Gap 14.7 (5-19); Aspartate Amino Transferase 14 U/L (0-40); Blood Urea Nitrogen 25 mg/dL (8-23); Carbon Dioxide 29 mmol/L (22-29); Chloride 98 mmol/L (98-107); Globulin 2.7 g/dL (1.3-4.6); Glucose 157 mg/dL (65-115); Immunoglobulin IGG 890 mg/dL (700-1600); Immunoglobulin IGM 119 mg/dL (40-230); Osmolality Calculated 292 mOsm/kg (285-295); Potassium 4.7 mmol/L (3.5-5.1); Sodium 137 mmol/L (136-145); Total Bilirubin 0.6 mg/dL (0.15-1.2); Total Protein 6.4 g/dL (6.6-8.7)
[2020-08-03 13:00] LABS: Immunoglobulin IGA < 50 mg/dL (70-400)
[2020-08-03] MEDS: dexamethasone 4 mg Tablet 20 MG PO (15:25)
[2020-08-04 08:03] LABS: PROTEIN, TOTAL 5.9 g/dL (6.1-8.1)
[2020-08-04 13:33] LABS: ABNORMAL PROTEIN BAND 1 0.6 g/dL (NONE DETECTED); ABNORMAL PROTEIN BAND 2 0.1 g/dL (NONE DETECTED); ALBUMIN 3.3 g/dL (3.8-4.8); ALPHA 1 GLOBULIN 0.3 g/dL (0.2-0.3); ALPHA 2 GLOBULIN 0.9 g/dL (0.5-0.9); BETA 1 GLOBULIN 0.4 g/dL (0.4-0.6); BETA 2 GLOBULIN 0.2 g/dL (0.2-0.5); GAMMA GLOBULIN 0.8 g/dL (0.8-1.7)
[2020-08-04 15:02] LABS: KAPPA LIGHT CHAIN, FREE, SERUM 7.4 mg/L (3.3-19.4); KAPPA/LAMBDA LIGHT CHAINS FREE 0.76 (0.26-1.65); LAMBDA LIGHT CHAIN, FREE, SERU 9.7 mg/L (5.7-26.3)
--- NOTE | 2020-08-08 22:04 | ONC FU_ITS ---
Reyna Gonzalez Patient Note Patient: Brandon Roberts Unit #: [id number]: 1945 Dictated By: Farzana MartinezDate of Visit: Aug 03, 2020 Onc MED Follow-Up/Prog Note Chief Complaint: Multiple myeloma. History of Present Illness: Mr Roberts is a 75 year-old man with IgG kappa myeloma. He had osteopenia and associated vertebral compression fractures at initial presentation in July of 2009. He underwent treatment through the [facility] on the Total Therapy 4 L program. He was felt to be in complete remission following his induction and consolidation treatment, which included tandem autologous stem cell transplants. He completed consolidation treatment in February of 2010. He was then given 3 years of maintenance with Revlimid/Velcade/dexamethasone. He completed treatment in May 2013. He then continued Aredia infusions every 3 months for maintenance of bone health. He was last treated here in December 2015. He had subsequently continued his regular follow-up at the [facility]. As of his visit there in January 2017 he was felt to be in complete remission. He was seen here for a follow-up visit on 03/15/2017. He was having significant pain in his right lower back/pelvic area. His protein electrophoresis studies at that time showed no evidence of recurrence of myeloma, and x-ray showed no evidence of lytic bone disease. He continued on observation/expectant management. Dr Hernandez had seen him for a follow-up visit on 11/07/2017. At that point he appeared stable clinically. However, his repeat protein electrophoresis on 01/01/2018 showed evidence of an IgG kappa monoclonal paraprotein quantitating at 0.24 g/dL. The free light chain assay was unremarkable with free kappa light chain of 12.03 mg/L, free lambda light chain of 9.24 mg/L, and kappa/lambda ratio normal at 1.30. His 24-hour urine protein electrophoresis on 01/03/2018 showed no monoclonal protein. Skeletal survey showed right femoral head degenerative subcortical cyst versus myelomatous lesion. Also noted was diffuse marked bone demineralization with multilevel thoracic and lumbar compression fractures and with vertebroplasty changes. There was bilateral hip osteoarthrosis and there were degenerative changes noted in the cervical and lumbar spine. CT of the bony pelvis on 01/15/2018 showed no evidence of osteolytic or osteoblastic change. The right femoral head lucency was felt to most likely represent overlying posterior acetabular subcortical cyst. There was progression of severe right hip osteoarthritic change compared to October 2017 study. With the reappearance of monoclonal protein on the serum protein electrophoresis, he was referred to [facility] for reevaluation. He was seen there on 03/04/2018. His bone marrow aspiration/biopsy showed just 3% plasma cells. It was felt to be morphologically negative for myeloma. However, flow cytometric analysis revealed a plasma cell population with atypical immunophenotype comprising approximately 0.08% of analyzed events. There were no new bone lesions identified on MRI studies. His PET/CT also showed no evidence of active bone lesions. His DEXA scan showed T score -3.8 in the radial diaphysis and -0.8 in the proximal femur. He was advised to continue observation/expectant management for the myeloma. It was also recommended, though, that he start denosumab injections. During subsequent follow-up his M protein continued to increase gradually. As of 12/12/2018 it was up to 1.07 g/dL. He is seen for a scheduled visit. He subsequently had problems with kidney stones. He underwent lithotripsy initially on 01/13/2019. He then underwent lithotripsy again along with left ureteral stent placement on 02/07/2019. As of 04/21/2019 the M protein had increased to 2.9 g/dL. The free light chain assay showed elevated kappa light chain at 876 mg/L with lambda light chain 24 mg/L and elevated kappa/lambda ratio at 36.50. There was no monoclonal protein identified in his 24 hour urine specimen. At that point he started treatment with revlimid in combination with ixazomib and dexamethasone with Revlimid administered daily on a 21/ day schedule, ixazomib administered weekly for 3 weeks, and the dexamethasone administered weekly. He tolerated the 1st cycle with acceptable toxicity, and he was able to continue with cycle 2 on 05/19/2019 and with cycle 3 on 06/16/2019. His repeat protein electrophoresis on 07/08/2019 showed decrease in the M protein to 0.7 g/dL. The free light chain assay showed kappa light chain 9.8 mg/L, lambda light chain 15.1 mg/mL and normal kappa/lambda ratio at 0.65. CT scans of the cervical, thoracic, lumbar spine on 07/10/2019 showed several small lytic lesions throughout the cervical spine, the largest measuring 10 mm in the C5 vertebral body. There were also degenerative changes, but no severe central canal stenosis. The thoracic spine showed diffuse severe osteopenia with prior vertebral plasty at T5. The lumbar spine also show diffuse osteopenia, prior vertebral plasties from L1-L4, as well as degenerative disc disease with multilevel mild central and subarticular recess stenosis. Also noted were extensive lytic areas of lucency in the sacrum. He continued on treatment with Revlimid/ixazomib/dexamethasone. As of his follow-up visit on 11/13/2019 had developed significant worsening of lower extremity edema, and he continued to have shortness of breath and declining activity tolerance. As such, his treatment was put on hold. On 12/19/2019 he was admitted to the hospital with atrial fibrillation. It was managed medically, he was scheduled for outpatient follow-up with Dr. Haskins. However, on 12/25/2019 he was readmitted to the hospital with increased heart rate and increased shortness of breath. He was found to have cardiomyopathy and acute systolic congestive heart failure. He had a atrial fibrillation/flutter, for which he started treatment with amiodarone. His echocardiogram showed severe left ventricular dysfunction with ejection fraction estimated at 15 to 20%. Following discharge he continued treatment with amiodarone 200 mg daily together with furosemide 60 mg twice daily, metoprolol 50 mg daily, Entresto 24-26 mg daily, and apixaban 5 mg twice daily. His myeloma therapy remained on hold. His repeat serum protein electrophoresis on 02/19/2020 showed stable M protein at 0.6 g/dL. At that point his clinical status also appeared stable, and he continued on observation/expectant management. His repeat echocardiogram on 04/06/2020 showed significant improvement in the LV function with estimated ejection fraction at 50%. As of 05/03/2020 his M protein had increased to 1.1 g/dL. Restaging PET/CT on 05/22/2020 showed new FDG positive lesions in the L5 vertebral body and left sacral ala consistent with recurrent myeloma. With that finding, Dr Hernandez had recommended that he continue further treatment with daratumumab in combination with pomalidomide and dexamethasone. His other medical illnesses include hypertension and atrial fibrillation. He had an admission to the hospital for opportunistic pneumonia in August of 2011. He was treated for cellulitis of the left leg in January 2015. He had smoked in the past, but he quit more than 25 years ago. INTERIM HISTORY: He began cycle 1 of daratumumab/pomalidomide/dexamethasone on 06/14/2020 with the daratumumab administered by subcutaneous injection. At that point his M protein had further increased to 1.4 g/dL. He had some transient pulmonary congestion following the initial daratumumab injection. He had no other apparent toxicity. He continued with his week 2 daratumumab on 06/21/2020, and at that point he also continued pomalidomide 4 mg daily. Mr. Roberts is here today for follow-up. He has complete cycle 1 daratumumab and became neutropenic with an ANC of 650. It was 2600 on day 1. His treatment including daratumumab and pomalidomide was placed on hold. He was started on prophylactic Levaquin and subsequently received Neupogen and his counts recovered. He began cycle 2 on July. Mr. Roberts is accompanied by his today. He states overall he ok. He denies any new pain. He has had no fever or chills. He denies any COVID symptoms. He denies any recent contact with known COVID cases or any testing/completed or pending. He states he is eating fair. His energy is marginal he still continues to have mobility issues due to generalized weakness. He states he continues to get weaker in general. He states he has had no further near falls since last week. Again this week, he states he has decreased his activity because he is afraid of falling. He states his legs are weak and just feel like they can't hold me up sometimes . He denies any nausea or vomiting. He states his bowels are sluggish at times and loose at times but this is normal for him. He denies any new pain or neuropathy symptoms. His ECOG remains between 2 and 3 depending on the day. I have completed a face to face visit with him in evaluation for a power mobility device and the order and prescription are being sent to HOME. CHEMOTHERAPY TREATMENT HISTORY: 1. Total therapy 4 L [facility] included induction and consolidation therapy and tandem autologous stem cell transplants. He completed consolidation therapy on February 2010. 2. 3 years of maintenance with Revlimid/Velcade dexamethasone completed in May 2013. 3. Aredia every 3 months for bone health 4. Denosumab injections February 2018. He developed kidney stones requiring lithotripsy on January 13, 2019 and again with left ureteral stent placement on February 07, 2019. 5. ixazomib, dexamethasone Revlimid April 21, 2019 6. November 13, 2019 admitted with atrial fib monotherapy placed on hold. 7. Darzalex Faspro, pomalidomide and dexamethasone began on June 14, 2020 due to disease progression with bone involvement. Past Medical History: Atrial fibrillation Bilateral renal cysts Hypertension Vitamin D deficiency Nephrolithiasis in 2018 Multiple myeloma in 2008 IgG kappa myeloma dx jul 2009 hx htn, afib Past Surgical History: Appendectomy Right side port placement Right sided port removal Vertebral plasty Flu vaccine in 2019 Lithotripsy x2 in 2018 Stent placement left ureter in 2018 Flu vaccine in 2014 Pneumonia vaccine in 2014 - prevnar 13 Allergies: No Known Allergies. Medications: Acyclovir 400 mg (of 400 mg) Tablet Oral b.i.d. Amiodarone HCl 1 Tablet (of 200 mg) Oral daily DULoxetine HCl 1 Capsule (of 20 mg) Capsule Delayed Release Particles Oral b.i.d. Furosemide 1.5 Tablet (of 40 mg) Oral daily K-Tab 0.5 Tablet (of 20 meq) Tablet, controlled release Oral daily LORazepam 1 Tablet (of 1 mg) Oral q 8 hours PRN Metoprolol Succinate ER 1.5 Tablet (of 50 mg) Tablet SR 24 HR Oral daily Morphine Sulfate ER 1 Tablet (of 30 mg) Tablet, controlled release Oral q 12 hours OxyCODONE HCl 1 Tablet (of 15 mg) Oral four times a day PRN Pomalidomide 1 Capsule (of 4 mg) Oral q 21 days Sacubitril-Valsartan 1 Tablet (of 24-26 mg) Oral b.i.d. Spironolactone 1 Tablet (of 50 mg) Oral daily TraZODone HCl 1 - 2 (50 mg) Tablet Oral at bedtime Xarelto 1 Tablet (of 20 mg) Oral daily Family History: Mr. Roberts's mother at age 77: cancer history consists of Colon cancer (cause of ). Mr. Roberts's father at age 65: cancer history consists of Prostate cancer. mother had cancer of lung also brother has prostate cancer. Social History: Mr. Roberts is and he is retired. Mr. Roberts quit smoking 26 years ago but had smoked 2.0 packs/day for 22 years. He is an active drinker.He consumes 2 drinks/day. Mr. Roberts reports the following support systems: lives with spouse, significant other, family, or friends, lives in own house, supportive family/friends willing to assist with needs, and adequate transportation available for expected visits. His diet consists of regular meals. He indicates his activity level as: daily activities. , hasn't drank in 68 years, quit smoking 25 years ago. April 2019 has resumed consuming two double bourbon drinks nightly. Review Of Symptoms: Constitutional weak in general-no fever or chills. appetite fair -eating one good meal a day and utilizing protein shakes 2-3 times a day. Allergic/Immunologic Denies allergies and adverse reactions. Eyes Denies blurred vision, double vision, visual difficulties and photophobia. ENMT Denies changes in hearing, sore throat, mouth sores, difficulty or changes in swallowing ability, and/or sinus drainage. Endocrine No diabetes, thyroid disease or hormone replacement. Denies hot flashes or night sweats. Hematologic/Lymphatic Denies easy bruising and tender or enlarged lymph nodes. Breasts Denies abnormal masses of breast, no nipple discharge or pain. Respiratory Denies cough, dyspnea, hemoptysis, hiccoughs, pleuritic chest pain and wheezing. Cardiovascular Denies arrhythmias, chest pain, dyspnea, edema, orthopnea and palpitations. Gastrointestinal Denies abdominal pain, change in bowel habits, constipation, diarrhea, heartburn / dyspepsia. Constipation controlled with stool softeners at present. Genitourinary (M) Denies dysuria, but having new nocturnal frequency. No hematuria. Musculoskeletal Denies new pain but weak in general. Limited mobility and requires wheelchair or wheeled walker for mobility assistance. He states he has decreased the use of the wheeled walker because he is too weak to use it safely. He is afraid of falling. Integumentary Denies chronic rashes, inflammation, ulcerations or skin changes. Neurologic Denies headache, blurred vision, and no areas of focal weakness or numbness. Normal gait. No sensory problems. Psychiatric Denies hallucinations and mood swings. Vital Signs: Performed on Aug 03, 2020 14:30 Height - 71.00 in Weight - 241.0 lbs BSA - 2.28 sq.m BMI - 33.61 (HIGH) Temperature - 97.5 F (LOW) Pulse - 57 /min (LOW) Respiration - 20 /min BP - 124/72 mm(hg) O2 Sat - 99 % Pain - 2,3 - Capable of only limited self-care, confined to bed or chair more than 50% of waking hours. (ECOG) Physical Examination: Constitutional Alert, oriented, no acute distress-weak in general. Skin pink, warm and dry. Head Normocephalic; atraumatic. Eyes Conjunctivae and sclerae are clear and without icterus. Pupils are reactive and equal. slight exophthalmos bilaterally. Neck Supple without masses or thyromegaly. No jugular venous distension. Hematologic/Lymphatic scattered bruising on arms-not new. Respiratory Lungs are clear to auscultation without rhonchi or wheezing. Cardiovascular Regular rate and rhythm of heart without murmurs,clicks, gallops or rubs. Abdomen Non-tender, non-distended, no masses, ascites. Back/Spine Non-tender to palpation. Extremities No visible deformities, no cyanosis, clubbing. + 1 bilateral lower extremity edema-non pitting. Musculoskeletal No tenderness or swelling, normal range of motion bilaterally lower extremity weakness. Integumentary No rashes or lesions. Neurologic using wheelchair for mobility but requires someone to help him maneuver the wheelchair. Psychiatric Alert and oriented times three. Coherent speech. Verbalizes understanding of our discussions today. Laboratory:Test performed on Aug 03, 2020 12:08 Sodium 137 mmol/L Potassium 4.7 mmol/L Chloride 98 mmol/L CO2 29 mmol/L Anion Gap 14.7 BUN 25 mg/dL Creatinine 1.2 mg/dL Cr Clearance (Est) 81.5600 mL/min Glucose 157 mg/dL Osmolality - Calculated 292 mOsm/kg Calcium 10.0 mg/dL Protein, Total 6.4 g/dL Albumin 3.7 g/dL Globulin 2.7 g/dL Bilirubin, Total 0.6 mg/dL ALT (SGPT) 32 U/L AST (SGOT) 14 U/L Alkaline Phosphatase 67 IU/L WBC 2.6 10 3/uL RBC 4.48 10 6/uL HGB 13.5 g/dL HCT 42.6 % MCV 95.1 fL MCH 30.1 pg MCHC 31.7 g/dL RDW 18.0 % Platelet Count 146 10 3/cmm MPV 9.1 fL Neutrophils 1.87 10 3/uL Lymphocytes 0.2 10 3/uL Monocytes 0.5 10 3/uL Eosinophils 0.0 10 3/uL Basophils 0.0 10 3/uL Neutrophil % 71.1 % Lymphocyte % 9.1 % Monocyte % 17.5 % Eosinophil % 1.1 % Basophils % 0.4 % NRBC % 0.8 % IgA < 50 mg/dL IgG 890 mg/dL IgM 119 mg/dL Hytop Free Light Chains 7.4 mg/L Lambda Free Light Chains 9.7 mg/L Hytop/Lambda Free Ratio 0.76 Impression: 1. Patient with IgG kappa myeloma, initially diagnosed in July 2009. He had associated osteopenia and multiple vertebral compression fractures. 2. He underwent treatment at the [facility] on the total therapy 4L protocol. He completed his maintenance therapy with Revlimid, Velcade and dexamethasone in May 2013. 3. He had continued Aredia infusions every 3 months for bone health. He was last treated here in December 2015. 4. As of his follow-up visit at [facility] in January 2017, his myeloma was felt to be in complete remission. His other medical illnesses include: 5. Hypertension. 6. Atrial fibrillation. 7. He required treatment for opportunistic pneumonia in August 2011. 8. He was treated for cellulitis of the left leg in January 2015. In March 2017 he presented with increased pain in his lower back and pelvic area. His laboratory studies and x-rays at that time showed no evidence of recurrence of the myeloma. However, his repeat protein electrophoresis in December 2017 did show a small IgG kappa monoclonal protein spike quantitating at 0.24 g/dL, consistent with early relapse of his myeloma. He had follow-up at [facility] on 03/04/2018. Based on their recommendations, he initially was followed on observation/expectant management for the myeloma, but he did start monthly denosumab injections. During follow-up there was continued gradual increase in his M protein. As of 12/12/2018 it had increased to 1.07 g/dL. His subsequent clinical course was complicated nephrolithiasis requiring lithotripsy and ureteral stent placement. As of 04/21/2019 there was further increase in the M protein to 2.9 g/dL. The free light chain assay showed elevated kappa light chain at 876 mg/L with lambda light chain 24 mg/L and elevated kappa/lambda ratio at 36.50. There was no monoclonal protein identified in his 24 hour urine specimen. At that point he started treatment with Revlimid in combination with ixazomib and dexamethasone. As of his follow-up visit on 07/14/2019 he had completed 3 cycles of treatment, and at that point he did appear to be showing a very good response by serum protein electrophoresis. He then continued on the same treatment. He had been tolerating it well other than he developed significant fluid retention and other side effects with the steroid. The swelling had initially improved with diuretic therapy, and he was able to continue treatment. As of October 2019 he began his 7th cycle. During subsequent follow-up his lower extremity edema had continued to worsen, and he also complained of shortness of breath and declining activity tolerance. As of his follow-up visit on 11/13/2019 his myeloma treatment was put on hold. Ultimately, he was found to have severe cardiomyopathy with left ventricular ejection fraction estimated at 15 to 20% by transesophageal echocardiogram. He had associated atrial flutter/fibrillation, for which he began treatment with amiodarone and metoprolol. He also started anticoagulation with apixaban. During follow-up he continued to have very limited activity tolerance. His myeloma therapy had remained on hold. He had a very good response to the treatment by protein electrophoresis, but his M protein then began to increase. As of April 2020 it was back up to 1.1 g/dL, but at that point his repeat echocardiogram had shown a very significant improvement in his left ventricular function. His restaging PET/CT on 05/22/2020 showed several areas of myeloma progression in the bone. On 06/14/2020 he began further treatment with daratumumab in combination with pomalidomide and dexamethasone. The daratumumab was administered by subcutaneous injection. He experienced some transient chest congestion with the initial injection of daratumumab, but he otherwise tolerated it well. He continued with week 2 daratumumab on 06/21/2020 and at that point he also continued pomalidomide 4 mg daily and dexamethasone 40 mg weekly. As of 06/28/2020 the treatment was put on hold due to worsening neutropenia and declining performance status. He had adequate recovery and was able to resume the Darzalex on 07/14/2020. Plan: 1. Proceed with cycle 2 day 22 daratumumab in combination with pomalidomide and dexamethasone, but with the pomalidomide dosage reduced to 4 mg every other day for 14 days. (He began this on 07/14/2020). He cycle 3 dosage on the pomalidomide will be changed to 2 mg daily on a 21/20-day schedule beginning with cycle 3 day 1. 2. Continue current antiemetics/supportive care as needed. 3. Labs from today reviewed in detail discussed with Mr. Mrs. Roberts and a copy was given to him. WBC 2.6, hemoglobin 13.5 platelets 148,000 ANC is 1870. 4. We will plan to see him back in 1 week with CBC CMP. He will be due for cycle 3-day 1 treatment at that time. He should have his new pomalidomide dose at that time. 5. Mr. Roberts instructed to contact us in the interim should questions or problems arise. Signed By: Farzana Martinez-, [facility] Brandon Hernandez MD <<Signature on File>>
== END 2020-08-03 05:51 | disposition home or self-care (01) ==
LOC: ONCMED 05:52
PROVIDERS: PCP Nurse Practitioner; Visit Provider Nurse Practitioner
DX: Z51.12 Encounter for antineoplastic immunotherapy (principal); C90.02 Multiple myeloma in relapse; D70.1 Agranulocytosis secondary to cancer chemotherapy; T45.1X5A Adverse effect of antineoplastic and immunosuppressive drugs, initial encounter; I10 Essential (primary) hypertension; I48.91 Unspecified atrial fibrillation; Z87.01 Personal history of pneumonia (recurrent); Z87.2 Personal history of diseases of the skin and subcutaneous tissue
CPT/HCPCS: 80053; 82784; 83883; 84155; 84165; 85025; 96401; 99214; C9062; C9399; J8540

== ENCOUNTER 2020-08-09 06:01 | Outpatient (CLI) | payer MEDICARE, BC, SELFPAY ==
[2020-08-09 12:11] LABS: Basophils % 0.3 %; Eosinophils % 0.4 %; Hematocrit 41.6 % (42.0-52.0); Hemoglobin 13.1 g/dL (11.7-16.6); Lymphocytes # 0.5 10^3/uL (0.8-4.8); Mean Corpuscular HGB Conc 31.5 g/dL (30.0-36.0); Mean Corpuscular Hemoglobin 30.5 pg (28.0-34.0); Mean Corpuscular Volume 96.7 fL (80-94); Mean Platelet Volume 9.8 fL (7.4-10.4); Monocytes # 0.8 10^3/uL (0.2-0.9); Monocytes % 10.5 %; Neutrophils # 6.04 10^3/uL (1.8-7.7); Neutrophils % 80.9 %; Nucleated Red Blood Cells % 0 %; Platelet Count 182 10^3/cmm (130-400); Red Cell Distribution Width 18.6 % (12.1-15.1); White Blood Count 7.5 10^3/uL (4.0-10.0)
--- NOTE | 2020-08-10 07:39 | ONC FU_ITS ---
Dr. Hernandez Patient Follow-Up Note Patient: Brandon Roberts Unit #: [id number]: 1945 Dicatated By: Brandon Hernandez M.D.Date of Visit:Aug 09, 2020 Onc Med Follow-up/Prog Note Chief Complaint: Multiple myeloma. History of Present Illness: This is a 75 year-old man with IgG kappa myeloma. He had osteopenia and associated vertebral compression fractures at initial presentation in July of 2009. He underwent treatment through the [facility] on the Total Therapy 4 L program. He was felt to be in complete remission following his induction and consolidation treatment, which included tandem autologous stem cell transplants. He completed consolidation treatment in February of 2010. He was then given 3 years of maintenance with Revlimid/Velcade/dexamethasone. He completed treatment in May 2013. He then continued Aredia infusions every 3 months for maintenance of bone health. He was last treated here in December 2015. He had subsequently continued his regular follow-up at the [facility]. As of his visit there in January 2017 he was felt to be in complete remission. He was seen here for a follow-up visit on 03/15/2017. He was having significant pain in his right lower back/pelvic area. His protein electrophoresis studies at that time showed no evidence of recurrence of myeloma, and x-ray showed no evidence of lytic bone disease. He continued on observation/expectant management. I had seen him for a follow-up visit on 11/07/2017. At that point he appeared stable clinically. However, his repeat protein electrophoresis on 01/01/2018 showed evidence of an IgG kappa monoclonal paraprotein quantitating at 0.24 g/dL. The free light chain assay was unremarkable with free kappa light chain of 12.03 mg/L, free lambda light chain of 9.24 mg/L, and kappa/lambda ratio normal at 1.30. His 24-hour urine protein electrophoresis on 01/03/2018 showed no monoclonal protein. Skeletal survey showed right femoral head degenerative subcortical cyst versus myelomatous lesion. Also noted was diffuse marked bone demineralization with multilevel thoracic and lumbar compression fractures and with vertebroplasty changes. There was bilateral hip osteoarthrosis and there were degenerative changes noted in the cervical and lumbar spine. CT of the bony pelvis on 01/15/2018 showed no evidence of osteolytic or osteoblastic change. The right femoral head lucency was felt to most likely represent overlying posterior acetabular subcortical cyst. There was progression of severe right hip osteoarthritic change compared to October 2017 study. With the reappearance of monoclonal protein on the serum protein electrophoresis, he was referred to [facility] for reevaluation. He was seen there on 03/04/2018. His bone marrow aspiration/biopsy showed just 3% plasma cells. It was felt to be morphologically negative for myeloma. However, flow cytometric analysis revealed a plasma cell population with atypical immunophenotype comprising approximately 0.08% of analyzed events. There were no new bone lesions identified on MRI studies. His PET/CT also showed no evidence of active bone lesions. His DEXA scan showed T score -3.8 in the radial diaphysis and -0.8 in the proximal femur. He was advised to continue observation/expectant management for the myeloma. It was also recommended, though, that he start denosumab injections. During subsequent follow-up his M protein continued to increase gradually. As of 12/12/2018 it was up to 1.07 g/dL. He is seen for a scheduled visit. He subsequently had problems with kidney stones. He underwent lithotripsy initially on 01/13/2019. He then underwent lithotripsy again along with left ureteral stent placement on 02/07/2019. As of 04/21/2019 the M protein had increased to 2.9 g/dL. The free light chain assay showed elevated kappa light chain at 876 mg/L with lambda light chain 24 mg/L and elevated kappa/lambda ratio at 36.50. There was no monoclonal protein identified in his 24 hour urine specimen. At that point he started treatment with revlimid in combination with ixazomib and dexamethasone with Revlimid administered daily on a 21/28 day schedule, ixazomib administered weekly for 3 weeks, and the dexamethasone administered weekly. He tolerated the 1st cycle with acceptable toxicity, and he was able to continue with cycle 2 on 05/19/2019 and with cycle 3 on 06/16/2019. His repeat protein electrophoresis on 07/08/2019 showed decrease in the M protein to 0.7 g/dL. The free light chain assay showed kappa light chain 9.8 mg/L, lambda light chain 15.1 mg/mL and normal kappa/lambda ratio at 0.65. CT scans of the cervical, thoracic, lumbar spine on 07/10/2019 showed several small lytic lesions throughout the cervical spine, the largest measuring 10 mm in the C5 vertebral body. There were also degenerative changes, but no severe central canal stenosis. The thoracic spine showed diffuse severe osteopenia with prior vertebral plasty at T5. The lumbar spine also show diffuse osteopenia, prior vertebral plasties from L1-L4, as well as degenerative disc disease with multilevel mild central and subarticular recess stenosis. Also noted were extensive lytic areas of lucency in the sacrum. He continued on treatment with Revlimid/ixazomib/dexamethasone. As of his follow-up visit on 11/13/2019 had developed significant worsening of lower extremity edema, and he continued to have shortness of breath and declining activity tolerance. As such, his treatment was put on hold. On 12/19/2019 he was admitted to the hospital with atrial fibrillation. It was managed medically, he was scheduled for outpatient follow-up with Dr. Haskins. However, on 12/25/2019 he was readmitted to the hospital with increased heart rate and increased shortness of breath. He was found to have cardiomyopathy and acute systolic congestive heart failure. He had a atrial fibrillation/flutter, for which he started treatment with amiodarone. His echocardiogram showed severe left ventricular dysfunction with ejection fraction estimated at 15 to 20%. Following discharge he continued treatment with amiodarone 200 mg daily together with furosemide 60 mg twice daily, metoprolol 50 mg daily, Entresto 24-26 mg daily, and apixaban 5 mg twice daily. His myeloma therapy remained on hold. His repeat serum protein electrophoresis on 02/19/2020 showed stable M protein at 0.6 g/dL. At that point his clinical status also appeared stable, and he continued on observation/expectant management. His repeat echocardiogram on 04/06/2020 showed significant improvement in the LV function with estimated ejection fraction at 50%. As of 05/03/2020 his M protein had increased to 1.1 g/dL. Restaging PET/CT on 05/22/2020 showed new FDG positive lesions in the L5 vertebral body and left sacral ala consistent with recurrent myeloma. With that finding, I had recommended that he continue further treatment with daratumumab in combination with pomalidomide and dexamethasone. His other medical illnesses include hypertension and atrial fibrillation. He had an admission to the hospital for opportunistic pneumonia in August of 2011. He was treated for cellulitis of the left leg in January 2015. He had smoked in the past, but he quit more than 25 years ago. INTERIM HISTORY: He began cycle 1 of daratumumab/pomalidomide/dexamethasone on 06/14/2020 with the daratumumab administered by subcutaneous injection. At that point his M protein had further increased to 1.4 g/dL. He had some transient pulmonary congestion following the initial daratumumab injection. He had no other apparent toxicity. He continued with his week 2 daratumumab on 06/21/2020, and at that point he also continued pomalidomide 4 mg daily. As of 06/28/2020 his treatment was put on hold due to worsening neutropenia. He was then able to proceed with cycle 2 of daratumumab in combination with pomalidomide/dexamethasone on 07/14/2020 with the pomalidomide dosage reduced to 4 mg every other day for 14 days. He was able to tolerate that with acceptable toxicity, though at his follow-up visit on 08/03/2020 his cycle 3 of pomalidomide was again delayed due to neutropenia. At that time he was able to complete his 6h injection of daratumumab on the weekly dosing. He is seen for a follow-up visit. He had been feeling pretty good generally this past week, at least up until today. He had been up and about and doing some little projects. He complains that he has had trouble today with his hips and back not wanting to support his weight. His ECOG score is 2. His appetite is fair. He has not had fever. He does have sweating quite a bit. He has had no mouth sores. He has some shortness of breath with activity. He does not complain of cough and he has not been having chest pain. He has some mild acid reflux. He has constipation, but bowel function has been okay lately. He has urinary frequency/urgency with some incontinence. He does have pain in his back and lower extremities. He has lightheadedness if he gets up real quick. He has numbness/tingling in his feet. He has been bruising very easily, that is chronic. Medications: Acyclovir 400 mg (of 400 mg) Tablet Oral b.i.d., Amiodarone HCl 1 Tablet (of 200 mg) Oral daily, DULoxetine HCl 1 Capsule (of 20 mg) Capsule Delayed Release Particles Oral b.i.d., Furosemide 1.5 Tablet (of 40 mg) Oral daily, K-Tab 0.5 Tablet (of 20 meq) Tablet, controlled release Oral daily, LORazepam 1 Tablet (of 1 mg) Oral q 8 hours PRN, Metoprolol Succinate ER 1.5 Tablet (of 50 mg) Tablet SR 24 HR Oral daily, Morphine Sulfate ER 1 Tablet (of 30 mg) Tablet, controlled release Oral q 12 hours, OxyCODONE HCl 1 Tablet (of 15 mg) Oral four times a day PRN, Pomalidomide 1 Capsule (of 4 mg) Oral q 21 days, Sacubitril-Valsartan 1 Tablet (of 24-26 mg) Oral b.i.d., Spironolactone 1 Tablet (of 50 mg) Oral daily, TraZODone HCl 1 - 2 (50 mg) Tablet Oral at bedtime, Xarelto 1 Tablet (of 20 mg) Oral daily Allergies: No Known Allergies. Review of Systems: Constitutional - His energy is not good today, but during the past week he has been up and about and doing light projects. Appetite is fair. He has not had fever. He does have quite a bit of sweating. ECOG score is 2, ENMT - No sinus congestion/drainage. No mouth sores. No sore throat or difficulty swallowing, Hematologic/Lymphatic - He has easy bruising, Respiratory - He has shortness of breath with activity. No cough. No pleuritic pain or hemoptysis, Cardiovascular - No angina pain. No palpitations, Gastrointestinal - No nausea or vomiting. He has some mild acid reflux. He has constipation, bowel function has been okay lately. No blood in the stool or black stools, Genitourinary (M) - No dysuria or hematuria. He has urinary frequency/urgency with some incontinence, Musculoskeletal - He has pain in his back and lower extremities. He complains that today his hips and back do not want to support his weight, Integumentary - No skin rash, Neurologic - No headache. He has lightheadedness if he gets up too quick. He has numbness/tingling in his feet. No other focal neurologic symptoms, Psychiatric - He has anxiety/depression. He is taking lorazepam and trazodone for insomnia. Vital Signs: Performed on Aug 09, 2020 12:11 Height - 71.00 in Weight - 242.8 lbs (HIGH) BSA - 2.29 sq.m BMI - 33.86 (HIGH) Temperature - 97.2 F (LOW) Pulse - 84 /min Respiration - 22 /min BP - 134/80 mm(hg) O2 Sat - 97 % Pain - 6 Physical Examination: Constitutional - He appears generally weak, Eyes - Sclerae nonicteric. Conjunctivae clear, ENMT - No lesions noted in the oral cavity, Hematologic/Lymphatic - No cervical, clavicular, or axillary adenopathy, Respiratory - Lungs sound clear, Cardiovascular - Heart rhythm is regular. There is no murmur, gallop, or rub noted, Abdomen - Moderately distended. Liver and spleen are not enlarged. There is no abdominal mass or ascites noted and there is no inguinal adenopathy, Extremities - There are venous stasis changes bilaterally. There is mild edema, Neurologic - No focal neurologic deficits noted. Lab/Imaging: Test performed on Aug 09, 2020 10:38 WBC 7.5 10 3/uL RBC 4.30 10 6/uL HGB 13.1 g/dL HCT 41.6 % MCV 96.7 fL MCH 30.5 pg MCHC 31.5 g/dL RDW 18.6 % Platelet Count 182 10 3/cmm MPV 9.8 fL Neutrophils 6.04 10 3/uL Lymphocytes 0.5 10 3/uL Monocytes 0.8 10 3/uL Eosinophils 0.0 10 3/uL Basophils 0.0 10 3/uL Neutrophil % 80.9 % Lymphocyte % 7.0 % Monocyte % 10.5 % Eosinophil % 0.4 % Basophils % 0.3 % NRBC % 0 % Impression: 1. Patient with IgG kappa myeloma, initially diagnosed in July 2009. He had associated osteopenia and multiple vertebral compression fractures. 2. He underwent treatment at the [facility] on the total therapy 4L protocol. He completed his maintenance therapy with Revlimid, Velcade and dexamethasone in May 2013. 3. He had continued Aredia infusions every 3 months for bone health. He was last treated here in December 2015. 4. As of his follow-up visit at [facility] in January 2017, his myeloma was felt to be in complete remission. His other medical illnesses include: 5. Hypertension. 6. Atrial fibrillation. 7. He required treatment for opportunistic pneumonia in August 2011. 8. He was treated for cellulitis of the left leg in January 2015. In March 2017 he presented with increased pain in his lower back and pelvic area. His laboratory studies and x-rays at that time showed no evidence of recurrence of the myeloma. However, his repeat protein electrophoresis in December 2017 did show a small IgG kappa monoclonal protein spike quantitating at 0.24 g/dL, consistent with early relapse of his myeloma. He had follow-up at [facility] on 03/04/2018. Based on their recommendations, he initially was followed on observation/expectant management for the myeloma, but he did start monthly denosumab injections. During follow-up there was continued gradual increase in his M protein. As of 12/12/2018 it had increased to 1.07 g/dL. His subsequent clinical course was complicated nephrolithiasis requiring lithotripsy and ureteral stent placement. As of 04/21/2019 there was further increase in the M protein to 2.9 g/dL. The free light chain assay showed elevated kappa light chain at 876 mg/L with lambda light chain 24 mg/L and elevated kappa/lambda ratio at 36.50. There was no monoclonal protein identified in his 24 hour urine specimen. At that point he started treatment with Revlimid in combination with ixazomib and dexamethasone. As of his follow-up visit on 07/14/2019 he had completed 3 cycles of treatment, and at that point he did appear to be showing a very good response by serum protein electrophoresis. He then continued on the same treatment. He had been tolerating it well other than he developed significant fluid retention and other side effects with the steroid. The swelling had initially improved with diuretic therapy, and he was able to continue treatment. As of October 2019 he began his 7th cycle. During subsequent follow-up his lower extremity edema had continued to worsen, and he also complained of shortness of breath and declining activity tolerance. As of his follow-up visit on 11/13/2019 his myeloma treatment was put on hold. Ultimately, he was found to have severe cardiomyopathy with left ventricular ejection fraction estimated at 15 to 20% by transesophageal echocardiogram. He had associated atrial flutter/fibrillation, for which he began treatment with amiodarone and metoprolol. He also started anticoagulation with apixaban. During follow-up he continued to have very limited activity tolerance. His myeloma therapy had remained on hold. He had a very good response to the treatment by protein electrophoresis, but his M protein then began to increase. As of April 2020 it was back up to 1.1 g/dL, but at that point his repeat echocardiogram had shown a very significant improvement in his left ventricular function. His restaging PET/CT on 05/22/2020 showed several areas of myeloma progression in the bone. On 06/14/2020 he began further treatment with daratumumab in combination with pomalidomide and dexamethasone. The daratumumab was administered by subcutaneous injection. He experienced some transient chest congestion with the initial injection of daratumumab, but he otherwise tolerated it well. He continued with week 2 daratumumab on 06/21/2020 and at that point he also continued pomalidomide 4 mg daily and dexamethasone 40 mg weekly. As of 06/28/2020 the treatment was put on hold due to worsening neutropenia and declining performance status. He was then able to continue with cycle 2 of pomalidomide with the dosage reduced to 4 mg every other day for 14 days. He tolerated it with acceptable toxicity, though his cycle 3 was again delayed due to neutropenia. He has now had adequate recovery of his blood counts. His overall clinical status appears stable. Plan: He will proceed with cycle 3 of pomalidomide with the dosage reduced to 2 mg daily on a 21/28-day schedule. He will continue with his 7th injection of daratumumab at the weekly dosing. He will be scheduled for a follow-up visit in 1 week. Signed By: Brandon Hernandez M.D. <<Signature on File>>
== END 2020-08-09 06:02 | disposition home or self-care (01) ==
LOC: ONCMED 06:03
PROVIDERS: PCP Nurse Practitioner; Visit Provider Internal Medicine Medical Oncology
DX: Z51.12 Encounter for antineoplastic immunotherapy (principal); C90.02 Multiple myeloma in relapse; D70.1 Agranulocytosis secondary to cancer chemotherapy; T45.1X5D Adverse effect of antineoplastic and immunosuppressive drugs, subsequent encounter; Z79.899 Other long term (current) drug therapy
CPT/HCPCS: 85025; 96401; 99214; C9062

== ENCOUNTER 2020-08-18 06:02 | Outpatient (CLI) | payer MEDICARE, BC, SELFPAY ==
[2020-08-18 10:17] LABS: Basophils % 0.3 %; Eosinophils # 0.1 10^3/uL (0.0-0.8); Eosinophils % 0.8 %; Hematocrit 40.5 % (42.0-52.0); Hemoglobin 12.6 g/dL (11.7-16.6); Lymphocytes # 0.3 10^3/uL (0.8-4.8); Lymphocytes % 3.9 %; Mean Corpuscular HGB Conc 31.1 g/dL (30.0-36.0); Mean Corpuscular Hemoglobin 29.9 pg (28.0-34.0); Mean Corpuscular Volume 96.2 fL (80-94); Monocytes # 0.7 10^3/uL (0.2-0.9); Neutrophils # 6.15 10^3/uL (1.8-7.7); Neutrophils % 85.4 %; Nucleated Red Blood Cells % 0 %; Platelet Count 150 10^3/cmm (130-400); Red Blood Count 4.21 10^6/uL (4.1-5.3); Red Cell Distribution Width 18.2 % (12.1-15.1); White Blood Count 7.2 10^3/uL (4.0-10.0)
[2020-08-18] MEDS: denosumab 120 mg SDV SUBCUT (12:40)
--- NOTE | 2020-08-22 22:11 | ONC FU_ITS ---
Reyna Gonzalez Patient Note Patient: Brandon Roberts Unit #: [id number]: 1945 Dictated By: Farzana MartinezDate of Visit: Aug 18, 2020 Onc MED Follow-Up/Prog Note Chief Complaint: Multiple myeloma. History of Present Illness: Mr Roberts is a 75 year-old man with IgG kappa myeloma. He had osteopenia and associated vertebral compression fractures at initial presentation in July of 2009. He underwent treatment through the [facility] on the Total Therapy 4 L program. He was felt to be in complete remission following his induction and consolidation treatment, which included tandem autologous stem cell transplants. He completed consolidation treatment in February of 2010. He was then given 3 years of maintenance with Revlimid/Velcade/dexamethasone. He completed treatment in May 2013. He then continued Aredia infusions every 3 months for maintenance of bone health. He was last treated here in December 2015. He had subsequently continued his regular follow-up at the [facility]. As of his visit there in January 2017 he was felt to be in complete remission. He was seen here for a follow-up visit on 03/15/2017. He was having significant pain in his right lower back/pelvic area. His protein electrophoresis studies at that time showed no evidence of recurrence of myeloma, and x-ray showed no evidence of lytic bone disease. He continued on observation/expectant management. Dr Hernandez had seen him for a follow-up visit on 11/07/2017. At that point he appeared stable clinically. However, his repeat protein electrophoresis on 01/01/2018 showed evidence of an IgG kappa monoclonal paraprotein quantitating at 0.24 g/dL. The free light chain assay was unremarkable with free kappa light chain of 12.03 mg/L, free lambda light chain of 9.24 mg/L, and kappa/lambda ratio normal at 1.30. His 24-hour urine protein electrophoresis on 01/03/2018 showed no monoclonal protein. Skeletal survey showed right femoral head degenerative subcortical cyst versus myelomatous lesion. Also noted was diffuse marked bone demineralization with multilevel thoracic and lumbar compression fractures and with vertebroplasty changes. There was bilateral hip osteoarthrosis and there were degenerative changes noted in the cervical and lumbar spine. CT of the bony pelvis on 01/15/2018 showed no evidence of osteolytic or osteoblastic change. The right femoral head lucency was felt to most likely represent overlying posterior acetabular subcortical cyst. There was progression of severe right hip osteoarthritic change compared to October 2017 study. With the reappearance of monoclonal protein on the serum protein electrophoresis, he was referred to [facility] for reevaluation. He was seen there on 03/04/2018. His bone marrow aspiration/biopsy showed just 3% plasma cells. It was felt to be morphologically negative for myeloma. However, flow cytometric analysis revealed a plasma cell population with atypical immunophenotype comprising approximately 0.08% of analyzed events. There were no new bone lesions identified on MRI studies. His PET/CT also showed no evidence of active bone lesions. His DEXA scan showed T score -3.8 in the radial diaphysis and -0.8 in the proximal femur. He was advised to continue observation/expectant management for the myeloma. It was also recommended, though, that he start denosumab injections. During subsequent follow-up his M protein continued to increase gradually. As of 12/12/2018 it was up to 1.07 g/dL. He is seen for a scheduled visit. He subsequently had problems with kidney stones. He underwent lithotripsy initially on 01/13/2019. He then underwent lithotripsy again along with left ureteral stent placement on 02/07/2019. As of 04/21/2019 the M protein had increased to 2.9 g/dL. The free light chain assay showed elevated kappa light chain at 876 mg/L with lambda light chain 24 mg/L and elevated kappa/lambda ratio at 36.50. There was no monoclonal protein identified in his 24 hour urine specimen. At that point he started treatment with revlimid in combination with ixazomib and dexamethasone with Revlimid administered daily on a 21/ day schedule, ixazomib administered weekly for 3 weeks, and the dexamethasone administered weekly. He tolerated the 1st cycle with acceptable toxicity, and he was able to continue with cycle 2 on 05/19/2019 and with cycle 3 on 06/16/2019. His repeat protein electrophoresis on 07/08/2019 showed decrease in the M protein to 0.7 g/dL. The free light chain assay showed kappa light chain 9.8 mg/L, lambda light chain 15.1 mg/mL and normal kappa/lambda ratio at 0.65. CT scans of the cervical, thoracic, lumbar spine on 07/10/2019 showed several small lytic lesions throughout the cervical spine, the largest measuring 10 mm in the C5 vertebral body. There were also degenerative changes, but no severe central canal stenosis. The thoracic spine showed diffuse severe osteopenia with prior vertebral plasty at T5. The lumbar spine also show diffuse osteopenia, prior vertebral plasties from L1-L4, as well as degenerative disc disease with multilevel mild central and subarticular recess stenosis. Also noted were extensive lytic areas of lucency in the sacrum. He continued on treatment with Revlimid/ixazomib/dexamethasone. As of his follow-up visit on 11/13/2019 had developed significant worsening of lower extremity edema, and he continued to have shortness of breath and declining activity tolerance. As such, his treatment was put on hold. On 12/19/2019 he was admitted to the hospital with atrial fibrillation. It was managed medically, he was scheduled for outpatient follow-up with Dr. Haskins. However, on 12/25/2019 he was readmitted to the hospital with increased heart rate and increased shortness of breath. He was found to have cardiomyopathy and acute systolic congestive heart failure. He had a atrial fibrillation/flutter, for which he started treatment with amiodarone. His echocardiogram showed severe left ventricular dysfunction with ejection fraction estimated at 15 to 20%. Following discharge he continued treatment with amiodarone 200 mg daily together with furosemide 60 mg twice daily, metoprolol 50 mg daily, Entresto 24-26 mg daily, and apixaban 5 mg twice daily. His myeloma therapy remained on hold. His repeat serum protein electrophoresis on 02/19/2020 showed stable M protein at 0.6 g/dL. At that point his clinical status also appeared stable, and he continued on observation/expectant management. His repeat echocardiogram on 04/06/2020 showed significant improvement in the LV function with estimated ejection fraction at 50%. As of 05/03/2020 his M protein had increased to 1.1 g/dL. Restaging PET/CT on 05/22/2020 showed new FDG positive lesions in the L5 vertebral body and left sacral ala consistent with recurrent myeloma. With that finding, I had recommended that he continue further treatment with daratumumab in combination with pomalidomide and dexamethasone. His other medical illnesses include hypertension and atrial fibrillation. He had an admission to the hospital for opportunistic pneumonia in August of 2011. He was treated for cellulitis of the left leg in January 2015. He had smoked in the past, but he quit more than 25 years ago. INTERIM HISTORY: He began cycle 1 of daratumumab/pomalidomide/dexamethasone on 06/14/2020 with the daratumumab administered by subcutaneous injection. At that point his M protein had further increased to 1.4 g/dL. He had some transient pulmonary congestion following the initial daratumumab injection. He had no other apparent toxicity. He continued with his week 2 daratumumab on 06/21/2020, and at that point he also continued pomalidomide 4 mg daily. As of 06/28/2020 his treatment was put on hold due to worsening neutropenia. He was then able to proceed with cycle 2 of daratumumab in combination with pomalidomide/dexamethasone on 07/14/2020 with the pomalidomide dosage reduced to 4 mg every other day for 14 days. He was able to tolerate that with acceptable toxicity, though at his follow-up visit on 08/03/2020 his cycle 3 of pomalidomide was again delayed due to neutropenia. At that time he was able to complete his 6h injection of daratumumab on the weekly dosing. Mr. Roberts is here today for follow-up. He states overall he is doing well. He did resume the pomalidomide 2 mg on 08/10/2020. His treated him with antibiotics they had???doxycycline for folliculitis in his left axilla. It is healed well. There is no evidence of recurrent folliculitis at this time. He denies any other concerns. He denies diarrhea or constipation. He states he tends to be more constipated than diarrhea due to the pain meds. He states the pain meds are working well in controlling his pain. He denies any nausea or vomiting. States his appetite is good. He does have chronic pain in his back and lower extremities. He continues to have lightheadedness if he gets up real quick. He has numbness/tingling in his feet but states it is stable. He has been bruising very easily, that is chronic. His ECOG is 1. Past Medical History: Atrial fibrillation Bilateral renal cysts Hypertension Vitamin D deficiency Nephrolithiasis in 2018 Multiple myeloma in 2008 IgG kappa myeloma dx jul 2009 hx htn, afib Past Surgical History: Appendectomy Right side port placement Right sided port removal Vertebral plasty Flu vaccine in 2019 - right deltoid Flu vaccine in 2018 Lithotripsy x2 in 2018 Stent placement left ureter in 2018 Flu vaccine in 2014 Pneumonia vaccine in 2014 - prevnar 13 Allergies: No Known Allergies. Medications: Acyclovir 400 mg (of 400 mg) Tablet Oral b.i.d. Amiodarone HCl 1 Tablet (of 200 mg) Oral daily DULoxetine HCl 1 Capsule (of 20 mg) Capsule Delayed Release Particles Oral b.i.d. Furosemide 1.5 Tablet (of 40 mg) Oral daily K-Tab 0.5 Tablet (of 20 meq) Tablet, controlled release Oral daily LORazepam 1 Tablet (of 1 mg) Oral q 8 hours PRN Metoprolol Succinate ER 1.5 Tablet (of 50 mg) Tablet SR 24 HR Oral daily Morphine Sulfate ER 1 Tablet (of 30 mg) Tablet, controlled release Oral q 12 hours OxyCODONE HCl 1 Tablet (of 15 mg) Oral four times a day PRN Pomalidomide 1 Capsule (of 4 mg) Oral q 21 days Sacubitril-Valsartan 1 Tablet (of 24-26 mg) Oral b.i.d. Spironolactone 1 Tablet (of 50 mg) Oral daily TraZODone HCl 1 - 2 (50 mg) Tablet Oral at bedtime Xarelto 1 Tablet (of 20 mg) Oral daily Family History: Mr. Roberts's mother at age 77: cancer history consists of Colon cancer (cause of ). Mr. Roberts's father at age 65: cancer history consists of Prostate cancer. mother had cancer of lung also brother has prostate cancer. Social History: Mr. Roberts is and he is retired. Mr. Roberts quit smoking 26 years ago but had smoked 2.0 packs/day for 22 years. He is an active drinker.He consumes 2 drinks/day. Mr. Roberts reports the following support systems: lives with spouse, significant other, family, or friends, lives in own house, supportive family/friends willing to assist with needs, and adequate transportation available for expected visits. His diet consists of regular meals. He indicates his activity level as: daily activities. , hasn't drank in 68 years, quit smoking 25 years ago. April 2019 has resumed consuming two double bourbon drinks nightly. Review Of Symptoms: Constitutional weak in general-no fever or chills. appetite fair . Allergic/Immunologic Denies allergies and adverse reactions. Eyes Denies blurred vision, double vision, visual difficulties and photophobia. ENMT Denies changes in hearing, sore throat, mouth sores, difficulty or changes in swallowing ability, and/or sinus drainage. Endocrine No diabetes, thyroid disease or hormone replacement. Denies hot flashes or night sweats. Hematologic/Lymphatic Denies easy bruising and tender or enlarged lymph nodes. Breasts Denies abnormal masses of breast, no nipple discharge or pain. Respiratory Denies cough, dyspnea, hemoptysis, hiccoughs, pleuritic chest pain and wheezing. Cardiovascular Denies arrhythmias, chest pain, dyspnea, edema, orthopnea and palpitations. Gastrointestinal Denies abdominal pain, change in bowel habits, constipation, diarrhea, heartburn / dyspepsia. Constipation controlled with stool softeners at present. Genitourinary (M) Denies dysuria, but having new nocturnal frequency. No hematuria. Musculoskeletal Denies new pain but weak in general. Limited mobility and requires wheelchair or wheeled walker for mobility assistance. Integumentary Denies chronic rashes, inflammation, ulcerations or skin changes. Neurologic Denies headache, blurred vision, and no areas of focal weakness or numbness. Normal gait. No sensory problems. Psychiatric Denies hallucinations and mood swings. Vital Signs: Performed on Aug 18, 2020 11:05 Height - 71.00 in Temperature - 97.8 F (LOW) Pulse - 67 /min Respiration - 19 /min BP - 125/67 mm(hg) O2 Sat - 97 %,1 - No physically strenuous activity, but ambulatory and able to carry out light or sedentary work (e.g. office work, light house work). (ECOG) Physical Examination: Constitutional Alert, oriented, no acute distress-weak in general. Skin pink, warm and dry. Head Normocephalic; atraumatic. Eyes Conjunctivae and sclerae are clear and without icterus. Pupils are reactive and equal. slight exophthalmos bilaterally. ENMT Sinuses are nontender. No oral exudates, ulcers, masses, thrush or mucositis. Oropharynx clear. Tongue normal. Neck Supple without masses or thyromegaly. No jugular venous distension. Hematologic/Lymphatic scattered bruising on arms-not new. Respiratory Lungs are clear to auscultation without rhonchi or wheezing. Cardiovascular Regular rate and rhythm of heart without murmurs,clicks, gallops or rubs. Chest Chest is symmetric without chest wall deformities. Left axilla reveals healed folliculitis. There are no signs of pustules or drainage at this time. Abdomen Non-tender, non-distended, no masses, ascites. Back/Spine Non-tender to palpation. Extremities No visible deformities, no cyanosis, clubbing. + 1 bilateral lower extremity edema-non pitting. Musculoskeletal No tenderness or swelling, normal range of motion bilaterally lower extremity weakness. Integumentary No rashes or lesions. Neurologic using wheelchair for mobility but requires someone to help him maneuver the wheelchair. Psychiatric Alert and oriented times three. Coherent speech. Verbalizes understanding of our discussions today. Laboratory:Test performed on Aug 18, 2020 10:00 WBC 7.2 10 3/uL RBC 4.21 10 6/uL HGB 12.6 g/dL HCT 40.5 % MCV 96.2 fL MCH 29.9 pg MCHC 31.1 g/dL RDW 18.2 % Platelet Count 150 10 3/cmm MPV 10.0 fL Neutrophils 6.15 10 3/uL Lymphocytes 0.3 10 3/uL Monocytes 0.7 10 3/uL Eosinophils 0.1 10 3/uL Basophils 0.0 10 3/uL Neutrophil % 85.4 % Lymphocyte % 3.9 % Monocyte % 9.0 % Eosinophil % 0.8 % Basophils % 0.3 % NRBC % 0 % Impression: 1. Patient with IgG kappa myeloma, initially diagnosed in July 2009. He had associated osteopenia and multiple vertebral compression fractures. 2. He underwent treatment at the [facility] on the total therapy 4L protocol. He completed his maintenance therapy with Revlimid, Velcade and dexamethasone in May 2013. 3. He had continued Aredia infusions every 3 months for bone health. He was last treated here in December 2015. 4. As of his follow-up visit at [facility] in January 2017, his myeloma was felt to be in complete remission. His other medical illnesses include: 5. Hypertension. 6. Atrial fibrillation. 7. He required treatment for opportunistic pneumonia in August 2011. 8. He was treated for cellulitis of the left leg in January 2015. In March 2017 he presented with increased pain in his lower back and pelvic area. His laboratory studies and x-rays at that time showed no evidence of recurrence of the myeloma. However, his repeat protein electrophoresis in December 2017 did show a small IgG kappa monoclonal protein spike quantitating at 0.24 g/dL, consistent with early relapse of his myeloma. He had follow-up at [facility] on 03/04/2018. Based on their recommendations, he initially was followed on observation/expectant management for the myeloma, but he did start monthly denosumab injections. During follow-up there was continued gradual increase in his M protein. As of 12/12/2018 it had increased to 1.07 g/dL. His subsequent clinical course was complicated nephrolithiasis requiring lithotripsy and ureteral stent placement. As of 04/21/2019 there was further increase in the M protein to 2.9 g/dL. The free light chain assay showed elevated kappa light chain at 876 mg/L with lambda light chain 24 mg/L and elevated kappa/lambda ratio at 36.50. There was no monoclonal protein identified in his 24 hour urine specimen. At that point he started treatment with Revlimid in combination with ixazomib and dexamethasone. As of his follow-up visit on 07/14/2019 he had completed 3 cycles of treatment, and at that point he did appear to be showing a very good response by serum protein electrophoresis. He then continued on the same treatment. He had been tolerating it well other than he developed significant fluid retention and other side effects with the steroid. The swelling had initially improved with diuretic therapy, and he was able to continue treatment. As of October 2019 he began his 7th cycle. During subsequent follow-up his lower extremity edema had continued to worsen, and he also complained of shortness of breath and declining activity tolerance. As of his follow-up visit on 11/13/2019 his myeloma treatment was put on hold. Ultimately, he was found to have severe cardiomyopathy with left ventricular ejection fraction estimated at 15 to 20% by transesophageal echocardiogram. He had associated atrial flutter/fibrillation, for which he began treatment with amiodarone and metoprolol. He also started anticoagulation with apixaban. During follow-up he continued to have very limited activity tolerance. His myeloma therapy had remained on hold. He had a very good response to the treatment by protein electrophoresis, but his M protein then began to increase. As of April 2020 it was back up to 1.1 g/dL, but at that point his repeat echocardiogram had shown a very significant improvement in his left ventricular function. His restaging PET/CT on 05/22/2020 showed several areas of myeloma progression in the bone. On 06/14/2020 he began further treatment with daratumumab in combination with pomalidomide and dexamethasone. The daratumumab was administered by subcutaneous injection. He experienced some transient chest congestion with the initial injection of daratumumab, but he otherwise tolerated it well. He continued with week 2 daratumumab on 06/21/2020 and at that point he also continued pomalidomide 4 mg daily and dexamethasone 40 mg weekly. As of 06/28/2020 the treatment was put on hold due to worsening neutropenia and declining performance status. He had adequate recovery and was able to resume the Darzalex on 07/14/2020. Plan: 1. Proceed with cycle 3 day 8 daratumumab in combination with pomalidomide and dexamethasone, but with the pomalidomide dosage reduced to 2 mg 21/28 days. (He began this on 08/10/2020). He cycle 3 dosage on the pomalidomide was changed to 2 mg daily on a 21/28 day schedule. 2. Continue current antiemetics/supportive care as needed. 3. Labs from today reviewed in detail discussed with . Mrs. Roberts and a copy was given to him. WBC 7.2, hemoglobin 12.6 platelets 150,000 ANC is 6000. 4. We will plan to see him back in 1 week with CBC CMP. He will be due for cycle 3-day 15 daratumumab at that time. 5. Mr. Roberts instructed to contact us in the interim should questions or problems arise. Signed By: Farzana Martinez-, AOCNP Brandon Hernandez MD <<Signature on File>>
== END 2020-08-18 06:03 | disposition home or self-care (01) ==
LOC: ONCMED 06:04
PROVIDERS: PCP Nurse Practitioner; Visit Provider Nurse Practitioner
DX: Z51.12 Encounter for antineoplastic immunotherapy (principal); C90.02 Multiple myeloma in relapse; D70.1 Agranulocytosis secondary to cancer chemotherapy; T45.1X5D Adverse effect of antineoplastic and immunosuppressive drugs, subsequent encounter; Z79.899 Other long term (current) drug therapy
CPT/HCPCS: 36415; 85025; 96372; 99214; J0897

== ENCOUNTER 2020-08-20 06:02 | Outpatient (CLI) | payer MEDICARE, BC, SELFPAY | END 2020-08-20 06:03 | disposition home or self-care (01) | LOC: ONCMED 06:03 | PROVIDERS: PCP Nurse Practitioner; Visit Provider Nurse Practitioner | DX: Z51.12 Encounter for antineoplastic immunotherapy (principal); C90.02 Multiple myeloma in relapse; Z23 Encounter for immunization; D70.1 Agranulocytosis secondary to cancer chemotherapy; T45.1X5A Adverse effect of antineoplastic and immunosuppressive drugs, initial encounter | CPT/HCPCS: 90471; 90686; 96372; 96401; C9062 ==

== ENCOUNTER 2020-08-25 06:10 | Outpatient (CLI) | payer MEDICARE, BC, SELFPAY ==
[2020-08-25 10:00] LABS: Basophils % 0.5 %; Eosinophils # 0.2 10^3/uL (0.0-0.8); Eosinophils % 7.7 %; Hematocrit 37.8 % (42.0-52.0); Hemoglobin 11.7 g/dL (11.7-16.6); Lymphocytes # 0.4 10^3/uL (0.8-4.8); Lymphocytes % 20.6 %; Mean Corpuscular Hemoglobin 29.5 pg (28.0-34.0); Mean Corpuscular Volume 95.5 fL (80-94); Mean Platelet Volume 9.8 fL (7.4-10.4); Monocytes # 0.5 10^3/uL (0.2-0.9); Monocytes % 22.5 %; Neutrophils # 1.01 10^3/uL (1.8-7.7); Neutrophils % 48.2 %; Nucleated Red Blood Cells % 0 %; Platelet Count 104 10^3/cmm (130-400); Red Blood Count 3.96 10^6/uL (4.1-5.3); Red Cell Distribution Width 17.7 % (12.1-15.1); White Blood Count 2.1 10^3/uL (4.0-10.0)
[2020-08-25 10:19] LABS: Alanine Aminotransferase 22 U/L (0-41); Albumin Level 3.4 g/dL (3.5-5.2); Alkaline Phosphatase 54 IU/L (40-130); Anion Gap 13.5 (5-19); Aspartate Amino Transferase 11 U/L (0-40); Blood Urea Nitrogen 24 mg/dL (8-23); Calcium 9.9 mg/dL (8.5-10.5); Carbon Dioxide 30 mmol/L (22-29); Chloride 98 mmol/L (98-107); Globulin 2.5 g/dL (1.3-4.6); Glucose 133 mg/dL (65-115); Osmolality Calculated 290 mOsm/kg (285-295); Potassium 4.5 mmol/L (3.5-5.1); Sodium 137 mmol/L (136-145); Total Bilirubin 0.8 mg/dL (0.15-1.2); Total Protein 5.9 g/dL (6.6-8.7)
--- NOTE | 2020-08-29 15:31 | ONC FU_ITS ---
Dr. Hernandez Patient Follow-Up Note Patient: Brandon Roberts Unit #: [id number]: 1945 Dicatated By: Brandon Hernandez M.D.Date of Visit:Aug 25, 2020 Onc Med Follow-up/Prog Note Chief Complaint: Multiple myeloma. History of Present Illness: This is a 75 year-old man with IgG kappa myeloma. He had osteopenia and associated vertebral compression fractures at initial presentation in July of 2009. He underwent treatment through the [facility] on the Total Therapy 4 L program. He was felt to be in complete remission following his induction and consolidation treatment, which included tandem autologous stem cell transplants. He completed consolidation treatment in February of 2010. He was then given 3 years of maintenance with Revlimid/Velcade/dexamethasone. He completed treatment in May 2013. He then continued Aredia infusions every 3 months for maintenance of bone health. He was last treated here in December 2015. He had subsequently continued his regular follow-up at the [facility]. As of his visit there in January 2017 he was felt to be in complete remission. He was seen here for a follow-up visit on 03/15/2017. He was having significant pain in his right lower back/pelvic area. His protein electrophoresis studies at that time showed no evidence of recurrence of myeloma, and x-ray showed no evidence of lytic bone disease. He continued on observation/expectant management. I had seen him for a follow-up visit on 11/07/2017. At that point he appeared stable clinically. However, his repeat protein electrophoresis on 01/01/2018 showed evidence of an IgG kappa monoclonal paraprotein quantitating at 0.24 g/dL. The free light chain assay was unremarkable with free kappa light chain of 12.03 mg/L, free lambda light chain of 9.24 mg/L, and kappa/lambda ratio normal at 1.30. His 24-hour urine protein electrophoresis on 01/03/2018 showed no monoclonal protein. Skeletal survey showed right femoral head degenerative subcortical cyst versus myelomatous lesion. Also noted was diffuse marked bone demineralization with multilevel thoracic and lumbar compression fractures and with vertebroplasty changes. There was bilateral hip osteoarthrosis and there were degenerative changes noted in the cervical and lumbar spine. CT of the bony pelvis on 01/15/2018 showed no evidence of osteolytic or osteoblastic change. The right femoral head lucency was felt to most likely represent overlying posterior acetabular subcortical cyst. There was progression of severe right hip osteoarthritic change compared to October 2017 study. With the reappearance of monoclonal protein on the serum protein electrophoresis, he was referred to [facility] for reevaluation. He was seen there on 03/04/2018. His bone marrow aspiration/biopsy showed just 3% plasma cells. It was felt to be morphologically negative for myeloma. However, flow cytometric analysis revealed a plasma cell population with atypical immunophenotype comprising approximately 0.08% of analyzed events. There were no new bone lesions identified on MRI studies. His PET/CT also showed no evidence of active bone lesions. His DEXA scan showed T score -3.8 in the radial diaphysis and -0.8 in the proximal femur. He was advised to continue observation/expectant management for the myeloma. It was also recommended, though, that he start denosumab injections. During subsequent follow-up his M protein continued to increase gradually. As of 12/12/2018 it was up to 1.07 g/dL. He is seen for a scheduled visit. He subsequently had problems with kidney stones. He underwent lithotripsy initially on 01/13/2019. He then underwent lithotripsy again along with left ureteral stent placement on 02/07/2019. As of 04/21/2019 the M protein had increased to 2.9 g/dL. The free light chain assay showed elevated kappa light chain at 876 mg/L with lambda light chain 24 mg/L and elevated kappa/lambda ratio at 36.50. There was no monoclonal protein identified in his 24 hour urine specimen. At that point he started treatment with revlimid in combination with ixazomib and dexamethasone with Revlimid administered daily on a 21/28 day schedule, ixazomib administered weekly for 3 weeks, and the dexamethasone administered weekly. He tolerated the 1st cycle with acceptable toxicity, and he was able to continue with cycle 2 on 05/19/2019 and with cycle 3 on 06/16/2019. His repeat protein electrophoresis on 07/08/2019 showed decrease in the M protein to 0.7 g/dL. The free light chain assay showed kappa light chain 9.8 mg/L, lambda light chain 15.1 mg/mL and normal kappa/lambda ratio at 0.65. CT scans of the cervical, thoracic, lumbar spine on 07/10/2019 showed several small lytic lesions throughout the cervical spine, the largest measuring 10 mm in the C5 vertebral body. There were also degenerative changes, but no severe central canal stenosis. The thoracic spine showed diffuse severe osteopenia with prior vertebral plasty at T5. The lumbar spine also show diffuse osteopenia, prior vertebral plasties from L1-L4, as well as degenerative disc disease with multilevel mild central and subarticular recess stenosis. Also noted were extensive lytic areas of lucency in the sacrum. He continued on treatment with Revlimid/ixazomib/dexamethasone. As of his follow-up visit on 11/13/2019 had developed significant worsening of lower extremity edema, and he continued to have shortness of breath and declining activity tolerance. As such, his treatment was put on hold. On 12/19/2019 he was admitted to the hospital with atrial fibrillation. It was managed medically, he was scheduled for outpatient follow-up with Dr. Haskins. However, on 12/25/2019 he was readmitted to the hospital with increased heart rate and increased shortness of breath. He was found to have cardiomyopathy and acute systolic congestive heart failure. He had a atrial fibrillation/flutter, for which he started treatment with amiodarone. His echocardiogram showed severe left ventricular dysfunction with ejection fraction estimated at 15 to 20%. Following discharge he continued treatment with amiodarone 200 mg daily together with furosemide 60 mg twice daily, metoprolol 50 mg daily, Entresto 24-26 mg daily, and apixaban 5 mg twice daily. His myeloma therapy remained on hold. His repeat serum protein electrophoresis on 02/19/2020 showed stable M protein at 0.6 g/dL. At that point his clinical status also appeared stable, and he continued on observation/expectant management. His repeat echocardiogram on 04/06/2020 showed significant improvement in the LV function with estimated ejection fraction at 50%. As of 05/03/2020 his M protein had increased to 1.1 g/dL. Restaging PET/CT on 05/22/2020 showed new FDG positive lesions in the L5 vertebral body and left sacral ala consistent with recurrent myeloma. With that finding, I had recommended that he continue further treatment with daratumumab in combination with pomalidomide and dexamethasone. His other medical illnesses include hypertension and atrial fibrillation. He had an admission to the hospital for opportunistic pneumonia in August of 2011. He was treated for cellulitis of the left leg in January 2015. He had smoked in the past, but he quit more than 25 years ago. INTERIM HISTORY: He began cycle 1 of daratumumab/pomalidomide/dexamethasone on 06/14/2020 with the daratumumab administered by subcutaneous injection. At that point his M protein had further increased to 1.4 g/dL. He had some transient pulmonary congestion following the initial daratumumab injection. He had no other apparent toxicity. He continued with his week 2 daratumumab on 06/21/2020, and at that point he also continued pomalidomide 4 mg daily. As of 06/28/2020 his treatment was put on hold due to worsening neutropenia. He was then able to proceed with cycle 2 of daratumumab in combination with pomalidomide/dexamethasone on 07/14/2020 with the pomalidomide dosage reduced to 4 mg every other day for 14 days. He was able to tolerate that with acceptable toxicity, though at his follow-up visit on 08/03/2020 his cycle 3 of pomalidomide was again delayed due to neutropenia. At that time he was able to complete his 6h injection of daratumumab on the weekly dosing. At that point there had been some decline in the M protein, to 0.7 g/dL. He is seen for a follow-up visit. He has now completed 8 injections of daratumumab on the weekly schedule. He continues to have significant back pain. He does not bad in the sitting position, but it is pretty severe with activity. He says it sounds like bubble wrap when he is moving around. He has very limited activity. His ECOG score is 3. His appetite is the same. He has not had fever. He has had episodes of sweating both during the daytime and at night. He has shortness of breath with activity. He does not complain of cough and has not been having chest pain. He has had a little bit of heartburn. He had constipation last week, but that has resolved. He has frequent urination. His pain is in the low back and hips, and it is worse on the right than the left. He does not complain of headache. He occasionally has dizziness. He has numbness/tingling in his feet. Medications: Acyclovir 400 mg (of 400 mg) Tablet Oral b.i.d., Amiodarone HCl 1 Tablet (of 200 mg) Oral daily, DULoxetine HCl 1 Capsule (of 20 mg) Capsule Delayed Release Particles Oral b.i.d., Furosemide 1.5 Tablet (of 40 mg) Oral daily, K-Tab 0.5 Tablet (of 20 meq) Tablet, controlled release Oral daily, LORazepam 1 Tablet (of 1 mg) Oral q 8 hours PRN, Metoprolol Succinate ER 1.5 Tablet (of 50 mg) Tablet SR 24 HR Oral daily, Morphine Sulfate ER 1 Tablet (of 30 mg) Tablet, controlled release Oral q 12 hours, OxyCODONE HCl 1 Tablet (of 15 mg) Oral four times a day PRN, Pomalidomide 1 Capsule (of 4 mg) Oral q 21 days, Sacubitril-Valsartan 1 Tablet (of 24-26 mg) Oral b.i.d., Spironolactone 1 Tablet (of 50 mg) Oral daily, TraZODone HCl 1 - 2 (50 mg) Tablet Oral at bedtime, Xarelto 1 Tablet (of 20 mg) Oral daily Allergies: No Known Allergies. Review of Systems: Constitutional - He is generally weak and he has limited activity. Appetite is okay. He has not had fever. He has had episodes of sweating both during the daytime and at night. ECOG score is 3, ENMT - No sinus congestion/drainage. No mouth sores. No sore throat or difficulty swallowing, Hematologic/Lymphatic - He has easy bruising, Respiratory - He has shortness of breath with activity. No cough. No pleuritic pain or hemoptysis, Cardiovascular - No angina pain. No palpitations, Gastrointestinal - No nausea or vomiting. He has a little bit of heartburn. He had constipation again last week, that is better now. No blood in the stool or black stools, Genitourinary (M) - No dysuria or hematuria. He has frequent urination. No urgency or incontinence, Musculoskeletal - He has been having pain in his low back and hips, worse on the right. He says the pain is not bad when he is in the sitting position, but he says it sounds like bubble wrap when he is moving, Integumentary - No skin rash, Neurologic - No headache. He occasionally has dizziness. He has numbness/tingling in his feet. No other focal neurologic symptoms, Psychiatric - He has anxiety/depression. He sometimes has difficulty sleeping. Vital Signs: Performed on Aug 25, 2020 11:58 Height - 71.00 in Weight - 247.8 lbs (HIGH) BSA - 2.31 sq.m BMI - 34.56 (HIGH) Temperature - 97.0 F (LOW) Pulse - 69 /min Respiration - 24 /min BP - 125/72 mm(hg) O2 Sat - 96 % Pain - 9 Physical Examination: Constitutional - He appears generally weak, Eyes - Sclerae nonicteric. Conjunctivae clear, ENMT - No lesions noted in the oral cavity, Hematologic/Lymphatic - No cervical, clavicular, or axillary adenopathy, Respiratory - Lungs sound clear, Cardiovascular - Heart rhythm is regular. There is no murmur, gallop, or rub noted, Abdomen - Moderately distended. Liver and spleen are not enlarged. There is no abdominal mass or ascites noted and there is no inguinal adenopathy, Extremities - There are venous stasis changes bilaterally. There is mild edema. He has extensive propria, Neurologic - No focal neurologic deficits noted. Lab/Imaging: Test performed on Aug 25, 2020 09:47 Sodium 137 mmol/L Potassium 4.5 mmol/L Chloride 98 mmol/L CO2 30 mmol/L Anion Gap 13.5 BUN 24 mg/dL Creatinine 1.0 mg/dL Cr Clearance (Est) 97.8700 mL/min Glucose 133 mg/dL Osmolality - Calculated 290 mOsm/kg Calcium 9.9 mg/dL Protein, Total 5.9 g/dL Albumin 3.4 g/dL Globulin 2.5 g/dL Bilirubin, Total 0.8 mg/dL ALT (SGPT) 22 U/L AST (SGOT) 11 U/L Alkaline Phosphatase 54 IU/L WBC 2.1 10 3/uL RBC 3.96 10 6/uL HGB 11.7 g/dL HCT 37.8 % MCV 95.5 fL MCH 29.5 pg MCHC 31.0 g/dL RDW 17.7 % Platelet Count 104 10 3/cmm MPV 9.8 fL Neutrophils 1.01 10 3/uL Lymphocytes 0.4 10 3/uL Monocytes 0.5 10 3/uL Eosinophils 0.2 10 3/uL Basophils 0.0 10 3/uL Neutrophil % 48.2 % Lymphocyte % 20.6 % Monocyte % 22.5 % Eosinophil % 7.7 % Basophils % 0.5 % NRBC % 0 % Impression: 1. Patient with IgG kappa myeloma, initially diagnosed in July 2009. He had associated osteopenia and multiple vertebral compression fractures. 2. He underwent treatment at the [facility] on the total therapy 4L protocol. He completed his maintenance therapy with Revlimid, Velcade and dexamethasone in May 2013. 3. He had continued Aredia infusions every 3 months for bone health. He was last treated here in December 2015. 4. As of his follow-up visit at [facility] in January 2017, his myeloma was felt to be in complete remission. His other medical illnesses include: 5. Hypertension. 6. Atrial fibrillation. 7. He required treatment for opportunistic pneumonia in August 2011. 8. He was treated for cellulitis of the left leg in January 2015. In March 2017 he presented with increased pain in his lower back and pelvic area. His laboratory studies and x-rays at that time showed no evidence of recurrence of the myeloma. However, his repeat protein electrophoresis in December 2017 did show a small IgG kappa monoclonal protein spike quantitating at 0.24 g/dL, consistent with early relapse of his myeloma. He had follow-up at [facility] on 03/04/2018. Based on their recommendations, he initially was followed on observation/expectant management for the myeloma, but he did start monthly denosumab injections. During follow-up there was continued gradual increase in his M protein. As of 12/12/2018 it had increased to 1.07 g/dL. His subsequent clinical course was complicated nephrolithiasis requiring lithotripsy and ureteral stent placement. As of 04/21/2019 there was further increase in the M protein to 2.9 g/dL. The free light chain assay showed elevated kappa light chain at 876 mg/L with lambda light chain 24 mg/L and elevated kappa/lambda ratio at 36.50. There was no monoclonal protein identified in his 24 hour urine specimen. At that point he started treatment with Revlimid in combination with ixazomib and dexamethasone. As of his follow-up visit on 07/14/2019 he had completed 3 cycles of treatment, and at that point he did appear to be showing a very good response by serum protein electrophoresis. He then continued on the same treatment. He had been tolerating it well other than he developed significant fluid retention and other side effects with the steroid. The swelling had initially improved with diuretic therapy, and he was able to continue treatment. As of October 2019 he began his 7th cycle. During subsequent follow-up his lower extremity edema had continued to worsen, and he also complained of shortness of breath and declining activity tolerance. As of his follow-up visit on 11/13/2019 his myeloma treatment was put on hold. Ultimately, he was found to have severe cardiomyopathy with left ventricular ejection fraction estimated at 15 to 20% by transesophageal echocardiogram. He had associated atrial flutter/fibrillation, for which he began treatment with amiodarone and metoprolol. He also started anticoagulation with apixaban. During follow-up he continued to have very limited activity tolerance. His myeloma therapy had remained on hold. He had a very good response to the treatment by protein electrophoresis, but his M protein then began to increase. As of April 2020 it was back up to 1.1 g/dL, but at that point his repeat echocardiogram had shown a very significant improvement in his left ventricular function. His restaging PET/CT on 05/22/2020 showed several areas of myeloma progression in the bone. On 06/14/2020 he began further treatment with daratumumab in combination with pomalidomide and dexamethasone. The daratumumab was administered by subcutaneous injection. He experienced some transient chest congestion with the initial injection of daratumumab, but he otherwise tolerated it well. He continued with week 2 daratumumab on 06/21/2020 and at that point he also continued pomalidomide 4 mg daily and dexamethasone 40 mg weekly. As of 06/28/2020 the treatment was put on hold due to worsening neutropenia and declining performance status. He was then able to continue with cycle 2 of pomalidomide with the dosage reduced to 4 mg every other day for 14 days. He tolerated it with acceptable toxicity, though his cycle 3 was again delayed due to neutropenia. He has since then been able to continue with the pomalidomide with the dosage reduced to 2 mg daily on a 21/28-day schedule. He has now completed 8 weekly injections of daratumumab. He seems to be tolerating the treatment with acceptable toxicity, and he does appear to be showing response by protein electrophoresis. He continues, though, to have significant pain in the back and hips, and he continues to have very marginal performance status. Plan: He will continue pomalidomide with at 2 mg daily on a 21/28-day schedule, and he will continue dexamethasone on the same schedule. He is due to receive his 9th injection of daratumumab, which will now be administered a 2-week intervals. He will have a follow-up visit in 2 weeks. Signed By: Brandon Hernandez M.D. <<Signature on File>>
== END 2020-08-25 06:11 | disposition home or self-care (01) ==
LOC: ONCMED 06:12
PROVIDERS: PCP Nurse Practitioner; Visit Provider Internal Medicine Medical Oncology
DX: Z51.12 Encounter for antineoplastic immunotherapy (principal); C90.00 Multiple myeloma not having achieved remission; I10 Essential (primary) hypertension; I48.91 Unspecified atrial fibrillation; Z87.01 Personal history of pneumonia (recurrent); Z87.2 Personal history of diseases of the skin and subcutaneous tissue; Z79.899 Other long term (current) drug therapy
CPT/HCPCS: 80053; 85025; 96401; 99214; C9062

== ENCOUNTER 2020-09-07 12:14 | Outpatient (CLI) | payer MEDICARE, BC, SELFPAY ==
--- NOTE | 2020-09-07 12:47 | MR_ITS ---
WS: [id number] INDICATION: Myeloma. Hip pain. TECHNIQUE: MR of the pelvis without and with gadolinium enhancement. Axial T1, axial T2, coronal T1, coronal STIR, coronal T2, multiplanar post gadolinium imaging with fat saturation technique. FINDINGS: Correlation PET/CT May 22, 2020. Some images degraded by patient motion. Moderate to advanced degenerative arthritis both hips with joint space narrowing. T2 hyperintensity consistent with edema with serpiginous enhancement involving the articular surface right femoral head compatible with avascular necrosis. Mild irregularity with slight compression. Bone marrow signal in the femoral neck is relatively normal. Small right hip effusion. Similar-appearing appearing less extensive findings involving the articular surface left femoral head with T2 hyperintensity and serpiginous enhancement consistent with avascular necrosis. No significan t collapse of the articular surface. No significant joint effusion left hip. T2 hyperintense lesion involving the left sacral ala consistent with myelomatous lesion. Associated e nhancement. Additional tiny enhancing lesion involving the right ilium adjacent to the acetabulum lik nolvia additional disease.Pubic rami are normal in appearance. No sacral insufficiency fractures. A few small lobulated synovial cysts involving the left joint capsule. Normal sigmoid colon. No pelvic lymphadenopathy. Partially visualized renal cysts. MR/MR pelvis wo/w con [id number] IMPRESSION: 1. Exam is limited due to motion artifact. 2. Edema with serpiginous enhancement involving the right femoral head articul ar surface compatible with avascular necrosis. Small amount of articular surfac e depression. Small right joint effusion. 3. Similar-appearing appearing findings in the left femoral articular surface, although less prominent compared to the right, also compatible with avascular necrosis. 4. Enhancing left sacral ala lesion consistent with myelomatous lesion measuri ng 12 mm seen on the recent PET/CT. 5. Additional tiny enhancing lesion involving the right ilium adjacent to the acetabulum likely additional disease. 6. No sacral insufficiency fractures.
[2020-09-07 13:04] LABS: Basophils % 0.4 %; Eosinophils % 0.4 %; Hematocrit 43.7 % (42.0-52.0); Hemoglobin 13.5 g/dL (11.7-16.6); Lymphocytes # 0.3 10^3/uL (0.8-4.8); Lymphocytes % 6.3 %; Mean Corpuscular HGB Conc 30.9 g/dL (30.0-36.0); Mean Corpuscular Hemoglobin 29.3 pg (28.0-34.0); Mean Platelet Volume 9.4 fL (7.4-10.4); Monocytes # 0.4 10^3/uL (0.2-0.9); Monocytes % 8.1 %; Neutrophils # 4.58 10^3/uL (1.8-7.7); Neutrophils % 84.1 %; Nucleated Red Blood Cells % 0 %; Platelet Count 207 10^3/cmm (130-400); Red Cell Distribution Width 17.4 % (12.1-15.1); White Blood Count 5.4 10^3/uL (4.0-10.0)
[2020-09-07 13:33] LABS: Alanine Aminotransferase 37 U/L (0-41); Alkaline Phosphatase 67 IU/L (40-130); Aspartate Amino Transferase 20 U/L (0-40); Blood Urea Nitrogen 25 mg/dL (8-23); Calcium 9.9 mg/dL (8.5-10.5); Carbon Dioxide 33 mmol/L (22-29); Chloride 97 mmol/L (98-107); Globulin 2.9 g/dL (1.3-4.6); Glucose 144 mg/dL (65-115); Osmolality Calculated 295 mOsm/kg (285-295); Sodium 139 mmol/L (136-145); Total Bilirubin 0.8 mg/dL (0.15-1.2); Total Protein 6.9 g/dL (6.6-8.7)
[2020-09-07 13:38] LABS: Anion Gap 13.6 (5-19); Potassium 4.6 mmol/L (3.5-5.1)
== END 2020-09-07 12:15 | disposition home or self-care (01) ==
LOC: ONCMED 12:19
PROVIDERS: PCP Nurse Practitioner; Visit Provider Internal Medicine Medical Oncology
DX: M87.9 Osteonecrosis, unspecified (principal); M25.451 Effusion, right hip; M99.84 Other biomechanical lesions of sacral region
CPT/HCPCS: 36415; 72197; 80053; 85025; A9579

== ENCOUNTER 2020-09-08 05:59 | Outpatient (CLI) | payer MEDICARE, BC, SELFPAY ==
--- NOTE | 2020-09-08 09:49 | MR_ITS ---
WS: [id number] MRI LUMBAR SPINE WITH CONTRAST TECHNIQUE: Sagittal T1, T2 and STIR imaging. Axial T1 and T2 imaging. Post gadolinium imaging was obt ained. CLINICAL INFORMATION: MYELOMA;LOWER BACK PAIN COMPARISON: CT 9 , MRI pelvis September 07, 2020 FINDINGS: Images degraded by motion artifact. Mild lumbar curve. Prior vertebroplasty changes with chronic compression at L1, L2, L3, and L4. Prior vertebroplasty changes in the thoracic spine at T5. L1-L2: Mild disc bulging with slight effacement of ventral thecal sac. Spinal canal and foramen are p atent. L2-L3: Mild disc osteophytic ridging with moderate central canal stenosis. Prominent epidural fat con tributes to stenosis. Narrowing of the subarticular recess. Moderate facet arthropathy. Mild right an d no significant left foraminal narrowing. L3-L4: Shallow central disc protrusion with moderate central canal stenosis. Slight impingement trave rsing L4 nerve roots bilaterally. Mild right and no significant left foraminal narrowing. Moderate fa cet arthropathy. L4-L5: Mild disc bulging and osteophytic ridging. Moderate central canal stenosis. Mild right and no significant left foraminal narrowing. Moderate facet arthropathy. L5-S1: Tiny right pericentral protrusion slightly contacts right S1 nerve root. Moderate facet arthro luanne. Left eccentric disc bulging slightly encroaches on the far exiting left L5 nerve root. Moderat e facet arthropathy. Bilateral renal cysts. Prominent right renal cyst measuring 5.8 cm. Enhancing left sacral lesion measuring 1.4 CM. MR/MR lumbar spine wo/w con [id number] IMPRESSION: 1. Again seen is the enhancing left sacral ala lesion consistent with myeloma measuring 12 mm unchanged since the recent MRI pelvis. 2. Chronic compression with vertebroplasty changes at L1, L2, L3, and L4. No a cute compression fractures. 3. Moderate central canal stenosis L2-3 due to disc bulging with facet arthrop athy ligament flavum hypertrophy. Dorsal epidural fat contributes to stenosis w ith narrowing of the thecal sac. 4. Small central disc protrusion L3-4 with moderate central canal stenosis and narrowing of the subarticular recess bilaterally. 5. Moderate central canal stenosis L4-5 due to disc bulging with facet arthrop athy ligament flavum hypertrophy. 6. Tiny right pericentral protrusion L5-S1 slightly contacts the right S1 nerv e root.
--- NOTE | 2020-09-11 14:09 | ONC FU_ITS ---
Dr. Hernandez Patient Follow-Up Note Patient: Brandon Roberts Unit #: [id number]: 1945 Dicatated By: Brandon Hernandez M.D.Date of Visit:Sep 08, 2020 Onc Med Follow-up/Prog Note Chief Complaint: Multiple myeloma. History of Present Illness: This is a 75 year-old man with IgG kappa myeloma. He had osteopenia and associated vertebral compression fractures at initial presentation in July of 2009. He underwent treatment through the [facility] on the Total Therapy 4 L program. He was felt to be in complete remission following his induction and consolidation treatment, which included tandem autologous stem cell transplants. He completed consolidation treatment in February of 2010. He was then given 3 years of maintenance with Revlimid/Velcade/dexamethasone. He completed treatment in May 2013. He then continued Aredia infusions every 3 months for maintenance of bone health. He was last treated here in December 2015. He had subsequently continued his regular follow-up at the [facility]. As of his visit there in January 2017 he was felt to be in complete remission. He was seen here for a follow-up visit on 03/15/2017. He was having significant pain in his right lower back/pelvic area. His protein electrophoresis studies at that time showed no evidence of recurrence of myeloma, and x-ray showed no evidence of lytic bone disease. He continued on observation/expectant management. I had seen him for a follow-up visit on 11/07/2017. At that point he appeared stable clinically. However, his repeat protein electrophoresis on 01/01/2018 showed evidence of an IgG kappa monoclonal paraprotein quantitating at 0.24 g/dL. The free light chain assay was unremarkable with free kappa light chain of 12.03 mg/L, free lambda light chain of 9.24 mg/L, and kappa/lambda ratio normal at 1.30. His 24-hour urine protein electrophoresis on 01/03/2018 showed no monoclonal protein. Skeletal survey showed right femoral head degenerative subcortical cyst versus myelomatous lesion. Also noted was diffuse marked bone demineralization with multilevel thoracic and lumbar compression fractures and with vertebroplasty changes. There was bilateral hip osteoarthrosis and there were degenerative changes noted in the cervical and lumbar spine. CT of the bony pelvis on 01/15/2018 showed no evidence of osteolytic or osteoblastic change. The right femoral head lucency was felt to most likely represent overlying posterior acetabular subcortical cyst. There was progression of severe right hip osteoarthritic change compared to October 2017 study. With the reappearance of monoclonal protein on the serum protein electrophoresis, he was referred to [facility] for reevaluation. He was seen there on 03/04/2018. His bone marrow aspiration/biopsy showed just 3% plasma cells. It was felt to be morphologically negative for myeloma. However, flow cytometric analysis revealed a plasma cell population with atypical immunophenotype comprising approximately 0.08% of analyzed events. There were no new bone lesions identified on MRI studies. His PET/CT also showed no evidence of active bone lesions. His DEXA scan showed T score -3.8 in the radial diaphysis and -0.8 in the proximal femur. He was advised to continue observation/expectant management for the myeloma. It was also recommended, though, that he start denosumab injections. During subsequent follow-up his M protein continued to increase gradually. As of 12/12/2018 it was up to 1.07 g/dL. He is seen for a scheduled visit. He subsequently had problems with kidney stones. He underwent lithotripsy initially on 01/13/2019. He then underwent lithotripsy again along with left ureteral stent placement on 02/07/2019. As of 04/21/2019 the M protein had increased to 2.9 g/dL. The free light chain assay showed elevated kappa light chain at 876 mg/L with lambda light chain 24 mg/L and elevated kappa/lambda ratio at 36.50. There was no monoclonal protein identified in his 24 hour urine specimen. At that point he started treatment with revlimid in combination with ixazomib and dexamethasone with Revlimid administered daily on a 21/28 day schedule, ixazomib administered weekly for 3 weeks, and the dexamethasone administered weekly. He tolerated the 1st cycle with acceptable toxicity, and he was able to continue with cycle 2 on 05/19/2019 and with cycle 3 on 06/16/2019. His repeat protein electrophoresis on 07/08/2019 showed decrease in the M protein to 0.7 g/dL. The free light chain assay showed kappa light chain 9.8 mg/L, lambda light chain 15.1 mg/mL and normal kappa/lambda ratio at 0.65. CT scans of the cervical, thoracic, lumbar spine on 07/10/2019 showed several small lytic lesions throughout the cervical spine, the largest measuring 10 mm in the C5 vertebral body. There were also degenerative changes, but no severe central canal stenosis. The thoracic spine showed diffuse severe osteopenia with prior vertebral plasty at T5. The lumbar spine also show diffuse osteopenia, prior vertebral plasties from L1-L4, as well as degenerative disc disease with multilevel mild central and subarticular recess stenosis. Also noted were extensive lytic areas of lucency in the sacrum. He continued on treatment with Revlimid/ixazomib/dexamethasone. As of his follow-up visit on 11/13/2019 had developed significant worsening of lower extremity edema, and he continued to have shortness of breath and declining activity tolerance. As such, his treatment was put on hold. On 12/19/2019 he was admitted to the hospital with atrial fibrillation. It was managed medically, he was scheduled for outpatient follow-up with Dr. Haskins. However, on 12/25/2019 he was readmitted to the hospital with increased heart rate and increased shortness of breath. He was found to have cardiomyopathy and acute systolic congestive heart failure. He had a atrial fibrillation/flutter, for which he started treatment with amiodarone. His echocardiogram showed severe left ventricular dysfunction with ejection fraction estimated at 15 to 20%. Following discharge he continued treatment with amiodarone 200 mg daily together with furosemide 60 mg twice daily, metoprolol 50 mg daily, Entresto 24-26 mg daily, and apixaban 5 mg twice daily. His myeloma therapy remained on hold. His repeat serum protein electrophoresis on 02/19/2020 showed stable M protein at 0.6 g/dL. At that point his clinical status also appeared stable, and he continued on observation/expectant management. His repeat echocardiogram on 04/06/2020 showed significant improvement in the LV function with estimated ejection fraction at 50%. As of 05/03/2020 his M protein had increased to 1.1 g/dL. Restaging PET/CT on 05/22/2020 showed new FDG positive lesions in the L5 vertebral body and left sacral ala consistent with recurrent myeloma. With that finding, I had recommended that he continue further treatment with daratumumab in combination with pomalidomide and dexamethasone. His other medical illnesses include hypertension and atrial fibrillation. He had an admission to the hospital for opportunistic pneumonia in August of 2011. He was treated for cellulitis of the left leg in January 2015. He had smoked in the past, but he quit more than 25 years ago. INTERIM HISTORY: He began cycle 1 of daratumumab/pomalidomide/dexamethasone on 06/14/2020 with the daratumumab administered by subcutaneous injection. At that point his M protein had further increased to 1.4 g/dL. He had some transient pulmonary congestion following the initial daratumumab injection. He had no other apparent toxicity. He continued with his week 2 daratumumab on 06/21/2020, and at that point he also continued pomalidomide 4 mg daily. As of 06/28/2020 his treatment was put on hold due to worsening neutropenia. He was then able to proceed with cycle 2 of daratumumab in combination with pomalidomide/dexamethasone on 07/14/2020 with the pomalidomide dosage reduced to 4 mg every other day for 14 days. He was able to tolerate that with acceptable toxicity, though at his follow-up visit on 08/03/2020 his cycle 3 of pomalidomide was again delayed due to neutropenia. At that time he was able to complete his 6h injection of daratumumab on the weekly dosing. He was showing some decline in the M protein, to 0.7 g/dL. As of his follow-up visit on 08/25/2020 he had completed 8 injections of daratumumab at the 1-week dosing schedule. At that point he proceeded with his 3rd cycle of treatment and with the daratumumab administered at a 2-week intervals. Despite the decrease in his M protein, he was having increased pain in his back and hips, and he was showing decline in performance status. He had further evaluation with MRI of the pelvis on 09/07/2020. The most significant finding was edema with serpiginous enhancement involving the right femoral head articular surface compatible with avascular necrosis. There were similar findings in the left hip. An enhancing left sacral ala lesion measuring 12 mm appeared consistent with a myelomatous lesion. An additional tiny enhancing lesion involving the right ilium adjacent to the acetabulum was felt to likely represent additional disease. MRI of the lumbar spine on 09/08/2020 showed significant degenerative changes, but no obvious involvement with myeloma. He is seen for a follow-up visit. He has not been feeling good. He has been having more pain in his lower back and hips. He has very limited activity. He is having to use a walker to ambulate. His ECOG score is 3. Appetite also has fallen off. He has not had fever, but he does have a lot of sweating. He thinks that may be related to his pain medication. He is short of breath with any exertion. He does not complain of cough and he has not been having chest pain. He has not had nausea. He does have acid reflux, which he manages with Rolaids. He manages constipation with senna/docusate. He has some urinary frequency with urgency/incontinence. He does not complain of headache. He has had some orthostatic lightheadedness. He has numbness in his left foot and a little bit in his left hand. Medications: Acyclovir 400 mg (of 400 mg) Tablet Oral b.i.d., Amiodarone HCl 1 Tablet (of 200 mg) Oral daily, DULoxetine HCl 1 Capsule (of 60 mg) Capsule Delayed Release Particles Oral daily, Furosemide 1.5 Tablet (of 40 mg) Oral daily, K-Tab 0.5 Tablet (of 20 meq) Tablet, controlled release Oral daily, LORazepam 1 Tablet (of 1 mg) Oral q 8 hours PRN, Metoprolol Succinate ER 1.5 Tablet (of 50 mg) Tablet SR 24 HR Oral daily, Morphine Sulfate ER 1 Tablet (of 60 mg) Tablet, controlled release Oral q 12 hours, OxyCODONE HCl 1 Tablet (of 30 mg) Oral four times a day PRN, Pomalidomide 1 Capsule (of 4 mg) Oral q 21 days, Sacubitril-Valsartan 1 Tablet (of 24-26 mg) Oral b.i.d., Spironolactone 1 Tablet (of 50 mg) Oral daily, TraZODone HCl 1 - 2 (50 mg) Tablet Oral at bedtime, Xarelto 1 Tablet (of 20 mg) Oral daily Allergies: No Known Allergies. Review of Systems: Constitutional - He feels okay, but he does get tired very easily. He is up and around with a walker. His appetite has decreased and his weight is down 3 pound from last visit. No fevers. He continues to have persistent sweating episodes. He feels his pain medications worsens it. ECOG score is 3, ENMT - He has sinus drainage, mostly after he eats. No mouth sores. No sore throat or difficulty swallowing, Hematologic/Lymphatic - He bruises easily, Respiratory - He gets short of breath with activity. No cough. No pleuritic pain or hemoptysis, Cardiovascular - No angina pain. No palpitations, Gastrointestinal - No nausea or vomiting. No heartburn or acid reflux. No diarrhea. He is having constipation. He is using Senna-S 1 tab twice daily for this. No blood in the stool or black stools, Genitourinary (M) - No dysuria or hematuria. No urinary frequency. He has urgency/incontinence, Musculoskeletal - He has pain in his lower back and left foot. He continues to have significant pain in his both hips, Integumentary - No skin complications, Neurologic - No headache. He has occasional orthostatic dizziness. He has numbness in his left foot and a little bit in his left hand. No other focal neurologic symptoms, Psychiatric - His anxiety is adequately managed with lorazepam. He has some depression. No insomnia. Vital Signs: Performed on Sep 08, 2020 08:56 Height - 71.00 in Weight - 244.6 lbs (LOW) BSA - 2.30 sq.m BMI - 34.12 (HIGH) Temperature - 97.8 F (LOW) Pulse - 59 /min (LOW) Respiration - 20 /min BP - 123/68 mm(hg) O2 Sat - 100 % Pain - 0 Physical Examination: Constitutional - He appears generally weak, Eyes - Sclerae nonicteric. Conjunctivae clear, ENMT - No lesions noted in the oral cavity, Hematologic/Lymphatic - No cervical, clavicular, or axillary adenopathy, Respiratory - Lungs sound clear, Cardiovascular - Heart rhythm is regular. There is no murmur, gallop, or rub noted, Abdomen - Moderately distended. Liver and spleen are not enlarged. There is no abdominal mass or ascites noted and there is no inguinal adenopathy, Extremities - There are venous stasis changes bilaterally. There is sliglht edema. He has extensive propria, Neurologic - No focal neurologic deficits noted. Lab/Imaging: CBC shows hemoglobin 13.5 g, white blood cell count 5400, and platelet count 207,000. Comprehensive metabolic profile shows decline in renal function with BUN 25 and creatinine 1.4 mg/dL. Bilirubin and liver enzymes are normal. Impression: 1. Patient with IgG kappa myeloma, initially diagnosed in July 2009. He had associated osteopenia and multiple vertebral compression fractures. 2. He underwent treatment at the [facility] on the total therapy 4L protocol. He completed his maintenance therapy with Revlimid, Velcade and dexamethasone in May 2013. 3. He had continued Aredia infusions every 3 months for bone health. He was last treated here in December 2015. 4. As of his follow-up visit at [facility] in January 2017, his myeloma was felt to be in complete remission. His other medical illnesses include: 5. Hypertension. 6. Atrial fibrillation. 7. He required treatment for opportunistic pneumonia in August 2011. 8. He was treated for cellulitis of the left leg in January 2015. In March 2017 he presented with increased pain in his lower back and pelvic area. His laboratory studies and x-rays at that time showed no evidence of recurrence of the myeloma. However, his repeat protein electrophoresis in December 2017 did show a small IgG kappa monoclonal protein spike quantitating at 0.24 g/dL, consistent with early relapse of his myeloma. He had follow-up at [facility] on 03/04/2018. Based on their recommendations, he initially was followed on observation/expectant management for the myeloma, but he did start monthly denosumab injections. During follow-up there was continued gradual increase in his M protein. As of 12/12/2018 it had increased to 1.07 g/dL. His subsequent clinical course was complicated nephrolithiasis requiring lithotripsy and ureteral stent placement. As of 04/21/2019 there was further increase in the M protein to 2.9 g/dL. The free light chain assay showed elevated kappa light chain at 876 mg/L with lambda light chain 24 mg/L and elevated kappa/lambda ratio at 36.50. There was no monoclonal protein identified in his 24 hour urine specimen. At that point he started treatment with Revlimid in combination with ixazomib and dexamethasone. As of his follow-up visit on 07/14/2019 he had completed 3 cycles of treatment, and at that point he did appear to be showing a very good response by serum protein electrophoresis. He then continued on the same treatment. He had been tolerating it well other than he developed significant fluid retention and other side effects with the steroid. The swelling had initially improved with diuretic therapy, and he was able to continue treatment. As of October 2019 he began his 7th cycle. During subsequent follow-up his lower extremity edema had continued to worsen, and he also complained of shortness of breath and declining activity tolerance. As of his follow-up visit on 11/13/2019 his myeloma treatment was put on hold. Ultimately, he was found to have severe cardiomyopathy with left ventricular ejection fraction estimated at 15 to 20% by transesophageal echocardiogram. He had associated atrial flutter/fibrillation, for which he began treatment with amiodarone and metoprolol. He also started anticoagulation with apixaban. During follow-up he continued to have very limited activity tolerance. His myeloma therapy had remained on hold. He had a very good response to the treatment by protein electrophoresis, but his M protein then began to increase. As of April 2020 it was back up to 1.1 g/dL, but at that point his repeat echocardiogram had shown a very significant improvement in his left ventricular function. His restaging PET/CT on 05/22/2020 showed several areas of myeloma progression in the bone. On 06/14/2020 he began further treatment with daratumumab in combination with pomalidomide and dexamethasone. The daratumumab was administered by subcutaneous injection. He experienced some transient chest congestion with the initial injection of daratumumab, but he otherwise tolerated it well. He continued with week 2 daratumumab on 06/21/2020 and at that point he also continued pomalidomide 4 mg daily and dexamethasone 40 mg weekly. As of 06/28/2020 the treatment was put on hold due to worsening neutropenia and declining performance status. He was then able to continue with cycle 2 of pomalidomide with the dosage reduced to 4 mg every other day for 14 days. He tolerated it with acceptable toxicity, though his cycle 3 was again delayed due to neutropenia. He was then able to continue with the pomalidomide with the dosage reduced to 2 mg daily on a 21/28-day schedule. As of 08/25/2020 he had completed 8 injections of daratumumab on the weekly schedule. He appeared to be showing response by protein electrophoresis, but he continued to have significant pain in the back and hips, and he was shwowing decline in his performance status. He proceeded with cycle 3 of pomalidomide/daratumumab/dexamethasone but with the daratumumab administered at 2-week intervals. He has continued to tolerate the treatment with acceptable toxicity. However, in the meantime, he had further evaluation with MRI of the pelvis and lumbar spine. There were a couple of small lesions in the pelvis which were suspected to due to myeloma. 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 Plan: He will continue with cycle 4 with the pomalidomide dosage at 2 mg daily on a 21/28-day schedule, and he will the daratumumab administered a 2-week intervals. He will stop the dexamethasone. I will review the MRI with the radiologist and with an orthopedic surgeon. However, mention of the hip joint aseptic necrosis will be problematic due to his marginal performance status. Signed By: Brandon Hernandez M.D. <<Signature on File>>
== END 2020-09-08 06:00 | disposition home or self-care (01) ==
LOC: ONCMED 06:01
PROVIDERS: PCP Nurse Practitioner; Visit Provider Internal Medicine Medical Oncology
DX: Z51.12 Encounter for antineoplastic immunotherapy (principal); C90.02 Multiple myeloma in relapse; D70.1 Agranulocytosis secondary to cancer chemotherapy; T45.1X5A Adverse effect of antineoplastic and immunosuppressive drugs, initial encounter; I10 Essential (primary) hypertension; I48.91 Unspecified atrial fibrillation; Z87.01 Personal history of pneumonia (recurrent); Z87.2 Personal history of diseases of the skin and subcutaneous tissue
CPT/HCPCS: 72158; 96401; 99214; A9579; C9062

== ENCOUNTER 2020-09-22 06:03 | Outpatient (CLI) | payer MEDICARE, BC, SELFPAY ==
[2020-09-22 11:42] LABS: Basophils # 0.1 10^3/uL (0.0-0.1); Basophils % 1.8 %; Eosinophils # 0.4 10^3/uL (0.0-0.8); Eosinophils % 7.9 %; Hematocrit 39.8 % (42.0-52.0); Hemoglobin 12.3 g/dL (11.7-16.6); Lymphocytes # 0.7 10^3/uL (0.8-4.8); Lymphocytes % 15.9 %; Mean Corpuscular HGB Conc 30.9 g/dL (30.0-36.0); Mean Corpuscular Hemoglobin 29.3 pg (28.0-34.0); Mean Corpuscular Volume 94.8 fL (80-94); Monocytes # 0.8 10^3/uL (0.2-0.9); Monocytes % 17.8 %; Neutrophils # 2.54 10^3/uL (1.8-7.7); Neutrophils % 55.9 %; Nucleated Red Blood Cells % 0 %; Platelet Count 179 10^3/cmm (130-400); Red Cell Distribution Width 17.3 % (12.1-15.1); White Blood Count 4.5 10^3/uL (4.0-10.0)
[2020-09-22 12:05] LABS: Alanine Aminotransferase 17 U/L (0-41); Albumin Level 3.9 g/dL (3.5-5.2); Alkaline Phosphatase 63 IU/L (40-130); Anion Gap 12.5 (5-19); Aspartate Amino Transferase 12 U/L (0-40); Blood Urea Nitrogen 17 mg/dL (8-23); Carbon Dioxide 30 mmol/L (22-29); Chloride 98 mmol/L (98-107); Globulin 2.5 g/dL (1.3-4.6); Glucose 104 mg/dL (65-115); Immunoglobulin IGA 50 mg/dL (70-400); Immunoglobulin IGG 643 mg/dL (700-1600); Immunoglobulin IGM 99 mg/dL (40-230); Osmolality Calculated 284 mOsm/kg (285-295); Potassium 4.5 mmol/L (3.5-5.1); Sodium 136 mmol/L (136-145); Total Bilirubin 0.6 mg/dL (0.15-1.2); Total Protein 6.4 g/dL (6.6-8.7)
[2020-09-23 08:08] LABS: PROTEIN, TOTAL 6.3 g/dL (6.1-8.1)
[2020-09-23 14:43] LABS: KAPPA/LAMBDA LIGHT CHAINS FREE 0.94 (0.26-1.65); LAMBDA LIGHT CHAIN, FREE, SERU 13.8 mg/L (5.7-26.3)
[2020-09-23 15:12] LABS: ABNORMAL PROTEIN BAND 1 0.3 g/dL (NONE DETECTED); ABNORMAL PROTEIN BAND 2 0.1 g/dL (NONE DETECTED); ALBUMIN 3.5 g/dL (3.8-4.8); ALPHA 1 GLOBULIN 0.5 g/dL (0.2-0.3); BETA 1 GLOBULIN 0.4 g/dL (0.4-0.6); BETA 2 GLOBULIN 0.3 g/dL (0.2-0.5); GAMMA GLOBULIN 0.6 g/dL (0.8-1.7)
--- NOTE | 2020-09-28 21:48 | ONC FU_ITS ---
Reyna Gonzalez Patient Note Patient: Brandon Roberts Unit #: [id number]: 1945 Dictated By: Farzana MartinezDate of Visit: Sep 22, 2020 Onc MED Follow-Up/Prog Note Chief Complaint: Multiple myeloma. History of Present Illness: Mr Roberts is a 75 year-old man with IgG kappa myeloma. He had osteopenia and associated vertebral compression fractures at initial presentation in July of 2009. He underwent treatment through the [facility] on the Total Therapy 4 L program. He was felt to be in complete remission following his induction and consolidation treatment, which included tandem autologous stem cell transplants. He completed consolidation treatment in February of 2010. He was then given 3 years of maintenance with Revlimid/Velcade/dexamethasone. He completed treatment in May 2013. He then continued Aredia infusions every 3 months for maintenance of bone health. He was last treated here in December 2015. He had subsequently continued his regular follow-up at the [facility]. As of his visit there in January 2017 he was felt to be in complete remission. He was seen here for a follow-up visit on 03/15/2017. He was having significant pain in his right lower back/pelvic area. His protein electrophoresis studies at that time showed no evidence of recurrence of myeloma, and x-ray showed no evidence of lytic bone disease. He continued on observation/expectant management. Dr Hernandez had seen him for a follow-up visit on 11/07/2017. At that point he appeared stable clinically. However, his repeat protein electrophoresis on 01/01/2018 showed evidence of an IgG kappa monoclonal paraprotein quantitating at 0.24 g/dL. The free light chain assay was unremarkable with free kappa light chain of 12.03 mg/L, free lambda light chain of 9.24 mg/L, and kappa/lambda ratio normal at 1.30. His 24-hour urine protein electrophoresis on 01/03/2018 showed no monoclonal protein. Skeletal survey showed right femoral head degenerative subcortical cyst versus myelomatous lesion. Also noted was diffuse marked bone demineralization with multilevel thoracic and lumbar compression fractures and with vertebroplasty changes. There was bilateral hip osteoarthrosis and there were degenerative changes noted in the cervical and lumbar spine. CT of the bony pelvis on 01/15/2018 showed no evidence of osteolytic or osteoblastic change. The right femoral head lucency was felt to most likely represent overlying posterior acetabular subcortical cyst. There was progression of severe right hip osteoarthritic change compared to October 2017 study. With the reappearance of monoclonal protein on the serum protein electrophoresis, he was referred to [facility] for reevaluation. He was seen there on 03/04/2018. His bone marrow aspiration/biopsy showed just 3% plasma cells. It was felt to be morphologically negative for myeloma. However, flow cytometric analysis revealed a plasma cell population with atypical immunophenotype comprising approximately 0.08% of analyzed events. There were no new bone lesions identified on MRI studies. His PET/CT also showed no evidence of active bone lesions. His DEXA scan showed T score -3.8 in the radial diaphysis and -0.8 in the proximal femur. He was advised to continue observation/expectant management for the myeloma. It was also recommended, though, that he start denosumab injections. During subsequent follow-up his M protein continued to increase gradually. As of 12/12/2018 it was up to 1.07 g/dL. He is seen for a scheduled visit. He subsequently had problems with kidney stones. He underwent lithotripsy initially on 01/13/2019. He then underwent lithotripsy again along with left ureteral stent placement on 02/07/2019. As of 04/21/2019 the M protein had increased to 2.9 g/dL. The free light chain assay showed elevated kappa light chain at 876 mg/L with lambda light chain 24 mg/L and elevated kappa/lambda ratio at 36.50. There was no monoclonal protein identified in his 24 hour urine specimen. At that point he started treatment with revlimid in combination with ixazomib and dexamethasone with Revlimid administered daily on a 21/ day schedule, ixazomib administered weekly for 3 weeks, and the dexamethasone administered weekly. He tolerated the 1st cycle with acceptable toxicity, and he was able to continue with cycle 2 on 05/19/2019 and with cycle 3 on 06/16/2019. His repeat protein electrophoresis on 07/08/2019 showed decrease in the M protein to 0.7 g/dL. The free light chain assay showed kappa light chain 9.8 mg/L, lambda light chain 15.1 mg/mL and normal kappa/lambda ratio at 0.65. CT scans of the cervical, thoracic, lumbar spine on 07/10/2019 showed several small lytic lesions throughout the cervical spine, the largest measuring 10 mm in the C5 vertebral body. There were also degenerative changes, but no severe central canal stenosis. The thoracic spine showed diffuse severe osteopenia with prior vertebral plasty at T5. The lumbar spine also show diffuse osteopenia, prior vertebral plasties from L1-L4, as well as degenerative disc disease with multilevel mild central and subarticular recess stenosis. Also noted were extensive lytic areas of lucency in the sacrum. He continued on treatment with Revlimid/ixazomib/dexamethasone. As of his follow-up visit on 11/13/2019 had developed significant worsening of lower extremity edema, and he continued to have shortness of breath and declining activity tolerance. As such, his treatment was put on hold. On 12/19/2019 he was admitted to the hospital with atrial fibrillation. It was managed medically, he was scheduled for outpatient follow-up with Dr. Haskins. However, on 12/25/2019 he was readmitted to the hospital with increased heart rate and increased shortness of breath. He was found to have cardiomyopathy and acute systolic congestive heart failure. He had a atrial fibrillation/flutter, for which he started treatment with amiodarone. His echocardiogram showed severe left ventricular dysfunction with ejection fraction estimated at 15 to 20%. Following discharge he continued treatment with amiodarone 200 mg daily together with furosemide 60 mg twice daily, metoprolol 50 mg daily, Entresto 24-26 mg daily, and apixaban 5 mg twice daily. His myeloma therapy remained on hold. His repeat serum protein electrophoresis on 02/19/2020 showed stable M protein at 0.6 g/dL. At that point his clinical status also appeared stable, and he continued on observation/expectant management. His repeat echocardiogram on 04/06/2020 showed significant improvement in the LV function with estimated ejection fraction at 50%. As of 05/03/2020 his M protein had increased to 1.1 g/dL. Restaging PET/CT on 05/22/2020 showed new FDG positive lesions in the L5 vertebral body and left sacral ala consistent with recurrent myeloma. With that finding, Dr Hernandez had recommended that he continue further treatment with daratumumab in combination with pomalidomide and dexamethasone. His other medical illnesses include hypertension and atrial fibrillation. He had an admission to the hospital for opportunistic pneumonia in August of 2011. He was treated for cellulitis of the left leg in January 2015. He had smoked in the past, but he quit more than 25 years ago. INTERIM HISTORY: He began cycle 1 of daratumumab/pomalidomide/dexamethasone on 06/14/2020 with the daratumumab administered by subcutaneous injection. At that point his M protein had further increased to 1.4 g/dL. He had some transient pulmonary congestion following the initial daratumumab injection. He had no other apparent toxicity. He continued with his week 2 daratumumab on 06/21/2020, and at that point he also continued pomalidomide 4 mg daily. As of 06/28/2020 his treatment was put on hold due to worsening neutropenia. He was then able to proceed with cycle 2 of daratumumab in combination with pomalidomide/dexamethasone on 07/14/2020 with the pomalidomide dosage reduced to 4 mg every other day for 14 days. He was able to tolerate that with acceptable toxicity, though at his follow-up visit on 08/03/2020 his cycle 3 of pomalidomide was again delayed due to neutropenia. At that time he was able to complete his 6h injection of daratumumab on the weekly dosing. He was showing some decline in the M protein, to 0.7 g/dL. As of his follow-up visit on 08/25/2020 he had completed 8 injections of daratumumab at the 1-week dosing schedule. At that point he proceeded with his 3rd cycle of treatment and with the daratumumab administered at a 2-week intervals. Despite the decrease in his M protein, he was having increased pain in his back and hips, and he was showing decline in performance status. He had further evaluation with MRI of the pelvis on 09/07/2020. The most significant finding was edema with serpiginous enhancement involving the right femoral head articular surface compatible with avascular necrosis. There were similar findings in the left hip. An enhancing left sacral ala lesion measuring 12 mm appeared consistent with a myelomatous lesion. An additional tiny enhancing lesion involving the right ilium adjacent to the acetabulum was felt to likely represent additional disease. MRI of the lumbar spine on 09/08/2020 showed significant degenerative changes, but no obvious involvement with myeloma. Mr. Roberts is here today for a follow-up visit. He states that with the pain medication changes recently his back is better. He is also wondering about possibly doing some physical therapy in the home. Mrs. Roberts reports that he has had a few episodes of being confused and seeing things/hallucinations . He is alert and oriented our visit today. And we discussed that this could be a side effect of his medication particularly the pain medication. He is not been sleepwalking or any other concerns at this point. Mrs. Garcia reports that he had an episode since his last visit at his hands turning really white and cool. His O2 sat was 83% during the spell. Mrs. Roberts applied his home O2 and within 10 to 15 minutes he was all pink back up again. He has had no recurrence. He has been taking Lasix as needed for lower extremity edema. He is advised that he can take an extra Lasix on the days that he is really swollen but once the swelling resolves to resume at his normal dosing. He continues to have mild neuropathy in his hands and feet he states is unchanged and certainly no worse than what it has been. He denies nausea or vomiting. He states his bowels are normal for him. His ECOG is 3. Past Medical History: Atrial fibrillation Bilateral renal cysts Hypertension Vitamin D deficiency Nephrolithiasis in 2018 Multiple myeloma in 2008 IgG kappa myeloma dx jul 2009 hx htn, afib Past Surgical History: Appendectomy Right side port placement Right sided port removal Vertebral plasty Flu vaccine in 2019 - right deltoid Flu vaccine in 2018 Lithotripsy x2 in 2019 Stent placement left ureter in 2019 Flu vaccine in 2014 Pneumonia vaccine in 2015 - prevnar 13 Allergies: No Known Allergies. Medications: Acyclovir 400 mg (of 400 mg) Tablet Oral b.i.d. Amiodarone HCl 1 Tablet (of 200 mg) Oral daily DULoxetine HCl 1 Capsule (of 60 mg) Capsule Delayed Release Particles Oral daily Furosemide 1.5 Tablet (of 40 mg) Oral daily K-Tab 0.5 Tablet (of 20 meq) Tablet, controlled release Oral daily LORazepam 1 Tablet (of 1 mg) Oral q 8 hours PRN Metoprolol Succinate ER 1.5 Tablet (of 50 mg) Tablet SR 24 HR Oral daily Morphine Sulfate ER 1 Tablet (of 60 mg) Tablet, controlled release Oral q 12 hours OxyCODONE HCl 1 Tablet (of 30 mg) Oral four times a day PRN Pomalidomide 1 Capsule (of 4 mg) Oral q 21 days Sacubitril-Valsartan 1 Tablet (of 24-26 mg) Oral b.i.d. Spironolactone 1 Tablet (of 50 mg) Oral daily TraZODone HCl 1 - 2 (50 mg) Tablet Oral at bedtime Xarelto 1 Tablet (of 20 mg) Oral daily Family History: Mr. Roberts's mother at age 77: cancer history consists of Colon cancer (cause of ). Mr. Leóns father at age 65: cancer history consists of Prostate cancer. mother had cancer of lung also brother has prostate cancer. Social History: Mr. Roberts is and he is retired. Mr. Roberts quit smoking 26 years ago but had smoked 2.0 packs/day for 22 years. He is an active drinker.He consumes 2 drinks/day. Mr. Roberts reports the following support systems: lives with spouse, significant other, family, or friends, lives in own house, supportive family/friends willing to assist with needs, and adequate transportation available for expected visits. His diet consists of regular meals. He indicates his activity level as: daily activities. , hasn't drank in 68 years, quit smoking 25 years ago. April 2019 has resumed consuming two double bourbon drinks nightly. Review Of Symptoms: Constitutional weak in general-no fever or chills. appetite fair . Pain meds maybe causing confusion and hallucinations but pain is controlled. Allergic/Immunologic Denies allergies and adverse reactions. Eyes Denies blurred vision, double vision, visual difficulties and photophobia. ENMT Denies changes in hearing, sore throat, mouth sores, difficulty or changes in swallowing ability, and/or sinus drainage. Hematologic/Lymphatic Denies easy bruising and tender or enlarged lymph nodes. Respiratory Denies cough, dyspnea, hemoptysis, hiccoughs, pleuritic chest pain and wheezing. Cardiovascular Denies arrhythmias, chest pain, dyspnea, edema, orthopnea and palpitations. Gastrointestinal Denies abdominal pain, change in bowel habits, constipation, diarrhea, heartburn / dyspepsia. Constipation controlled with stool softeners at present. Genitourinary (M) Denies dysuria, but has had stable nocturnal frequency. No hematuria. Musculoskeletal Denies new pain but weak in general. Limited mobility and requires wheelchair or wheeled walker for mobility assistance. Integumentary Denies chronic rashes, inflammation, ulcerations or skin changes. Neurologic Denies headache, blurred vision, and no areas of focal weakness or numbness. Assisted gait. No sensory problems. Psychiatric Denies hallucinations and mood swings. Vital Signs: Performed on Sep 22, 2020 13:46 Height - 71.00 in Weight - 241.0 lbs (LOW) BSA - 2.28 sq.m BMI - 33.61 (HIGH) Temperature - 97.6 F (LOW) Pulse - 60 /min Respiration - 18 /min BP - 114/58 mm(hg) O2 Sat - 98 % Pain - 0,3 - Capable of only limited self-care, confined to bed or chair more than 50% of waking hours. (ECOG) Physical Examination: Constitutional Alert, oriented, no acute distress-weak in general. Skin pink, warm and dry. Head Normocephalic; atraumatic. Eyes Conjunctivae and sclerae are clear and without icterus. Pupils are reactive and equal. slight exophthalmos bilaterally. Neck Supple without masses or thyromegaly. No jugular venous distension. Hematologic/Lymphatic scattered bruising on arms-not new. Respiratory Lungs are clear to auscultation without rhonchi or wheezing. Cardiovascular Regular rate and rhythm of heart without murmurs,clicks, gallops or rubs. Chest Chest is symmetric without chest wall deformities. Abdomen Non-tender, non-distended, no masses, ascites. Back/Spine Non-tender to palpation. Extremities No visible deformities, no cyanosis, clubbing. + 1 bilateral lower extremity edema-non pitting. Musculoskeletal No tenderness or swelling, normal range of motion bilaterally lower extremity weakness. Integumentary No rashes or lesions. Neurologic using wheelchair for mobility but requires someone to help him maneuver the wheelchair. Psychiatric Alert and oriented times three. Coherent speech. Verbalizes understanding of our discussions today. Laboratory:Test performed on Sep 22, 2020 11:28 Sodium 136 mmol/L Potassium 4.5 mmol/L Chloride 98 mmol/L CO2 30 mmol/L Anion Gap 12.5 BUN 17 mg/dL Creatinine 1.3 mg/dL Cr Clearance (Est) 75.2900 mL/min Glucose 104 mg/dL Osmolality - Calculated 284 mOsm/kg Calcium 10.0 mg/dL Protein, Total 6.4 g/dL Albumin 3.9 g/dL Globulin 2.5 g/dL Bilirubin, Total 0.6 mg/dL ALT (SGPT) 17 U/L AST (SGOT) 12 U/L Alkaline Phosphatase 63 IU/L WBC 4.5 10 3/uL RBC 4.20 10 6/uL HGB 12.3 g/dL HCT 39.8 % MCV 94.8 fL MCH 29.3 pg MCHC 30.9 g/dL RDW 17.3 % Platelet Count 179 10 3/cmm MPV 9.0 fL Neutrophils 2.54 10 3/uL Lymphocytes 0.7 10 3/uL Monocytes 0.8 10 3/uL Eosinophils 0.4 10 3/uL Basophils 0.1 10 3/uL Neutrophil % 55.9 % Lymphocyte % 15.9 % Monocyte % 17.8 % Eosinophil % 7.9 % Basophils % 1.8 % NRBC % 0 % IgG 643 mg/dL Ste[place]uer Free Light Chains 13.0 mg/L Lambda Free Light Chains 13.8 mg/L IgA 50 mg/dL [place]/Lambda Free Ratio 0.94 IgM 99 mg/dL Impression: 1. Patient with IgG kappa myeloma, initially diagnosed in July 2009. He had associated osteopenia and multiple vertebral compression fractures. 2. He underwent treatment at the [facility] on the total therapy 4L protocol. He completed his maintenance therapy with Revlimid, Velcade and dexamethasone in May 2013. 3. He had continued Aredia infusions every 3 months for bone health. He was last treated here in December 2015. 4. As of his follow-up visit at [facility] in January 2017, his myeloma was felt to be in complete remission. His other medical illnesses include: 5. Hypertension. 6. Atrial fibrillation. 7. He required treatment for opportunistic pneumonia in August 2011. 8. He was treated for cellulitis of the left leg in January 2015. In March 2017 he presented with increased pain in his lower back and pelvic area. His laboratory studies and x-rays at that time showed no evidence of recurrence of the myeloma. However, his repeat protein electrophoresis in December 2017 did show a small IgG kappa monoclonal protein spike quantitating at 0.24 g/dL, consistent with early relapse of his myeloma. He had follow-up at [facility] on 03/04/2018. Based on their recommendations, he initially was followed on observation/expectant management for the myeloma, but he did start monthly denosumab injections. During follow-up there was continued gradual increase in his M protein. As of 12/12/2018 it had increased to 1.07 g/dL. His subsequent clinical course was complicated nephrolithiasis requiring lithotripsy and ureteral stent placement. As of 04/21/2019 there was further increase in the M protein to 2.9 g/dL. The free light chain assay showed elevated kappa light chain at 876 mg/L with lambda light chain 24 mg/L and elevated kappa/lambda ratio at 36.50. There was no monoclonal protein identified in his 24 hour urine specimen. At that point he started treatment with Revlimid in combination with ixazomib and dexamethasone. As of his follow-up visit on 07/14/2019 he had completed 3 cycles of treatment, and at that point he did appear to be showing a very good response by serum protein electrophoresis. He then continued on the same treatment. He had been tolerating it well other than he developed significant fluid retention and other side effects with the steroid. The swelling had initially improved with diuretic therapy, and he was able to continue treatment. As of October 2019 he began his 7th cycle. During subsequent follow-up his lower extremity edema had continued to worsen, and he also complained of shortness of breath and declining activity tolerance. As of his follow-up visit on 11/13/2019 his myeloma treatment was put on hold. Ultimately, he was found to have severe cardiomyopathy with left ventricular ejection fraction estimated at 15 to 20% by transesophageal echocardiogram. He had associated atrial flutter/fibrillation, for which he began treatment with amiodarone and metoprolol. He also started anticoagulation with apixaban. During follow-up he continued to have very limited activity tolerance. His myeloma therapy had remained on hold. He had a very good response to the treatment by protein electrophoresis, but his M protein then began to increase. As of April 2020 it was back up to 1.1 g/dL, but at that point his repeat echocardiogram had shown a very significant improvement in his left ventricular function. His restaging PET/CT on 05/22/2020 showed several areas of myeloma progression in the bone. On 06/14/2020 he began further treatment with daratumumab in combination with pomalidomide and dexamethasone. The daratumumab was administered by subcutaneous injection. He experienced some transient chest congestion with the initial injection of daratumumab, but he otherwise tolerated it well. He continued with week 2 daratumumab on 06/21/2020 and at that point he also continued pomalidomide 4 mg daily and dexamethasone 40 mg weekly. As of 06/28/2020 the treatment was put on hold due to worsening neutropenia and declining performance status. He was then able to continue with cycle 2 of pomalidomide with the dosage reduced to 4 mg every other day for 14 days. He tolerated it with acceptable toxicity, though his cycle 3 was again delayed due to neutropenia. He was then able to continue with the pomalidomide with the dosage reduced to 2 mg daily on a 21/28-day schedule. As of 08/25/2020 he had completed 8 injections of daratumumab on the weekly schedule. He appeared to be showing response by protein electrophoresis, but he continued to have significant pain in the back and hips, and he was shwowing decline in his performance status. He proceeded with cycle 3 of pomalidomide/daratumumab/dexamethasone but with the daratumumab administered at 2-week intervals. He has continued to tolerate the treatment with acceptable toxicity. However, in the meantime, he had further evaluation with MRI of the pelvis and lumbar spine. There were a couple of small lesions in the pelvis which were suspected to due to myeloma. 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 Plan: 1. Procced with cycle 4 with the pomalidomide dosage at 2 mg daily on a 21/28-day schedule, and he will the daratumumab administered a 2-week intervals. 2. He did stop the dexamethasone. 3.. Dr David monsivais talk to the radiologist and with an orthopedic surgeon regarding his most recent MRI. However, mention of the hip joint aseptic necrosis will be problematic due to his marginal performance status. WE will call him as soon as we have more information. 4. Labs from today were reviewed in detail discussed with Mr. Mrs. Roberts and a copy was given to them. White count is 4.5, hemoglobin 12.3 platelets 179,000 ANC is 2540. Creatinine 1.3 random glucose 104 LFTs are normal IgA was 50 IgG is 643 and c the IgM was 99. 5. He is due for monthly Xgeva today as well. 6. We will plan to see him back in 2 weeks with CBC CMP at which time he will be due for repeat Darzalex. 7. We will see if we can find information on Mrs. Roberts being his paid caregiver at home. Signed By: Farzana Martinez-, AOCNP Brandon Hernandez MD <<Signature on File>>
== END 2020-09-22 06:04 | disposition home or self-care (01) ==
LOC: ONCMED 06:05
PROVIDERS: PCP Nurse Practitioner; Visit Provider Nurse Practitioner
DX: Z51.12 Encounter for antineoplastic immunotherapy (principal); C90.02 Multiple myeloma in relapse; M87.9 Osteonecrosis, unspecified; D70.1 Agranulocytosis secondary to cancer chemotherapy; T45.1X5D Adverse effect of antineoplastic and immunosuppressive drugs, subsequent encounter; Z94.84 Stem cells transplant status; I10 Essential (primary) hypertension; I48.91 Unspecified atrial fibrillation; Z79.899 Other long term (current) drug therapy; Z87.891 Personal history of nicotine dependence
CPT/HCPCS: 36415; 80053; 82784; 83883; 84155; 84165; 85025; 96401; 99214; C9062

== ENCOUNTER 2020-10-06 05:51 | Outpatient (CLI) | payer MEDICARE, BC, SELFPAY ==
[2020-10-06 09:37] LABS: Basophils # 0.1 10^3/uL (0.0-0.1); Basophils % 1.8 %; Eosinophils # 0.1 10^3/uL (0.0-0.8); Eosinophils % 1.8 %; Hematocrit 43.3 % (42.0-52.0); Hemoglobin 13.6 g/dL (11.7-16.6); Lymphocytes # 1.4 10^3/uL (0.8-4.8); Lymphocytes % 25.1 %; Mean Corpuscular HGB Conc 31.4 g/dL (30.0-36.0); Mean Corpuscular Hemoglobin 28.7 pg (28.0-34.0); Mean Corpuscular Volume 91.4 fL (80-94); Mean Platelet Volume 9.3 fL (7.4-10.4); Monocytes # 1.6 10^3/uL (0.2-0.9); Monocytes % 29.5 %; Neutrophils # 2.26 10^3/uL (1.8-7.7); Neutrophils % 41.4 %; Nucleated Red Blood Cells % 0 %; Platelet Count 245 10^3/cmm (130-400); Red Blood Count 4.74 10^6/uL (4.1-5.3); Red Cell Distribution Width 16.9 % (12.1-15.1); White Blood Count 5.5 10^3/uL (4.0-10.0)
[2020-10-06 10:00] LABS: Alanine Aminotransferase 15 U/L (0-41); Albumin Level 3.7 g/dL (3.5-5.2); Alkaline Phosphatase 66 IU/L (40-130); Anion Gap 15.5 (5-19); Aspartate Amino Transferase 11 U/L (0-40); Blood Urea Nitrogen 16 mg/dL (8-23); Calcium 10.1 mg/dL (8.5-10.5); Carbon Dioxide 29 mmol/L (22-29); Chloride 99 mmol/L (98-107); Globulin 2.5 g/dL (1.3-4.6); Glucose 87 mg/dL (65-115); Osmolality Calculated 289 mOsm/kg (285-295); Potassium 4.5 mmol/L (3.5-5.1); Sodium 139 mmol/L (136-145); Total Bilirubin 0.7 mg/dL (0.15-1.2); Total Protein 6.2 g/dL (6.6-8.7)
--- NOTE | 2020-10-15 09:05 | ONC FU_ITS ---
Reyna Gonzalez Patient Note Patient: Brandon Roberts Unit #: [id number]: 1945 Dictated By: Farzana MartinezDate of Visit: Oct 06, 2020 Onc MED Follow-Up/Prog Note Chief Complaint: Multiple myeloma. History of Present Illness: Mr Roberts is a 75 year-old man with IgG kappa myeloma. He had osteopenia and associated vertebral compression fractures at initial presentation in July of 2009. He underwent treatment through the [facility] on the Total Therapy 4 L program. He was felt to be in complete remission following his induction and consolidation treatment, which included tandem autologous stem cell transplants. He completed consolidation treatment in February of 2010. He was then given 3 years of maintenance with Revlimid/Velcade/dexamethasone. He completed treatment in May 2013. He then continued Aredia infusions every 3 months for maintenance of bone health. He was last treated here in December 2015. He had subsequently continued his regular follow-up at the [facility]. As of his visit there in January 2017 he was felt to be in complete remission. He was seen here for a follow-up visit on 03/15/2017. He was having significant pain in his right lower back/pelvic area. His protein electrophoresis studies at that time showed no evidence of recurrence of myeloma, and x-ray showed no evidence of lytic bone disease. He continued on observation/expectant management. Dr Hernandez had seen him for a follow-up visit on 11/07/2017. At that point he appeared stable clinically. However, his repeat protein electrophoresis on 01/01/2018 showed evidence of an IgG kappa monoclonal paraprotein quantitating at 0.24 g/dL. The free light chain assay was unremarkable with free kappa light chain of 12.03 mg/L, free lambda light chain of 9.24 mg/L, and kappa/lambda ratio normal at 1.30. His 24-hour urine protein electrophoresis on 01/03/2018 showed no monoclonal protein. Skeletal survey showed right femoral head degenerative subcortical cyst versus myelomatous lesion. Also noted was diffuse marked bone demineralization with multilevel thoracic and lumbar compression fractures and with vertebroplasty changes. There was bilateral hip osteoarthrosis and there were degenerative changes noted in the cervical and lumbar spine. CT of the bony pelvis on 01/15/2018 showed no evidence of osteolytic or osteoblastic change. The right femoral head lucency was felt to most likely represent overlying posterior acetabular subcortical cyst. There was progression of severe right hip osteoarthritic change compared to October 2017 study. With the reappearance of monoclonal protein on the serum protein electrophoresis, he was referred to [facility] for reevaluation. He was seen there on 03/04/2018. His bone marrow aspiration/biopsy showed just 3% plasma cells. It was felt to be morphologically negative for myeloma. However, flow cytometric analysis revealed a plasma cell population with atypical immunophenotype comprising approximately 0.08% of analyzed events. There were no new bone lesions identified on MRI studies. His PET/CT also showed no evidence of active bone lesions. His DEXA scan showed T score -3.8 in the radial diaphysis and -0.8 in the proximal femur. He was advised to continue observation/expectant management for the myeloma. It was also recommended, though, that he start denosumab injections. During subsequent follow-up his M protein continued to increase gradually. As of 12/12/2018 it was up to 1.07 g/dL. He is seen for a scheduled visit. He subsequently had problems with kidney stones. He underwent lithotripsy initially on 01/13/2019. He then underwent lithotripsy again along with left ureteral stent placement on 02/07/2019. As of 04/21/2019 the M protein had increased to 2.9 g/dL. The free light chain assay showed elevated kappa light chain at 876 mg/L with lambda light chain 24 mg/L and elevated kappa/lambda ratio at 36.50. There was no monoclonal protein identified in his 24 hour urine specimen. At that point he started treatment with revlimid in combination with ixazomib and dexamethasone with Revlimid administered daily on a 21/ day schedule, ixazomib administered weekly for 3 weeks, and the dexamethasone administered weekly. He tolerated the 1st cycle with acceptable toxicity, and he was able to continue with cycle 2 on 05/19/2019 and with cycle 3 on 06/16/2019. His repeat protein electrophoresis on 07/08/2019 showed decrease in the M protein to 0.7 g/dL. The free light chain assay showed kappa light chain 9.8 mg/L, lambda light chain 15.1 mg/mL and normal kappa/lambda ratio at 0.65. CT scans of the cervical, thoracic, lumbar spine on 07/10/2019 showed several small lytic lesions throughout the cervical spine, the largest measuring 10 mm in the C5 vertebral body. There were also degenerative changes, but no severe central canal stenosis. The thoracic spine showed diffuse severe osteopenia with prior vertebral plasty at T5. The lumbar spine also show diffuse osteopenia, prior vertebral plasties from L1-L4, as well as degenerative disc disease with multilevel mild central and subarticular recess stenosis. Also noted were extensive lytic areas of lucency in the sacrum. He continued on treatment with Revlimid/ixazomib/dexamethasone. As of his follow-up visit on 11/13/2019 had developed significant worsening of lower extremity edema, and he continued to have shortness of breath and declining activity tolerance. As such, his treatment was put on hold. On 12/19/2019 he was admitted to the hospital with atrial fibrillation. It was managed medically, he was scheduled for outpatient follow-up with Dr. Haskins. However, on 12/25/2019 he was readmitted to the hospital with increased heart rate and increased shortness of breath. He was found to have cardiomyopathy and acute systolic congestive heart failure. He had a atrial fibrillation/flutter, for which he started treatment with amiodarone. His echocardiogram showed severe left ventricular dysfunction with ejection fraction estimated at 15 to 20%. Following discharge he continued treatment with amiodarone 200 mg daily together with furosemide 60 mg twice daily, metoprolol 50 mg daily, Entresto 24-26 mg daily, and apixaban 5 mg twice daily. His myeloma therapy remained on hold. His repeat serum protein electrophoresis on 02/19/2020 showed stable M protein at 0.6 g/dL. At that point his clinical status also appeared stable, and he continued on observation/expectant management. His repeat echocardiogram on 04/06/2020 showed significant improvement in the LV function with estimated ejection fraction at 50%. As of 05/03/2020 his M protein had increased to 1.1 g/dL. Restaging PET/CT on 05/22/2020 showed new FDG positive lesions in the L5 vertebral body and left sacral ala consistent with recurrent myeloma. With that finding, Dr Hernandez had recommended that he continue further treatment with daratumumab in combination with pomalidomide and dexamethasone. His other medical illnesses include hypertension and atrial fibrillation. He had an admission to the hospital for opportunistic pneumonia in August of 2011. He was treated for cellulitis of the left leg in January 2015. He had smoked in the past, but he quit more than 25 years ago. INTERIM HISTORY: He began cycle 1 of daratumumab/pomalidomide/dexamethasone on 06/14/2020 with the daratumumab administered by subcutaneous injection. At that point his M protein had further increased to 1.4 g/dL. He had some transient pulmonary congestion following the initial daratumumab injection. He had no other apparent toxicity. He continued with his week 2 daratumumab on 06/21/2020, and at that point he also continued pomalidomide 4 mg daily. As of 06/28/2020 his treatment was put on hold due to worsening neutropenia. He was then able to proceed with cycle 2 of daratumumab in combination with pomalidomide/dexamethasone on 07/14/2020 with the pomalidomide dosage reduced to 4 mg every other day for 14 days. He was able to tolerate that with acceptable toxicity, though at his follow-up visit on 08/03/2020 his cycle 3 of pomalidomide was again delayed due to neutropenia. At that time he was able to complete his 6h injection of daratumumab on the weekly dosing. He was showing some decline in the M protein, to 0.7 g/dL. As of his follow-up visit on 08/25/2020 he had completed 8 injections of daratumumab at the 1-week dosing schedule. At that point he proceeded with his 3rd cycle of treatment and with the daratumumab administered at a 2-week intervals. Despite the decrease in his M protein, he was having increased pain in his back and hips, and he was showing decline in performance status. He had further evaluation with MRI of the pelvis on 09/07/2020. The most significant finding was edema with serpiginous enhancement involving the right femoral head articular surface compatible with avascular necrosis. There were similar findings in the left hip. An enhancing left sacral ala lesion measuring 12 mm appeared consistent with a myelomatous lesion. An additional tiny enhancing lesion involving the right ilium adjacent to the acetabulum was felt to likely represent additional disease. MRI of the lumbar spine on 09/08/2020 showed significant degenerative changes, but no obvious involvement with myeloma. Mr. Roberts is here today for a follow-up visit. He is accompanied by his today. He states overall he is doing about the same. She states that he has been having episodes of clammy sweats . She recorded a blood pressure on him of 89/60. This is occurring more frequent. He is on amiodarone and metopropol wonders this is regulated by his PCP. She reports she has not noted any bradycardia. He is also having some twitching and jerking of his legs. It just feels like an irritation . Ativan does help this when he does take it. He continues to feel weak overall. Mrs. Roberts states that his appetite is down. He has had weakness to the point where he is almost fallen a couple of times. He has had no further hallucinations that she is aware of. He denies any fever or chills. He denies nausea or vomiting. He has had some intermittent constipation and diarrhea but this seems to be controlled at present. He continues to have peripheral neuropathy but states it is no worse than what it has been. He denies any mouth sores, sore throat or difficulty swallowing. He has had no vision changes. He states he is due to resume his pomalidomide at 2 mg today. His ECOG is 3. Past Medical History: Atrial fibrillation Bilateral renal cysts Hypertension Vitamin D deficiency Nephrolithiasis in 2019 Multiple myeloma in 2008 IgG kappa myeloma dx jul 2009 hx htn, afib Past Surgical History: Appendectomy Right side port placement Right sided port removal Vertebral plasty Flu vaccine in 2019 - right deltoid Flu vaccine in 2018 Lithotripsy x2 in 2019 Stent placement left ureter in 2018 Flu vaccine in 2014 Pneumonia vaccine in 2014 - prevnar 13 Allergies: No Known Allergies. Medications: Acyclovir 400 mg (of 400 mg) Tablet Oral b.i.d. Amiodarone HCl 1 Tablet (of 200 mg) Oral daily DULoxetine HCl 1 Capsule (of 60 mg) Capsule Delayed Release Particles Oral daily Furosemide 1.5 Tablet (of 40 mg) Oral daily K-Tab 0.5 Tablet (of 20 meq) Tablet, controlled release Oral daily LORazepam 1 Tablet (of 1 mg) Oral q 8 hours PRN Metoprolol Succinate ER 1.5 Tablet (of 50 mg) Tablet SR 24 HR Oral daily Morphine Sulfate ER 1 Tablet (of 60 mg) Tablet, controlled release Oral q 12 hours OxyCODONE HCl 1 Tablet (of 30 mg) Oral four times a day PRN Pomalidomide 1 Capsule (of 4 mg) Oral q 21 days Sacubitril-Valsartan 1 Tablet (of 24-26 mg) Oral b.i.d. Spironolactone 1 Tablet (of 50 mg) Oral daily TraZODone HCl 1 - 2 (50 mg) Tablet Oral at bedtime Xarelto 1 Tablet (of 20 mg) Oral daily Family History: Mr. Roberts's mother at age 77: cancer history consists of Colon cancer (cause of ). Mr. Roberts's father at age 65: cancer history consists of Prostate cancer. mother had cancer of lung also brother has prostate cancer. Social History: Mr. Roberts is and he is retired. Mr. Roberts quit smoking 26 years ago but had smoked 2.0 packs/day for 22 years. He is an active drinker.He consumes 2 drinks/day. Mr. Roberts reports the following support systems: lives with spouse, significant other, family, or friends, lives in own house, supportive family/friends willing to assist with needs, and adequate transportation available for expected visits. His diet consists of regular meals. He indicates his activity level as: daily activities. , hasn't drank in 68 years, quit smoking 25 years ago. April 2019 has resumed consuming two double bourbon drinks nightly. Review Of Symptoms: Constitutional weak in general-no fever or chills. Mrs. Roberts reports that his appetite has declined. He has had no further confusion. Eyes Denies blurred vision, double vision, visual difficulties and photophobia. ENMT Denies changes in hearing, sore throat, mouth sores, difficulty or changes in swallowing ability, and/or sinus drainage. Hematologic/Lymphatic Denies easy bruising and tender or enlarged lymph nodes. Respiratory Denies cough, dyspnea, hemoptysis, hiccoughs, pleuritic chest pain and wheezing. He states he has had some intermittent shortness of breath but it is stable and no worse than what is normal for him. Cardiovascular Denies arrhythmias, chest pain, dyspnea, edema, orthopnea and palpitations. Gastrointestinal Denies abdominal pain, change in bowel habits, constipation, diarrhea, heartburn / dyspepsia. Constipation controlled with stool softeners at present. Genitourinary (M) Denies dysuria, but has had stable nocturnal frequency. No hematuria. Musculoskeletal Denies new pain but weak in general. Limited mobility and requires wheelchair or wheeled walker for mobility assistance. Integumentary Denies chronic rashes, inflammation, ulcerations or skin changes. Neurologic Denies headache, blurred vision, and no areas of focal weakness or numbness. Assisted gait. No sensory problems. Psychiatric Denies hallucinations and mood swings. Vital Signs: Performed on Oct 06, 2020 10:31 Height - 71.00 in Weight - 234.0 lbs (LOW) BSA - 2.25 sq.m BMI - 32.64 (HIGH) Temperature - 97.0 F (LOW) Pulse - 66 /min Respiration - 24 /min BP - 112/66 mm(hg) O2 Sat - 96 % Pain - 0,3 - Capable of only limited self-care, confined to bed or chair more than 50% of waking hours. (ECOG) Physical Examination: Constitutional Alert, oriented, no acute distress-weak in general. Skin pink, warm and dry. Head Normocephalic; atraumatic. Eyes Conjunctivae and sclerae are clear and without icterus. Pupils are reactive and equal. slight exophthalmos bilaterally. Neck Supple without masses or thyromegaly. No jugular venous distension. Hematologic/Lymphatic scattered bruising on arms-not new. Respiratory Lungs are clear to auscultation without rhonchi or wheezing. Cardiovascular Regular rate and rhythm of heart without murmurs,clicks, gallops or rubs. Breasts Abdomen Non-tender, non-distended, no masses, ascites. Back/Spine Non-tender to palpation. Extremities No visible deformities, no cyanosis, clubbing. + 1 bilateral lower extremity edema-non pitting. Musculoskeletal No tenderness or swelling, normal range of motion bilaterally. Bilateral lower extremity weakness. Integumentary No rashes or lesions. Neurologic using wheelchair for mobility but requires someone to help him maneuver the wheelchair. Psychiatric Alert and oriented times three. Coherent speech. Verbalizes understanding of our discussions today. Laboratory:Test performed on Oct 06, 2020 09:27 Sodium 139 mmol/L Potassium 4.5 mmol/L Chloride 99 mmol/L CO2 29 mmol/L Anion Gap 15.5 BUN 16 mg/dL Creatinine 1.3 mg/dL Cr Clearance (Est) 75.2900 mL/min Glucose 87 mg/dL Osmolality - Calculated 289 mOsm/kg Calcium 10.1 mg/dL Protein, Total 6.2 g/dL Albumin 3.7 g/dL Globulin 2.5 g/dL Bilirubin, Total 0.7 mg/dL ALT (SGPT) 15 U/L AST (SGOT) 11 U/L Alkaline Phosphatase 66 IU/L WBC 5.5 10 3/uL RBC 4.74 10 6/uL HGB 13.6 g/dL HCT 43.3 % MCV 91.4 fL MCH 28.7 pg MCHC 31.4 g/dL RDW 16.9 % Platelet Count 245 10 3/cmm MPV 9.3 fL Neutrophils 2.26 10 3/uL Lymphocytes 1.4 10 3/uL Monocytes 1.6 10 3/uL Eosinophils 0.1 10 3/uL Basophils 0.1 10 3/uL Neutrophil % 41.4 % Lymphocyte % 25.1 % Monocyte % 29.5 % Eosinophil % 1.8 % Basophils % 1.8 % NRBC % 0 % Test performed on Sep 22, 2020 11:28 IgG 643 mg/dL [place] Free Light Chains 13.0 mg/L Lambda Free Light Chains 13.8 mg/L IgA 50 mg/dL [place]/Lambda Free Ratio 0.94 IgM 99 mg/dL Test performed on Sep 07, 2020 00:00 Manual Diff Cancelled via OM: Cancelled in Connected System Test performed on May 05, 2020 08:00 UPE Interpretation SEE NOTE Agarose electrophoresis of urine reveals albumin. No abnormal protein is observed. THIS TEST WAS PERFORMED AT: [employer] [facility] [id number] [place] [address] FRANCISCO JEFF DO,MPH U [id number] 0 % U [id number] 0 % U Beta Globulin 0 % U Gamma Globulin 0 % Impression: 1. Patient with IgG kappa myeloma, initially diagnosed in July 2009. He had associated osteopenia and multiple vertebral compression fractures. 2. He underwent treatment at the [facility] on the total therapy 4L protocol. He completed his maintenance therapy with Revlimid, Velcade and dexamethasone in May 2013. 3. He had continued Aredia infusions every 3 months for bone health. He was last treated here in December 2015. 4. As of his follow-up visit at [facility] in January 2017, his myeloma was felt to be in complete remission. His other medical illnesses include: 5. Hypertension. 6. Atrial fibrillation. 7. He required treatment for opportunistic pneumonia in August 2011. 8. He was treated for cellulitis of the left leg in January 2015. In March 2017 he presented with increased pain in his lower back and pelvic area. His laboratory studies and x-rays at that time showed no evidence of recurrence of the myeloma. However, his repeat protein electrophoresis in December 2017 did show a small IgG kappa monoclonal protein spike quantitating at 0.24 g/dL, consistent with early relapse of his myeloma. He had follow-up at [facility] on 03/04/2018. Based on their recommendations, he initially was followed on observation/expectant management for the myeloma, but he did start monthly denosumab injections. During follow-up there was continued gradual increase in his M protein. As of 12/12/2018 it had increased to 1.07 g/dL. His subsequent clinical course was complicated nephrolithiasis requiring lithotripsy and ureteral stent placement. As of 04/21/2019 there was further increase in the M protein to 2.9 g/dL. The free light chain assay showed elevated kappa light chain at 876 mg/L with lambda light chain 24 mg/L and elevated kappa/lambda ratio at 36.50. There was no monoclonal protein identified in his 24 hour urine specimen. At that point he started treatment with Revlimid in combination with ixazomib and dexamethasone. As of his follow-up visit on 07/14/2019 he had completed 3 cycles of treatment, and at that point he did appear to be showing a very good response by serum protein electrophoresis. He then continued on the same treatment. He had been tolerating it well other than he developed significant fluid retention and other side effects with the steroid. The swelling had initially improved with diuretic therapy, and he was able to continue treatment. As of October 2019 he began his 7th cycle. During subsequent follow-up his lower extremity edema had continued to worsen, and he also complained of shortness of breath and declining activity tolerance. As of his follow-up visit on 11/13/2019 his myeloma treatment was put on hold. Ultimately, he was found to have severe cardiomyopathy with left ventricular ejection fraction estimated at 15 to 20% by transesophageal echocardiogram. He had associated atrial flutter/fibrillation, for which he began treatment with amiodarone and metoprolol. He also started anticoagulation with apixaban. During follow-up he continued to have very limited activity tolerance. His myeloma therapy had remained on hold. He had a very good response to the treatment by protein electrophoresis, but his M protein then began to increase. As of April 2020 it was back up to 1.1 g/dL, but at that point his repeat echocardiogram had shown a very significant improvement in his left ventricular function. His restaging PET/CT on 05/22/2020 showed several areas of myeloma progression in the bone. On 06/14/2020 he began further treatment with daratumumab in combination with pomalidomide and dexamethasone. The daratumumab was administered by subcutaneous injection. He experienced some transient chest congestion with the initial injection of daratumumab, but he otherwise tolerated it well. He continued with week 2 daratumumab on 06/21/2020 and at that point he also continued pomalidomide 4 mg daily and dexamethasone 40 mg weekly. As of 06/28/2020 the treatment was put on hold due to worsening neutropenia and declining performance status. He was then able to continue with cycle 2 of pomalidomide with the dosage reduced to 4 mg every other day for 14 days. He tolerated it with acceptable toxicity, though his cycle 3 was again delayed due to neutropenia. He was then able to continue with the pomalidomide with the dosage reduced to 2 mg daily on a 21/28-day schedule. As of 08/25/2020 he had completed 8 injections of daratumumab on the weekly schedule. He appeared to be showing response by protein electrophoresis, but he continued to have significant pain in the back and hips, and he was shwowing decline in his performance status. He proceeded with cycle 3 of pomalidomide/daratumumab/dexamethasone but with the daratumumab administered at 2-week intervals. He has continued to tolerate the treatment with acceptable toxicity. However, in the meantime, he had further evaluation with MRI of the pelvis and lumbar spine. There were a couple of small lesions in the pelvis which were suspected to due to myeloma. 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 Mr. Douglas presents today with decline in his performance status overall. Plan: 1. Hold cycle 5 with the pomalidomide dosage at 2 mg daily on a 21/28-day schedule due to declinig performance status. 2. Continue with the daratumumab administered a 2-week intervals. This is 02/10 two week daratumumab. 3. Resume the dexamethasone 20 mg twice a week but not on consecutive days. 4. Labs from today were reviewed in detail discussed with . Mrs. Roberts and a copy was given to them. WBC 5.5, hemoglobin 13.6, platelets 245,000 ANC is 2260. Potassium 4.5 creatinine 1.3 calcium 10.1 LFTs are normal his abnormal protein on his protein electrophoresis from 09/22/2020 was reported as 0.3 and 0.1. The same abnormal proteins from August 03, 2020 reported as 0.6 and 0.1. 5. He is due for monthly Xgeva today as well. 6. We will plan to see him back in 2 weeks with CBC CMP, SPEP with MORGAN, QUIGS, kappa free light chains, at which time he will be due for repeat Darzalex. 7. & Mrs. Roberts encouraged to contact us in the interim should questions or problems arise. Signed By: Farzana Martinez-, AOCNP Brandon Hernandez MD <<Signature on File>>
== END 2020-10-06 05:52 | disposition home or self-care (01) ==
LOC: ONCMED 05:53
PROVIDERS: PCP Nurse Practitioner; Visit Provider Nurse Practitioner
DX: Z51.12 Encounter for antineoplastic immunotherapy (principal); C90.00 Multiple myeloma not having achieved remission; I10 Essential (primary) hypertension; I48.91 Unspecified atrial fibrillation; Z87.891 Personal history of nicotine dependence; Z79.899 Other long term (current) drug therapy; Z79.52 Long term (current) use of systemic steroids
CPT/HCPCS: 80053; 85025; 96401; 99214; C9062

== ENCOUNTER 2020-10-20 06:18 | Outpatient (CLI) | payer MEDICARE, BC, SELFPAY ==
[2020-10-20 09:19] LABS: Basophils % 0.2 %; Eosinophils # 0.1 10^3/uL (0.0-0.8); Eosinophils % 0.6 %; Hematocrit 48.6 % (42.0-52.0); Lymphocytes # 0.8 10^3/uL (0.8-4.8); Lymphocytes % 6.4 %; Mean Corpuscular HGB Conc 30.9 g/dL (30.0-36.0); Mean Corpuscular Hemoglobin 28.6 pg (28.0-34.0); Mean Corpuscular Volume 92.6 fL (80-94); Mean Platelet Volume 10.2 fL (7.4-10.4); Monocytes # 1.2 10^3/uL (0.2-0.9); Monocytes % 9.5 %; Neutrophils # 10.53 10^3/uL (1.8-7.7); Neutrophils % 82.4 %; Nucleated Red Blood Cells % 0 %; Platelet Count 257 10^3/cmm (130-400); Red Blood Count 5.25 10^6/uL (4.1-5.3); Red Cell Distribution Width 17.2 % (12.1-15.1); White Blood Count 12.8 10^3/uL (4.0-10.0)
[2020-10-20 09:31] LABS: Alanine Aminotransferase 28 U/L (0-41); Albumin Level 4.2 g/dL (3.5-5.2); Alkaline Phosphatase 70 IU/L (40-130); Aspartate Amino Transferase 15 U/L (0-40); Blood Urea Nitrogen 26 mg/dL (8-23); Calcium 10.1 mg/dL (8.5-10.5); Carbon Dioxide 31 mmol/L (22-29); Chloride 94 mmol/L (98-107); Globulin 2.3 g/dL (1.3-4.6); Glucose 100 mg/dL (65-115); Osmolality Calculated 289 mOsm/kg (285-295); Sodium 137 mmol/L (136-145); Total Bilirubin 0.6 mg/dL (0.15-1.2); Total Protein 6.5 g/dL (6.6-8.7)
[2020-10-20 11:07] LABS: Immunoglobulin IGG 566 mg/dL (700-1600); Immunoglobulin IGM 77 mg/dL (40-230)
[2020-10-20 11:34] LABS: Immunoglobulin IGA < 50 mg/dL (70-400)
[2020-10-21 09:28] LABS: PROTEIN, TOTAL 6.2 g/dL (6.1-8.1)
[2020-10-21 13:34] LABS: KAPPA LIGHT CHAIN, FREE, SERUM 5.8 mg/L (3.3-19.4); KAPPA/LAMBDA LIGHT CHAINS FREE 2.32 (0.26-1.65); LAMBDA LIGHT CHAIN, FREE, SERU 2.5 mg/L (5.7-26.3)
[2020-10-21 16:38] LABS: ABNORMAL PROTEIN BAND 1 0.2 g/dL (NONE DETECTED); ABNORMAL PROTEIN BAND 2 0.2 g/dL (NONE DETECTED); ALBUMIN 3.6 g/dL (3.8-4.8); ALPHA 1 GLOBULIN 0.4 g/dL (0.2-0.3); ALPHA 2 GLOBULIN 1.1 g/dL (0.5-0.9); BETA 1 GLOBULIN 0.4 g/dL (0.4-0.6); BETA 2 GLOBULIN 0.3 g/dL (0.2-0.5); GAMMA GLOBULIN 0.5 g/dL (0.8-1.7)
--- NOTE | 2020-10-23 12:27 | ONC FU_ITS ---
Dr. Hernandez Patient Follow-Up Note Patient: Brandon Roberts Unit #: [id number]: 1945 Dicatated By: Brandon Hernandez M.D.Date of Visit:Oct 20, 2020 Onc Med Follow-up/Prog Note Chief Complaint: Multiple myeloma. History of Present Illness: This is a 75 year-old man with IgG kappa myeloma. He had osteopenia and associated vertebral compression fractures at initial presentation in July of 2009. He underwent treatment through the [facility] on the Total Therapy 4 L program. He was felt to be in complete remission following his induction and consolidation treatment, which included tandem autologous stem cell transplants. He completed consolidation treatment in February of 2010. He was then given 3 years of maintenance with Revlimid/Velcade/dexamethasone. He completed treatment in May 2013. He then continued Aredia infusions every 3 months for maintenance of bone health. He was last treated here in December 2015. He had subsequently continued his regular follow-up at the [facility]. As of his visit there in January 2017 he was felt to be in complete remission. He was seen here for a follow-up visit on 03/15/2017. He was having significant pain in his right lower back/pelvic area. His protein electrophoresis studies at that time showed no evidence of recurrence of myeloma, and x-ray showed no evidence of lytic bone disease. He continued on observation/expectant management. I had seen him for a follow-up visit on 11/07/2017. At that point he appeared stable clinically. However, his repeat protein electrophoresis on 01/01/2018 showed evidence of an IgG kappa monoclonal paraprotein quantitating at 0.24 g/dL. The free light chain assay was unremarkable with free kappa light chain of 12.03 mg/L, free lambda light chain of 9.24 mg/L, and kappa/lambda ratio normal at 1.30. His 24-hour urine protein electrophoresis on 01/03/2018 showed no monoclonal protein. Skeletal survey showed right femoral head degenerative subcortical cyst versus myelomatous lesion. Also noted was diffuse marked bone demineralization with multilevel thoracic and lumbar compression fractures and with vertebroplasty changes. There was bilateral hip osteoarthrosis and there were degenerative changes noted in the cervical and lumbar spine. CT of the bony pelvis on 01/15/2018 showed no evidence of osteolytic or osteoblastic change. The right femoral head lucency was felt to most likely represent overlying posterior acetabular subcortical cyst. There was progression of severe right hip osteoarthritic change compared to October 2017 study. With the reappearance of monoclonal protein on the serum protein electrophoresis, he was referred to [facility] for reevaluation. He was seen there on 03/04/2018. His bone marrow aspiration/biopsy showed just 3% plasma cells. It was felt to be morphologically negative for myeloma. However, flow cytometric analysis revealed a plasma cell population with atypical immunophenotype comprising approximately 0.08% of analyzed events. There were no new bone lesions identified on MRI studies. His PET/CT also showed no evidence of active bone lesions. His DEXA scan showed T score -3.8 in the radial diaphysis and -0.8 in the proximal femur. He was advised to continue observation/expectant management for the myeloma. It was also recommended, though, that he start denosumab injections. During subsequent follow-up his M protein continued to increase gradually. As of 12/12/2018 it was up to 1.07 g/dL. He is seen for a scheduled visit. He subsequently had problems with kidney stones. He underwent lithotripsy initially on 01/13/2019. He then underwent lithotripsy again along with left ureteral stent placement on 02/07/2019. As of 04/21/2019 the M protein had increased to 2.9 g/dL. The free light chain assay showed elevated kappa light chain at 876 mg/L with lambda light chain 24 mg/L and elevated kappa/lambda ratio at 36.50. There was no monoclonal protein identified in his 24 hour urine specimen. At that point he started treatment with revlimid in combination with ixazomib and dexamethasone with Revlimid administered daily on a 21/28 day schedule, ixazomib administered weekly for 3 weeks, and the dexamethasone administered weekly. He tolerated the 1st cycle with acceptable toxicity, and he was able to continue with cycle 2 on 05/19/2019 and with cycle 3 on 06/16/2019. His repeat protein electrophoresis on 07/08/2019 showed decrease in the M protein to 0.7 g/dL. The free light chain assay showed kappa light chain 9.8 mg/L, lambda light chain 15.1 mg/mL and normal kappa/lambda ratio at 0.65. CT scans of the cervical, thoracic, lumbar spine on 07/10/2019 showed several small lytic lesions throughout the cervical spine, the largest measuring 10 mm in the C5 vertebral body. There were also degenerative changes, but no severe central canal stenosis. The thoracic spine showed diffuse severe osteopenia with prior vertebral plasty at T5. The lumbar spine also show diffuse osteopenia, prior vertebral plasties from L1-L4, as well as degenerative disc disease with multilevel mild central and subarticular recess stenosis. Also noted were extensive lytic areas of lucency in the sacrum. He continued on treatment with Revlimid/ixazomib/dexamethasone. As of his follow-up visit on 11/13/2019 had developed significant worsening of lower extremity edema, and he continued to have shortness of breath and declining activity tolerance. As such, his treatment was put on hold. On 12/19/2019 he was admitted to the hospital with atrial fibrillation. It was managed medically, he was scheduled for outpatient follow-up with Dr. Haskins. However, on 12/25/2019 he was readmitted to the hospital with increased heart rate and increased shortness of breath. He was found to have cardiomyopathy and acute systolic congestive heart failure. He had a atrial fibrillation/flutter, for which he started treatment with amiodarone. His echocardiogram showed severe left ventricular dysfunction with ejection fraction estimated at 15 to 20%. Following discharge he continued treatment with amiodarone 200 mg daily together with furosemide 60 mg twice daily, metoprolol 50 mg daily, Entresto 24-26 mg daily, and apixaban 5 mg twice daily. His myeloma therapy remained on hold. His repeat serum protein electrophoresis on 02/19/2020 showed stable M protein at 0.6 g/dL. At that point his clinical status also appeared stable, and he continued on observation/expectant management. His repeat echocardiogram on 04/06/2020 showed significant improvement in the LV function with estimated ejection fraction at 50%. As of 05/03/2020 his M protein had increased to 1.1 g/dL. Restaging PET/CT on 05/22/2020 showed new FDG positive lesions in the L5 vertebral body and left sacral ala consistent with recurrent myeloma. With that finding, I had recommended that he continue further treatment with daratumumab in combination with pomalidomide and dexamethasone. His other medical illnesses include hypertension and atrial fibrillation. He had an admission to the hospital for opportunistic pneumonia in August of 2011. He was treated for cellulitis of the left leg in January 2015. He had smoked in the past, but he quit more than 25 years ago. INTERIM HISTORY: He began cycle 1 of daratumumab/pomalidomide/dexamethasone on 06/14/2020 with the daratumumab administered by subcutaneous injection. At that point his M protein had further increased to 1.4 g/dL. He had some transient pulmonary congestion following the initial daratumumab injection. He had no other apparent toxicity. He continued with his week 2 daratumumab on 06/21/2020, and at that point he also continued pomalidomide 4 mg daily. As of 06/28/2020 his treatment was put on hold due to worsening neutropenia. He was then able to proceed with cycle 2 of daratumumab in combination with pomalidomide/dexamethasone on 07/14/2020 with the pomalidomide dosage reduced to 4 mg every other day for 14 days. He was able to tolerate that with acceptable toxicity, though at his follow-up visit on 08/03/2020 his cycle 3 of pomalidomide was again delayed due to neutropenia. At that time he was able to complete his 6h injection of daratumumab on the weekly dosing. He was showing some decline in the M protein, to 0.7 g/dL. As of his follow-up visit on 08/25/2020 he had completed 8 injections of daratumumab at the 1-week dosing schedule. At that point he proceeded with his 3rd cycle of treatment and with the daratumumab administered at a 2-week intervals. Despite the decrease in his M protein, he was having increased pain in his back and hips, and he was showing decline in performance status. He had further evaluation with MRI of the pelvis on 09/07/2020. The most significant finding was edema with serpiginous enhancement involving the right femoral head articular surface compatible with avascular necrosis. There were similar findings in the left hip. An enhancing left sacral ala lesion measuring 12 mm appeared consistent with a myelomatous lesion. An additional tiny enhancing lesion involving the right ilium adjacent to the acetabulum was felt to likely represent additional disease. MRI of the lumbar spine on 09/08/2020 showed significant degenerative changes, but no obvious involvement with myeloma. He continued with cycle 4 of daratumumab/pomalidomide/dexamethasone on 09/22/2020. His M protein at that point had decreased to 0.3 g/dL. He is seen for a follow-up visit. He complains that he feels extremely exhausted. His activity is very limited. He ambulates short distances with a walker. His ECOG score is 3. His appetite comes and goes. He has not had fever. He does have some sweating. He has shortness of breath with activity. He does not complain of cough, and he has not been having chest pain. Bowel function has been OK. He has frequent urination he has some difficulty controlling his bladder. He continues to have some pain in his lower back and left hip, though it is mostly controlled with his medication. He has some numbness in his fingers. He has no other focal neurologic symptoms. Medications: Acyclovir 400 mg (of 400 mg) Tablet Oral b.i.d., Amiodarone HCl 1 Tablet (of 200 mg) Oral daily, Dexamethasone (4 mg) Tablet Oral Take as Directed, DULoxetine HCl 1 Capsule (of 60 mg) Capsule Delayed Release Particles Oral daily, Furosemide 1.5 Tablet (of 40 mg) Oral daily, K-Tab 0.5 Tablet (of 20 meq) Tablet, controlled release Oral daily, LORazepam 1 Tablet (of 1 mg) Oral q 8 hours PRN, Metoprolol Succinate ER 1.5 Tablet (of 50 mg) Tablet SR 24 HR Oral daily, Morphine Sulfate ER 1 Tablet (of 60 mg) Tablet, controlled release Oral q 12 hours, OxyCODONE HCl 1 Tablet (of 30 mg) Oral four times a day PRN, Sacubitril-Valsartan 1 Tablet (of 24-26 mg) Oral b.i.d., Spironolactone 1 Tablet (of 50 mg) Oral daily, TraZODone HCl 1 - 2 (50 mg) Tablet Oral at bedtime, Xarelto 1 Tablet (of 20 mg) Oral daily Allergies: No Known Allergies. Review of Systems: Constitutional - He feels extremely exhausted. His activity is very limited. His appetite comes and goes. He has not had fever. He does have some sweating. ECOG score is 3, ENMT - He has sinus drainage. No mouth sores. No sore throat or difficulty swallowing, Hematologic/Lymphatic - He bruises easily, Respiratory - He has shortness of breath with activity. No cough. No pleuritic pain or hemoptysis, Cardiovascular - No angina pain. No palpitations, Gastrointestinal - No nausea or vomiting. He has a little bit of acid reflux. No diarrhea or constipation. No blood in the stool or black stools, Genitourinary (M) - No dysuria or hematuria. He has urinary frequency and he has some difficulty controlling his bladder, Musculoskeletal - He has pain in his lower back and left hip, Integumentary - No skin rash, but he does complain that his fingers sometimes turn white, Neurologic - No headache. He has some orthostatic lightheadedness. He has numbness in his fingers. No other focal neurologic symptoms, Psychiatric - He has anxiety. He sleeps okay with trazodone. Vital Signs: Performed on Oct 20, 2020 10:22 Height - 71.00 in Weight - 232.2 lbs (LOW) BSA - 2.25 sq.m BMI - 32.39 (HIGH) Temperature - 97.0 F (LOW) Pulse - 83 /min Respiration - 24 /min BP - 134/80 mm(hg) O2 Sat - 95 % (LOW) Pain - 0 Physical Examination: Constitutional - He appears generally weak, Eyes - Sclerae nonicteric. Conjunctivae clear, ENMT - No lesions noted in the oral cavity, Hematologic/Lymphatic - No cervical, clavicular, or axillary adenopathy, Respiratory - Lungs sound clear, Cardiovascular - Heart rhythm is regular. There is no murmur, gallop, or rub noted, Abdomen - Moderately distended. Liver and spleen are not enlarged. There is no abdominal mass or ascites noted and there is no inguinal adenopathy, Extremities - There is slight edema and induration in the lower extremities. He has extensive purpura, Neurologic - No focal neurologic deficits noted. Lab/Imaging: Test performed on Oct 20, 2020 09:00 Sodium 137 mmol/L Potassium 4.0 mmol/L Chloride 94 mmol/L CO2 31 mmol/L Anion Gap 16.0 BUN 26 mg/dL Creatinine 1.4 mg/dL Cr Clearance (Est) 69.9100 mL/min Glucose 100 mg/dL Osmolality - Calculated 289 mOsm/kg Calcium 10.1 mg/dL Protein, Total 6.5 g/dL Albumin 4.2 g/dL Globulin 2.3 g/dL Bilirubin, Total 0.6 mg/dL ALT (SGPT) 28 U/L AST (SGOT) 15 U/L Alkaline Phosphatase 70 IU/L WBC 12.8 10 3/uL RBC 5.25 10 6/uL HGB 15.0 g/dL HCT 48.6 % MCV 92.6 fL MCH 28.6 pg MCHC 30.9 g/dL RDW 17.2 % Platelet Count 257 10 3/cmm MPV 10.2 fL Neutrophils 10.53 10 3/uL Lymphocytes 0.8 10 3/uL Monocytes 1.2 10 3/uL Eosinophils 0.1 10 3/uL Basophils 0.0 10 3/uL Neutrophil % 82.4 % Lymphocyte % 6.4 % Monocyte % 9.5 % Eosinophil % 0.6 % Basophils % 0.2 % NRBC % 0 % IgG 566 mg/dL [place] Free Light Chains 5.8 mg/L Lambda Free Light Chains 2.5 mg/L IgA < 50 mg/dL [place]/Lambda Free Ratio 2.32 IgM 77 mg/dL Impression: 1. Patient with IgG kappa myeloma, initially diagnosed in July 2009. He had associated osteopenia and multiple vertebral compression fractures. 2. He underwent treatment at the [facility] on the total therapy 4L protocol. He completed his maintenance therapy with Revlimid, Velcade and dexamethasone in May 2013. 3. He had continued Aredia infusions every 3 months for bone health. He was last treated here in December 2015. 4. As of his follow-up visit at [facility] in January 2017, his myeloma was felt to be in complete remission. His other medical illnesses include: 5. Hypertension. 6. Atrial fibrillation. 7. He required treatment for opportunistic pneumonia in August 2011. 8. He was treated for cellulitis of the left leg in January 2015. In March 2017 he presented with increased pain in his lower back and pelvic area. His laboratory studies and x-rays at that time showed no evidence of recurrence of the myeloma. However, his repeat protein electrophoresis in December 2017 did show a small IgG kappa monoclonal protein spike quantitating at 0.24 g/dL, consistent with early relapse of his myeloma. He had follow-up at [facility] on 03/04/2018. Based on their recommendations, he initially was followed on observation/expectant management for the myeloma, but he did start monthly denosumab injections. During follow-up there was continued gradual increase in his M protein. As of 12/12/2018 it had increased to 1.07 g/dL. His subsequent clinical course was complicated nephrolithiasis requiring lithotripsy and ureteral stent placement. As of 04/21/2019 there was further increase in the M protein to 2.9 g/dL. The free light chain assay showed elevated kappa light chain at 876 mg/L with lambda light chain 24 mg/L and elevated kappa/lambda ratio at 36.50. There was no monoclonal protein identified in his 24 hour urine specimen. At that point he started treatment with Revlimid in combination with ixazomib and dexamethasone. As of his follow-up visit on 07/14/2019 he had completed 3 cycles of treatment, and at that point he did appear to be showing a very good response by serum protein electrophoresis. He then continued on the same treatment. He had been tolerating it well other than he developed significant fluid retention and other side effects with the steroid. The swelling had initially improved with diuretic therapy, and he was able to continue treatment. As of October 2019 he began his 7th cycle. During subsequent follow-up his lower extremity edema had continued to worsen, and he also complained of shortness of breath and declining activity tolerance. As of his follow-up visit on 11/13/2019 his myeloma treatment was put on hold. Ultimately, he was found to have severe cardiomyopathy with left ventricular ejection fraction estimated at 15 to 20% by transesophageal echocardiogram. He had associated atrial flutter/fibrillation, for which he began treatment with amiodarone and metoprolol. He also started anticoagulation with apixaban. During follow-up he continued to have very limited activity tolerance. His myeloma therapy had remained on hold. He had a very good response to the treatment by protein electrophoresis, but his M protein then began to increase. As of April 2020 it was back up to 1.1 g/dL, but at that point his repeat echocardiogram had shown a very significant improvement in his left ventricular function. His restaging PET/CT on 05/22/2020 showed several areas of myeloma progression in the bone. On 06/14/2020 he began further treatment with daratumumab in combination with pomalidomide and dexamethasone. The daratumumab was administered by subcutaneous injection. He experienced some transient chest congestion with the initial injection of daratumumab, but he otherwise tolerated it well. He continued with week 2 daratumumab on 06/21/2020 and at that point he also continued pomalidomide 4 mg daily and dexamethasone 40 mg weekly. As of 06/28/2020 the treatment was put on hold due to worsening neutropenia and declining performance status. He was then able to continue with cycle 2 of pomalidomide with the dosage reduced to 4 mg every other day for 14 days. He tolerated it with acceptable toxicity, though his cycle 3 was again delayed due to neutropenia. He was then able to continue with the pomalidomide with the dosage reduced to 2 mg daily on a 21/28-day schedule. As of 08/25/2020 he had completed 8 injections of daratumumab on the weekly schedule. He appeared to be showing response by protein electrophoresis, but he continued to have significant pain in the back and hips, and he was shwowing decline in his performance status. He proceeded with cycle 3 of pomalidomide/daratumumab/dexamethasone but with the daratumumab administered at 2-week intervals, and he continued with cycle 4 on 09/22/2020. At that point his M protein level was down to 0.3 g/dL. Despite the improvement in his M protein, he continues to have very poor performance. It is uncertain to what extent it may be due to treatment or to unrelated factors. The other possibility is that the M protein is not accurately reflecting the status of his myeloma. Plan: His treatment now will be put on hold. His other medications will remain the same. He will be scheduled for a followup visit in one month. Signed By: Brandon Hernandez M.D. <<Signature on File>>
== END 2020-10-20 06:19 | disposition home or self-care (01) ==
LOC: ONCMED 06:23
PROVIDERS: PCP Nurse Practitioner; Visit Provider Internal Medicine Medical Oncology
DX: C90.02 Multiple myeloma in relapse (principal); D70.1 Agranulocytosis secondary to cancer chemotherapy; T45.1X5A Adverse effect of antineoplastic and immunosuppressive drugs, initial encounter; I10 Essential (primary) hypertension; I48.91 Unspecified atrial fibrillation; Z87.01 Personal history of pneumonia (recurrent); Z87.2 Personal history of diseases of the skin and subcutaneous tissue; Z79.899 Other long term (current) drug therapy
CPT/HCPCS: 36415; 80053; 82784; 83883; 84155; 84165; 85025; 99214

== ENCOUNTER 2020-11-01 15:17 | Emergency (ER) | payer MEDICARE, BC, SELFPAY ==
--- NOTE | 2020-11-01 15:24 | CT_ITS ---
WS: [id number] CT HEAD TECHNIQUE: Noncontrast CT of the head obtained from the skullbase to the vertex. CLINICAL INFORMATION: AMS COMPARISON: None. DLP: 915.[address] scans at [facility] use at least one of these dose optimization techniques: automat ed exposure control; mA and/or kV adjustment per patient size (includes targeted exams where dose is matched to clinical indication); or iterative reconstruction. FINDINGS: No evidence of intracranial hemorrhage or mass effect. Ventricular system and basal cisterns are reno nt. Mild small vessel changes with moderate parenchymal volume loss. No extra-axial fluid collections . No evidence of mass or mass effect. Normal dietrich-white differentiation. Intracranial vascular calcif ication. Paranasal sinuses and mastoid air cells are well aerated. .Normal visualized soft tissues. CT/CT head wo con* [id number] IMPRESSION: 1. No evidence of intracranial hemorrhage or mass effect. 2. Mild small vessel changes. Moderate parenchymal volume loss. 3. No acute intracranial findings.
[2020-11-01 15:27] VITALS: BP 109/69; PULSE 63; RESP 18; TEMP 36.4; O2SAT 98; BMI 32.3
--- NOTE | 2020-11-01 20:39 | ED_ITS ---
HPI - Altered Mental Status General: Chief Complaint: Altered Mental Status Stated Complaint: neurological changes/altered mental status Time Seen by Provider: 11/01/20 20:26 Source: family and old records reviewed Mode of arrival: ambulatory Limitations: altered mental status History of Present Illness: HPI narrative: 75-year-old male brought in by his with concerns about his altered mental status. She states that he has been confused and forgetful since Sunday. He has a history of multiple myeloma, recently discontinued chemotherapy. He has chronic pain and takes extended release morphine as well as oxycodone for breakthrough pain. He also takes lorazepam during the day. No reported fever, difficulty breathing, nausea, vomiting or diarrhea. His appetite has been normal. He is not complained of any urinary changes. No vision or balance changes appreciated by his . After talking with his oncologist, she gave him a 3-day course of Cipro in case he had a UTI. He did not have a urinalysis done at that time, was treated empirically. MD complaint: altered mental status and confusion Onset (ago): day(s) Review of Systems General: Reports: 10 or more systems reviewed and unremarkable except in HPI and below and ROS unobtainable due to mental status Const: Denies: fever(s) or chills Eyes: Denies: change in vision ENMT: Denies: odynophagia or disequilibrium Card: Reports: edema, swelling of feet/ankles and orthopnea; Denies: syncope or dyspnea on exertion Resp: Reports: productive cough and wheezing GI: Denies: nausea, vomiting, diarrhea or constipation : Denies: difficulty urinating, dysuria or urinary frequency Musc: Reports: back pain, extremity pain and joint pain Skin/Breast: Reports: rash and changes in skin color; Denies: pruritus, erythema or non-healing lesions Neuro: Reports: confusion, behavioral changes and difficulty communicating thoughts; Denies: headache(s), numbness in extremities, weakness in extremities, lack of coordination, frequent falls, dizziness, vertigo or Slurred speech present Psych: Reports: memory loss Endo: Denies: polyuria, polydipsia or tired all the time Valentino/Lymph: Reports: easy bruising, easy bleeding, petechiae and purpura PFS ED PFSH: Medical History Atrial fibrillation Atrial flutter, paroxysmal Benign essential HTN Chemotherapeutic agent or infusion extravasation Kidney stones Maintenance chemotherapy Nonischemic cardiomyopathy Orthostatic hypotension Peripheral arterial occlusive disease Use of cane as ambulatory aid Uses wearable garment containing external defibrillator with attached monitor Venous insufficiency Surgical History Autologous bone marrow transplantation status History of renal stent Hx of lithotripsy Stem cells transplant status Family History Mother , 86 Cancer breast Father , 65 Cancer prostate Social History Smoking and tobacco status: former smoker Second hand smoke exposure: No Smoking risk assessment/counseling performed?: No Alcohol intake: never Desire information about alcohol rehabilitation?: No Counseling given: No Desire information about substance/drug rehabilitation?: No Counseling given: No Caregiver/support person: No Lives independently: Yes Household members: spouse Housing: House Marital status: service: No Current occupational status: retired History of recent travel: No Current gender identity: Male Physical Exam Const: COMMON NORMALS: alert EXAM LIMITATIONS: altered mental status GENERAL APPEARANCE: cooperative, well kempt, ill appearing, frail appearing and well hydrated; not in distress, not lethargic and not diaphoretic NUTRITIONAL APPEARANCE: obese ORIENTATION/CONSCIOUSNESS: Yes awake, Yes oriented to person and Yes confused; not oriented to time and not lethargic HENMT: COMMON NORMALS: normocephalic and atraumatic HEAD & SCALP: normocephalic and atraumatic FACE & SINUS: normal facial exam and face symmetric Eye: COMMON NORMALS: Equal, round and reactive pupils present, EOMs intact bilaterally, conjunctivae normal and no scleral icterus CONJUNCTIVA: Yes conjunctivae normal PUPIL: Yes Equal, round and reactive pupils present Chest: COMMONS NORMALS: normal inspection of the chest Resp: EFFORT & INSPECTION: Yes able to speak in complete sentences, No respiratory distress, No pursed lip breathing, No stridor and No Actively coughing Cardio: COMMON NORMALS: S1 normal heart sound present and S2 normal heart sound present HEART SOUNDS: S1 normal heart sound present and S2 normal heart sound present BRUITS: no abdominal aortic bruits GI: COMMON NORMALS: Normal to inspection, nondistended, normoactive bowel sounds present, Soft to palpation, non-tender and no masses PALPATION: Yes Soft to palpation Extremity: GENERAL: Yes clubbing, Yes cyanosis and Yes pulses abnormal Neuro: SENSORIUM/ORIENTATION: Yes alert, Yes oriented to person, No oriented to time, Yes Orientation impaired, No lethargic, No somnolent, No obtunded and No stuporous CRANIAL NERVES: Yes CN normal except as noted GAIT: Yes Unable to assess gait MOTOR EXAM: Pronator motor function not present, no tremor noted, no asterixis, Motor fasciculations not present and Normal motor muscle tone present throughout Psych: APPEARANCE: Yes well kempt ACTIVITY/MOTOR BEHAVIOR: Yes appropriate eye contact MOOD & AFFECT: Yes anxious THOUGHT PROCESS: disorganized and Perseverating thought process present MEMORY/COGNITION: Yes memory grossly impaired Skin: GENERAL SKIN EXAM: ecchymosis and purpura (Lower legs, skin changes consistent with severe PVD) Course Vital Signs: Vital signs: Vital Signs Temperature 97.5 F L 11/01/20 15:27 Pulse Rate 72 11/01/20 23:51 Respiratory Rate 18 11/01/20 15:27 Blood Pressure 111/91 11/01/20 22:39 Pulse Oximetry 98 11/01/20 23:51 MDM - Altered Mental Status MDM Narrative: Medical decision making narrative: 75-year-old male with history of multiple myeloma presenting with worsening confusion and memory difficulties over the past week. No fever, not in any respiratory distress. His lab work-up was essentially normal. CT head negative for any acute abnormalities. No recent trauma. His symptoms are most consistent with medication induced delirium. Discussed cutting down on the oxycodone dose for breakthrough pain, giving only 50 mg at a time and spacing it out adequately from lorazepam. If his symptoms persist, he may need an MRI of his brain and further work-up for metastatic disease etc. Follow-up closely with oncology and PCP. Urinalysis did not suggest any acute infection, so antibiotics will not be continued. Covid swab was negative. Differential Diagnosis: Differential diagnosis altered mental status: Likely altered mental status, delirium, dementia, hypoglycemia, hyponatremia, subarachnoid hemorrhage and sepsis Medical Records: Attestation: I reviewed the patient's medical records. Lab Data: Attestation: I reviewed the patient's lab results. Labs: Lab Results 11/01/20 11/01/20 11/01/20 Range/Units 20:36 20:36 20:36 WBC 6.4 (4.0-10.0) 10^3/ uL RBC 4.81 (4.1-5.3) 10^6/u L Hgb 13.8 (11.7-16.6) g/dL Hct 44.2 (42.0-52.0) % MCV 91.9 (80-94) fL MCH 28.7 (28.0-34.0) pg MCHC 31.2 (30.0-36.0) g/dL RDW 17.2 H (12.1-15.1) % Plt Count 205 (130-400) 10^3/c mm MPV 9.5 (7.4-10.4) fL Neut % (Auto) 67.4 % Lymph % (Auto) 16.6 % [place] % (Auto) 13.4 % Eos % (Auto) 1.6 % Baso % (Auto) 0.5 % Neut # (Auto) 4.34 (1.8-7.7) 10^3/u L Lymph # (Auto) 1.1 (0.8-4.8) 10^3/u L [place] # (Auto) 0.9 (0.2-0.9) 10^3/u L Eos # (Auto) 0.1 (0.0-0.8) 10^3/u L Baso # (Auto) 0.0 (0.0-0.1) 10^3/u L Nucleated RBC % (a uto) 0 % Nucleated RBCs # 0.0 /100WBC Specimen Type Sample Site ABG pH (7.35-7.45) ABG pCO2 (35-45) mmHg ABG pO2 (80.0-100.0) mmH g ABG HCO3 (22-26) mmol/L ABG O2 Saturation ABG Base Excess (-2.0-2.0) mmol/ L Jorge L Test A-a O2 Gradient (5-10) mmHg Hematocrit (42-52) % Hgb O2 Saturation (95-100) % Carboxyhemoglobin (0.4-20.1) %THgb Methemoglobin (0.4-1.5) % Total Hemoglobin (14-18) g/dL Ionized Calcium (1.1-1.4) mmol/L O2 Delivery Device Cut Roll Machine Offbearer ID Sodium 139 (136-145) mmol/L Potassium 4.5 (3.5-5.1) mmol/L Chloride 97 L (98-107) mmol/L Carbon Dioxide 29 (22-29) mmol/L Anion Gap 17.5 (5-19) BUN 23 (8-23) mg/dL Creatinine 1.4 H (0.7-1.2) mg/dL GFR Calculation Not Reportable Glucose 119 H (65-115) mg/dL Calculated Osmolal ity 293 (285-295) mOsm/k g Lactate 1.6 (0.5-2.2) mmol/L Calcium 9.9 (8.5-10.5) mg/dL Total Bilirubin 0.6 (0.15-1.2) mg/dL AST 15 (0-40) U/L ALT 16 (0-41) U/L Alkaline Phosphata se 68 (40-130) IU/L Total Protein 6.5 L (6.6-8.7) g/dL Albumin 4.3 (3.5-5.2) g/dL Globulin 2.2 (1.3-4.6) g/dL Urine Color (Yellow) Urine Appearance (CLEAR) Urine pH (5-7) Ur Specific Gravit y (1.005-1.030) Urine Protein (Negative) Urine Glucose (UA) (Normal) Urine Ketones (Negative) Urine Blood (Negative) Urine Nitrate (Negative) Urine Bilirubin (Negative) Urine Urobilinogen (Negative) mg/dL Ur Leukocyte Sury ase (Negative) Urine RBC (0-2) /hpf Urine WBC (0-5) /hpf Ur Squamous Epith Cells (0-5) /hpf Ur Transition Epit h Cell /hpf Ur Renal Epithelia l Cell /hpf Amorphous Sediment Urine Bacteria (NONE) /hpf SARS-CoV-2 Ag (Rap id) (Negative) 11/01/20 11/01/20 11/01/20 Range/Units 20:50 20:50 22:40 WBC (4.0-10.0) 10^3/ uL RBC (4.1-5.3) 10^6/u L Hgb (11.7-16.6) g/dL Hct (42.0-52.0) % MCV (80-94) fL MCH (28.0-34.0) pg MCHC (30.0-36.0) g/dL RDW (12.1-15.1) % Plt Count (130-400) 10^3/c mm MPV (7.4-10.4) fL Neut % (Auto) % Lymph % (Auto) % [place] % (Auto) % Eos % (Auto) % Baso % (Auto) % Neut # (Auto) (1.8-7.7) 10^3/u L Lymph # (Auto) (0.8-4.8) 10^3/u L [place] # (Auto) (0.2-0.9) 10^3/u L Eos # (Auto) (0.0-0.8) 10^3/u L Baso # (Auto) (0.0-0.1) 10^3/u L Nucleated RBC % (a uto) % Nucleated RBCs # /100WBC Specimen Type Arterial Sample Site Brachial, right ABG pH 7.43 (7.35-7.45) ABG pCO2 41.2 (35-45) mmHg ABG pO2 78.3 L (80.0-100.0) mmH g ABG HCO3 27.1 H (22-26) mmol/L ABG O2 Saturation 96.8 ABG Base Excess 2.4 H (-2.0-2.0) mmol/ L Jorge L Test N/a A-a O2 Gradient 2.9 L (5-10) mmHg Hematocrit 42.2 (42-52) % Hgb O2 Saturation 95.8 (95-100) % Carboxyhemoglobin 0.8 (0.4-20.1) %THgb Methemoglobin 0.2 L (0.4-1.5) % Total Hemoglobin 13.8 L (14-18) g/dL Ionized Calcium 1.2 (1.1-1.4) mmol/L O2 Delivery Device None Cut Roll Machine Offbearer ID ellpe Sodium 138.0 (136-145) mmol/L Potassium 4.1 (3.5-5.1) mmol/L Chloride (98-107) mmol/L Carbon Dioxide (22-29) mmol/L Anion Gap (5-19) BUN (8-23) mg/dL Creatinine (0.7-1.2) mg/dL GFR Calculation Glucose 124.0 H (65-115) mg/dL Calculated Osmolal ity (285-295) mOsm/k g Lactate (0.5-2.2) mmol/L Calcium (8.5-10.5) mg/dL Total Bilirubin (0.15-1.2) mg/dL AST (0-40) U/L ALT (0-41) U/L Alkaline Phosphata se (40-130) IU/L Total Protein (6.6-8.7) g/dL Albumin (3.5-5.2) g/dL Globulin (1.3-4.6) g/dL Urine Color Yellow (Yellow) Urine Appearance Hazy A (CLEAR) Urine pH 5 (5-7) Ur Specific Gravit y 1.025 (1.005-1.030) Urine Protein Neg (Negative) Urine Glucose (UA) Norm (Normal) Urine Ketones Negative (Negative) Urine Blood Neg (Negative) Urine Nitrate Negative (Negative) Urine Bilirubin Neg (Negative) Urine Urobilinogen Norm (Negative) mg/dL Ur Leukocyte Sury ase Negative (Negative) Urine RBC None (0-2) /hpf Urine WBC None (0-5) /hpf Ur Squamous Epith Cells None (0-5) /hpf Ur Transition Epit h Cell None /hpf Ur Renal Epithelia l Cell N /hpf Amorphous Sediment Not Reportable Urine Bacteria Trace (NONE) /hpf SARS-CoV-2 Ag (Rap id) Negative (Negative) Discharge Plan Discharge Patient Disposition: Home Clinical Impression: Altered mental status Qualifiers: Altered mental status type: delirium Qualified Code(s): R41.0 - Disorientation, unspecified Condition: Stable Prescriptions: No Action ipratropium-albuterol 0.5 mg-3 mg(2.5 mg base)/3 mL solution for nebulization 3 ml INHALATION Q8H Qty: 180 RF: 0 Pacerone 200 mg tablet 200 mg PO DAILY Qty: 90 RF: 3 furosemide 40 mg tablet 60 mg PO DAILY RF: 0 spironolactone 50 mg tablet 50 mg PO DAILY RF: 0 doxycycline calcium PO RF: 0 potassium chloride 20 mEq tablet extended release 10 meq PO DAILY RF: 0 metoprolol succinate 50 mg tablet extended release 24 hr 75 mg PO DAILY Qty: 135 RF: 3 Entresto 24-26 mg tablet 1 tab PO BID Qty: 60 RF: 2 Xarelto 20 mg tablet 20 mg PO DAILY Qty: 30 RF: 2 trazodone 50 mg Tablet 50 mg PO BEDTIME RF: 0 acyclovir 400 mg tablet 400 mg PO BID RF: 0 oxycodone 15 mg tablet 15 mg PO QID PRN (Reason: Pain) RF: 0 lorazepam 1 mg tablet 1 mg PO BEDTIME PRN (Reason: Anxiety) RF: 0 duloxetine 20 mg capsule,delayed release(DR/EC) 20 mg PO BID RF: 0 budesonide 0.25 mg/2 mL suspension for nebulization 2 ml INHALATION BID Qty: 60 RF: 0 Discharge Orders: Discharge ED (Routine); Ordered 11/01/20 Ordered By: Susana Urena Referrals: Micki Montero, [facility] [employer] [facility] [Primary Care Provider] - Discharge Diet: Usual diet Discharge Activity: Resume usual activity Patient Instructions: Acute Delirium (ED) Activity Restrictions/Additional Instructions: Call to schedule follow-up appointment with your primary care doctor in the next 3 days. Recommend decreasing his oxycodone to half a dose (15mg) twice a day for breakthrough pain only. Also try not to give her lorazepam and the oxycodone within 2 or 3 hours of each other. Return immediately to the ER if you develop fever, difficulty breathing, worsening confusion, vomiting, or any other worsening symptoms. Coding Level of Care Code ED [employer] for Juliette Henry
[2020-11-01] MEDS: sodium chloride 0.9% 1,000 ML 999 ML IV (20:50)
[2020-11-01 20:52] LABS: Basophils % 0.5 %; Eosinophils # 0.1 10^3/uL (0.0-0.8); Eosinophils % 1.6 %; Hematocrit 44.2 % (42.0-52.0); Hemoglobin 13.8 g/dL (11.7-16.6); Lymphocytes # 1.1 10^3/uL (0.8-4.8); Lymphocytes % 16.6 %; Mean Corpuscular HGB Conc 31.2 g/dL (30.0-36.0); Mean Corpuscular Hemoglobin 28.7 pg (28.0-34.0); Mean Corpuscular Volume 91.9 fL (80-94); Mean Platelet Volume 9.5 fL (7.4-10.4); Monocytes # 0.9 10^3/uL (0.2-0.9); Monocytes % 13.4 %; Neutrophils # 4.34 10^3/uL (1.8-7.7); Neutrophils % 67.4 %; Nucleated Red Blood Cells % 0 %; Platelet Count 205 10^3/cmm (130-400); Red Blood Count 4.81 10^6/uL (4.1-5.3); Red Cell Distribution Width 17.2 % (12.1-15.1); White Blood Count 6.4 10^3/uL (4.0-10.0)
[2020-11-01 20:53] VITALS: BP 142/88; PULSE 73; O2SAT 99
[2020-11-01 20:59] LABS: ABG PCO2 41.2 mmHg (35-45); ABG PH Result 7.43 (7.35-7.45); Alveolar-Arterial Oxygen Gradi 2.9 mmHg (5-10); Arterial Blood Gas Hematocrit 42.2 % (42-52); Base Excess ABG 2.4 mmol/L (-2.0-2.0); Blood Gas Sample Site Brachial, right; Blood Gas Sample Type Arterial; Carboxyhemoglobin 0.8 %THgb (0.4-20.1); HCO3 ABG 27.1 mmol/L (22-26); HGB O2 Sat 95.8 % (95-100); Ionized Calcium Level - ABG 1.2 mmol/L (1.1-1.4); Methemoglobin 0.2 % (0.4-1.5); Oxygen Saturation ABG 96.8; PO2 ABG 78.3 mmHg (80.0-100.0); Potassium Level - ABG 4.1 mmol/L (3.5-5.0); Total Hemoglobin 13.8 g/dL (14-18)
[2020-11-01 21:02] LABS: Add Urine Microscopic? YES; Bilirubin Urine Neg (Negative); Blood Urine Neg (Negative); Glucose Urine UA Norm (Normal); Ketones Urine Negative (Negative); Leukocyte Esterase Urine Negative (Negative); Nitrate Urine Negative (Negative); Protein Urine Neg (Negative); Specific Gravity, Urine 1.025 (1.005-1.030); Urine Appearance Hazy (CLEAR); Urine Color Yellow (Yellow); Urobilinogen Urine Norm (Negative); pH Urine 5 (5-7)
[2020-11-01 21:07] LABS: Add Urine Culture? No; Bacteria Urine TRACE /hpf; Renal Epithelial Cells Urine N /hpf
[2020-11-01 21:15] LABS: Alanine Aminotransferase 16 U/L (0-41); Albumin Level 4.3 g/dL (3.5-5.2); Alkaline Phosphatase 68 IU/L (40-130); Anion Gap 17.5 (5-19); Aspartate Amino Transferase 15 U/L (0-40); Blood Urea Nitrogen 23 mg/dL (8-23); Calcium 9.9 mg/dL (8.5-10.5); Carbon Dioxide 29 mmol/L (22-29); Chloride 97 mmol/L (98-107); Globulin 2.2 g/dL (1.3-4.6); Glucose 119 mg/dL (65-115); Lactate (Lactic Acid level) 1.6 mmol/L (0.5-2.2); Osmolality Calculated 293 mOsm/kg (285-295); Potassium 4.5 mmol/L (3.5-5.1); Sodium 139 mmol/L (136-145); Total Bilirubin 0.6 mg/dL (0.15-1.2); Total Protein 6.5 g/dL (6.6-8.7)
[2020-11-01 21:30] VITALS: BP 142/87; PULSE 71; O2SAT 98
[2020-11-01 22:39] VITALS: BP 111/91; PULSE 72; O2SAT 100
[2020-11-01 23:09] LABS: SARS Covid-2 Antigen Negative (Negative)
[2020-11-01 23:51] VITALS: PULSE 72; O2SAT 98
== END 2020-11-01 23:58 | disposition home or self-care (01) ==
PROVIDERS: Emergency Provider Family Medicine; PCP Nurse Practitioner
DX: R41.0 Disorientation, unspecified (principal); I48.91 Unspecified atrial fibrillation; I10 Essential (primary) hypertension; Z92.21 Personal history of antineoplastic chemotherapy; Z87.891 Personal history of nicotine dependence; Z94.81 Bone marrow transplant status; Z94.84 Stem cells transplant status
CPT/HCPCS: 12345; 36600; 70450; 80051; 80053; 81001; 82330; 82805; 83605; 85025; 87426; 96360; 99283; 99291; J7030

== ENCOUNTER 2020-11-10 08:16 | Outpatient (CLI) | payer MEDICARE, BC, SELFPAY ==
[2020-11-10] MEDS: sodium chloride 0.9% 500 ML 999 ML IV (09:00)
[2020-11-10 10:19] LABS: Basophils # 0.1 10^3/uL (0.0-0.1); Basophils % 0.9 %; Eosinophils # 0.1 10^3/uL (0.0-0.8); Eosinophils % 1.5 %; Hematocrit 42.7 % (42.0-52.0); Hemoglobin 13.2 g/dL (11.7-16.6); Lymphocytes # 0.8 10^3/uL (0.8-4.8); Mean Corpuscular HGB Conc 30.9 g/dL (30.0-36.0); Mean Corpuscular Hemoglobin 28.1 pg (28.0-34.0); Mean Corpuscular Volume 90.9 fL (80-94); Mean Platelet Volume 10.1 fL (7.4-10.4); Monocytes # 0.9 10^3/uL (0.2-0.9); Monocytes % 16.8 %; Neutrophils % 65.6 %; Nucleated Red Blood Cells % 0 %; Platelet Count 214 10^3/cmm (130-400); Red Cell Distribution Width 17.1 % (12.1-15.1); White Blood Count 5.5 10^3/uL (4.0-10.0)
[2020-11-10 10:48] LABS: Add Urine Microscopic? NO
[2020-11-10 10:50] LABS: Alanine Aminotransferase 11 U/L (0-41); Albumin Level 3.7 g/dL (3.5-5.2); Alkaline Phosphatase 61 IU/L (40-130); Anion Gap 13.2 (5-19); Aspartate Amino Transferase 13 U/L (0-40); Blood Urea Nitrogen 20 mg/dL (8-23); Calcium 10.7 mg/dL (8.5-10.5); Carbon Dioxide 34 mmol/L (22-29); Chloride 96 mmol/L (98-107); Globulin 2.1 g/dL (1.3-4.6); Glucose 88 mg/dL (65-115); Osmolality Calculated 290 mOsm/kg (285-295); Potassium 4.2 mmol/L (3.5-5.1); Sodium 139 mmol/L (136-145); Thyroid Stimulating Hormone 2.65 uIU/mL (0.27-4.20); Total Bilirubin 0.7 mg/dL (0.15-1.2); Total Protein 5.8 g/dL (6.6-8.7)
[2020-11-10 10:53] LABS: Bilirubin Urine Neg (Negative); Blood Urine Neg (Negative); Glucose Urine UA Norm (Normal); Ketones Urine Negative (Negative); Leukocyte Esterase Urine Negative (Negative); Nitrate Urine Negative (Negative); Protein Urine Neg (Negative); Urine Appearance Clear (CLEAR); Urine Color Yellow (Yellow); Urobilinogen Urine Norm (Negative); pH Urine 5 (5-7)
[2020-11-10 11:11] LABS: Erythrocyte Sedimentation Rate 18 mm/hr (0-10)
[2020-11-10 12:08] LABS: Cortisol Random 13.67 ug/mL (2.47-19.5)
--- NOTE | 2020-11-13 09:28 | ONC FU_ITS ---
Dr. Hernandez Patient Follow-Up Note Patient: Brandon Roberts Unit #: [id number]: 1945 Dicatated By: Brandon Hernandez M.D.Date of Visit:Nov 10, 2020 Onc Med Follow-up/Prog Note Chief Complaint: Multiple myeloma. History of Present Illness: This is a 75 year-old man with IgG kappa myeloma. He had osteopenia and associated vertebral compression fractures at initial presentation in July of 2009. He underwent treatment through the [facility] on the Total Therapy 4 L program. He was felt to be in complete remission following his induction and consolidation treatment, which included tandem autologous stem cell transplants. He completed consolidation treatment in February of 2010. He was then given 3 years of maintenance with Revlimid/Velcade/dexamethasone. He completed treatment in May 2013. He then continued Aredia infusions every 3 months for maintenance of bone health. He was last treated here in December 2015. He had subsequently continued his regular follow-up at the [facility]. As of his visit there in January 2017 he was felt to be in complete remission. He was seen here for a follow-up visit on 03/15/2017. He was having significant pain in his right lower back/pelvic area. His protein electrophoresis studies at that time showed no evidence of recurrence of myeloma, and x-ray showed no evidence of lytic bone disease. He continued on observation/expectant management. I had seen him for a follow-up visit on 11/07/2017. At that point he appeared stable clinically. However, his repeat protein electrophoresis on 01/01/2018 showed evidence of an IgG kappa monoclonal paraprotein quantitating at 0.24 g/dL. The free light chain assay was unremarkable with free kappa light chain of 12.03 mg/L, free lambda light chain of 9.24 mg/L, and kappa/lambda ratio normal at 1.30. His 24-hour urine protein electrophoresis on 01/03/2018 showed no monoclonal protein. Skeletal survey showed right femoral head degenerative subcortical cyst versus myelomatous lesion. Also noted was diffuse marked bone demineralization with multilevel thoracic and lumbar compression fractures and with vertebroplasty changes. There was bilateral hip osteoarthrosis and there were degenerative changes noted in the cervical and lumbar spine. CT of the bony pelvis on 01/15/2018 showed no evidence of osteolytic or osteoblastic change. The right femoral head lucency was felt to most likely represent overlying posterior acetabular subcortical cyst. There was progression of severe right hip osteoarthritic change compared to October 2017 study. With the reappearance of monoclonal protein on the serum protein electrophoresis, he was referred to [facility] for reevaluation. He was seen there on 03/04/2018. His bone marrow aspiration/biopsy showed just 3% plasma cells. It was felt to be morphologically negative for myeloma. However, flow cytometric analysis revealed a plasma cell population with atypical immunophenotype comprising approximately 0.08% of analyzed events. There were no new bone lesions identified on MRI studies. His PET/CT also showed no evidence of active bone lesions. His DEXA scan showed T score -3.8 in the radial diaphysis and -0.8 in the proximal femur. He was advised to continue observation/expectant management for the myeloma. It was also recommended, though, that he start denosumab injections. During subsequent follow-up his M protein continued to increase gradually. As of 12/12/2018 it was up to 1.07 g/dL. He then developed problems associated with kidney stones. He underwent lithotripsy initially on 01/13/2019, and he underwent lithotripsy again along with left ureteral stent placement on 02/07/2019. As of 04/21/2019 the M protein had increased to 2.9 g/dL. The free light chain assay showed elevated kappa light chain at 876 mg/L with lambda light chain 24 mg/L and elevated kappa/lambda ratio at 36.50. There was no monoclonal protein identified in his 24 hour urine specimen. At that point he started treatment with Revlimid in combination with ixazomib and dexamethasone. He did have evidence of response by protein electrophoresis after [address] scans of the cervical, thoracic, lumbar spine on 07/10/2019 showed several small lytic lesions throughout the cervical spine, the largest measuring 10 mm in the C5 vertebral body. There were also degenerative changes, but no severe central canal stenosis. The thoracic spine showed diffuse severe osteopenia with prior vertebral plasty at T5. The lumbar spine also show diffuse osteopenia, prior vertebral plasties from L1-L4, as well as degenerative disc disease with multilevel mild central and subarticular recess stenosis. Also noted were extensive lytic areas of lucency in the sacrum. He continued on treatment with Revlimid/ixazomib/dexamethasone. As of his follow-up visit on 11/13/2019 had developed significant worsening of lower extremity edema, and he continued to have shortness of breath and declining activity tolerance. As such, his treatment was put on hold. On 12/19/2019 he was admitted to the hospital with atrial fibrillation. It was managed medically, he was scheduled for outpatient follow-up with Dr. Haskins. However, on 12/25/2019 he was readmitted to the hospital with increased heart rate and increased shortness of breath. He was found to have cardiomyopathy and acute systolic congestive heart failure. He had a atrial fibrillation/flutter, for which he started treatment with amiodarone. His echocardiogram showed severe left ventricular dysfunction with ejection fraction estimated at 15 to 20%. Following discharge he continued treatment with amiodarone 200 mg daily together with furosemide 60 mg twice daily, metoprolol 50 mg daily, Entresto 24-26 mg daily, and apixaban 5 mg twice daily. His myeloma therapy remained on hold. His repeat serum protein electrophoresis on 02/19/2020 showed stable M protein at 0.6 g/dL. At that point his clinical status also appeared stable, and he continued on observation/expectant management. His repeat echocardiogram on 04/06/2020 showed significant improvement in the LV function with estimated ejection fraction at 50%. As of 05/03/2020 his M protein had increased to 1.1 g/dL. Restaging PET/CT on 05/22/2020 showed new FDG positive lesions in the L5 vertebral body and left sacral ala consistent with recurrent myeloma. With that finding, I had recommended that he continue further treatment with daratumumab in combination with pomalidomide and dexamethasone. He began cycle 1 of daratumumab/pomalidomide/dexamethasone on 06/14/2020 with the daratumumab administered by subcutaneous injection. At that point his M protein had further increased to 1.4 g/dL. He had some transient pulmonary congestion following the initial daratumumab injection. He had no other apparent toxicity. He continued with his week 2 daratumumab on 06/21/2020, and at that point he also continued pomalidomide 4 mg daily. As of 06/28/2020 his treatment was put on hold due to worsening neutropenia. He was then able to proceed with cycle 2 of daratumumab in combination with pomalidomide/dexamethasone on 07/14/2020 with the pomalidomide dosage reduced to 4 mg every other day for 14 days. He was able to tolerate that with acceptable toxicity, though at his follow-up visit on 08/03/2020 his cycle 3 of pomalidomide was again delayed due to neutropenia. At that time he was able to complete his 6h injection of daratumumab on the weekly dosing. He was showing some decline in the M protein, to 0.7 g/dL. As of his follow-up visit on 08/25/2020 he had completed 8 injections of daratumumab at the 1-week dosing schedule. At that point he proceeded with his 3rd cycle of treatment and with the daratumumab administered at a 2-week intervals. Despite the decrease in his M protein, he was having increased pain in his back and hips, and he was showing decline in performance status. He had further evaluation with MRI of the pelvis on 09/07/2020. The most significant finding was edema with serpiginous enhancement involving the right femoral head articular surface compatible with avascular necrosis. There were similar findings in the left hip. An enhancing left sacral ala lesion measuring 12 mm appeared consistent with a myelomatous lesion. An additional tiny enhancing lesion involving the right ilium adjacent to the acetabulum was felt to likely represent additional disease. MRI of the lumbar spine on 09/08/2020 showed significant degenerative changes, but no obvious involvement with myeloma. He continued with cycle 4 of daratumumab/pomalidomide/dexamethasone on 09/22/2020. His M protein at that point had decreased to 0.3 g/dL. At his follow-up visit on he was showing further decline in performance status, and at that point I had opted to put his treatment on hold. His other medical illnesses include hypertension and atrial fibrillation. He had an admission to the hospital for opportunistic pneumonia in August of 2011. He was treated for cellulitis of the left leg in January 2015. He had smoked in the past, but he quit more than 25 years ago. INTERIM HISTORY: On 11/01/2020 he was seen in the emergency room with increased weakness and confusion. His thought he might be having recurrence of urinary tract infection. On evaluation, it was felt that he was most likely experiencing medication induced delirium, and recommendations were made for some changes with his medication regimen. He is seen now for a follow-up visit. He has continued to have generalized weakness and he has continued to have confusion intermittently. His indicates that he is no longer able to get out of bed by himself, and she is having more difficulty caring for him. He has been sleeping a lot, and he falls asleep when he is sitting up. His ECOG score is 3. Appetite has not been good. He has been eating only a little. He has not had fever. He has a little sweaty at times. He has shortness of breath. He does not complain of cough, and he has not been having chest pain. He does not complain of nausea. He has a little bit of acid reflux. Bowel function has been fair. He is having some difficulty voiding. He continues to have pain in his back and hips. His is still been giving him extended release morphine 60 mg every 12 hours together with 30 mg of immediate release oxycodone as needed. He does report having dizziness and lightheadedness, and he has numbness in his feet. Medications: Acyclovir 400 mg (of 400 mg) Tablet Oral b.i.d., Amiodarone HCl 1 Tablet (of 200 mg) Oral daily, Dexamethasone (4 mg) Tablet Oral Take as Directed, DULoxetine HCl 1 Capsule (of 60 mg) Capsule Delayed Release Particles Oral daily, Furosemide 1.5 Tablet (of 40 mg) Oral daily, K-Tab 0.5 Tablet (of 20 meq) Tablet, controlled release Oral daily, LORazepam 1 Tablet (of 1 mg) Oral q 8 hours PRN, Metoprolol Succinate ER 1.5 Tablet (of 50 mg) Tablet SR 24 HR Oral daily, Morphine Sulfate ER 1 Tablet (of 60 mg) Tablet, controlled release Oral q 12 hours, OxyCODONE HCl 1 Tablet (of 30 mg) Oral four times a day PRN, Sacubitril-Valsartan 1 Tablet (of 24-26 mg) Oral b.i.d., Spironolactone 1 Tablet (of 50 mg) Oral daily, TraZODone HCl 1 - 2 (50 mg) Tablet Oral at bedtime, Xarelto 1 Tablet (of 20 mg) Oral daily Allergies: No Known Allergies. Vital Signs: Performed on Nov 10, 2020 08:45 Height - 71.00 in Weight - 228 lbs (LOW) BSA - 2.23 sq.m BMI - 31.80 (HIGH) Temperature - 96.0 F (LOW) Pulse - 65 /min Respiration - 15 /min BP - 94/67 mm(hg) O2 Sat - 96 % Pain - 9 Physical Examination: Constitutional - He appears generally weak and lethargic. He has intermittent myoclonic jerking, Eyes - Sclerae nonicteric. Conjunctivae clear, ENMT - No lesions noted in the oral cavity, Hematologic/Lymphatic - No cervical, clavicular, or axillary adenopathy, Respiratory - Lungs sound clear, Cardiovascular - Heart rhythm is regular. There is no murmur, gallop, or rub noted, Abdomen - Moderately distended. Liver and spleen are not enlarged. There is no abdominal mass or ascites noted and there is no inguinal adenopathy, Extremities - Mild lower extremity edema. He has extensive purpura, Neurologic - He is somewhat lethargic, but he is responding appropriately to questions. He does not appear to have any focal neurologic deficit. Lab/Imaging: Test performed on Nov 10, 2020 10:38 Ua Color Yellow Ua Appearance Clear Ua Glucose Norm Ua Bilirubin Neg Ua Ketones Negative Ua Specific [place] 1.010 Ua Blood Neg Ua pH 5 Ua Protein Neg Ua Nitrites Negative Ua Leukocyte Esterase Negative Test performed on Nov 10, 2020 09:15 Sodium 139 mmol/L TSH 2.65 uIU/mL Potassium 4.2 mmol/L Chloride 96 mmol/L CO2 34 mmol/L Anion Gap 13.2 BUN 20 mg/dL Creatinine 1.5 mg/dL Cr Clearance (Est) 65.2500 mL/min Glucose 88 mg/dL Osmolality - Calculated 290 mOsm/kg Calcium 10.7 mg/dL Protein, Total 5.8 g/dL Albumin 3.7 g/dL Globulin 2.1 g/dL Bilirubin, Total 0.7 mg/dL ALT (SGPT) 11 U/L AST (SGOT) 13 U/L Alkaline Phosphatase 61 IU/L ESR (Sed Rate) 18 mm/hr WBC 5.5 10 3/uL RBC 4.70 10 6/uL HGB 13.2 g/dL HCT 42.7 % MCV 90.9 fL MCH 28.1 pg MCHC 30.9 g/dL RDW 17.1 % Platelet Count 214 10 3/cmm MPV 10.1 fL Neutrophils 3.60 10 3/uL Lymphocytes 0.8 10 3/uL Monocytes 0.9 10 3/uL Eosinophils 0.1 10 3/uL Basophils 0.1 10 3/uL Neutrophil % 65.6 % Lymphocyte % 15.0 % Monocyte % 16.8 % Eosinophil % 1.5 % Basophils % 0.9 % NRBC % 0 % Impression: 1. IgG kappa myeloma, initially diagnosed in July 2009. He had associated osteopenia and multiple vertebral compression fractures. 2. He had complete response to treatment on the total therapy 4L protocol at the [facility]. Treatment included tandem autologous stem cell transplants. He completed his maintenance therapy with Revlimid, Velcade and dexamethasone in May 2013. As of his follow-up visit at [facility] in January 2017, his myeloma was felt to be in complete remission. 3. He first had evidence of relapse in December 2017 with reappearance of an IgG kappa monoclonal spike measuring 0.24 g/dL on serum protein electrophoresis. 4. Hypertension. 5. Cardiomypathy with systolic congestive heart failure. 6. Atrial fibrillation. 7. 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 Plan: 1. Relapsed IgG kappa myeloma. As of April 2019 his M protein had increased to 2.9 g/dL, at which point he then began treatment with lenalidomide, ixazomib, and dexamethasone. He appeared to have a very good response by protein electrophoresis, but his treatment was stopped after 3 cycles due to development of cardiomyopathy and congestive heart failure with LVEF of 15 to 20% by transesophageal echocardiogram. His cardiac function subsequently improved and in June 2020 he began further treatment with daratumumab in combination with pomalidomide and dexamethasone. He has had very good objective response with repeat protein electrophoresis on 10/20/2020 showing M protein level down to 0.2 g/dL. However, at that point his treatment was put on hold due to declining performance status. Despite having stopped treatment, his overall condition has continued to worsen. In the absence of any definite evidence of progression of the myeloma, his treatment will remain on hold. 2. He has decreasing activity tolerance and recent onset of confusion. On evaluation today it does appear likely that at least some component of this is due to side effects from his opiate pain medication. As such, he will stop the extended release morphine. However, as he still has significant pain associated with the vertebral compression fractures and the femoral head avascular necrosis, he will continue the immediate release oxycodone as needed. 3. He also has been showing gradual decline in renal function. It is uncertain to what this may be due to dehydration, to medication, to the underlying myeloma, or to other factors. He will be given IV hydration today and he will return 2 days from now for repeat laboratory studies and additional IV hydration, as indicated. In the meantime, his will also stop his furosemide and his potassium supplement. Signed By: Brandon Hernandez M.D. <<Signature on File>>
== END 2020-11-10 08:17 | disposition home or self-care (01) ==
LOC: ONCMED 08:19
PROVIDERS: PCP Nurse Practitioner; Visit Provider Internal Medicine Medical Oncology
DX: C90.00 Multiple myeloma not having achieved remission (principal); D47.2 Monoclonal gammopathy; I25.5 Ischemic cardiomyopathy; I50.20 Unspecified systolic (congestive) heart failure; I11.0 Hypertensive heart disease with heart failure; I48.91 Unspecified atrial fibrillation; M87.9 Osteonecrosis, unspecified; Z79.52 Long term (current) use of systemic steroids
CPT/HCPCS: 80053; 81003; 82533; 84443; 85025; 85651; 87040; 96361; 96365; 99215; J1100; J7040

== ENCOUNTER 2020-11-12 08:17 | Outpatient (CLI) | payer MEDICARE, BC, SELFPAY ==
[2020-11-12] MEDS: sodium chloride 0.9% 500 ML 999 ML IV (10:30)
[2020-11-12 11:30] LABS: Blood Urea Nitrogen 28 mg/dL (8-23); Calcium 9.9 mg/dL (8.5-10.5); Carbon Dioxide 32 mmol/L (22-29); Chloride 99 mmol/L (98-107); Glucose 103 mg/dL (65-115); Osmolality Calculated 292 mOsm/kg (285-295); Sodium 138 mmol/L (136-145)
== END 2020-11-12 08:18 | disposition home or self-care (01) ==
LOC: ONCMED 08:18
PROVIDERS: PCP Nurse Practitioner; Visit Provider Nurse Practitioner
DX: C90.02 Multiple myeloma in relapse (principal); D70.1 Agranulocytosis secondary to cancer chemotherapy; T45.1X5A Adverse effect of antineoplastic and immunosuppressive drugs, initial encounter
CPT/HCPCS: 80048; 96360; J7040

== ENCOUNTER 2020-11-15 05:57 | Outpatient (CLI) | payer MEDICARE, BC, SELFPAY ==
[2020-11-15] MEDS: sodium chloride 0.9% 500 ML 999 ML IV (12:00)
[2020-11-15 13:12] LABS: Blood Urea Nitrogen 16 mg/dL (8-23); Calcium 8.2 mg/dL (8.5-10.5); Carbon Dioxide 27 mmol/L (22-29); Chloride 105 mmol/L (98-107); Glucose 70 mg/dL (65-115); Osmolality Calculated 288 mOsm/kg (285-295); Sodium 139 mmol/L (136-145)
[2020-11-15 13:16] LABS: Anion Gap 11.2 (5-19); Potassium 4.2 mmol/L (3.5-5.1)
== END 2020-11-15 05:58 | disposition home or self-care (01) ==
LOC: ONCMED 05:58
PROVIDERS: PCP Nurse Practitioner; Visit Provider Nurse Practitioner
DX: C90.02 Multiple myeloma in relapse (principal); D70.1 Agranulocytosis secondary to cancer chemotherapy; T45.1X5A Adverse effect of antineoplastic and immunosuppressive drugs, initial encounter; I10 Essential (primary) hypertension; I48.91 Unspecified atrial fibrillation
CPT/HCPCS: 80048; 96360; J7040

== ENCOUNTER 2021-09-15 16:40 | Emergency (ER) | payer MEDICARE, BC, SELFPAY ==
[2021-09-15 16:48] VITALS: BP 175/89; PULSE 65; RESP 16; TEMP 36.7; O2SAT 96; BMI 35.9
--- NOTE | 2021-09-15 16:58 | XRR_ITS ---
PROCEDURE INFORMATION: Exam: XR Right Elbow Exam date and time: 09/15/2021 4:58 PM Age: 76 years old Clinical indication: Injury or trauma; Fall; Laceration; Elbow; Right TECHNIQUE: Imaging protocol: XR Right elbow. Views: 3 or more views. COMPARISON: CR Humerus RIGHT* [id number] 03/15/2017 1:05 PM FINDINGS: Bones/joints: Normal. Soft tissues: Normal. XR/XR elbow RT min 3V* [id number] IMPRESSION: No acute findings. Radiation Dose CTDIVOL = (mGy): DLP = (mGy-cm)
--- NOTE | 2021-09-15 16:58 | CTR_ITS ---
PROCEDURE INFORMATION: Exam: CT Abdomen And Pelvis Without Contrast Exam date and time: 09/15/2021 4:58 PM Age: 76 years old Clinical indication: Abdominal pain; Flank; Lower; Prior surgery; Surgery type: Appy, litho, kypho, ureteral stents; Patient HX: Low back pain, multiple falls. HX of multiple myeloma; Additional info: Fall flank pain TECHNIQUE: Imaging protocol: Computed tomography of the abdomen and pelvis without contrast. Radiation optimization: All CT scans at this facility use at least one of these dose optimization techniques: automated exposure control; mA and/or kV adjustment per patient size (includes targeted exams where dose is matched to clinical indication); or iterative reconstruction. COMPARISON: MR pelvis wo/w con [id number] 09/07/2020 12:48 PM RADIATION DOSE METRICS: Total DLP (mGy-cm): 6.35 FINDINGS: Limitations: The absence of intravenous contrast lessens the sensitivity of this study for solid organ abnormalities. Tubes, catheters and devices: There is chronic osteoporotic compression and kyphoplasties at L1 through L4 not significantly changed. Lungs: There is some platelike atelectasis in the left lower lobe. Liver: There is no focal abnormality within the liver. Gallbladder and bile ducts: There is evidence of noncalcified gallstones within the gallbladder. Pancreas: The pancreas is normal. Spleen: The spleen demonstrates punctate calcifications, consistent with remote granulomatous organism exposure. Adrenal glands: The adrenal glands are normal. Kidneys and ureters: There are multiple bilateral renal collecting system calcifications. There also some vascular calcifications associated with both kidneys. There are multiple bilateral simple renal cysts and also some renal cysts with associated focal mural calcifications which are mostly unchanged or smaller than on the previous examination. There is a 2.9 cm sized simple cyst lower pole right kidney which is slightly larger than the previous examination when it measured 2 cm. There is a small hyperdense cyst arising from the mid left kidney not significantly changed. There is no evidence of hydronephrosis. There is no stone along the course of either ureter. There is a partly solid 3 cm sized mass arising from the lateral aspect of the upper pole of the left kidney such as an image number 48 which appears larger than on the previous examination. Further evaluation is suggested to exclude malignant lesion. Stomach and bowel: There is no evidence of colitis/diverticulitis. There is no evidence of intestinal obstruction. Appendix: Not identified Intraperitoneal space: There is no evidence of free intraperitoneal fluid. Vasculature: The aorta demonstrates moderate atherosclerotic calcification. There is no evidence of an abdominal aortic aneurysm. Lymph nodes: There is a new 12 mm sized left periaortic node with some minimal adjacent inflammatory stranding in the fat of uncertain significance. There is otherwise no adenopathy. Urinary bladder: Unremarkable as visualized. Reproductive: The prostate gland demonstrates nonspecific parenchymal calcifications. Bones/joints: There is severe osteoarthritis of both hips. The lumbar spine demonstrates marked degenerative changes at multiple levels. There is mild lumbar scoliosis concave to the right not significantly changed. There is multilevel lumbar stenosis. There is a nondisplaced oblique fracture of T10 which extends from mid aspect of the anterior vertebral body surface obliquely through the superior endplate. Please correlate with clinical findings. There is lucent area in the left sacral ala slightly larger than on the previous examination and containing some soft tissue component which may represent some progression of focal myomatous change. Soft tissues: Unremarkable. CT/CT abdomen pelvis wo con [id number] IMPRESSION: 1. Nondisplaced acute appearing fracture T10. 2. Cholelithiasis 3. Question of enlarging mass lesion upper pole left kidney. Further evaluation such as with contrast-enhanced study or MRI suggested. 4. Nephrolithiasis without evidence for ureteral calculus or hydronephrosis. 5. Question of progression of myeloma is lesion in the left sacral ala. 6. Severe osteoarthritis of the hips. This is progressed from the previous examination. 7. Other chronic findings as described above. COMMENTS: Consistent with the [employer]'s Incidental Findings Committee white paper (J Am Stefani Radiol 2018): Any incidental renal lesion less than 1 cm or classified as too small to characterize, or any incidental cystic renal lesion characterized as simple-appearing, is likely benign. No follow-up imaging is recommended for these lesions per consensus recommendations based on imaging criteria. Radiation Dose CTDIVOL = (mGy): DLP = 2096.35 (mGy-cm)
--- NOTE | 2021-09-15 16:59 | ED_ITS ---
Documented by User: Damaso Trinidad MD 09/15/21 18:08 HPI - Fall General: Chief Complaint: Fall Stated Complaint: FALL Time Seen by Provider: 09/15/21 16:52 History of Present Illness: HPI Narrative: 76-year-old male presents due to right flank pain and right elbow pain after mechanical fall. States he was at the store earlier today and tripped. Has a skin tear over his right elbow. Denies any other focal pain. Denies any head trauma headache or neck pain. According to medical chart patient is supposed to be on Xarelto but he states he is only on daily baby aspirin. Denies any focal numbness weakness or tingling. Denies any abdominal or chest pain. Denies any urinary or fecal incontinence or retention. Denies saddle anesthesia. Review of Systems Narrative: - CONSTITUTIONAL: Denies weight loss, fever and chills. - HEENT: Denies changes in vision and hearing. - RESPIRATORY: Denies SOB and cough. - CV: Denies palpitations and CP. - GI: Denies abdominal pain, nausea, vomiting and diarrhea. Reports right flank pain. - : Denies dysuria and urinary frequency. - MSK: Denies myalgia. Reports right elbow pain. - SKIN: Denies rash and pruritus. - NEUROLOGICAL: Denies headache, weakness, numbness and syncope. - PSYCHIATRIC: Denies suicidal ideation [facility] ED PFSH: Medical History (Updated 09/15/21 @ 18:30 by Enriqueta Norman MD) Atrial fibrillation Atrial flutter, paroxysmal Benign essential HTN Chemotherapeutic agent or infusion extravasation Kidney stones Maintenance chemotherapy Nonischemic cardiomyopathy Orthostatic hypotension Peripheral arterial occlusive disease Use of cane as ambulatory aid Uses wearable garment containing external defibrillator with attached monitor Venous insufficiency Surgical History Autologous bone marrow transplantation status History of renal stent Hx of lithotripsy Stem cells transplant status Family History Mother , 86 Cancer breast Father , 65 Cancer prostate Social History Smoking and tobacco status: former smoker Second hand smoke exposure: No Smoking risk assessment/counseling performed?: No Alcohol intake: never Desire information about alcohol rehabilitation?: No Counseling given: No Desire information about substance/drug rehabilitation?: No Counseling given: No Caregiver/support person: No Lives independently: Yes Household members: spouse Housing: House Marital status: service: No Current occupational status: retired History of recent travel: No Current gender identity: Male Physical Exam Narrative: EXAM NARRATIVE: - GENERAL: Alert and oriented x 3. No acute distress. Well-nourished. - EYES: EOMI. Anicteric. - HENT: Atraumatic, no C-spine tenderness. Moist mucous membranes. No scleral icterus. No cervical lymphadenopathy. - LUNGS: Clear to auscultation bilaterally. No accessory muscle use. Equal lung sounds bilaterally. No respiratory distress. - CARDIOVASCULAR: Regular rate and rhythm. No murmur. No JVD. - ABDOMEN: Soft, non-tender and non-distended. Right flank tenderness to palpation with no ecchymosis, no rebound or guarding, negative Pollard sign. No palpable masses. - EXTREMITIES: No edema. skin tear tenderness over right elbow. Extremity was neurovascularly intact. Compartments are soft. No other focal tenderness except as above. - SKIN: No rashes or lesions. Warm. - NEUROLOGIC: No meningismus or focal neurological deficits. CN II-XII grossly intact. - PSYCHIATRIC: Cooperative. Appropriate mood and affect. Course Vital Signs: Vital signs: Vital Signs Temperature 98.1 F 09/15/21 16:48 Pulse Rate 65 09/15/21 16:48 Respiratory Rate 16 09/15/21 16:48 Blood Pressure 175/89 09/15/21 16:48 Pulse Oximetry 96 09/15/21 16:48 MDM - Fall [facility] Narrative: Medical decision making narrative: 76-year-old presents due to right elbow pain right flank pain due to mechanical fall. Denies any prodrome. Denies any pain prior to the fall. Tetanus updated. On his right elbow does have a skin tear does not appear to penetrate the joint capsule. X-ray does not reveal fracture or dislocation. Extremities neurovascularly intact compartments are soft. Tetanus updated. Wound care provided. However skin is very thin and this would not be appropriate for suture placement. CT of the abdomen pelvis is not reveal any fracture or hemorrhage or other acute abnormality. He denies taking Xarelto though he is prescribed this and his confirmed that he is not on Xarelto. Denies any head trauma or any other focal pain. Not believe any other imaging is required. At this time I believe patient would be safe for discharge and outpatient follow-up. Return precautions provided. Plan was reviewed with the patient who expressed understanding. Questions answered. Patient will follow up with PCP. Patient discharged in stable condition. Discharge Plan Discharge Patient Disposition: Home Clinical Impression: Fall, Skin tear, Elbow pain, Fracture, thoracic vertebra Condition: Stable Prescriptions: No Action furosemide 40 mg tablet 40 mg PO QAM RF: 0 spironolactone 50 mg tablet 100 mg PO QAM RF: 0 morphine concentrate 100 mg/5 mL (20 mg/mL) Solution 20 mg PO Q2H PRN (Reason: Pain) RF: 0 morphine 30 mg Tablet Extended Release 30 mg PO Q8H RF: 0 aspirin [Aspir-81] 81 mg Tablet,Delayed Release (Dr/Ec) 81 mg PO QAM RF: 0 naproxen sodium [Aleve] 220 mg Tablet 440 mg PO QAM RF: 0 docusate sodium 250 mg Capsule 500 mg PO .UP TO TWICE A DAY RF: 0 duloxetine [Cymbalta] 60 mg Capsule,Delayed Release(Dr/Ec) 60 mg PO BEDTIME RF: 0 ipratropium-albuterol 0.5 mg-3 mg(2.5 mg base)/3 mL solution for nebulization 3 ml INHALATION Q8H PRN (Reason: Shortness Of Breath) RF: 0 amiodarone [Pacerone] 200 mg tablet 200 mg PO QAM RF: 0 metoprolol succinate 50 mg tablet extended release 24 hr 75 mg PO QAM RF: 0 budesonide 0.25 mg/2 mL suspension for nebulization 2 ml INHALATION BID PRN (Reason: unknown) RF: 0 trazodone 50 mg Tablet 50 mg PO BEDTIME RF: 0 acyclovir 400 mg tablet 400 mg PO BID RF: 0 lorazepam 1 mg tablet 1 mg PO BEDTIME PRN (Reason: Anxiety) RF: 0 Discharge Orders: Discharge ED (Routine); Ordered 09/15/21 Ordered By: Damaso Trinidad Referrals: Micki Montero FNP-C [Primary Care Provider] - 1-3 days Discharge Diet: Advance as tolerated Discharge Activity: Resume usual activity Patient Instructions: Skin Tear (ED), Back Pain (ED), Fall Prevention (ED) Coding Level of Care Code ED Marker Machine Attendant for Chg Fwd Documented by User: nEriqueta Norman MD 09/15/21 18:35 HPI - Fall General: Chief Complaint: Fall Stated Complaint: FALL Time Seen by Provider: 09/15/21 16:52 PFSH ED PFSH: Medical History (Updated 09/15/21 @ 18:30 by Enriqueta Norman MD) Atrial fibrillation Atrial flutter, paroxysmal Benign essential HTN Chemotherapeutic agent or infusion extravasation Kidney stones Maintenance chemotherapy Nonischemic cardiomyopathy Orthostatic hypotension Peripheral arterial occlusive disease Use of cane as ambulatory aid Uses wearable garment containing external defibrillator with attached monitor Venous insufficiency Surgical History Autologous bone marrow transplantation status History of renal stent Hx of lithotripsy Stem cells transplant status Family History Mother , 86 Cancer breast Father , 65 Cancer prostate Social History Smoking and tobacco status: former smoker Second hand smoke exposure: No Smoking risk assessment/counseling performed?: No Alcohol intake: never Desire information about alcohol rehabilitation?: No Counseling given: No Desire information about substance/drug rehabilitation?: No Counseling given: No Caregiver/support person: No Lives independently: Yes Household members: spouse Housing: House Marital status: service: No Current occupational status: retired History of recent travel: No Current gender identity: Male Course Vital Signs: Vital signs: Vital Signs Temperature 98.1 F 09/15/21 16:48 Pulse Rate 65 09/15/21 16:48 Respiratory Rate 16 09/15/21 16:48 Blood Pressure 175/89 09/15/21 16:48 Pulse Oximetry 96 09/15/21 16:48 MDM - Fall MDM Narrative: Medical decision making narrative: Took patient over from other provider to follow-up CT patient does have a T10 fracture no cord compression patient is on the hospice has pain 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 Discharge Plan Discharge Patient Disposition: Home Clinical Impression: Fall, Skin tear, Elbow pain, Fracture, thoracic vertebra Condition: Stable Prescriptions: No Action furosemide 40 mg tablet 40 mg PO QAM RF: 0 spironolactone 50 mg tablet 100 mg PO QAM RF: 0 morphine concentrate 100 mg/5 mL (20 mg/mL) Solution 20 mg PO Q2H PRN (Reason: Pain) RF: 0 morphine 30 mg Tablet Extended Release 30 mg PO Q8H RF: 0 aspirin [Aspir-81] 81 mg Tablet,Delayed Release (Dr/Ec) 81 mg PO QAM RF: 0 naproxen sodium [Aleve] 220 mg Tablet 440 mg PO QAM RF: 0 docusate sodium 250 mg Capsule 500 mg PO .UP TO TWICE A DAY RF: 0 duloxetine [Cymbalta] 60 mg Capsule,Delayed Release(Dr/Ec) 60 mg PO BEDTIME RF: 0 ipratropium-albuterol 0.5 mg-3 mg(2.5 mg base)/3 mL solution for nebulization 3 ml INHALATION Q8H PRN (Reason: Shortness Of Breath) RF: 0 amiodarone [Pacerone] 200 mg tablet 200 mg PO QAM RF: 0 metoprolol succinate 50 mg tablet extended release 24 hr 75 mg PO QAM RF: 0 budesonide 0.25 mg/2 mL suspension for nebulization 2 ml INHALATION BID PRN (Reason: unknown) RF: 0 trazodone 50 mg Tablet 50 mg PO BEDTIME RF: 0 acyclovir 400 mg tablet 400 mg PO BID RF: 0 lorazepam 1 mg tablet 1 mg PO BEDTIME PRN (Reason: Anxiety) RF: 0 Discharge Orders: Discharge ED (Routine); Ordered 09/15/21 Ordered By: Damaso Trinidad Referrals: Micki Montero, [employer]-C [Primary Care Provider] - 1-3 days Discharge Diet: Advance as tolerated Discharge Activity: Resume usual activity Patient Instructions: Skin Tear (ED), Back Pain (ED), Fall Prevention (ED) Coding Level of Care Code ED Marker Machine Attendant for Juliette Henry
[2021-09-15] MEDS: tetanus-diphtheria tox (adult) 0.5 mL SDV IM (18:20)
== END 2021-09-15 19:25 | disposition home or self-care (01) ==
PROVIDERS: Emergency Provider Emergency Medicine; PCP Nurse Practitioner
DX: M25.521 Pain in right elbow (principal); S22.079A Unspecified fracture of T9-T10 vertebra, initial encounter for closed fracture; S51.011A Laceration without foreign body of right elbow, initial encounter; Z79.82 Long term (current) use of aspirin; I10 Essential (primary) hypertension; Z92.21 Personal history of antineoplastic chemotherapy; Z94.81 Bone marrow transplant status; Z94.84 Stem cells transplant status; Z87.891 Personal history of nicotine dependence; W01.0XXA Fall on same level from slipping, tripping and stumbling without subsequent striking against object, initial encounter; Z23 Encounter for immunization
CPT/HCPCS: 73080; 74176; 90471; 90714; 99283

== ENCOUNTER 2021-12-22 06:00 | Outpatient (CLI) | payer OTHER, SELFPAY | END 2021-12-22 06:01 | disposition home or self-care (01) | LOC: LAB 01-29 06:45 | PROVIDERS: PCP Nurse Practitioner; Visit Provider Internal Medicine Medical Oncology | DX: C90.02 Multiple myeloma in relapse (principal) | CPT/HCPCS: 80048 ==

== ENCOUNTER 2022-01-17 10:37 | Outpatient (CLI) | payer OTHER, SELFPAY ==
[2021-12-06 16:18] LABS: Anion Gap 16.8 (5-19); Blood Urea Nitrogen 19 mg/dL (8-23); Calcium 10.8 mg/dL (8.5-10.5); Carbon Dioxide 27 mmol/L (22-29); Chloride 97 mmol/L (98-107); Glucose 135 mg/dL (65-115); Osmolality Calculated 288 mOsm/kg (285-295); Potassium 3.8 mmol/L (3.5-5.1); Sodium 137 mmol/L (136-145)
[2021-12-22 14:05] LABS: Anion Gap 10.4 (5-19); Blood Urea Nitrogen 15 mg/dL (8-23); Calcium 10.8 mg/dL (8.5-10.5); Carbon Dioxide 32 mmol/L (22-29); Chloride 97 mmol/L (98-107); Glucose 128 mg/dL (65-115); Osmolality Calculated 282 mOsm/kg (285-295); Potassium 4.4 mmol/L (3.5-5.1); Sodium 135 mmol/L (136-145)
[2022-01-17 11:27] LABS: Anion Gap 14.2 (5-19); Blood Urea Nitrogen 32 mg/dL (8-23); Calcium 10.5 mg/dL (8.5-10.5); Carbon Dioxide 31 mmol/L (22-29); Chloride 95 mmol/L (98-107); Glucose 148 mg/dL (65-115); Osmolality Calculated 292 mOsm/kg (285-295); Potassium 4.2 mmol/L (3.5-5.1); Sodium 136 mmol/L (136-145)
== END 2022-01-17 10:38 | disposition home or self-care (01) ==
LOC: LAB 10:39
PROVIDERS: PCP Nurse Practitioner; Visit Provider Internal Medicine Medical Oncology
DX: C90.02 Multiple myeloma in relapse (principal)
CPT/HCPCS: 80048